=== PATIENT | female | born 1975 | race Caucasian/White ===

== ENCOUNTER 2018-05-15 07:00 | Day surgery (SDC) | payer OTHER ==
--- NOTE | 2018-05-14 13:56 | RAD REPORT ---
EXAM DESCRIPTION: RAD - Chest Pa And Lat (2 Views) - 05/14/2018 1:08 pm CLINICAL HISTORY: Preop chest, pending cardiac catheterization, history of smoking, history of pre c ervical carcinoma COMPARISON: AP chest December 2015, two view chest December 2010 TECHNIQUE: PA and lateral views of the chest were obtained. FINDINGS: The lungs are clear of a significant failure, infiltrate or mass. A few small granulomas a re present. Patient has a mild baseline prominence of the interstitial markings not clearly different back to 2000 09. Mediastinal and hilar regions show no suspicious findings or interval changes. Tra germán is midline. Heart size is normal and central vasculature is within normal limits. No pleural ef fusion or pneumothorax seen. No acute bony finding noted. No aortic abnormality. IMPRESSION: No acute cardiopulmonary process. No significant change from comparison.
[2018-05-14 15:13] LABS: Absolute Lymphocytes (CBC) 2.3 K/uL (0.7-4.9); Absolute Monocytes 0.5 K/uL (0.1-1.3); Basophils % 0.5 % (0-1.3); Eosinophils % 2.8 % (0-4.4); Hematocrit 44.8 % (36.0-45.0); Lymphocytes % 32.6 % (15.3-44.8); MCH 30.9 pg (27.0-35.0); MPV 8.7 fL (7.6-11.3); Monocytes % 7.3 % (3.3-12.3); RBC Red Blood Cell Count 4.98 M/uL (3.86-4.86)
[2018-05-14 15:27] LABS: Potassium 4.2 mmol/L (3.5-5.1)
[2018-05-14 15:45] LABS: Protime INR 0.92
[~2018-05-15 07:00] MED LIST: HEPA 1000U/500MLS 2,000 UNIT/1,000 ML BAG IV ONE; HEPARIN 5000 UNIT/ML 1 ML VIAL ONE; LIDOCAINE 1% 20 ML MDV ONE
[2018-05-15] MEDS ORDERED: FENTANYL CITR 100 MCG/2 ML ONE ×2 (07:01→08:25)
[2018-05-15] MEDS ORDERED: MIDAZOLAM HCL 2 MG/2 ML INJ ONE ×2 (07:01→07:57)
[2018-05-15] MEDS ORDERED: NITROGLYCERIN/D5W 25 MG/250 ML BTL IV ONE (07:02)
[2018-05-15] MEDS ORDERED: ATROPINE SULF 1 MG/10 ML SYR IV ONE (07:02)
[2018-05-15] MEDS ORDERED: NA CHLORIDE 0.9% 0 ML ONE (07:02)
[2018-05-15] MEDS ORDERED: NICARDIPINE HCL 25 MG/10 ML IV ONE (07:02)
[2018-05-15] MEDS ORDERED: NA CHLORIDE 0.9% 500 ML ONE (07:16)
[2018-05-15 08:05] VITALS: TEMP 98.2
[2018-05-15] MEDS ORDERED: NITROGLYCERIN 0.4 MG/TAB SL ONE (08:25)
--- NOTE | 2018-05-15 09:46 | OP ---
Surgeon: Bharathi Frazier MD Procedures: Left heart catheterization, coronary and left ventricular angiography. Indication: Chest pain with an abnormal stress test. Procedure Findings: The patient has normal coronary arteries and normal ejection fraction. She has a left ventricular outflow tract gradient across her aortic valve. The valve itself probably is not stenotic, but there seems to be a dynamic gradient at least during the heart cath and this is a possi ble cause of the pain that she has. Procedure In Detail: The patient was brought to the cardiac veterinarian laboratory animal care in a fasting state, sedated wit h Versed and fentanyl, prepared and draped in the usual sterile fashion. Right radial artery was use d. The tissues around the right radial artery were anesthetized using 1% lidocaine. The artery was entered using a 21-gauge needle, 0.021-inch guidewire, [employer] 6-Vincentian radial sheath were used. The sheath was flushed. Radial cocktail was given consisting of nicardipine, heparin, and nitroglycerin. We advanced a [employer] TIG catheter to the ascending aorta using a [employer] short radius J-tip Glidewir e, fluoroscopy. We used the same TIG catheter to angiogram the left ventricle, right coronary, and l eft coronary. There were no coronary stenoses. Catheter was withdrawn over a J-wire. Estimated blo od loss 5 mL. No apparent complications from the procedure. KEYLA/ESPERANZA Voice ID: [id number] Report ID: [id number]
[2018-05-15] MEDS: FENTANYL CITR 100 MCG/2 ML ONE ×2 (10:06→10:31)
[2018-05-15 10:10] VITALS: O2SAT 95
[2018-05-15 10:52] VITALS: BP 149/76
== END 2018-05-15 10:40 | disposition home or self-care (01) ==
LOC: CCL 07:00
PROVIDERS: ATTEND Internal Medicine
PROC: 4A023N7 Measurement of Cardiac Sampling and Pressure, Left Heart, Percutaneous Approach (ICD-10-PCS; principal; 2018-05-15)
PROC: B211YZZ Fluoroscopy of Multiple Coronary Arteries using Other Contrast (ICD-10-PCS; 2018-05-15)
PROC: B215YZZ Fluoroscopy of Left Heart using Other Contrast (ICD-10-PCS; 2018-05-15)
DX: I42.2 Other hypertrophic cardiomyopathy (principal); I51.7 Cardiomegaly; J45.909 Unspecified asthma, uncomplicated; E78.5 Hyperlipidemia, unspecified; I10 Essential (primary) hypertension; F17.210 Nicotine dependence, cigarettes, uncomplicated
CPT/HCPCS: 36415; 71046; 80048; 85025; 85610; 85730; 93458; C1893; J0583; J1644; J2250; J3010

== ENCOUNTER 2018-12-11 07:07 | Emergency (ER) | payer OTHER ==
[2018-12-11 07:46] LABS: Absolute Lymphocytes (CBC) 0.8 K/uL (0.7-4.9); Absolute Monocytes 0.7 K/uL (0.1-1.3); Absolute Neutrophil 7.7 K/uL (1.8-8.0); Basophils % 0.3 % (0-1.3); Eosinophils % 1.2 % (0-4.4); Hematocrit 42.7 % (36.0-45.0); Lymphocytes % 8.7 % (15.3-44.8); MPV 7.9 fL (7.6-11.3); Monocytes % 7.1 % (3.3-12.3); RBC Red Blood Cell Count 4.71 M/uL (3.86-4.86)
[2018-12-11] MEDS ORDERED: ASPIRIN 81 MG CHEWABLE TABLET ONE (07:51)
[2018-12-11 08:17] LABS: ALT/SGPT 39 U/L (12-78); AST/SGOT 35 U/L (15-37); Albumin 3.9 g/dL (3.4-5.0); Alkaline Phosphatase 101 U/L (45-117); BUN Blood Urea Nitrogen 11 mg/dL (7-18); Bicarbonate 24 mmol/L (21-32); Bilirubin Direct 0.2 mg/dL (0-0.2); Bilirubin Total 0.5 mg/dL (0.2-1.0); Glucose Level 139 mg/dL (74-106); NT PRO-BNP 31 pg/mL (<125); Potassium 3.9 mmol/L (3.5-5.1); Protein, Total 7.5 g/dL (6.4-8.2); Sodium Level 143 mmol/L (136-145); Troponin (Emerg Dept Use Only) < 0.02 ng/mL (0.0-0.045)
--- NOTE | 2018-12-11 08:51 | RAD REPORT ---
EXAM DESCRIPTION: Sasha Single View12/11/2018 7:30 am CLINICAL HISTORY: Chest pain COMPARISON: April 2016 FINDINGS: The lungs appear clear of acute infiltrate. The heart is normal size IMPRESSION: No acute abnormalities displayed
--- NOTE | 2018-12-11 10:39 | ER ---
Nurse's Notes [facility] Name: Flakita Barton Age: 43 yrs Sex: Female : 1975 Arrival Date: 12/11/2018 Time: 07:08 Bed 13 Private MD: Braxton Muse T Diagnosis: Chest pain, unspecified Presentation: 12/11 07:15 Presenting complaint: Patient states: "I have been having chest pain for 3 weeks now, ca1 but today is the worse". "I've had several cardiac test in the past week and it has all been negative". Transition of care: patient was not received from another setting of care. Onset of symptoms was December 11, 2018. Risk Assessment: Do you want to hurt yourself or someone else? Patient reports no desire to harm self or others. Initial Sepsis Screen: Does the patient meet any 2 criteria? No. Patient's initial sepsis screen is negative. Does the patient have a suspected source of infection? No. Patient's initial sepsis screen is negative. Care prior to arrival: None. 07:15 Method Of Arrival: Wheelchair ca1 07:15 Acuity: TAYO 3 ca1 Triage Assessment: 07:15 General: Appears in no apparent distress. Behavior is calm, cooperative, appropriate ca1 for age. Pain: Complains of pain in anterior aspect of left upper chest and mid-sternal area Pain radiates to back Pain currently is 7 out of 10 on a pain scale. Pain began 1 hour ago. 07:15 Cardiovascular: Heart tones S1 S2 Capillary refill < 3 seconds Rhythm is sinus rhythm. 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 LMP N/A - Hysterectomy ca1 Historical: - Allergies: 07:35 PENICILLINS; ca1 07:35 Codeine; ca1 - Home Meds: 07:35 topiramate 25 mg oral tab 2 tabs at bedtime [Active]; montelukast 10 mg oral tab 1 tab ca1 once daily [Active]; duloxetine 60 mg oral cpDR 1 cap once daily [Active]; Elmiron 100 mg oral cap 1 cap 3 times per day [Active]; rosuvastatin 20 mg oral tab 1 tab at night [Active]; Cartia XT 240 mg Oral cp24 1 cap once daily [Active]; quetiapine 100 mg oral tab [Active]; symbicort [Active]; Pro Air [Active]; - PMHx: 07:35 Hypertrophic Cardiomyopathy; Lung Nodule; Sleep Apnea; ca1 - PSHx: 07:35 Hysterectomy; Appendectomy; Cholecystectomy; Tonsillectomy; Knee surgery; Carpal Tunnel ca1 Repair; c section; leep; DnC; lithrotripsy; - Immunization history:: Flu vaccine is not up to date. - Social history:: Smoking status: Patient/guardian denies using tobacco. - Family history:: not pertinent. - Ebola Screening: : Patient negative for fever greater than or equal to 101.5 degrees Fahrenheit, and additional compatible Ebola Virus Disease symptoms Patient denies exposure to infectious person Patient denies travel to an Ebola-affected area in the 21 days before illness onset No symptoms or risks identified at this time. - Hospitalizations: : No recent hospitalization is reported. Screenin:20 Abuse screen: Denies threats or abuse. Denies injuries from another. Nutritional ca1 screening: No deficits noted. Tuberculosis screening: No symptoms or risk factors identified. Fall Risk None identified. Assessment: 07:20 General: Appears in no apparent distress. Behavior is calm, cooperative, appropriate ca1 for age. Pain: Complains of pain in mid-sternal area and anterior aspect of left upper chest Pain radiates to back Pain currently is 7 out of 10 on a pain scale. Pain began 1 hour ago. Neuro: Level of Consciousness is awake, alert, obeys commands, Oriented to person, place, time, situation. Cardiovascular: Heart tones S1 S2 present Capillary refill < 3 seconds Patient's skin is warm and dry. Rhythm is sinus rhythm. Respiratory: Reports Nasal Congestion Airway is patent Trachea midline Respiratory effort is even, unlabored, Respiratory pattern is regular, symmetrical, Breath sounds are clear bilaterally. GI: Abdomen is round non-distended, Bowel sounds present X 4 quads. Abd is soft and non tender X 4 quads. Reports diarrhea, the previous night. : No signs and/or symptoms were reported regarding the genitourinary system. EENT: No signs and/or symptoms were reported regarding the EENT system. Derm: Skin is intact, is healthy with good turgor, Skin is pink, warm \\T\\ dry. Musculoskeletal: Circulation, motion, and sensation intact. Capillary refill < 3 seconds, Range of motion: intact in all extremities. 08:03 Reassessment: Patient appears in no apparent distress at this time. Patient and/or ca1 family updated on plan of care and expected duration. Pain level reassessed. Patient is alert, oriented x 3, equal unlabored respirations, skin warm/dry/pink. 08:40 Reassessment: Dr. Bunch at bedside. Discussed tests results and instructed on need for ca1 repeat EKG and Trop. 09:26 Reassessment: Patient appears in no apparent distress at this time. Patient and/or ca1 family updated on plan of care and expected duration. Pain level reassessed. Patient is alert, oriented x 3, equal unlabored respirations, skin warm/dry/pink. 10:13 Reassessment: Patient appears in no apparent distress at this time. Patient and/or ca1 family updated on plan of care and expected duration. Pain level reassessed. Patient is alert, oriented x 3, equal unlabored respirations, skin warm/dry/pink. Vital Signs: 07:15 BP 129 / 80; Pulse 71; Resp 18; Temp 98.7; Pulse Ox 100% on R/A; Weight 95.25 kg; ca1 Height 5 ft. 9 in. (175.26 cm); Pain 7/10; 08:03 BP 115 / 77; Pulse 73; Resp 19; Pulse Ox 100% on R/A; ca1 08:45 BP 117 / 75; Pulse 70; Resp 17; Pulse Ox 98% on R/A; ca1 09:30 BP 113 / 71; Pulse 72; Resp 20; Pulse Ox 99% on R/A; ca1 10:13 BP 118 / 72; Pulse 64; Resp 19; Pulse Ox 99% on R/A; ca1 07:15 Body Mass Index 31.01 (95.25 kg, 175.26 cm) ca1 ED Course: 07:08 Patient arrived in ED. rg4 07:08 Braxton Muse MD is Private Physician. rg4 07:09 Carla Ventura RN is Primary Nurse. jl7 07:10 Kirill Bunch MD is Attending Physician. rn 07:15 Arm band placed on right wrist. ca1 07:20 Patient has correct armband on for positive identification. Placed in gown. Bed in low ca1 position. Call light in reach. Side rails up X 1. satellite project site monitor on. Pulse ox on. NIBP on. Warm blanket given. Head of bed elevated. 07:25 Kristen Mendoza, RN is Primary Nurse. ca1 07:25 Patient maintains SpO2 saturation greater than 95% on room air. ca1 07:27 Triage completed. ca1 07:29 X-ray completed. Portable x-ray completed in exam room. Patient tolerated procedure jb2 well. 07:33 EKG done, by supervisor microbiology technologists. reviewed by Kirill Bunch MD. at1 07:35 Inserted saline lock: 20 gauge in right antecubital area, using aseptic technique. ca1 Blood collected. 07:35 Initial lab(s) drawn, by me, sent to lab. ca1 07:38 XRAY Chest (1 view) In Process Unspecified. EDMS 09:41 EKG done, by supervisor microbiology technologists. reviewed by Kirill Bunch MD Repeat EKG. at1 09:43 Repeat lab(s) drawn. by me, sent to lab. ca1 10:37 Braxton Muse MD is Referral Physician. snw 10:48 No provider procedures requiring assistance completed. IV discontinued, intact, ca1 bleeding controlled, No redness/swelling at site. Pressure dressing applied. Administered Medications: 07:40 Drug: Aspirin Chewable Tablet 324 mg Route: PO; ca1 09:42 Follow up: Response: No adverse reaction; Pain is decreased ca1 Outcome: 10:38 Discharge ordered by MD. snw 10:48 Discharged to home ambulatory. ca1 10:48 Condition: stable 10:48 Discharge instructions given to patient, Instructed on discharge instructions, follow up and referral plans. Demonstrated understanding of instructions, follow-up care. 10:58 Patient left the ED. ca1 Signatures: Dispatcher [employer] EDMS Natalie Gunderson, BEAMER HAND-C BEAMER HAND-Csnw Russ Strauss jb2 Kirill Bunch MD MD rn Gonzales, Amanda, qa specialist EKG Tat1 Jacki Padgett rg4 Carla Ventura RN RN jl7 Kristen Mendoza RN RN ca1 Corrections: (The following items were deleted from the chart) 07:44 07:15 BP 129 / 80; Pulse 71bpm; Resp 18bpm; Pulse Ox 100% RA; Temp 98.7F; 95.25 kg; ca1 Height 5 ft. 9 in.; BMI: 31.0; Pain 9/10; ca1 07:52 07:15 Pain: Complains of pain in chest ca1 ca1 10:03 08:45 BP 113 / 71; Pulse 72bpm; Resp 20bpm; Pulse Ox 99% RA; ca1 ca1 :03 09: Reassessment: Patient appears in no apparent distress at this time. Patient ca1 and/or family updated on plan of care and expected duration. Pain level reassessed. Patient is alert, oriented x 3, equal unlabored respirations, skin warm/dry/pink. Awaiting result of repeat Trop. ca1 :03 09: Reassessment: Patient appears in no apparent distress at this time. Patient ca1 and/or family updated on plan of care and expected duration. Pain level reassessed. Patient is alert, oriented x 3, equal unlabored respirations, skin warm/dry/pink. Awaiting result of repeat Trop. ca1
--- NOTE | 2018-12-11 10:39 | EDPHYS ---
Physician Documentation [facility] Name: Flakita Barton Age: 43 yrs Sex: Female : 1975 Arrival Date: 12/11/2018 Time: 07:08 Bed 13 Private MD: Braxton Muse T ED Physician Kirill Bunch HPI: 12/11 07:24 This 43 yrs old Female presents to ER via Unassigned with complaints of Chest rn Pain, High Blood Pressure, Palpitations. 07:24 The patient or guardian reports chest pain that is located primarily in the chest rn diffusely. Onset: 3 week(s) ago. The pain does not radiate. Associated signs and symptoms: Pertinent positives: diaphoresis, palpitations, Pertinent negatives: headache, lightheadedness, near syncope. The chest pain is described as "explosion". Duration: The patient or guardian reports multiple episodes, that are intermittent. Modifying factors: The symptoms are alleviated by nothing. the symptoms are aggravated by nothing. Severity of pain: At its worst the pain was moderate in the emergency department the pain has improved. The patient has experienced similar episodes in the past. Reports diffuse chest pain, feels like "explosion in chest", reports began while doing her makeup. + previous w/u 7 months ago revealed abnormal stress test, ECHO showed hypertrophic cardiomyopathy, and cath was performed, which was negative for blockage, no stent placed. Reports 3 weeks of intermittent pain, today lasted longer, got worried, called her and came in to ER for evaluation.. 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 - Hysterectomy ca1 Historical: - Allergies: 07:35 PENICILLINS; ca1 07:35 Codeine; ca1 - Home Meds: 07:35 topiramate 25 mg oral tab 2 tabs at bedtime [Active]; montelukast 10 mg oral tab 1 tab ca1 once daily [Active]; duloxetine 60 mg oral cpDR 1 cap once daily [Active]; Elmiron 100 mg oral cap 1 cap 3 times per day [Active]; rosuvastatin 20 mg oral tab 1 tab at night [Active]; Cartia XT 240 mg Oral cp24 1 cap once daily [Active]; quetiapine 100 mg oral tab [Active]; symbicort [Active]; Pro Air [Active]; - PMHx: 07:35 Hypertrophic Cardiomyopathy; Lung Nodule; Sleep Apnea; ca1 - PSHx: 07:35 Hysterectomy; Appendectomy; Cholecystectomy; Tonsillectomy; Knee surgery; Carpal Tunnel ca1 Repair; c section; leep; DnC; lithrotripsy; - Immunization history:: Flu vaccine is not up to date. - Social history:: Smoking status: Patient/guardian denies using tobacco. - Family history:: not pertinent. - Ebola Screening: : Patient negative for fever greater than or equal to 101.5 degrees Fahrenheit, and additional compatible Ebola Virus Disease symptoms Patient denies exposure to infectious person Patient denies travel to an Ebola-affected area in the 21 days before illness onset No symptoms or risks identified at this time. - Hospitalizations: : No recent hospitalization is reported. ROS: 07:24 Constitutional: Negative for chills, and weight loss, Eyes: Negative for injury, pain, rn redness, and discharge, Neck: Negative for injury, pain, and swelling, Cardiovascular: Negative for edema Respiratory: Negative for shortness of breath, cough, wheezing, and pleuritic chest pain, Abdomen/GI: Negative for abdominal pain, vomiting, and constipation, + diarrhea MS/Extremity: Negative for injury and deformity, Skin: Negative for injury, rash, and discoloration, Neuro: Negative for headache, weakness, numbness, tingling, and seizure. Exam: 07:24 Constitutional: This is a well developed, well nourished patient who is awake, alert, rn appears anxious Head/Face: Normocephalic, atraumatic. Cardiovascular: Regular rate and rhythm with a normal S1 and S2. No gallops, murmurs, or rubs. No JVD. No pulse deficits. Respiratory: Lungs have equal breath sounds bilaterally, clear to auscultation. No increased work of breathing, no retractions or nasal flaring. Abdomen/GI: soft, non-tender Skin: Warm, dry with normal turgor. Normal color with no rashes, no lesions, and no evidence of cellulitis. MS/ Extremity: Pulses equal, no cyanosis. Neurovascular intact. Full, normal range of motion. Equal circumference. Neuro: Awake and alert, GCS 15, oriented to person, place, time, and situation. Cranial nerves II-XII grossly intact. Motor strength 5/5 in all extremities. Sensory grossly intact. 07:39 ECG was reviewed by the Attending Physician. rn Vital Signs: 07:15 BP 129 / 80; Pulse 71; Resp 18; Temp 98.7; Pulse Ox 100% on R/A; Weight 95.25 kg; ca1 Height 5 ft. 9 in. (175.26 cm); Pain 7/10; 08:03 BP 115 / 77; Pulse 73; Resp 19; Pulse Ox 100% on R/A; ca1 08:45 BP 117 / 75; Pulse 70; Resp 17; Pulse Ox 98% on R/A; ca1 09:30 BP 113 / 71; Pulse 72; Resp 20; Pulse Ox 99% on R/A; ca1 10:13 BP 118 / 72; Pulse 64; Resp 19; Pulse Ox 99% on R/A; ca1 07:15 Body Mass Index 31.01 (95.25 kg, 175.26 cm) ca1 MDM: 07:10 Patient medically screened. rn 10:39 Data reviewed: vital signs, nurses notes. Data interpreted: Pulse oximetry: on room air snw is 99 %. Interpretation: normal. Counseling: I had a detailed discussion with the patient and/or guardian regarding: the historical points, exam findings, and any diagnostic results supporting the discharge/admit diagnosis, lab results, radiology results, the need for outpatient follow up, to return to the emergency department if symptoms worsen or persist or if there are any questions or concerns that arise at home. Special discussion: Based on the patient's history, exam, and Dx evaluation, there is no indication for emergent intervention or inpatient Tx. It is understood by the patient/guardian that if the Sx's persist or worsen they need to return immediately for re-evaluation. Based on the history and exam findings, there is no indication for further emergent testing or inpatient evaluation. I discussed with the patient/guardian the need to see the customer advocacy manager for further evaluation of the symptoms. I discussed with the patient/guardian the need to see the primary care provider for further evaluation of the symptoms. 12/11 07:19 Order name: Basic Metabolic Panel; Complete Time: 08:20 rn 12/11 07:19 Order name: CBC with Diff; Complete Time: 08:08 rn 12/11 07:19 Order name: LFT's; Complete Time: 08:20 rn 12/11 07:19 Order name: NT PRO-BNP; Complete Time: 08:20 rn 12/11 07:19 Order name: Troponin (emerg Dept Use Only); Complete Time: 08:20 rn 12/11 09:31 Order name: Troponin (emerg Dept Use Only); Complete Time: 10:13 ca1 12/11 07:19 Order name: XRAY Chest (1 view); Complete Time: 08:56 rn 12/11 07:19 Order name: EKG; Complete Time: 07:20 rn 12/11 07:19 Order name: Cardiac monitoring; Complete Time: 07:43 rn 12/11 07:19 Order name: EKG - Nurse/Tech; Complete Time: 07:43 rn 12/11 07:19 Order name: IV Saline Lock; Complete Time: 07:43 rn 12/11 07:19 Order name: Labs collected and sent; Complete Time: 07:43 rn 12/11 09:53 Order name: EKG Electrocardiogram; Complete Time: 10:02 EDMS 12/11 07:19 Order name: O2 Per Protocol; Complete Time: 07:43 rn 12/11 07:19 Order name: O2 Sat Monitoring; Complete Time: 07:43 rn 12/11 09:31 Order name: EKG - Nurse/Tech; Complete Time: 09:43 ca1 EC:39 Rate is 72 beats/min. Rhythm is regular. QRS [place] is Normal. IN interval is normal. QRS rn interval is normal. QT interval is normal. No Q waves. T waves are Normal. No ST changes noted. Clinical impression: Normal ECG. Interpreted by me. Administered Medications: 07:40 Drug: Aspirin Chewable Tablet 324 mg Route: PO; ca1 09:42 Follow up: Response: No adverse reaction; Pain is decreased ca1 Disposition: 11:42 Co-signature as Attending Physician, Kirill Bunch MD. rn Disposition: 12/11/18 10:38 Discharged to Home. Impression: Chest pain, unspecified. - Condition is Stable. - Discharge Instructions: Nonspecific Chest Pain. - Work release form, Medication Reconciliation Form, Thank You Letter, Antibiotic Education, Prescription Opioid Use form. - Follow up: Braxton Muse MD; When: 1 - 2 days; Reason: Recheck today's complaints, Continuance of care, Re-evaluation by your physician. Follow up: Emergency Department; When: As needed; Reason: Worsening of condition. Signatures: Dispatcher [employer] EDMD Natalie Gunderson MATERIALS RESEARCH ENGINEER-C MATERIALS RESEARCH ENGINEER-Csnw Kirill Bunch MD MD rn AcobKristen RN RN ca1 Corrections: (The following items were deleted from the chart) 10:58 10:38 12/11/2018 10:38 Discharged to Home. Impression: Chest pain, unspecified. ca1 Condition is Stable. Forms are Medication Reconciliation Form, Thank You Letter, Antibiotic Education, Prescription Opioid Use. Follow up: Braxton Muse; When: 1 - 2 days; Reason: Recheck today's complaints, Continuance of care, Re-evaluation by your physician. Follow up: Emergency Department; When: As needed; Reason: Worsening of condition. snw
[2018-12-11 11:24] VITALS: TEMP 98.7
[2018-12-11 11:28] VITALS: O2SAT 99
[2018-12-11 11:29] VITALS: BP 118/72
--- NOTE | 2018-12-11 19:47 | EKG ---
Test Date: 2018-12-11 Test Time: 09:33:37 Car Seat Upholsterer: BERNARD MEASUREMENT RESULTS: Intervals: Rate: 66 NC: 168 QRSD: 76 QT: 416 QTc: 436 [place]: P: 41 NC: 168 QRS: 36 T: 56 INTERPRETIVE STATEMENTS: Normal sinus rhythm with sinus arrhythmia Normal ECG Compared to ECG 12/11/2018 07:22:51 No significant changes Electronically Signed On 12-11-18 19:45:38 PSYCH ASSISTANT by Long Jackson
--- NOTE | 2018-12-11 19:48 | EKG ---
Test Date: 2018-12-11 Test Time: 07:22:51 [place] Paver: BERNARD MEASUREMENT RESULTS: Intervals: Rate: 72 AK: 168 QRSD: 76 QT: 404 QTc: 442 [place]: P: 53 AK: 168 QRS: 29 T: 49 INTERPRETIVE STATEMENTS: Normal sinus rhythm Normal ECG Compared to ECG 01/14/2016 12:07:52 No significant changes Electronically Signed On 12-11-18 19:45:46 RADIO REPAIRMAN by Long Jackson
== END 2018-12-11 10:58 | disposition home or self-care (01) ==
LOC: ER 07:07
DX: R07.9 Chest pain, unspecified (principal); Z88.5 Allergy status to narcotic agent; Z88.0 Allergy status to penicillin
CPT/HCPCS: 36415; 71045; 80048; 80076; 83880; 84484; 85025; 93005; 99285

== ENCOUNTER 2020-03-22 13:21 | Emergency (ER) | payer OTHER ==
--- OUTSIDE RECORDS SUMMARY | 2020-03-22 13:27 | XMS REPORT | Summary of Care ---
:1975 Author Organization [facility] - [facility] Address [address] [place] [id number] Care Team Providers Name Role Phone Pcp, Does Not Have A Primary Care Provider Reason for Visit Reason Comments Cough Shortness of Breath Sore Throat Fever Other exhusband had direct contact to a positive covid19. Other chest thightness Encounter Details Date Type Department Care Team Description 02/12/2020 Urgent Care [facility] Family Maria T Galvan PA [address] [place] [id number] Fever, unspecified fever cause (Primary Dx); [facility] Acute [facility] Cough; [address] [place] [address] Exposure to SARS-associated coronavirus; [place], [place] Hypertrophic ca rdiomyopathy; [id number] HTN (hypertension), benign; [phone] MVP (mitral geovanny ve prolapse); Chest pain, uns pecified type Allergies Active Allergy Reactions Severity Noted Date Comments Codeine Unknown - See comments 12/21/2016 Penicillins Unknown - See comments 12/21/2016 documented as of this encounter (statuses as of 02/12/2020) Medications Medication Sig Dispensed Refills Start Date End Date Status triamcinolone acetonide APPLY TO RASH BID 1 11/06/20 16 Active 0.1 % cream PRN FOR UP TO TWO WEEKS azithromycin 250 mg 0 10/18/2016 Active tablet QUEtiapine 100 mg 0 12/20/2016 A ctive tablet predniSONE 10 mg tablet 0 10/18/2016 Active fluticasone propionate Use 1 [place] in 16 g 0 02/11/2020 Active 50 mcg/actuation nasal each nostril sprayIndications: Acute daily. URI brompheniramine-pseudoe Take 10 mL by 120 mL 0 02/11/2020 Active phedrine-DM (BROMFED mouth 4 (four) DM) 2-30-10 mg/5 mL times daily as syrupIndications: Acute needed for URI Congestion/Allerg ies. metformin ER 500 mg 24 Take 500 mg by 0 11/16/2019 Active hr tablet mouth 2 (two) times daily. topiramate 100 mg Take 100 mg by 0 01/29/2020 Active tablet mouth at bedtime. CARTIA XT 300 mg 24 hr Take 300 mg by 0 01/12/2020 Active capsule mouth daily. rosuvastatin 20 mg Take 20 mg by 0 01/28/2020 Active tablet mouth daily. AJOVY 225 mg/1.5 mL inject 1.5 mL 0 01/27/2020 Active Syrg under the skin once every month. gabapentin 300 mg 0 12/08/2019 A ctive capsule documented as of this encounter (statuses as of 02/12/2020) Active Problems Problem Noted Date Exposure to SARS-associated coronavirus 02/11/2020 Acute URI 02/11/2020 MVP (mitral valve prolapse) Hypertrophic cardiomyopathy HTN (hypertension), benign DM (diabetes mellitus) documented as of this encounter (statuses as of 02/12/2020) Social History Tobacco Use Types Packs/Day Years Used Date Former Smoker Smokeless Tobacco: Never Used Sex Assigned at Date Recorded Not on file Job Start Date Occupation Industry Not on file Not on file Not on file Travel History Travel Start Travel End No recent travel history available. documented as of this encounter Last Filed Vital Signs Vital Sign Reading Time Taken Comments Blood Pressure 129/75 02/12/2020 10:31 AM CDT Pulse 71 02/12/2020 10:31 AM CDT Temperature 36.6 C (97.8 F) 02/12/2020 10:31 AM CDT Respiratory Rate 20 02/12/2020 10:31 AM CDT Oxygen Saturation 97% 02/12/2020 10:31 AM CDT Inhaled Oxygen Concentration - - Weight 89.4 kg (197 lb) 02/12/2020 10:31 AM CDT Height - - Body Mass Index 29.09 12/21/2016 2:57 PM [employer] documented in this encounter Progress Notes Almaz Dyson MD - 02/12/2020 10:20 AM CDT Family Medicine Clinic Visit Date: 02/12/2020 CC: Cough; Shortness of Breath; Sore Throat; Fever; Other (exhusband had direct contact to a positive covid19.); and Other (chest thightness) HPI: Flakita Barton is a 44 year old female presents sick x 1 week with fever. Exposure to who was exposed to COVID. Has hx of hypertrophic cardiomyopathy, having SOB and Chest pains. CP: Home Medications: Current Outpatient Medications Medication Sig Dispense Refill AJOVY 225 mg/1.5 mL Syrg inject 1.5 mL under the skin once every month. CARTIA XT 300 mg 24 hr capsule Take 300 mg by mouth daily. gabapentin 300 mg capsule metformin ER 500 mg 24 hr tablet Take 500 mg by mouth 2 (two) times daily. rosuvastatin 20 mg tablet Take 20 mg by mouth daily. topiramate 100 mg tablet Take 100 mg by mouth at bedtime. hcrnhvzayxngjkd-gtuvflcamdmdzjk-TE (BROMFED DM) 2-30-10 mg/5 mL syrup Take 10 mL by mouth 4 (four) times daily as needed for Congestion/Allergies. 120 mL 0 fluticasone propionate 50 mcg/actuation nasal spray Use 1 [place] in each nostril daily. 16 g 0 azithromycin 250 mg tablet predniSONE 10 mg tablet QUEtiapine 100 mg tablet triamcinolone acetonide 0.1 % cream APPLY TO RASH BID PRN FOR UP TO TWO WEEKS 1 No current facility-administered medications for this visit. Allergies: Allergies Allergen Reactions Codeine Unknown - See comments Pcn [Penicillins] Unknown - See comments Histories: Past Medical History: Diagnosis Date DM (diabetes mellitus) HTN (hypertension), benign Hypertrophic cardiomyopathy Migraines MVP (mitral valve prolapse) No past surgical history on file. No family history on file. Social History Tobacco Use Smoking status: Former Smoker Smokeless tobacco: Never Used Substance Use Topics Alcohol use: Not on file Drug use: Not on file Review of Systems Constitutional: Positive for activity change, appetite change, fatigue and fever. Respiratory: Positive for cough and shortness of breath. Cardiovascular: Positive for chest pain. BP 129/75 | Pulse 71 | Temp 36.6 C (97.8 F) (Oral) | Resp 20 | Wt 197 lb (89.4 kg) | SpO2 97% | BMI 29.09 kg/m Physical Exam Constitutional: She appears well-developed and well-nourished. No distress. HENT: Head: Normocephalic. Eyes: Pupils are equal, round, and reactive to light. Neck: Normal range of motion. Neck supple. No thyromegaly present. Cardiovascular: Normal rate and regular rhythm. No murmur heard. Pulmonary/Chest: Effort normal and breath sounds normal. No respiratory distress. She has no wheezes. Musculoskeletal: Normal range of motion. She exhibits no edema. Lymphadenopathy: She has no cervical adenopathy. Skin: Skin is warm and dry. No rash noted. Psychiatric: She has a normal mood and affect. Her behavior is normal. Judgment and thought content normal. Nursing note and vitals reviewed. Assessment and Plan: Flakita Barton is a 44 year old female presents for: ICD-10-CM ICD-9-CM 1. Fever, unspecified fever cause R50.9 780.60 2. Cough R05 786.2 3. Exposure to SARS-associated coronavirus Z20.828 V01.82 4. Hypertrophic cardiomyopathy I42.2 425.18 5. HTN (hypertension), benign I10 401.1 6. MVP (mitral valve prolapse) I34.1 424.0 7. Chest pain, unspecified type R07.9 786.50 Chest pain and worsening SOB Possible COVID 19 Risk factors: cardiac, DM, htn Dispo: sent to ER for further eval Orders Placed This Encounter Procedures CORONAVIRUS COVID-19 TESTING Almaz Dyson MD Plan discussed with patient. The patient understands medications, there are not barriers for compliance, there are not side effects, and medications reconciled. Current medications are effective. Counseled patient about appropriate healthy behaviors and home self management. Patient able to explain back the plan and is provided a printed after visit summary (AVS) documenting the visit, pertinent patient instructions and follow-up recommendations. documented in this encounter Plan of Treatment Name Type Priority Associated Diagnoses Order S chedule CORONAVIRUS COVID-19 LAB Routine Fever, unspecified f ever Expected: 02/12/2020, TESTING cause Expires: 02/11/2021 Cough Health Maintenance Due Date Last Done Comments DTaP,Tdap,and Td Vaccines (1 - 1987 Tdap) PAP SMEAR 1997 Breast Cancer Screening 2016 (MAMMOGRAM) INFLUENZA VACCINE (#1) 2019 PNEUMOCOCCAL 0-64 YEARS COMBINED Aged Out No longer eligible based on SERIES patient's age to complete this topic documented as of this encounter Results Not on filedocumented in this encounter Visit Diagnoses Diagnosis Fever, unspecified fever cause - Primary Cough Exposure to SARS-associated coronavirus Hypertrophic cardiomyopathy Other hypertrophic cardiomyopathy HTN (hypertension), benign Essential hypertension, benign MVP (mitral valve prolapse) Mitral valve disorders Chest pain, unspecified type documented in this encounter documented as of this encounter"
--- OUTSIDE RECORDS SUMMARY | 2020-03-22 13:27 | XMS REPORT ---
:1975 Author Organization [facility] t Address [address] [place] [address] Dr. Mata [address] [place] [id number] Care Team Providers Name Role Phone Unavailable Unavailable Unavailable Problems This patient has no known problems. Allergies, Adverse Reactions, Alerts This patient has no known allergies or adverse reactions. Medications This patient has no known medications.
--- OUTSIDE RECORDS SUMMARY | 2020-03-22 13:28 | XMS REPORT | Summary of Care ---
:1975 Author Organization [facility] Address [address] [place] [id number] Care Team Providers Name Role Phone Pcp, Does Not Have A Primary Care Provider Reason for Visit Reason Comments Results Encounter Details Date Type Department Care Team Description 02/13/2020 Telephone [facility] Family Medicine Antwan Skinner MD Results - [address] [facility] [address] [place] [address] [place] [address] [phone] Allergies Active Allergy Reactions Severity Noted Date Comments Codeine Unknown - See comments 12/21/2016 Penicillins Unknown - See comments 12/21/2016 documented as of this encounter (statuses as of 02/14/2020) Medications Medication Sig Dispensed Refills Start Date End Date Status triamcinolone acetonide APPLY TO RASH BID 1 11/06/20 16 Active 0.1 % cream PRN FOR UP TO TWO WEEKS azithromycin 250 mg 0 10/18/2016 Active tablet QUEtiapine 100 mg 0 12/20/2016 A ctive tablet predniSONE 10 mg tablet 0 10/18/2016 Active fluticasone propionate Use 1 [place] in 16 g 0 02/11/2020 Active 50 [...] as of this encounter (statuses as of 02/14/2020) Active Problems Problem Noted Date Exposure to SARS-associated coronavirus 02/11/2020 Acute URI 02/11/2020 MVP (mitral valve prolapse) Hypertrophic cardiomyopathy HTN (hypertension), benign DM (diabetes mellitus) documented as of this encounter (statuses as of 02/14/2020) Social History Tobacco Use Types Packs/Day Years Used Date Former Smoker Smokeless Tobacco: Never Used Sex Assigned at Date Recorded Not on file Job Start Date Occupation Industry Not on file Not on file Not on file Travel History Travel Start Travel End No recent travel history available. documented as of this encounter Last Filed Vital Signs Not on filedocumented in this encounter Plan of Treatment Health Maintenance Due Date Last Done Comments HgA1C 1977 PNEUMOCOCCAL 0-64 YEARS COMBINED SERIES (1 of - 1982 PPSV23) EYE EXAM 1986 LDL-C 1986 URINE MICROALBUMIN 1986 DTaP,Tdap,and Td Vaccines (1 - Tdap) 1987 FOOT EXAM 1994 PAP SMEAR 1997 Breast Cancer Screening (MAMMOGRAM) 2016 INFLUENZA VACCINE (#1) 2019 CREATININE (SERUM) 02/11/2021 02/12/2020 documented as of this encounter Results Not on filedocumented in this encounter Insurance Payer Benefit Plan / Group Subscriber ID Effective Dates Phone Address Type [employer] [facility] [facility] C[facility] [id number] 2015-Present PPO documented as of this encounter
--- OUTSIDE RECORDS SUMMARY | 2020-03-22 13:28 | XMS REPORT | Summary of Care ---
:1975 Author Organization [facility] - [facility] Address [address] [place] [id number] Care Team Providers Name Role Phone Pcp, Does Not Have A Primary Care Provider Reason for Referral Radiology Services (STAT) Status Reason Specialty Diagnoses / Referred By Referred To Procedures Contact Contact New Request Diagnostic Diagnoses Cough Bernard Gomes, Radiology Procedures XR CHEST [address] [place] [address] [place] [address] Reason for Visit Reason Comments Chest wall pain (COVID) Auth/Cert Status Reason Specialty Diagnoses / Referred By Referred To Procedures Contact Contact Emergency Medicine [facility] Em ergency Dept [address] [place] [address] [place] [address] Fax: Encounter Details Date Type Department Care Team Description 02/12/2020 Emergency ADC-Emergency Bernard Gomes MD Cough (Primary Dx); Department [address] [place] [address] Influenza [address] [place] [address] [place] [phone] [place] [address] [phone] Allergies Active Allergy Reactions Severity Noted Date [...] 0 10/18/2016 Active fluticasone propionate Use 1 [place] in 16 g 0 02/11/2020 Active 50 [...] Sign Reading Time Taken Comments Blood Pressure 109/77 02/12/2020 2:05 PM CDT Pulse 67 02/12/2020 2:05 PM CDT Temperature 37.4 C (99.3 F) 02/12/2020 11:10 AM CDT Respiratory Rate 18 02/12/2020 2:05 PM CDT Oxygen Saturation 99% 02/12/2020 2:05 PM CDT Inhaled Oxygen Concentration - - Weight 89.4 kg (197 lb) 02/12/2020 11:10 AM CDT Height - - Body Mass Index 29.09 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 Cough R05 786.2 2. Influenza B J10.1 487.1 NO LIFE-THREATENING FINDINGS ON TODAY'S EXAM. YOUR PRESCRIPTIONS : Check out [employer] for medication discounts Medication List ASK your doctor about these medications AJOVY 225 mg/1.5 mL Syrg Generic drug: fremanezumab-vfrm azithromycin 250 mg tablet Commonly known as: ZITHROMAX zumfxyehysznzyi-fuipfkskswazmwq-ZO 2-30-10 mg/5 mL syrup Commonly known as: BROMFED DM Take 10 mL by mouth 4 (four) times daily as needed for Congestion/Allergies. CARTIA XT 300 mg 24 hr capsule Generic drug: diltiazem fluticasone propionate 50 mcg/actuation nasal spray Use 1 [place] in each nostril daily. gabapentin 300 mg capsule Commonly known as: NEURONTIN metformin ER 500 mg 24 hr tablet Commonly known as: GLUCOPHAGE-XR predniSONE 10 mg tablet Commonly known as: DELTASONE QUEtiapine 100 mg tablet Commonly known as: SEROQUEL rosuvastatin 20 mg tablet Commonly known as: CRESTOR topiramate 100 mg tablet Commonly known as: TOPAMAX triamcinolone acetonide 0.1 % cream Commonly known as: TRIDERM ER precautions and follow up : 1. Return to ER if your symptoms should worsen or fail to improve within 72 hours. 2. The care provided in the emergency room was for acute problems only. 3. You should follow up with your primary care provider within 72 hours. 4. Fill and take all your medications as prescribed. 5. Make sure you are staying adequately hydrated. Busque attencion immediatamente si usted tiene los sitomas sigue, vuelve peor o si hay sitomas nuevas o para cualquiera preoccupacion incluyendo dolor del pecho, falta aire, se siente debile, mas fievre, mas dolor, nausea, vomitando, sangrando que no es normal, confusion, baja or pierdas conciencia. MAY FOLLOW-UP WITH A PROVIDER OF YOUR CHOICE, SUCH : 1. A PHYSICIAN OF YOUR CHOICE 2. [facility], . LOCATIONS IN [facility] 3. [facility], [address], [place]; [phone] OR, IF YOU WISH TO FOLLOW-UP WITHIN THE [facility], MAY TRY THESE OPTIONS (CLINIC APPOINTMENTS AVAILABLE ON [id number] BASIS): 1. SCHEDULE AN APPOINTMENT ONLINE AT [email or web address] 2. OR CALL THE [facility] ACCESS CENTER AT OR 3. OR CALL YOUR [facility] PHYSICIAN'S OFFICE DIRECTLY IF YOU ARE ALREADY AN ESTABLISHED [facility] PATIENT. [facility] RETURN TO WORK / SCHOOL EXCUSE Flakita Barton WAS SEEN IN THE ER AND DISCHARGED 02/12/2020 TODAY, 1:53 PM & May return to Work / School / Incarceration on X with activity as tolerated indicated below. ___The following limitations apply until pt is seen by Physician and cleared to return to normal activity. _X_ Off for two days and return to activity as tolerated at work or school ___ No Sports ___ No work ___ Do not return until fever free for 24 hours. ___ No school BERNARD GOMES Jr., MD [facility] [address] [place] [address] [place] [address] ### The patient may have been given Narcotic pain medications during their stay in the ED that may show up on a Drug Screen. The hospital discharge paper work will identify these medications. AttachmentsThe following attachments cannot be sent through Care Everywhere. (Influenza), The Flu (Belarusian)documented in this encounter Plan of Treatment Name Type Priority Associated Diagnoses Date/Ti me THROAT CULTURE LAB STAT Cough 02/12/2020 11 :58 AM CDT Name Type Priority Associated Diagnoses Order S chedule THROAT CULTURE LAB Routine Cough ONCE for 1 Oc currences starting 02/12/2020 unti l 02/12/2020 Health Maintenance Due Date Last Done Comments HgA1C 1977 PNEUMOCOCCAL 0-64 YEARS COMBINED SERIES (1 of 1 - 1982 PPSV23) CREATININE (SERUM) 1986 EYE EXAM 1986 LDL-C 1986 URINE MICROALBUMIN 1986 DTaP,Tdap,and Td Vaccines (1 - Tdap) 1987 FOOT EXAM 1994 PAP SMEAR 1997 Breast Cancer Screening (MAMMOGRAM) 2016 INFLUENZA VACCINE (#1) 2019 documented as of this encounter Procedures Procedure Name Priority Date/Time Associated Comments Diagnosis XR CHEST 1 VW STAT 02/12/2020 1:29 Cough Results fo r this PM CDT procedure are i n the results section. ADC,CLC OR LCC ONLY - STAT 02/12/2020 11:58 Cough Re sults for this INFLUENZA A & B AM CDT procedure ar e in DIRECT ANTIGEN the results section. RAPID STREP SCREEN STAT 02/12/2020 11:58 Cough Resul ts for this FOR GROUP A AM CDT procedure are i n the results section. CBC WITH DIFFERENTIAL STAT 02/12/2020 11:57 Cough Re sults for this AM CDT procedure are i n the results section. N-TERMINAL PRO-BNP STAT 02/12/2020 11:57 Cough Resul ts for this AM CDT procedure are i n the results section. ACTIVATED PARTIAL STAT 02/12/2020 11:57 Cough Result s for this THRMPLAS JIMMIE AM CDT procedure are i n the results section. PROTHROMBIN TIME / STAT 02/12/2020 11:57 Cough Resul ts for this INR AM CDT procedure are i n the results section. CBC WITH DIFFERENTIAL Routine 02/12/2020 11:57 Cough Re sults for this AM CDT procedure are i n the results section. BASIC METABOLIC PANEL STAT 02/12/2020 11:57 Cough Re sults for this (NA, K, CL, CO2, AM CDT procedure a re in GLUCOSE, BUN, the results CREATININE, CA) section. HEPATIC FUNCTION STAT 02/12/2020 11:57 Cough Results for this PANEL (00877) AM CDT procedure are in (ALB,T.PRO,BILI the results T,BU/BC,ALT,AST,ALK section. PHOS) TROPONIN I STAT 02/12/2020 11:57 Cough Results for this AM CDT procedure are i n the results section. CREATINE KINASE STAT 02/12/2020 11:57 Cough Results for this AM CDT procedure are i n the results section. EKG-12 LEAD STAT 02/12/2020 11:38 AM CDT documented in this encounter Results XR CHEST 1 VW (02/12/2020 1:29 PM CDT) Specimen Narrative Performed At HISTORY: Cough. PACS/VR/DOSE TECHNIQUE: Portable AP view of the chest is obtained. FINDINGS: No acute pneumonia. Minimal congestion noted in the right lower lung. No pneumothorax or pleural effusion detected. Ca rdiac size is within normal limits. CONCLUSIONS: Probable bronchitis. No pneumonia. Procedure Note [facility], Radiant Results Inft User - 2019 1:41 PM CDT HISTORY: Cough. TECHNIQUE: Portable AP view of the chest is obtained. FINDINGS: No acute pneumonia. Minimal co ngestion noted in the right lower lung. No pneumothorax or pleural effusio n detected. Cardiac size is within normal limits. CONCLUSIONS: Probable bronchitis. No pne umonia. Performing Organization Address [facility] Phone Number PACS/VR/DOSE ADC,CLC OR LCC ONLY - INFLUENZA A & B DIRECT ANTIGEN (02/12/2020 11:58 AM CDT) Pathologist Sig nature Influenza A Negative Negative [facility] Influenza B Positive (A) Negative [facility] Specimen Swab - NARE, LEFT SIDE Performing Organization Address [facility] Phone Number [facility] CLIA: [id number], [address] [place], [place] [address] RAPID STREP SCREEN FOR GROUP A (02/12/2020 11:58 AM CDT) Pathologist Sig nature Streptococcus pyogenes Negative Negative [facility] (group A) antigen [facility] Specimen Swab - THROAT Performing Organization Address [facility] Phone Number [facility] CLIA: [id number], [address] [place], [place] [address] CBC WITH DIFFERENTIAL (02/12/2020 11:57 AM CDT) Pathologist Sig nature WBC 5.83 4.30 - 11.10 [facility] 10*3/L [facility]ITAL [facility] RBC 4.69 3.93 - 5.25 [facility] 10*6/L [facility] HGB 14.5 11.6 - 15.0 [facility] g/dL [facility] HCT 41.9 35.7 - 45.2 % [facility] MCV 89.3 80.6 - 95.5 fL [facility] MCH 30.9 25.9 - 32.8 pg [facility] MCHC 34.6 31.6 - 35.1 [facility] g/dL [facility] RDW-SD 38.5 (L) 39.0 - 49.9 fL [facility] RDW-CV 11.9 (L) 12.0 - 15.5 % [facility] PLT 266 166 - 358 [facility] 10*3/L [facility] MPV 10.2 9.5 - 12.9 fL [facility] NRBC/100 WBC 0.0 0.0 - 10.0 /100 [facility] WBCs [facility] NRBC x10^3 <0.01 10*3/L [facility] GRAN MAT (NEUT) % 67.3 % [facility] IMM GRAN % 0.30 % [facility] LYMPH % 21.8 % [facility] MONO % 8.4 % [facility] EOS % 1.7 % [facility] BASO % 0.5 % [facility] GRAN MAT x10^3(ANC) 3.92 1.88 - 7.09 [facility] 10*3/uL HOSPITAL [facility] IMM GRAN x10^3 <0.03 0.00 - 0.06 [facility] 10*3/uL [facility] LYMPH x10^3 1.27 (L) 1.32 - 3.29 [facility] 10*3/uL [facility]ITAL [facility] MONO x10^3 0.49 0.33 - 0.92 [facility] 10*3/uL [facility]ITAL [facility] EOS x10^3 0.10 0.03 - 0.39 [facility] 10*3/uL [facility]ITAL [facility] BASO x10^3 0.03 0.01 - 0.07 [facility] 10*3/uL [facility]ITAL [facility] Specimen Blood - VENOUS Performing Organization Address City/State/Zipcode Phone Number [facility] CLIA: [id number], [address] [place], [place] [address] CREATINE KINASE (02/12/2020 11:57 AM CDT) Pathologist Sig nature CK 35 33 - 194 U/L [facility] Specimen Blood - VENOUS Performing Organization Address [facility] Phone Number [facility] CLIA: [id number], [address] [place] [address] N-TERMINAL PRO-BNP (02/12/2020 11:57 AM CDT) Pathologist Sig nature NT-proBNP 41 <=125 pg/mL [facility] Specimen Blood - VENOUS Narrative Performed At [facility] has been reported to cause a negative [facility] bias, interpret results relative to patient's use of biotin. Performing Organization Address [facility] Phone Number [facility] CLIA: [id number], [address] [place] [address] Prothrombin Time (PT) / INR (02/12/2020 11:57 AM CDT) PROTIME PATIENT 12.5 12.0 - 14.7 [facility] LABORATORY INR 1.0Comment: Normal [facility] INR <1.1; Warfarin [facility] Therapeutic range LABORATORY 2.0 to 3.0 or 2.5 to 3.5, depending upon the indications. Specimen Blood - VENOUS Performing Organization Address [facility] Phone Number [facility] CLIA: [id number], [address] [place] [address] aPTT (02/12/2020 11:57 AM CDT) Pathologist Sig nature APTT Patient 24 23 - 38 Seconds [facility] Specimen Blood - VENOUS Narrative Performed At The [facility] patient population mean normal value [facility] for aPTT is 30 seconds. Performing Organization Address [facility] Phone Number [facility] CLIA: [id number], [address] [place], [place] [address] Troponin I (02/12/2020 11:57 AM CDT) Pathologist Sig [facility] TROPONIN I 0.005 <=0.034 ng/mL [facility] Specimen Blood - VENOUS Narrative Performed At Equal or Less than 0.034 ng/ml---Normal [facility] Note: Cardiac troponin begins to rise 3-4 hours after the onset of ischemia. Repeat in 4-6 hours if the sample was drawn within 3-4 hours of the onset of the symptom and found normal. Between 0.035 and 0.120 ng/mL--- Borderline. Questionable myocardial injury or necros is Note: Serial measurement may be necessary to confirm or exclude the diagnosis of myocardial injury or necrosis; Clinical correlation (symptoms, EKGs, imaging studies, and others) required; Repeat in 4-6 hours if clinically indicated. Equal or Higher than 0.121 ng/mL---Abnormal. Myocardial Injury or Necrosis Likely Biotin has been reported to cause a negative bias, interpret results relative to patient's use of biotin. Performing Organization Address [facility] Phone Number [facility] CLIA: [id number], [address] [place] [address] Hepatic Function Panel (ALB, T.PRO, BILI T, BU/BC, ALT, AST, ALK PHOS) (02/12/2020 11:57 AM CDT) Pathologist [facility] TOTAL BILI 0.3 0.1 - 1.1 mg/dL [facility] BILI UNCON 0.5 0.1 - 1.1 mg/dL [facility] BILI CONJ 0.0 0.0 - 0.3 mg/dL [facility] T PROTEIN 7.4 6.3 - 8.2 g/dL [facility] ALBUMIN 4.5 3.5 - 5.0 g/dL [facility] ALK PHOS 68 34 - 122 U/L [facility] ALTv 28 5 - 35 U/L [facility] AST(SGOT) 36 13 - 40 U/L [facility] Specimen Blood - VENOUS Performing Organization Address [facility] Phone Number [facility] CLIA: [id number], [address] [place] [address] Basic Metabolic Panel (NA, K, CL, CO2, GLUCOSE, BUN, CREATININE, CA) (02/12/2020 11:57 AM CDT) [facility] NA 139 135 - 145 mmol/L [facility] K 4.0 3.5 - 5.0 mmol/L [facility] CL 106 98 - 108 mmol/L [facility] CO2 TOTAL 27 23 - 31 mmol/L [facility] AGAP 6 2 - 16 [facility] BUN 13 7 - 23 mg/dL [facility] GLUCOSE 105 70 - 110 mg/dL [facility] CREATININE 0.79 0.50 - 1.04 [facility] mg/dL [facility] CALCIUM 9.5 8.6 - 10.6 mg/dL [facility] eGFR Calculation 79.4 mL/min/1.73m2 [facility] (Non-) [facility] LABORATOR Y eGFR Calculation 96.3 mL/min/1.73m2 [facility] () [facility] Specimen Blood - VENOUS Narrative Performed At Association of Glomerular Filtration Rate (GFR) [facility] and Staging of Kidney Disease* + + +- + | GFR (mL/min/1.73 m2) | With Kidney Damage | Without Kidney Damage + + +- + | >90 | Stage one | Normal + + +- + | 60-89 | Stage two | Decreased GFR + + +- + | 30-59 | Stage three | Stage three + + +- + | 15-29 | Stage four | Stage four + + +- + | <15 (or dialysis) | Stage five | Stage five + + +- + *Each stage assumes the associated GFR level has been in effect for at least three months. Stages 1 to 5, with or without kidney disease, indicate chronic kidney disease. Notes: Determination of stages one and two (with eGFR >59mL/min/1.73 m2) requires estimation of kidney damage for at least three months as defined by structural or functional abnormalities of the kidney, manifested by either: Pathological abnormalities or Markers of kidney damage (including abnormalities in the composition of the blood or urine or abnormalities in imaging tests). Performing Organization Address City/State/Zipcode Phone Number [facility] CLIA: [id number], [address] [place], [place] [address] documented in this encounter Visit Diagnoses Diagnosis Cough - Primary Influenza B Influenza with other respiratory manifes tations documented in this encounter documented as of this encounter"
[2020-03-22] MEDS ORDERED: PROMETHAZINE INJ 25 MG/ML AMP ONE (15:04)
[2020-03-22] MEDS ORDERED: FENTANYL CITR 100 MCG/2 ML ONE (15:05)
[2020-03-22] MEDS ORDERED: KETOROLAC 30 MG/ML INJ ONE (15:05)
[2020-03-22] MEDS ORDERED: NA CHLORIDE 0.9% 1,000 ML ONE (15:05)
[2020-03-22 15:07] LABS: Basophils % 0.4 % (0-1.3); Hematocrit 44.2 % (36.0-45.0); Lymphocytes % 10.5 % (15.3-44.8); MPV 8.2 fL (7.6-11.3)
[2020-03-22 15:18] LABS: Potassium 4.4 mmol/L (3.5-5.1)
--- NOTE | 2020-03-22 15:24 | RAD REPORT ---
EXAM DESCRIPTION: CT - Stone Protocol - 03/22/2020 3:10 pm CLINICAL HISTORY: ABD PAIN, prior hysterectomy, appendectomy and cholecystectomy COMPARISON: CT ABD PELVIS W CONTRAST dated 02/02/2016 TECHNIQUE: Axial 3 mm thick images were obtained without oral or IV contrast. The [id number] span s the entirety of the system including uppermost abdomen and lung bases. All CT scans are performed using dose optimization technique as appropriate and may include automated exposure control or mA/KV adjustment according to patient size. FINDINGS: Mild right-sided hydronephrosis is present secondary to a 1-2 mm calcification at the righ t UVJ. Stranding is seen adjacent to the right renal capsule and adjacent to the right renal pelvis. No other right-sided calcifications. A 3 millimeter calcification is present lower pole of the left k idney. No left-sided hydronephrosis. No suspicious renal masses. Isodense masses and pyelonephritis a re not excluded on a stone protocol CT scan. No significant adrenal finding. No urinary bladder suspi cious finding. Imaged portions of the liver, spleen and pancreas show no suspicious findings on non-contrast imaging . Cholecystectomy clips are present. No biliary tree dilatation. No suspicious bowel findings. No hernia, mass or bulky lymphadenopathy noted. No free air, free fluid or inflammatory stranding. No significant bony abnormality. IMPRESSION: Mild right-sided hydronephrosis secondary to a 1-2 mm right UVJ calculus. Isodense masses and pyelonephritis are not excluded on stone protocol technique. Additional nonacute findings as detailed above.
--- NOTE | 2020-03-22 15:41 | EDPHYS ---
Physician Documentation [facility] Name: Flakita Barton Age: 44 yrs Sex: Female : 1975 Arrival Date: 03/22/2020 Time: 13:24 Bed 23 Private MD: Braxton Muse T ED Physician Kirill Bunch HPI: 03/22 14:27 This 44 yrs old Female presents to ER via Ambulatory with complaints of snw Abdominal Pain, Back Pain, Nausea/Vomiting. 14:27 The patient presents with abdominal pain right lower quadrant. Onset: The snw symptoms/episode began/occurred suddenly, just prior to arrival. The symptoms radiate to right back. Associated signs and symptoms: Pertinent positives: nausea and vomiting. The symptoms are described as sharp, shooting. Severity of pain: At its worst the pain was severe in the emergency department the pain is unchanged. The patient has experienced similar episodes in the past, 7 yrs ago . The patient has not recently seen a physician. 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 - Social history:: Smoking status: Patient denies any tobacco usage or history of. Patient/guardian denies using alcohol, street drugs, tobacco products. ROS: 14:27 Constitutional: Negative for fever, chills, and weight loss, Eyes: Negative for injury, snw pain, redness, and discharge, ENT: Negative for injury, pain, and discharge, Neck: Negative for injury, pain, and swelling, Cardiovascular: Negative for chest pain, palpitations, and edema, Respiratory: Negative for shortness of breath, cough, wheezing, and pleuritic chest pain, Back: Negative for injury and pain, : Negative for injury, bleeding, discharge, and swelling, MS/Extremity: Negative for injury and deformity, Skin: Negative for injury, rash, and discoloration, Neuro: Negative for headache, weakness, numbness, tingling, and seizure, Psych: Negative for depression, anxiety, suicide ideation, homicidal ideation, and hallucinations. 14:27 Abdomen/GI: Positive for abdominal pain, nausea, vomiting, of the right lower quadrant. Exam: 14:26 Constitutional: This is a well developed, well nourished patient who is awake, alert, snw and in no acute distress. Head/Face: Normocephalic, atraumatic. Eyes: Pupils equal round and reactive to light, extra-ocular motions intact. Lids and lashes normal. Conjunctiva and sclera are non-icteric and not injected. Cornea within normal limits. Periorbital areas with no swelling, redness, or edema. ENT: Nares patent. No nasal discharge, no septal abnormalities noted. Tympanic membranes are normal and external auditory canals are clear. Oropharynx with no redness, swelling, or masses, exudates, or evidence of obstruction, uvula midline. Mucous membranes moist. Neck: Trachea midline, no thyromegaly or masses palpated, and no cervical lymphadenopathy. Supple, full range of motion without nuchal rigidity, or vertebral point tenderness. No Meningismus. Chest/axilla: Normal chest wall appearance and motion. Nontender with no deformity. No lesions are appreciated. Cardiovascular: Regular rate and rhythm with a normal S1 and S2. No gallops, murmurs, or rubs. Normal PMI, no JVD. No pulse deficits. Respiratory: Lungs have equal breath sounds bilaterally, clear to auscultation and percussion. No rales, rhonchi or wheezes noted. No increased work of breathing, no retractions or nasal flaring. Back: No spinal tenderness. No costovertebral tenderness. Full range of motion. Skin: Warm, dry with normal turgor. Normal color with no rashes, no lesions, and no evidence of cellulitis. MS/ Extremity: Pulses equal, no cyanosis. Neurovascular intact. Full, normal range of motion. Neuro: Awake and alert, GCS 15, oriented to person, place, time, and situation. Cranial nerves II-XII grossly intact. Motor strength 5/5 in all extremities. Sensory grossly intact. Cerebellar exam normal. Normal gait. Psych: Awake, alert, with orientation to person, place and time. Behavior, mood, and affect are within normal limits. 14:26 Abdomen/GI: Inspection: abdomen appears normal, Bowel sounds: normal, Palpation: moderate abdominal tenderness, in the right lower quadrant. Vital Signs: 13:32 BP 138 / 99; Pulse 80; Resp 18; Temp 97.2; Pulse Ox 100% ; Pain 10/10; ll1 15:15 BP 133 / 73; Pulse 81; Resp 18; Pulse Ox 100% on R/A; vc 15:57 BP 135 / 75; Pulse 74; Resp 19; Pulse Ox 100% ; vc MDM: 14:23 Patient medically screened. snw 15:42 Data reviewed: vital signs, nurses notes. Data interpreted: Pulse oximetry: on room air snw is 100 %. Interpretation: normal. Counseling: I had a detailed discussion with the patient and/or guardian regarding: the historical points, exam findings, and any diagnostic results supporting the discharge/admit diagnosis, the presence of at least one elevated blood pressure reading (>120/80) during this emergency department visit, lab results, radiology results, the need for outpatient follow up, for definitive care. Response to treatment: the patient's symptoms have markedly improved after treatment. Special discussion: Based on the patient's Hx, exam, and Dx evaluation, there is no indication for emergent surgery or inpatient Tx. It is understood by the patient/guardian that if the Sx's persist or worsen they need to return immediately for re-evaluation. I have referred the patient to see his PCP for further evaluation of high blood pressure. Based on the history and exam findings, there is no indication for further emergent testing or inpatient evaluation. I discussed with the patient/guardian the need to see the primary care provider for further evaluation of the symptoms. I discussed with the patient/guardian the need to see the urologist for further evaluation of the symptoms. 03/22 13:53 Order name: Urine Culture snw 03/22 13:53 Order name: Urine Microscopic Only; Complete Time: 15:50 snw 03/22 14:24 Order name: CT Stone Protocol; Complete Time: 15:31 snw 03/22 14:24 Order name: CBC with Diff; Complete Time: 15:31 snw 03/22 14:24 Order name: Chem 7; Complete Time: 15:31 snw 03/22 15:28 Order name: Urine Dipstick--Ancillary (enter results); Complete Time: 15:50 bd 03/22 13:53 Order name: Urine Dipstick-Ancillary (obtain specimen); Complete Time: 15:35 snw Administered Medications: 15:00 Drug: fentaNYL (PF) 50 mcg Route: IVP; Site: left antecubital; vc 15:56 Follow up: Response: No adverse reaction; Pain is decreased vc 15:00 Drug: TORadol 30 mg Route: IVP; Site: left antecubital; vc 15:56 Follow up: Response: No adverse reaction; Pain is decreased vc 15:00 Drug: Phenergan 12.5 mg Route: IVP; Site: left antecubital; vc 15:55 Follow up: Response: No adverse reaction vc 15:55 Follow up: Response: No adverse reaction; Nausea is decreased vc 15:16 Drug: NS 0.9% 1000 ml Route: IV; Rate: 1 bolus; Site: left antecubital; vc 16:16 Follow up: IV Status: Completed infusion; IV Intake: 700ml vc 15:55 Drug: Magnesium Oxide 400 mg Route: PO; vc 16:16 Follow up: Response: No adverse reaction vc 15:55 Drug: Cipro 500 mg Route: PO; vc 16:16 Follow up: Response: No adverse reaction vc 15:55 Drug: Flomax 0.4 mg Route: PO; vc 16:16 Follow up: Response: No adverse reaction vc Disposition: 16:32 Co-signature as Attending Physician, Kriill Bunch MD. rn Disposition: 03/22/20 15:41 Discharged to Home. Impression: Hydronephrosis with renal and ureteral calculous obstruction. - Condition is Stable. - Discharge Instructions: Kidney Stones, Hydronephrosis, Dietary Guidelines to Help Prevent Kidney Stones, Rehydration, Adult. - Prescriptions for Flomax 0.4 mg Oral Capsule, Sust. Release 24 hr - take 1 capsule by ORAL route once daily 1/2 hour following the same meal each day; 30 capsule. Cipro 500 mg Oral Tablet - take 1 tablet by ORAL route every 12 hours for 7 days; 14 tablet. Diclofenac Sodium 75 mg Oral Tablet Sustained Release - take 1 tablet by ORAL route 2 times per day; 30 tablet. promethazine 25 mg Oral Tablet - take 1 tablet by ORAL route every 6 hours As needed; 20 tablet. - Work release form, Medication Reconciliation Form, Thank You Letter, Antibiotic Education, Prescription Opioid Use form. - Follow up: Emergency Department; When: As needed; Reason: Worsening of condition. Follow up: Braxton Muse MD; When: 5 - 6 days; Reason: Recheck today's complaints, Continuance of care, Re-evaluation by your physician. Signatures: Dispatcher [employer] EDMS Natalie Gunderson, FERTILIZER PROCESSING SUPERVISOR-C FERTILIZER PROCESSING SUPERVISOR-Csnw Kirill Bunch MD MD rn Calcote, Vanessa, RN RN Trena Patel RN RN ll1 Corrections: (The following items were deleted from the chart) 16:23 15:41 03/22/2020 15:41 Discharged to Home. Impression: Hydronephrosis with renal and vc ureteral calculous obstruction. Condition is Stable. Forms are Medication Reconciliation Form, Thank You Letter, Antibiotic Education, Prescription Opioid Use. Follow up: Emergency Department; When: As needed; Reason: Worsening of condition. Follow up: Braxton Muse; When: 5 - 6 days; Reason: Recheck today's complaints, Continuance of care, Re-evaluation by your physician. snw
--- NOTE | 2020-03-22 15:41 | ER ---
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 No ll1 dysuria or fever. Coronavirus screen: Proceed with normal triage. Patient denies a cough. Patient denies shortness of breath or difficulty breathing. Patient denies measured and/or subjective temperature greater than 100.4F prior to today's visit. Patient denies travel on a cruise ship or to a country the [facility] currently lists as an affected area. Patient denies contact with known and/or suspected case of COVID-19. Ebola Screen: Patient denies travel to an Ebola-affected area in the 21 days before illness onset. Initial Sepsis Screen: Does the patient meet any 2 criteria? No. Patient's initial sepsis screen is negative. Does the patient have a suspected source of infection? No. Patient's initial sepsis screen is negative. Risk Assessment: Do you want to hurt yourself or someone else? Patient reports no desire to harm self or others. Onset of symptoms was March 22, 2020. 13:32 Method Of Arrival: Ambulatory ll1 13:32 Acuity: TAYO 3 ll1 Triage Assessment: 14:10 General: Appears in no apparent distress. uncomfortable, ill, Behavior is calm, vc cooperative, appropriate for age. Pain: Complains of pain in right lower quadrant Pain radiates to back. GI: Pt is actively vomiting undigested food, Reports nausea, vomiting. 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 - Social history:: Smoking status: Patient denies any tobacco usage or history of. Patient/guardian denies using alcohol, street drugs, tobacco products. Screenin:10 Abuse screen: Denies threats or abuse. Nutritional screening: No deficits noted. vc Tuberculosis screening: No symptoms or risk factors identified. Fall Risk None identified. Assessment: 14:10 GI: Bowel sounds present X 4 quads. Abd is soft Abdomen is tender to palpation. vc 14:10 General: Appears in no apparent distress. uncomfortable, ill, Behavior is calm, vc cooperative, appropriate for age. Pain: Complains of pain in right lower quadrant Pain radiates to lower back. Neuro: Level of Consciousness is awake, alert, obeys commands, Oriented to person, place, time, situation, none. Cardiovascular: Capillary refill < 3 seconds Patient's skin is warm and dry. Respiratory: Airway is patent Respiratory effort is even, unlabored, Respiratory pattern is regular, symmetrical. : Urine is cloudy, Reports pain in lower back. EENT: No deficits noted. Derm: No signs and/or symptoms reported regarding the dermatologic system. Musculoskeletal: Circulation, motion, and sensation intact. Range of motion: intact in all extremities. 15:10 Reassessment: Patient appears in no apparent distress at this time. Patient and/or vc family updated on plan of care and expected duration. Pain level reassessed. Patient is alert, oriented x 3, equal unlabored respirations, skin warm/dry/pink. Patient states symptoms have not improved. 16:10 Reassessment: Patient appears in no apparent distress at this time. Patient and/or vc family updated on plan of care and expected duration. Pain level reassessed. Patient is alert, oriented x 3, equal unlabored respirations, skin warm/dry/pink. Patient states feeling better. Patient states symptoms have improved. Vital Signs: 13:32 BP 138 / 99; Pulse 80; Resp 18; Temp 97.2; Pulse Ox 100% ; Pain 10/10; ll1 15:15 BP 133 / 73; Pulse 81; Resp 18; Pulse Ox 100% on R/A; vc 15:57 BP 135 / 75; Pulse 74; Resp 19; Pulse Ox 100% ; vc ED Course: 13:24 Patient arrived in ED. am2 13:24 Braxton Muse MD is Private Physician. am2 13:34 Triage completed. ll1 13:35 Arm band placed on Patient notified of wait time. ll1 13:52 Natalie Gunderson [facility]NP-C [facility]. snw 13:52 Kirill Bunch MD is Attending Physician. snw 14:10 Patient has correct armband on for positive identification. Bed in low position. Call vc light in reach. Pulse ox on. NIBP on. 14:22 Leidy Marshall RN is Primary Nurse. vc 14:55 Inserted saline lock: 20 gauge in left antecubital area, using aseptic technique. Blood vc collected. 15:11 CT Stone Protocol In Process Unspecified. EDMS 15:40 Braxton Muse MD is Referral Physician. snw 16:15 No provider procedures requiring assistance completed. IV discontinued, intact, vc bleeding controlled, No redness/swelling at site. Pressure dressing applied. Administered Medications: 15:00 Drug: fentaNYL (PF) 50 mcg Route: IVP; Site: left antecubital; vc 15:56 Follow up: Response: No adverse reaction; Pain is decreased vc 15:00 Drug: TORadol 30 mg Route: IVP; Site: left antecubital; vc 15:56 Follow up: Response: No adverse reaction; Pain is decreased vc 15:00 Drug: Phenergan 12.5 mg Route: IVP; Site: left antecubital; vc 15:55 Follow up: Response: No adverse reaction vc 15:55 Follow up: Response: No adverse reaction; Nausea is decreased vc 15:16 Drug: NS 0.9% 1000 ml Route: IV; Rate: 1 bolus; Site: left antecubital; vc 16:16 Follow up: IV Status: Completed infusion; IV Intake: 700ml vc 15:55 Drug: Magnesium Oxide 400 mg Route: PO; vc 16:16 Follow up: Response: No adverse reaction vc 15:55 Drug: Cipro 500 mg Route: PO; vc 16:16 Follow up: Response: No adverse reaction vc 15:55 Drug: Flomax 0.4 mg Route: PO; vc 16:16 Follow up: Response: No adverse reaction vc Intake: 16:16 IV: 700ml; Total: 700ml. vc Outcome: 15:41 Discharge ordered by . snw 16:15 Discharged to home ambulatory. vc 16:15 Condition: improved 16:15 Discharge instructions given to patient, Instructed on discharge instructions, follow up and referral plans. no drinking with medication, no driving heavy equipment, medication usage, Demonstrated understanding of instructions, follow-up care, medications, Prescriptions given X 4. 16:23 Patient left the ED. Signatures: Dispatcher [employer] EDMS Natalie Gunderson, KATH-C LOAN ASSOCIATE-[place] Tereza Roberts Vanessa, RN RN vc Lewis, Lynsay, RN RN ll1
[2020-03-22 15:43] LABS: Urine Amorphous Sediment 2+ /HPF (NONE SEEN); Urine Bacteria <20 /HPF (<20); Urine Culture Reflex Order NOT NEEDED; Urine Mucus 2+ /HPF (NONE SEEN)
[2020-03-22 15:44] LABS: Urine Blood TRACE (NEG); Urine Glucose NEGATIVE (NEG); Urine Protein NEGATIVE (NEG); Urine Specific Gravity 1.025 (1.005-1.030); Urine pH 8.5 (5.0-7.0)
[2020-03-22] MEDS ORDERED: TAMSULOSIN 0.4 MG SR CAP ONE (15:58)
[2020-03-22] MEDS ORDERED: CIPROFLOXACIN HCL 500 MG TAB ONE (15:58)
[2020-03-22] MEDS ORDERED: MAGNESIUM OXIDE 400 MG TAB ONE (15:59)
[2020-03-22 17:07] VITALS: TEMP 97.2; O2SAT 100
[2020-03-22 17:10] VITALS: BP 135/75
== END 2020-03-22 16:23 | disposition home or self-care (01) ==
LOC: ER 13:21
DX: N13.2 Hydronephrosis with renal and ureteral calculous obstruction (principal); Z88.0 Allergy status to penicillin; Z88.2 Allergy status to sulfonamides; Z88.5 Allergy status to narcotic agent; Z87.442 Personal history of urinary calculi
CPT/HCPCS: 87088; 85025; 87086; 80048; 36415; 76377; 74176; J2550; J3010; J7030; 81003; 81015; 96361; 96374; 96375; 99284

== ENCOUNTER → 2021-02-11 | Day surgery (SDC) | payer BC ==
--- NOTE | 2021-02-11 12:46 | RAD REPORT ---
EXAM DESCRIPTION: Ultrasound-guided vacuum assisted left breast core biopsy CLINICAL HISTORY: Breast mass R92.8 COMPARISON: No comparisons FINDINGS: Informed consent was obtained and time-out was performed. The patient's left breast was prepped and draped in the usual sterile fashion. 1% lidocaine was used for local anesthetic purposes. Utilizing aseptic technique and ultrasound guidance, a 12 gauge vacuum assisted core biopsy device wa s used to obtain two core specimens through the mass of interest left breast 3 o'clock position. A po st biopsy clip was then placed. All collected material was sent for cytology. Patient tolerated procedure well. IMPRESSION: Successful ultrasound guided vacuum assisted left breast mass biopsy.
--- NOTE | 2021-02-11 17:16 | RAD REPORT ---
EXAM DESCRIPTION: MRI - Brain Wo Cont - 02/11/2021 4:54 pm CLINICAL HISTORY: G43.709; I26.99; H81.10 COMPARISON: 2006 TECHNIQUE: Axial, sagittal, and coronal magnetic images of the brain were obtained. Contrast was not requested FINDINGS: No abnormal signal is present within the brain. Diffusion-weighted/ADC mapping does not reveal evidence of acute infarction. The ventricles are normal caliber. An extra-axial fluid collection is not present Fluid within the sinuses/mastoids is not noted. Mucous retention cyst left maxillary sinus IMPRESSION: No acute abnormality is displayed
== END ==
LOC: DS 09:47
PROVIDERS: ATTEND Internal Medicine
DX: R92.8 Other abnormal and inconclusive findings on diagnostic imaging of breast (principal); G43.709 Chronic migraine without aura, not intractable, without status migrainosus; I26.99 Other pulmonary embolism without acute cor pulmonale; H81.10 Benign paroxysmal vertigo, unspecified ear
CPT/HCPCS: 19083; 70551; 88305

== ENCOUNTER 2021-02-15 09:53 | Emergency (ER) | payer BC ==
--- OUTSIDE RECORDS SUMMARY | 2021-02-15 09:56 | XMS REPORT | Continuity of Care Document ---
:1975 Author Organization [facility] t Address [address] [place] [address] Care Team Providers Name Role Phone Lester Lentz Attending Clinician Moises Attending Clinician Miroslava Bridges DO Attending Clinician Seble SINGH Attending Clinician Radiology Attending Clinician Unavailable Ralph SINGH Attending Clinician Conor SINGH Attending Clinician Po, [facility] Attending Clinician Unavailable Seble SINGH Admitting Clinician Problems Condition Condition Condition Status Onset Resolution Last Treating Co mments Source Name Details Category Date Date Treatment Clinician Date Finding of Problem Active 2021-01-27 emoria body mass 01:29:49 l index Finding [place] (finding) of body mass index (finding) Active Problem 01/27/2021 [facility] Hypertensi Problem Active 2021-01-27 M emoria ve 01:29:49 l disorder, [place] systemic Hypertensi arterial ve (disorder) disorder, systemic arterial (disorder) Active Problem 01/27/2021 [facility] Hyperlipid Problem Active 2021-01-27 M emoria emia 01:29:49 l (disorder) [place] Hyperlipid emia (disorder) Active Problem 01/27/2021 [facility] Hypertroph Problem Active 2021-01-27 M emoria ic 01:29:49 l cardiomyop [place] athy Hypertroph (disorder) ic cardiomyop athy (disorder) Active Problem 01/27/2021 [facility] Hypothyroi Problem Active 2021-01-27 M emoria dism 01:29:49 l (disorder) [place] Hypothyroi dism (disorder) Active Problem 01/27/2021 [facility] Migraine Problem Active 2021-01-27 Mem oria (disorder) 01:29:49 l Migraine [place] (disorder) Active Problem 01/27/2021 [facility] Diabetes Problem Active 2021-01-27 Mem oria mellitus 01:29:49 l type 2 Diabetes [place] (disorder) mellitus type 2 (disorder) Active Problem 01/27/2021 Automatic ally added by Discern Expert with order of Add Problem Diabetes Type II on January 02, 2020 17:45:56 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 [facility] Steatosis Problem Active 2021-01-27 Me moria of liver 01:29:49 l (disorder) [place] Steatosis of liver (disorder) Active Problem 01/27/2021 [facility] Transforme Problem Active 2021-01-27 M emoria d migraine 01:29:49 l (disorder) [place] Transforme d migraine (disorder) Active Problem 01/27/2021 [facility] Benign Problem Active 2021-01-27 Memor ia paroxysmal 01:29:49 l positional Benign Herm silvia vertigo paroxysmal (disorder) positional vertigo (disorder) Active Problem 01/27/2021 [facility] Pulmonary Problem Active 2021-01-27 Me moria embolism 01:29:49 l (disorder) [place] n Pulmonary embolism (disorder) Active Problem 01/27/2021 [facility] Allergies, Adverse Reactions, Alerts Allergy Allergy Status Severity Reaction(s) Onset Inactive Treating Comm ents Source Name Type Date Date Clinician penicill penicill Active Memori a ins ins l [place] codeine codeine Active Memoria amor Sung naproxen naproxen Active Memori a amor Sung Dilaudid Dilaudid Active Memori a amor Sung Social History Smoking Status Start Date Stop Date Source Social History 2021-01-24 15:42:18 2021-01-24 15:42:18 [facility] Medications Ordered Filled Start Stop Current Ordering Indication Dosage Frequency Signature Comments Components Source Medication Medication Date Date Medication? Clinician (SIG) Name Name DULoxetine Yes 30 mg = 1 Me moria 30 mg oral 3-08 cap, PO, l delayed 17:50: Daily, # [place] n release 00 30 cap, 3 capsule Refill(s), Pharmacy: [facility] #[id number], 172.72, cm, 01/24/21 11:24:00 WOOL MERCHANT, Height, 101.364, kg, 01/24/21 11:24:00 WOOL MERCHANT, Weight apixaban 5 Yes 5 mg, PO, Me moria MG Oral 3-08 BID, tab, l Tablet 17:28: 0 [place] [Eliquis] 00 Refill(s) topiramate Yes See Memoria 100 mg oral 1-05 Instructio l tablet 14:53: ns, TAKE Pineda 00 ONE TABLET BY MOUTH AT BEDTIME, # 30 tab, 3 Refill(s), Pharmacy: [facility] [id number], 172.72, cm, 10/11/20 9:40:00 WOOL MERCHANT, Height, 100.455, kg, 10/11/20 9:40:00 WOOL MERCHANT, Weight meclizine 2019-11 Yes 25 mg = 1 Mem oria 25 mg oral 1-24 tab, PO, l tablet 19:20: BID, PRN Pineda 00 Dizziness, X 30 day, # 30 tab, 1 Refill(s), Pharmacy: [facility] #[id number], 172.72, cm, 10/11/20 9:40:00 WOOL MERCHANT, Height, 100.455, kg, 10/11/20 9:40:00 WOOL MERCHANT, Weight 1.5 ML 2019-11 Yes See Memoria fremanezuma 1-23 Instructio l b-vfrm 150 16:12: ns, INJECT H ermann MG/ML 00 1 Prefilled PREFILLED Syringe SYRINGE [Ajovy] UNDER THE SKIN MONTHLY, # 2 mL, 5 Refill(s), Pharmacy: [facility] 149, 172.72, cm, 10/11/20 9:40:00 WOOL MERCHANT, Height, 100.455, kg, 10/11/20 9:40:00 WOOL MERCHANT, Weight Meclizine 2019-11 No 25 mg = 1 Mem oria 1-23 tab, PO, l 16:08: BID, PRN Pineda 00 Dizziness, # 20 tab, 0 Refill(s) topiramate 2019-0 Yes See Memoria 100 mg oral 7-13 Instructio l tablet 20:35: ns, TAKE Pineda 00 ONE TABLET BY MOUTH AT BEDTIME, # 30 tab, 2 Refill(s), Pharmacy: [facility] [id number], 172.72, cm, 01/02/20 16:15:00 WOOL MERCHANT, Height, 93.636, kg, 01/02/20 16:15:00 WOOL MERCHANT, Weight topiramate 2019-0 Yes See Memoria 100 mg oral 3-12 Instructio l tablet 14:46: ns, # 30 Pineda 07 tab, Refill(s) 3, TAKE ONE TABLET BY MOUTH AT BEDTIME, Pharmacy: [place] [id number] 1.5 ML 2019-0 Yes 225 mg, Memoria fremanezuma 2-14 SUB-Q, l b-vfrm 150 22:49: qMonth, # He rmann MG/ML 00 1 kit, 3 Prefilled Refill(s), Syringe [facility] [id number] Metformin 2019-0 Yes 500 mg = 1 Me moria hydrochlori 2-14 tab, PO, l de 500 MG 22:20: BID, 0 [place] n Oral Tablet 00 Refill(s) gabapentin Yes See Memoria 300 MG Oral 1-20 Instructio l Capsule 19:19: ns, # 60 [place] n 49 unknown unit, Refill(s) 1, TAKE ONE CAPSULE BY MOUTH TWICE A DAY, Pharmacy: [place] [id number] gabapentin Yes See Memoria 300 MG Oral 7-31 Instructio l Capsule 21:08: ns, 1 cap Geetha nn 49 PO qam, 2 po qhs, # 90 cap, 3 Refill(s), Pharmacy: [place] [address] topiramate 2018-0 Yes 100 mg = 1 M emoria 100 mg oral 6-14 tab, PO, l tablet 18:41: Bedtime, # Geetha nn 00 30 tab, 3 Refill(s), Pharmacy: [place] [id number] pregabalin 2018- Yes 50 mg = 1 Me moria 50 MG Oral 6-14 cap, PO, l Capsule 18:41: Bedtime, # Emili silvia [Lyrica] 00 30 cap, 3 Refill(s) topiramate 2018-0 Yes 75 mg = 3 Me moria 25 mg oral 5-10 tab, PO, l tablet 21:33: Bedtime, # Geetha nn 02 90 tab, 3 Refill(s), Pharmacy: [place] [id number] topiramate No = 2 tab, Mem oria 25 mg oral 2-11 PO, l tablet 18:03: Bedtime, # Geetha nn 42 60 tab, Refill(s) 1, Pharmacy: [place] [id number] Vital Signs Vital Name Observation Time Observation Value Comments Source Systolic (mm Hg) 2021-01-24 15:41:00 Masood rial [place] Diastolic (mm Hg) 2021-01-24 15:41:00 Mem orial [place] Heart Rate 2021-01-24 15:41:00 [facility] [place] Respitory Rate 2021-01-24 15:41:00 Memori al [place] Height 2021-01-24 15:41:00 172.72 cm [facility] [place] Weight 2021-01-24 15:41:00 [facility] [place] BMI Calculated 2021-01-24 15:41:00 Memori al [place] Systolic (mm Hg) 2020-10-11 15:40:00 Masood rial [place] Diastolic (mm Hg) 2020-10-11 15:40:00 Mem orial [place] Heart Rate 2020-10-11 15:40:00 [facility] [place] Respitory Rate 2020-10-11 15:40:00 Memori al [place] Height 2020-10-11 15:40:00 172.72 cm [facility] [place] Weight 2020-10-11 15:40:00 [facility] [place] BMI Calculated 2020-10-11 15:40:00 Memori al [place] Systolic (mm Hg) 2020-01-02 22:15:00 Masood rial [place] Diastolic (mm Hg) 2020-01-02 22:15:00 Mem orial [place] Heart Rate 2020-01-02 22:15:00 [facility] [place] Respitory Rate 2020-01-02 22:15:00 Memori al [place] Height 2020-01-02 22:15:00 172.72 cm [facility] [place] Weight 2020-01-02 22:15:00 [facility] [place] BMI Calculated 2020-01-02 22:15:00 Memori al [place] Weight 2019-05-02 18:12:00 [facility] [place] BMI Calculated 2019-05-02 18:12:00 Memori al [place] Height 2019-05-02 18:12:00 170.18 cm [facility] [place] Systolic (mm Hg) 2019-05-02 18:12:00 Masood rial [place] Diastolic (mm Hg) 2019-05-02 18:12:00 Mem orial [place] Heart Rate 2019-05-02 18:12:00 [facility] [place] Respitory Rate 2019-05-02 18:12:00 Memori al [place] Weight 2019-03-28 21:13:00 [facility] [place] BMI Calculated 2019-03-28 21:13:00 Memori al [place] Height 2019-03-28 21:13:00 175.26 cm [facility] [place] Heart Rate 2019-03-28 21:13:00 [facility] [place] Respitory Rate 2019-03-28 21:13:00 Memori al [place] Systolic (mm Hg) 2019-03-28 21:13:00 Masood rial [place] Diastolic (mm Hg) 2019-03-28 21:13:00 Mem orial [address] Procedures This patient has no known procedures. Encounters Start End Encounter Admission Attending Care Care Encounter Source Date/Time Date/Time Type Type Clinicians Facility Department ID 2021-01-24 2021-01-24 Outpatient NIKITA Lentz [id number] 11:30:00 23:59:59 Josue Batista 2020-12-14 2020-12-14 Transition [place] [id number] 00:00:00 00:00:00 of Care Skye Alejo [id number] [place] [id number] 2020-12-10 2020-12-13 [facility] Marisela Bridges [facility] 1.2.84 0.114 [id number] 19:04:00 18:35:00 Encounter EligiogriceldaShirley Warren [id number] [place] [id number] [place] [id number] [facility] 2020-12-10 2020-12-10 [facility] Radiology [facility] [id number] 13:40:41 19:03:00 Encounter [place] [id number] [place] [id number] [place] [id number] 2020-12-10 2020-12-10 [facility] Radiology [facility] [id number] 13:40:26 19:03:00 Encounter [place] [id number] [place] [id number] [place] [id number] 2020-10-11 2020-10-11 Outpatient Krell, MHMISCHER MHMISCHER [id number] 09:00:00 23:59:59 Josue 16 [place] 2020-08-27 2020-08-27 Outpatient Krell, MHMISCHER MHMISCHER [id number] 16:00:00 16:00:00 Josue 15 Lester 2020-08-03 2020-08-03 Outpatient Krell, MHMISCHER MHMISCHER [id number] 16:00:00 16:00:00 Josue 14 Lester 2020-07-16 2020-07-16 Outpatient Krell, MHMISCHER MHMISCHER [id number] 15:45:00 15:45:00 Josue 12 Lester 2020-07-16 2020-07-16 Outpatient Krell, MHMISCHER MHMISCHER [id number] 15:45:00 15:45:00 Josue 13 Lester 2020-03-17 2020-03-17 Outpatient Krell, MHMISCHER MHMISCHER [id number] 13:00:00 23:59:59 Josue 11 Lester 2020-03-05 2020-03-05 Outpatient Krell, MHMISCHER MHMISCHER [id number] 15:45:00 15:45:00 Josue 10 [facility] 2020-02-13 2020-02-13 [facility] 1.2.840.114 [id number] 00:00:00 00:00:00 [facility] [id number] [place] [id number] Profess [id number] nal [address] 2020-02-12 2020-02-12 Emergency Perdomo, [facility] [id number] 11:08:26 14:13:00 Bernard Kelley [id number] [place] [id number] [place] [id number] 2020-02-12 2020-02-12 Urgent Pob1, Acute [facility] [id number] 10:20:06 10:40:06 [facility] [id number] [place] [id number] [facility] [id number] nal [address] 2020-01-02 2020-01-02 Outpatient Mary Carmen, MHMISCHER MHMISCHER [id number] 16:00:00 23:59:59 Josue 09 [place] 2019-06-27 2019-06-27 Outpatient Mary Carmen, MHMISCHER MHMISCHER [id number] 14:00:00 14:00:00 Josue 08 [place] 2019-05-02 2019-05-02 Outpatient Mary Carmen, MHMISCHER MHMISCHER [id number] 13:00:00 23:59:59 Josue 07 [place]ester 2019-03-28 2019-03-28 Outpatient Amieaden, MHMISCHER MHMISCHER [id number] 16:15:00 23:59:59 Josue 06 Lester 2018-09-06 2018-09-06 Outpatient Mary Carmen, MHMISCHER MHMISCHER [id number] 16:00:00 16:00:00 Josue 05 Lester Results Test Description Test Time Test Comments Results Result Comments Source HEMATOLOGY 2020-10-11 27.1 [facility] nn 16:52:00 HEMATOLOGY 2020-10-11 8.6 [facility] nn 16:52:00 HEMATOLOGY 2020-10-11 3.4 [facility] nn 16:52:00 HEMATOLOGY 2020-10-11 0.5 [facility] nn 16:52:00 HEMATOLOGY 2020-10-11 6 [facility] nn 16:52:00 CHEM PANEL 2020-10-11 136 [facility] nn 16:52:00 CHEM PANEL 2020-10-11 13 [facility] nn 16:52:00 CHEM PANEL 2020-10-11 0.82 [facility] nn 16:52:00 CHEM PANEL 2020-10-11 87 [facility] nn 16:52:00 CHEM PANEL 2020-10-11 101 [facility] nn 16:52:00 CHEM PANEL 2020-10-11 139 [facility] nn 16:52:00 CHEM PANEL 2020-10-11 4.7 [facility] nn 16:52:00 CHEM PANEL 2020-10-11 109 [facility] nn 16:52:00 CHEM PANEL 2020-10-11 25 [facility] nn 16:52:00 CHEM PANEL 2020-10-11 9.2 [facility] nn 16:52:00 CHEM PANEL 2020-10-11 6.9 [facility] nn 16:52:00 CHEM PANEL 2020-10-11 4.2 [facility] nn 16:52:00 CHEM PANEL 2020-10-11 2.7 [facility] nn 16:52:00 CHEM PANEL 2020-10-11 1.6 [facility] nn 16:52:00 CHEM PANEL 2020-10-11 0.3 [facility] nn 16:52:00 CHEM PANEL 2020-10-11 79 [facility] nn 16:52:00 CHEM PANEL 2020-10-11 12 [facility] nn 16:52:00 CHEM PANEL 2020-10-11 15 [facility] nn 16:52:00 HEMATOLOGY 2020-10-11 6.2 [facility] nn 16:52:00 HEMATOLOGY 2020-10-11 4.69 [facility] nn 16:52:00 HEMATOLOGY 2020-10-11 14.6 [facility] nn 16:52:00 HEMATOLOGY 2020-10-11 43.0 [facility] nn 16:52:00 HEMATOLOGY 2020-10-11 91.7 [facility] nn 16:52:00 HEMATOLOGY 2020-10-11 16:52:00 Test Item Value Reference Range Interpretation Comme nts MCH (test code = MCH) 31.1 pg 27.0-33.0 Memorial [id number] 16:52:0034.0[facility] HermannHEMATOLOGY 2020-10-11 16:52:0012.3[facility] [id number] 16:52:80303Abkmaamm [id number] 16:52:0010.6[facility] [id number] 16:52:223196Aqzaxjls [id number] 16:52:131871Nkqwldhn [place] [id number] 16:52:74979Bhxhqeor [id number] 16:52:79357 [facility] HkpmqhqQUTEECMZNA9505-97-22 16:52:0031Menhriwy HermannHEMATOLOGY 2020-10-11 16:52:0060.4[facility]
--- NOTE | 2021-02-15 10:27 | EDPHYS ---
Physician Documentation [facility] Name: Flakita Barton Age: 45 yrs Sex: Female : 1975 Arrival Date: 02/15/2021 Time: 09:54 Bed 7 Private MD: Andres Blas ED Physician Niru Mercer HPI: 02/15 10:23 This 45 yrs old Female presents to ER via Ambulatory with complaints of blood ma2 in urine, Pain With Urination. 10:23 Onset: The symptoms/episode began/occurred gradually, 2 day(s) ago. Severity of ma2 symptoms: At their worst the symptoms were very mild, in the emergency department the symptoms have resolved. patient is here with dysuria and frequescy and mild hematuria that resolved, she is on aliques for pe . MEDICATION AID: 10:10 LMP N/A - Hysterectomy bp Historical: - Allergies: 10:06 Codeine; bp 10:06 PENICILLINS; bp 10:06 sulfamethoxazole; bp - Home Meds: 10:06 topiramate 25 mg Oral tab 2 tabs at bedtime [Active]; Eliquis oral oral [Active]; bp rosuvastatin 20 mg Oral tab 1 tab AT NIGHT [Active]; duloxetine 60 mg Oral cpDR 1 cap once daily [Active]; OZEMPIC [Active]; - PMHx: 10:06 Hypertrophic cardiomyopathy; Kidney stones; Lung Nodule; Sleep Apnea; Migraines; bp Diabetes - NIDDM; - Immunization history:: Adult Immunizations up to date. - Social history:: Smoking status: Patient denies any tobacco usage or history of. Patient/guardian denies using alcohol, street drugs, The patient lives with family. - Family history:: not pertinent. ROS: 10:23 Negative for menstrual abnormality, missed period. ma2 10:23 Constitutional: Negative for fever, chills, and weight loss. 10:23 All other systems are negative. Exam: 10:23 Constitutional: This is a well developed, well nourished patient who is awake, alert, ma2 and in no acute distress. Cardiovascular: Regular rate and rhythm with a normal S1 and S2. No gallops, murmurs, or rubs. Normal PMI, no JVD. No pulse deficits. Respiratory: Lungs have equal breath sounds bilaterally, clear to auscultation and percussion. No rales, rhonchi or wheezes noted. No increased work of breathing, no retractions or nasal flaring. Abdomen/GI: Soft, non-tender, with normal bowel sounds. No distension or tympany. No guarding or rebound. No evidence of tenderness throughout. MS/ Extremity: Pulses equal, no cyanosis. Neurovascular intact. Full, normal range of motion. Neuro: Awake and alert, GCS 15, oriented to person, place, time, and situation. Cranial nerves II-XII grossly intact. Motor strength 5/5 in all extremities. Sensory grossly intact. Cerebellar exam normal. Normal gait. Vital Signs: 10:02 BP 144 / 99; Pulse 85; Resp 17; Temp 99.6; Pulse Ox 97% ; Weight 99.79 kg; Height 5 ft. bp 9 in. (175.26 cm); 10:52 BP 116 / 79; Pulse 73; Resp 16; Temp 99.1; Pulse Ox 99% ; bp 10:02 Body Mass Index 32.49 (99.79 kg, 175.26 cm) bp MDM: 09:55 Patient medically screened. ma2 10:23 Differential diagnosis: postcoital bleeding, urinary tract infection, vaginosis. Data ma2 reviewed: vital signs, nurses notes, lab test result(s). Counseling: I had a detailed discussion with the patient and/or guardian regarding: the historical points, exam findings, and any diagnostic results supporting the discharge/admit diagnosis, the presence of at least one elevated blood pressure reading (>120/80) during this emergency department visit, the need for outpatient follow up. Response to treatment: the patient's symptoms have markedly improved after treatment. 02/15 10:19 Order name: Urine Dipstick--Ancillary (enter results) bd 02/15 10:19 Order name: Urine --Ancillary (enter results) bd 02/15 09:56 Order name: Urine Dipstick-Ancillary (obtain specimen); Complete Time: 10:19 ma2 Administered Medications: 10:51 Drug: TORadol 60 mg Route: IM; Site: right deltoid; bp 10:54 Follow up: Response: No adverse reaction bp 10:51 Drug: Cipro (ciprofloxacin) 500 mg Route: PO; bp 10:54 Follow up: Response: No adverse reaction bp Disposition: 02/15/21 10:26 Discharged to Home. Impression: Cystitis, unspecified with hematuria. - Condition is Stable. - Discharge Instructions: Urinary Tract Infection, Adult, Fbwx-mg-Wsft. - Prescriptions for Cipro 500 mg Oral Tablet - take 1 tablet by ORAL route every 12 hours for 7 days; 14 tablet. Diclofenac Sodium 75 mg Oral Tablet Sustained Release - take 1 tablet by ORAL route 2 times per day; 30 tablet. - Work release form, Medication Reconciliation Form, Thank You Letter, Antibiotic Education, Prescription Opioid Use form. - Follow up: Private Physician; When: Tomorrow; Reason: If symptoms return, Continuance of care. Signatures: Dispatcher [employer] Esteban Hickman RN RN bp Alzahri, Mohammad, MD MD ma2 Corrections: (The following items were deleted from the chart) 11:02 10:26 02/15/2021 10:26 Discharged to Home. Impression: Cystitis, unspecified with bp hematuria. Condition is Stable. Forms are Work release form, Medication Reconciliation Form, Thank You Letter, Antibiotic Education, Prescription Opioid Use. Follow up: Private Physician; When: Tomorrow; Reason: If symptoms return, Continuance of care. ma2
--- NOTE | 2021-02-15 10:27 | ER ---
Nurse's Notes [facility] Name: Flakita Barton Age: 45 yrs Sex: Female : 1975 Arrival Date: 02/15/2021 Time: 09:54 Bed 7 Private MD: Andres Blas Diagnosis: Cystitis, unspecified with hematuria Presentation: 02/15 10:02 Chief complaint: Patient states: BLOOD IN URINE AND PELVIC PAIN SINCE Y/D. Coronavirus bp screen: At this time, the client does not indicate any symptoms associated with coronavirus-19. Ebola Screen: No symptoms or risks identified at this time. Initial Sepsis Screen: Does the patient meet any 2 criteria? No. Patient's initial sepsis screen is negative. Does the patient have a suspected source of infection? No. Patient's initial sepsis screen is negative. Risk Assessment: Do you want to hurt yourself or someone else? Patient reports no desire to harm self or others. Onset of symptoms is unknown. 10:02 Method Of Arrival: Ambulatory bp 10:02 Acuity: TAYO 3 bp Triage Assessment: 10:06 General: Appears distressed, uncomfortable, Behavior is cooperative, appropriate for bp age, anxious. Pain: Complains of pain in suprapubic area. EENT: No deficits noted. Neuro: No deficits noted. Cardiovascular: No deficits noted. Respiratory: No deficits noted. GI: No signs and/or symptoms were reported involving the gastrointestinal system. : Reports pain with urination. Derm: No deficits noted. Musculoskeletal: No deficits noted. FRONT EDGER: 10:10 LMP N/A - Hysterectomy bp Historical: - Allergies: 10:06 Codeine; bp 10:06 PENICILLINS; bp 10:06 sulfamethoxazole; bp - Home Meds: 10:06 topiramate 25 mg Oral tab 2 tabs at bedtime [Active]; Eliquis oral oral [Active]; bp rosuvastatin 20 mg Oral tab 1 tab AT NIGHT [Active]; duloxetine 60 mg Oral cpDR 1 cap once daily [Active]; OZEMPIC [Active]; - PMHx: 10:06 Hypertrophic cardiomyopathy; Kidney stones; Lung Nodule; Sleep Apnea; Migraines; bp Diabetes - NIDDM; - Immunization history:: Adult Immunizations up to date. - Social history:: Smoking status: Patient denies any tobacco usage or history of. Patient/guardian denies using alcohol, street drugs, The patient lives with family. - Family history:: not pertinent. Screenin:10 Abuse screen: Denies threats or abuse. Denies injuries from another. Nutritional bp screening: No deficits noted. Tuberculosis screening: No symptoms or risk factors identified. Fall Risk None identified. Assessment: 10:10 General: SEE TRIAGE NOTE. bp 10:52 Reassessment: PT D/C HOME AMBULATORY, DX WITH CYSTITIS. bp Vital Signs: 10:02 BP 144 / 99; Pulse 85; Resp 17; Temp 99.6; Pulse Ox 97% ; Weight 99.79 kg; Height 5 ft. bp 9 in. (175.26 cm); 10:52 BP 116 / 79; Pulse 73; Resp 16; Temp 99.1; Pulse Ox 99% ; bp 10:02 Body Mass Index 32.49 (99.79 kg, 175.26 cm) bp ED Course: 09:54 Patient arrived in ED. am2 09:55 Andres Blas MD is Private Physician. am2 09:55 Niru Mercer MD is Attending Physician. ma2 09:56 Esteban Aguirre, RN is Primary Nurse. bp 10:02 Triage completed. bp 10:06 Arm band placed on. bp 10:10 Patient has correct armband on for positive identification. Bed in low position. Call bp light in reach. Side rails up X2. 10:53 No provider procedures requiring assistance completed. Patient did not have IV access bp during this emergency room visit. Administered Medications: 10:51 Drug: TORadol 60 mg Route: IM; Site: right deltoid; bp 10:54 Follow up: Response: No adverse reaction bp 10:51 Drug: Cipro (ciprofloxacin) 500 mg Route: PO; bp 10:54 Follow up: Response: No adverse reaction bp Outcome: 10:26 Discharge ordered by . ma2 10:53 Discharged to home ambulatory. bp 10:53 Condition: stable 10:53 Discharge instructions given to patient, Instructed on discharge instructions, follow up and referral plans. medication usage, Demonstrated understanding of instructions, follow-up care, medications, Prescriptions given X 2. 11:02 Patient left the ED. bp Signatures: Tereza Roberts am2 Esteban Aguirre, RN RN bp Niru Mercer MD MD ma2 Corrections: (The following items were deleted from the chart) 10: 10:02 99.79 kg; Height 5 ft. 9 in.; BMI: 32.4; bp bp
[2021-02-15] MEDS ORDERED: KETOROLAC 30 MG/ML INJ ONE (10:41)
[2021-02-15] MEDS ORDERED: CIPROFLOXACIN HCL 500 MG TAB ONE (10:41)
[2021-02-15 10:52] LABS: Urine Blood 3+ (Negative); Urine Glucose 2+ (Negative); Urine Protein 1+ (Negative); Urine Specific Gravity >1.030 (1.005-1.030); Urine Specific Gravity/Preg >1.030 (1.005-1.030); Urine pH 5.5 (5.0-7.0)
== END 2021-02-15 11:02 | disposition home or self-care (01) ==
LOC: ER 09:53
DX: N30.91 Cystitis, unspecified with hematuria (principal); E11.9 Type 2 diabetes mellitus without complications; Z88.0 Allergy status to penicillin; Z88.2 Allergy status to sulfonamides; Z88.5 Allergy status to narcotic agent
CPT/HCPCS: 81003; 81025; 96372; 99283

== ENCOUNTER 2021-03-07 10:43 | Emergency (ER) | payer BC ==
--- OUTSIDE RECORDS SUMMARY | 2021-03-07 10:45 | XMS REPORT | Continuity of Care Document ---
:1975 Author Organization [facility] t Address [address] [place] [place] [address] Care Team Providers Name Role Phone Lester Lentz Attending Clinician Moises Attending Clinician Miroslava Bridges DO Attending Clinician Seble SINGH Attending Clinician Radiology Attending Clinician Unavailable Ralph SINGH Attending Clinician Conor SINGH Attending Clinician [address] [facility] Attending Clinician Unavailable Seble SINGH Admitting Clinician Problems This patient has no known problems. Allergies, Adverse Reactions, Alerts This patient has no known allergies or adverse reactions. Medications This patient has no known medications. Procedures This patient has no known procedures. Encounters Start End Encounter Admission Attending Care Care Encounter Source Date/Time Date/Time Type Type Clinicians Facility Department ID 2021-01-24 2021-01-24 Outpatient NIKITA Lentz [facility] [id number] 11:30:00 23:59:59 Josue Batista 2020-12-14 2020-12-14 Transition [place] [id number] 00:00:00 00:00:00 of Care Skye Alejo [id number] [place] [id number] 2020-12-10 2020-12-13 [facility] Marisela Bridges [facility] [id number] 19:04:00 18:35:00 Encounter Shirley Pruett [id number] [place] [id number] [place] [id number] 2020-12-10 2020-12-10 [facility] Radiology [facility] [id number] 13:40:41 19:03:00 Encounter [place] [id number] [place] [id number] [place] [id number] 2020-12-10 2020-12-10 [facility] Radiology [facility] [id number] 13:40:26 19:03:00 Encounter Warren [id number] [place] [id number] [place] [id number] [id number] 2020-10-11 2020-10-11 Outpatient Mary Carmen, [facility] [id number] 09:00:00 23:59:59 Josue 16 Lester 2020-08-27 2020-08-27 Outpatient Mary Carmen, [facility] [id number] 16:00:00 16:00:00 Josue 15 Lester 2020-08-03 2020-08-03 Outpatient Mary Carmen, [facility] [id number] 16:00:00 16:00:00 Josue 14 Lester 2020-07-16 2020-07-16 Outpatient Mary Carmen, [facility] [id number] 15:45:00 15:45:00 Josue 12 Lester 2020-07-16 2020-07-16 Outpatient Mary Carmen, [facility] M[facility] [id number] 15:45:00 15:45:00 Josue 13 Lester 2020-03-17 2020-03-17 Outpatient Mary Carmen, [facility] M[facility] [id number] 13:00:00 23:59:59 Josue 11 Lester 2020-03-05 2020-03-05 Outpatient Mary Carmen, [facility] M[facility] [id number] 15:45:00 15:45:00 Josue 10 Lester 2020-02-13 2020-02-13 Telephone Ralph, [facility] [id number] 00:00:00 00:00:00 [facility] [id number] [place] [id number] [facility] [phone] [place] [address] [address] 2020-02-12 2020-02-12 Emergency Perdomo, [facility] [id number] 11:08:26 14:13:00 Bernard [place] [id number] [place] [id number] [place] [id number] 2020-02-12 2020-02-12 Urgent Pob1, Acute [facility] [id number] 10:20:06 10:40:06 [facility] [id number] [place] [id number] [facility] [id number] [place] [address] [address] 2020-01-02 2020-01-02 Outpatient Mary Carmen, [facility] M[facility] [id number] 16:00:00 23:59:59 Josue 09 Lester 2019-06-27 2019-06-27 Outpatient Mary Carmen, [facility] M[facility] [id number] 14:00:00 14:00:00 Josue 08 Lester 2019-05-02 2019-05-02 Outpatient Mary Carmen, [facility] [id number] 13:00:00 23:59:59 Josue 07 Lester 2019-03-28 2019-03-28 Outpatient Mary Carmen, [facility] [id number] 16:15:00 23:59:59 Josue 06 Lester 2018-09-06 2018-09-06 Outpatient Mary Carmen, M[facility]ER M[facility]IS[facility]ER [id number] 16:00:00 16:00:00 Josue Batista Results This patient has no known results.
--- NOTE | 2021-03-07 12:43 | RAD REPORT ---
EXAM DESCRIPTION: CT - Stone Protocol - 03/07/2021 12:28 pm CLINICAL HISTORY: Hematuria COMPARISON: 2019 TECHNIQUE: Computed axial tomography of the abdomen pelvis was obtained without oral or IV contrast. Lack of IV and oral contrast limits evaluation of solid organs, bowel, and vessels. Coronal reformat warren images were obtained and reviewed. All CT scans are performed using dose optimization technique as appropriate and may include automated exposure control or mA/KV adjustment according to patient size. FINDINGS: Bilateral small renal calculi. 7 millimeter calculus left renal pelvis with mild hydronephrosis. Hounsfield unit of 1363. The liver, spleen, pancreas and adrenals appear grossly normal There is no evidence of diverticulitis. Hysterectomy. Cholecystectomy IMPRESSION: 7 millimeter calculus left renal pelvis with mild left hydronephrosis
[2021-03-07 13:02] LABS: Urine Blood 3+ (Negative); Urine Glucose 3+ (Negative); Urine Protein NEGATIVE (Negative); Urine Specific Gravity 1.025 (1.005-1.030); Urine pH 5.5 (5.0-7.0)
[2021-03-07 13:27] LABS: Potassium 4.1 mmol/L (3.5-5.1)
[2021-03-07 13:36] LABS: Absolute Lymphocytes (CBC) 1.4 K/uL (0.7-4.9); Basophils % 0.4 % (0-1.3); Hematocrit 42.7 % (36.0-45.0); Lymphocytes % 26.5 % (15.3-44.8); MPV 8.9 fL (7.6-11.3); RBC Red Blood Cell Count 4.75 M/uL (3.86-4.86)
--- NOTE | 2021-03-07 14:07 | ER ---
Nurse's Notes [facility] Name: Flakita Barton Age: 45 yrs Sex: Female : 1975 Arrival Date: 03/07/2021 Time: 10:52 Bed 29 Private MD: Diagnosis: Hematuria, unspecified Presentation: 03/07 10:53 Chief complaint: Patient states: Bloody urine off/on for 3 weeks. Seen here 3 weeks ll1 ago, diagnosed with bad UTI. Following up with Dr. Blas, he wants her checked for kidney stones. Taking iron supplements now. On eloquis for blood clots to the lungs. Coronavirus screen: Client denies travel out of the [place] in the last 14 days. At this time, the client does not indicate any symptoms associated with coronavirus-19. Ebola Screen: Patient denies travel to an Ebola-affected area in the 21 days before illness onset. Initial Sepsis Screen: Does the patient meet any 2 criteria? No. Patient's initial sepsis screen is negative. Does the patient have a suspected source of infection? Yes: Dysuria/Frequency/Urgency/UTI. Risk Assessment: Do you want to hurt yourself or someone else? Patient reports no desire to harm self or others. Onset of symptoms was February 13, 2021. 10:53 Method Of Arrival: Ambulatory ll1 10:53 Acuity: TAYO 3 ll1 Historical: - Allergies: 10:57 Codeine; ll1 10:57 PENICILLINS; ll1 - PMHx: 10:57 Diabetes - NIDDM; Hypertrophic cardiomyopathy; Kidney stones; Lung Nodule; Migraines; ll1 Sleep Apnea; - PSHx: 10:57 D \T\ C; Hysterectomy; R knee; Tonsillectomy; Adenoids; endometriosis lap; Appendectomy; ll1 Cholecystectomy; heart cath; liver biopsy; - Immunization history:: Client reports receiving the 2nd dose of the Covid vaccine, Flu vaccine is not up to date. - Social history:: Smoking status: Patient/guardian denies using tobacco, the patient reports quitting approximately 2 years ago. Screenin:56 Abuse screen: Denies threats or abuse. Denies injuries from another. Nutritional ss screening: No deficits noted. Tuberculosis screening: Never had TB. Fall Risk None identified. Assessment: 12:00 General: Appears in no apparent distress. comfortable, Behavior is calm, cooperative, ss Denies fever, feeling ill, fatigue, chills. Neuro: Level of Consciousness is awake, alert, obeys commands, Oriented to person, place, time, situation, Fashion Show Director are equal bilaterally Speech is normal, Facial symmetry appears normal. Respiratory: Airway is patent Respiratory effort is even, unlabored, Respiratory pattern is regular, symmetrical. GI: Patient currently denies diarrhea, nausea, vomiting. : Reports blood in urine x 3 weeks. EENT: Nares are clear Oral mucosa is moist. Throat is clear. Derm: Skin is intact, is healthy with good turgor, Skin is pink, warm \T\ dry. normal. Musculoskeletal: Circulation, motion, and sensation intact. Range of motion: intact in all extremities, Swelling absent. 13:56 Reassessment: Patient appears in no apparent distress at this time. Patient and/or ss family updated on plan of care and expected duration. Pain level reassessed. Patient is alert, oriented x 3, equal unlabored respirations, skin warm/dry/pink. Vital Signs: 10:53 BP 140 / 95; Pulse 78; Resp 16; Temp 98.3; Pulse Ox 99% ; Weight 99.79 kg; Height 5 ft. ll1 7 in. (170.18 cm); Pain 7/10; 10:53 Body Mass Index 34.46 (99.79 kg, 170.18 cm) ll1 ED Course: 10:52 Patient arrived in ED. ll1 10:55 Triage completed. ll1 10:57 Arm band placed on. ll1 11:57 Roberth Wu PA is PHCP. [facility] 11:57 Néstor Quigley MD is Attending Physician. [facility] 12:22 Cristy Santiago, KATHI is Primary Nurse. 12:28 CT Stone Protocol In Process Unspecified. EDMS 12:55 Initial lab(s) drawn, by co, sent to lab. Inserted saline lock: 20 gauge in right jp3 antecubital area, using aseptic technique. Blood collected. 13:56 Patient has correct armband on for positive identification. Bed in low position. Call ss light in reach. 13:57 No provider procedures requiring assistance completed. 14:01 Urine Dipstick--Ancillary (enter results) Sent. [facility] 14:05 Abner Lemus MD is Referral Physician. juliana 14:17 IV discontinued, intact, bleeding controlled, No redness/swelling at site. Pressure ss dressing applied. Administered Medications: No medications were administered Outcome: 14:06 Discharge ordered by . juliana 14:17 Discharged to home ambulatory. ss 14:17 Condition: good 14:17 Discharge instructions given to patient, Instructed on discharge instructions, follow up and referral plans. Demonstrated understanding of instructions, follow-up care. 14:17 Patient left the ED. Signatures: Dispatcher [employer] EDMS Roberth Wu PA PA jmm Smirch, Shelby, RN RN Juan M Freed jp3 Trena Cervantes, KATHI RN ll1
--- NOTE | 2021-03-07 14:07 | EDPHYS ---
Physician Documentation [facility] Name: Flakita Barton Age: 45 yrs Sex: Female : 1975 Arrival Date: 03/07/2021 Time: 10:52 Bed 29 Private MD: ED Physician Néstor Quigley HPI: 03/07 11:26 This 45 yrs old Female presents to ER via Ambulatory with complaints of jmm Urinary Problem. 11:26 The patient complains of pain in the left flank and right flank. Onset: The jmm symptoms/episode began/occurred gradually, 3 week(s) ago. Modifying factors: The symptoms are alleviated by nothing. the symptoms are aggravated by nothing. Associated signs and symptoms: Pertinent positives: hematuria. Patient sent from PCP due to concerns for hemorrhage, patient is currently on eliquis for PE. Denies fever, vomiting, diarrhea. . Historical: - Allergies: 10:57 Codeine; ll1 10:57 PENICILLINS; ll1 - PMHx: 10:57 Diabetes - NIDDM; Hypertrophic cardiomyopathy; Kidney stones; Lung Nodule; Migraines; ll1 Sleep Apnea; - PSHx: 10:57 D \T\ C; Hysterectomy; R knee; Tonsillectomy; Adenoids; endometriosis lap; Appendectomy; ll1 Cholecystectomy; heart cath; liver biopsy; - Immunization history:: Client reports receiving the 2nd dose of the Covid vaccine, Flu vaccine is not up to date. - Social history:: Smoking status: Patient/guardian denies using tobacco, the patient reports quitting approximately 2 years ago. ROS: 11:26 Constitutional: Negative for fever, chills, and weight loss, Cardiovascular: Negative jmm for chest pain, palpitations, and edema, Respiratory: Negative for shortness of breath, cough, wheezing, and pleuritic chest pain. 11:26 : Positive for urinary symptoms. 11:26 All other systems are negative. Exam: 11:26 Constitutional: This is a well developed, well nourished patient who is awake, alert, jmm and in no acute distress. Head/Face: atraumatic. Eyes: EOMI, no conjunctival erythema appreciated ENT: Moist Mucus Membranes Neck: Trachea midline, Supple Chest/axilla: Normal chest wall appearance and motion. Cardiovascular: Regular rate and rhythm. No edema appreciated Respiratory: Normal respirations, no respiratory distress appreciated Abdomen/GI: Non distended, soft Back: Normal ROM Skin: General appearance color normal MS/ Extremity: Moves all extremities, no obvious deformities appreciated, no edema noted to the lower extremities Neuro: Awake and alert, normal gait Psych: Behavior is normal, Mood is normal, Patient is cooperative and pleasant Vital Signs: 10:53 BP 140 / 95; Pulse 78; Resp 16; Temp 98.3; Pulse Ox 99% ; Weight 99.79 kg; Height 5 ft. ll1 7 in. (170.18 cm); Pain 7/10; 10:53 Body Mass Index 34.46 (99.79 kg, 170.18 cm) ll1 MDM: 12:00 Patient medically screened. [facility] 14:04 Data reviewed: vital signs, nurses notes. Counseling: I had a detailed discussion with juliana the patient and/or guardian regarding: the historical points, exam findings, and any diagnostic results supporting the discharge/admit diagnosis, lab results, radiology results, the need for outpatient follow up, to return to the emergency department if symptoms worsen or persist or if there are any questions or concerns that arise at home. ED course: Labs unremarkable, I discussed the patient with PCP. Advised to follow up with urology. patient is otherwise given strict return precautions. Patient understood and agrees with the plan of care. . 03/07 12:30 Order name: Urine Dipstick--Ancillary (enter results) bd 03/07 12:30 Order name: Urine Dipstick-Ancillary; Complete Time: 13:15 [facility] 03/07 11:26 Order name: Urine Dipstick-Ancillary (obtain specimen); Complete Time: 12:22 [facility] 03/07 12:07 Order name: CT Stone Protocol; Complete Time: 12:47 [facility] 03/07 12:34 Order name: CBC with Diff; Complete Time: 13:44 [facility] 03/07 12:34 Order name: BMP; Complete Time: 13:30 [facility] Administered Medications: No medications were administered Disposition: 17:47 Co-signature as Attending Physician, Néstor Quigley MD I agree with the assessment and [facility] plan of care. Disposition: 03/07/21 14:06 Discharged to Home. Impression: Hematuria, unspecified. - Condition is Stable. - Discharge Instructions: Hematuria, Adult, Kidney Stones, Dietary Guidelines to Help Prevent Kidney Stones. - Medication Reconciliation Form, Thank You Letter, Antibiotic Education, Prescription Opioid Use, Work release form form. - Follow up: Abner Lemus MD; When: 2 - 3 days; Reason: Recheck today's complaints, Continuance of care, Re-evaluation by your physician. Signatures: Dispatcher [employer] EDMS Roberth Wu PA PA jmm Cristy Santiago RN RN Néstor Quigley MD MD tw4 Trena Cervantes RN RN ll1 Corrections: (The following items were deleted from the chart) 12:06 11:26 Urine Test ordered. 4 14:17 14:06 03/07/2021 14:06 Discharged to Home. Impression: Hematuria, unspecified. ss Condition is Stable. Forms are Medication Reconciliation Form, Thank You Letter, Antibiotic Education, Prescription Opioid Use. Follow up: Abner Lemus; When: 2 - 3 days; Reason: Recheck today's complaints, Continuance of care, Re-evaluation by your physician. juliana
[2021-03-07 14:25] VITALS: BP 140/95; TEMP 98.3; O2SAT 99
== END 2021-03-07 14:17 | disposition home or self-care (01) ==
LOC: ER 10:43
DX: R31.9 Hematuria, unspecified (principal); Z88.0 Allergy status to penicillin; Z88.5 Allergy status to narcotic agent
CPT/HCPCS: 36415; 74176; 76377; 80048; 81003; 85025; 99283

== ENCOUNTER 2021-04-03 23:57 | Emergency (ER) | payer BC ==
--- OUTSIDE RECORDS SUMMARY | 2021-04-04 | XMS REPORT | Continuity of Care Document ---
:1975 Author Organization [facility] t Address [address] [place] [address] Care Team Providers Name Role Phone Lester Lentz Attending Clinician Moises Attending Clinician Miroslava Bridges DO Attending Clinician Seble SINGH Attending Clinician Radiology Attending Clinician Unavailable Ralph SINGH Attending Clinician Conor SINGH Attending Clinician Pob1, [facility] Attending Clinician Unavailable Seble SINGH Admitting Clinician Problems Condition Condition Condition Status Onset Resolution Last Treating Co mments Source Name Details Category Date Date Treatment Clinician Date Finding of Problem Active 2021-03-11 M emoria body mass 01:46:26 l index Finding Shirley (finding) of body mass index (finding) Active Problem 03/11/2021 [facility] Hypertensi Problem Active 2021-03-11 M emoria ve 01:46:26 l disorder, Pineda systemic Hypertensi arterial ve (disorder) disorder, systemic arterial (disorder) Active Problem 03/11/2021 [facility] Hyperlipid Problem Active 2021-03-11 M emoria emia 01:46:26 l (disorder) Colton n Hyperlipid emia (disorder) Active Problem 03/11/2021 [facility] Hypertroph Problem Active 2021-03-11 M emoria ic 01:46:26 l cardiomyop Colotn n athy Hypertroph (disorder) ic cardiomyop athy (disorder) Active Problem 03/11/2021 [facility] Hypothyroi Problem Active 2021-03-11 M emoria dism 01:46:26 l (disorder) Colton n Hypothyroi dism (disorder) Active Problem 03/11/2021 [facility] Migraine Problem Active 2021-03-11 Mem oria (disorder) 01:46:26 l Migraine Colton n (disorder) Active Problem 03/11/2021 [facility] Diabetes Problem Active 2021-03-11 Mem oria mellitus 01:46:26 l type 2 Diabetes Colton n (disorder) mellitus type 2 (disorder) Active Problem 03/11/2021 Automatic ally added by Discern Expert with order of Add Problem Diabetes Type II on January 02, 2020 17:45:56 SECOND VP HR ASSESSMENT with order ID: [id number] 5.0 entered by Josue Lentz. [facility] Steatosis Problem Active 2021-03-11 Me moria of liver 01:46:26 l (disorder) Colton n Steatosis of liver (disorder) Active Problem 03/11/2021 [facility] Transforme Problem Active 2021-03-11 M emoria d migraine 01:46:26 l (disorder) Colton n Transforme d migraine (disorder) Active Problem 03/11/2021 [facility] Benign Problem Active 2021-03-11 Memor ia paroxysmal 01:46:26 l positional Benign Herm silvia vertigo paroxysmal (disorder) positional vertigo (disorder) Active Problem 03/11/2021 [facility] Pulmonary Problem Active 2021-03-11 Me moria embolism 01:46:26 l (disorder) Colton n Pulmonary embolism (disorder) Active Problem 03/11/2021 [facility] Kidney Problem Active 2021-03-11 Memor ia stone 01:46:26 l (disorder) Kidney Herm silvia stone (disorder) Active Problem 03/11/2021 [facility] Knee pain Problem Active 2021-03-11 Me moria (finding) 01:46:26 l Knee Shirley pain (finding) Active Problem 03/11/2021 [facility] Allergies, Adverse Reactions, Alerts Allergy Allergy Status Severity Reaction(s) Onset Inactive Treating Comm ents Source Name Type Date Date Clinician penicill penicill Active Memori a ins ins l Pineda codeine codeine Active Memoria l Pineda naproxen naproxen Active Memori a amor Sung Dilaudid Dilaudid Active Memori a amor Sung Social History Smoking Status Start Date Stop Date Source Social History 2021-03-08 20:53:22 2021-03-08 20:53:22 [facility] Medications Ordered Filled Start Stop Current Ordering Indication Dosage Frequency Signature Comments Components Source Medication Medication Date Date Medication? Clinician (SIG) Name Name topiramate Yes See Memoria 25 mg oral 4-20 Instructio l capsule 21:40: ns, 1 cap Geetha nn 00 PO BID for 1 week then 1 po qd qd for 1 week then stop, # 60 tab, 0 Refill(s), Pharmacy: [facility] [id number], 170.18, cm, 03/08/21 16:10:00 CDT, Height, 101.364, kg, 03/08/21 16:10:00 CDT, Weight 0.25 MG, Yes 1 mg, Memoria 0.5 MG Dose 4-20 SUB-Q, l 1.5 ML 21:14: qWeek, 0 Shirley semaglutide 00 Refill(s) 1.34 MG/ML Pen Injector [Ozempic] MetFORMIN Yes 0 Memoria (Eqv-Glucop 4-20 Refill(s) l jose l XR) 21:12: Shirley 500 mg oral 00 tablet, extended release DULoxetine Yes 30 mg = 1 Me moria 30 mg oral 3-08 cap, PO, l delayed 17:50: Daily, # Colton n release 00 30 cap, 3 capsule Refill(s), Pharmacy: [facility] #[id number], 172.72, cm, 01/24/21 11:24:00 SECOND VP HR ASSESSMENT, Height, 101.364, kg, 01/24/21 11:24:00 SECOND VP HR ASSESSMENT, Weight apixaban 5 Yes 5 mg, PO, Me moria MG Oral 3-08 BID, tab, l Tablet 17:28: 0 Shirley [Eliquis] 00 Refill(s) topiramate Yes See Memoria 100 mg oral 1-05 Instructio l tablet 14:53: ns, TAKE Shirley 00 ONE TABLET BY MOUTH AT BEDTIME, # 30 tab, 3 Refill(s), Pharmacy: [facility] [id number], 172.72, cm, 10/11/20 9:40:00 SECOND VP HR ASSESSMENT, Height, 100.455, kg, 10/11/20 9:40:00 SECOND VP HR ASSESSMENT, Weight meclizine 2019-11 Yes 25 mg = 1 Mem oria 25 mg oral 1-24 tab, PO, l tablet 19:20: BID, PRN Shirley 00 Dizziness, X 30 day, # 30 tab, 1 Refill(s), Pharmacy: [facility] #[id number], 172.72, cm, 10/11/20 9:40:00 SECOND VP HR ASSESSMENT, Height, 100.455, kg, 10/11/20 9:40:00 SECOND VP HR ASSESSMENT, Weight 1.5 ML 2019-11 Yes See Memoria fremanezuma 1-23 Instructio l b-vfrm 150 16:12: ns, INJECT H ermann MG/ML 00 1 Prefilled PREFILLED Syringe SYRINGE [[employer]] UNDER THE SKIN MONTHLY, # 2 mL, 5 Refill(s), Pharmacy: [place] [address], 172.72, cm, 10/11/20 9:40:00 SECOND VP HR ASSESSMENT, Height, 100.455, kg, 10/11/20 9:40:00 SECOND VP HR ASSESSMENT, Weight Meclizine 2019-11 No 25 mg = 1 Mem oria 1-23 tab, PO, l 16:08: BID, PRN Pineda 00 Dizziness, # 20 tab, 0 Refill(s) topiramate Yes See Memoria 100 mg oral 7-13 Instructio l tablet 20:35: ns, TAKE Pineda 00 ONE TABLET BY MOUTH AT BEDTIME, # 30 tab, 2 Refill(s), Pharmacy: [facility] [id number], 172.72, cm, 01/02/20 16:15:00 SECOND VP HR ASSESSMENT, Height, 93.636, kg, 01/02/20 16:15:00 SECOND VP HR ASSESSMENT, Weight topiramate Yes See Memoria 100 mg oral 3-12 Instructio l tablet 14:46: ns, # 30 Shirley 07 tab, Refill(s) 3, TAKE ONE TABLET BY MOUTH AT BEDTIME, Pharmacy: [place] [address] 1.5 ML 2019-0 Yes 225 mg, Memoria fremanezuma 2-14 SUB-Q, l b-vfrm 150 22:49: qMonth, # He rmann MG/ML 00 1 kit, 3 Prefilled Refill(s), Syringe Pharmacy: [feliz] [facility] [id number] Metformin 2019-0 Yes 500 mg = 1 Me moria hydrochlori 2-14 tab, PO, l de 500 MG 22:20: BID, 0 Colton n Oral Tablet 00 Refill(s) gabapentin Yes See Memoria 300 MG Oral 1-20 Instructio l Capsule 19:19: ns, # 60 Colton n 49 unknown unit, Refill(s) 1, TAKE ONE CAPSULE BY MOUTH TWICE A DAY, Pharmacy: [place] [address] gabapentin Yes See Memoria 300 MG Oral 7-31 Instructio l Capsule 21:08: ns, 1 cap Geetha nn 49 PO qam, 2 po qhs, # 90 cap, 3 Refill(s), Pharmacy: [place] [address] topiramate Yes 100 mg = 1 M emoria 100 mg oral 6-14 tab, PO, l tablet 18:41: Bedtime, # Geetha nn 00 30 tab, 3 Refill(s), Pharmacy: [place] [address] pregabalin 2018- Yes 50 mg = 1 Me moria 50 MG Oral 6-14 cap, PO, l Capsule 18:41: Bedtime, # Herm silvia [Lyrica] 00 30 cap, 3 Refill(s) topiramate 2018-0 Yes 75 mg = 3 Me moria 25 mg oral 5-10 tab, PO, l tablet 21:33: Bedtime, # Geetha nn 02 90 tab, 3 Refill(s), Pharmacy: [place] [address] topiramate 2018-0 No = 2 tab, Mem oria 25 mg oral 2-11 PO, l tablet 18:03: Bedtime, # Geetha nn 42 60 tab, Refill(s) 1, Pharmacy: [place] [address] Vital Signs Vital Name Observation Time Observation Value Comments Source Systolic (mm Hg) 2021-03-08 20:53:00 Masood rial Pineda Diastolic (mm Hg) 2021-03-08 20:53:00 Mem orial Shirley Heart Rate 2021-03-08 20:53:00 [facility] [place] Respitory Rate 2021-03-08 20:53:00 Memori al [place] Height 2021-03-08 20:53:00 170.18 cm [facility] Shirley Weight 2021-03-08 20:53:00 [facility] Shirley BMI Calculated 2021-03-08 20:53:00 Memori al [place] Systolic (mm Hg) 2021-01-24 15:41:00 Masood rial Shirley Diastolic (mm Hg) 2021-01-24 15:41:00 Mem orial [place] Heart Rate 2021-01-24 15:41:00 [facility] Shirley Respitory Rate 2021-01-24 15:41:00 Memori al [place] Height 2021-01-24 15:41:00 172.72 cm [facility] Pined[place] Weight 2021-01-24 15:41:00 [facility] BMI Calculated 2021-01-24 15:41:00 Memori al [place] Systolic (mm Hg) 2020-10-11 15:40:00 Masood rial Shirley Diastolic (mm Hg) 2020-10-11 15:40:00 Mem orial [place]ined[place] Heart Rate 2020-10-11 15:40:00 [facility] Shirley Respitory Rate 2020-10-11 15:40:00 Memori al Shirley Height 2020-10-11 15:40:00 172.72 cm [facility] [address] Weight 2020-10-11 15:40:00 [facility] [place] BMI Calculated 2020-10-11 15:40:00 Memori al Shirley Systolic (mm Hg) 2020-01-02 22:15:00 Masood rial Shirley Diastolic (mm Hg) 2020-01-02 22:15:00 Mem orial Shirley Heart Rate 2020-01-02 22:15:00 [facility] [place] Respitory Rate 2020-01-02 22:15:00 Memori al Shirley Height 2020-01-02 22:15:00 172.72 cm [facility] Shirley Weight 2020-01-02 22:15:00 [facility] Shirley BMI Calculated 2020-01-02 22:15:00 Memori al Shirley Weight 2019-05-02 18:12:00 [facility] Shirley BMI Calculated 2019-05-02 18:12:00 Memori al [place] Height 2019-05-02 18:12:00 170.18 cm [facility] Pineda Systolic (mm Hg) 2019-05-02 18:12:00 Masood rial Pined[place] Diastolic (mm Hg) 2019-05-02 18:12:00 Mem orial [place]ined[place] Heart Rate 2019-05-02 18:12:00 [facility] [place] Respitory Rate 2019-05-02 18:12:00 Memori al Shirley Weight 2019-03-28 21:13:00 [facility] Shirley BMI Calculated 2019-03-28 21:13:00 Memori al [place] Height 2019-03-28 21:13:00 175.26 cm [facility] Shirley Heart Rate 2019-03-28 21:13:00 [facility] Shirley Respitory Rate 2019-03-28 21:13:00 Memori al Shirley Systolic (mm Hg) 2019-03-28 21:13:00 Masood rial Shirley Diastolic (mm Hg) 2019-03-28 21:13:00 Mem orial Shirley Procedures This patient has no known procedures. Encounters Start End Encounter Admission Attending Care Care Encounter Source Date/Time Date/Time Type Type Clinicians Facility Department ID 2021-03-18 2021-03-18 Outpatient [facility] [id number] [facility] 2021-03-18 2021-03-18 Outpatient [facility] [id number] [facility] 2021-03-15 2021-03-15 Outpatient [facility] [id number] [facility] 2021-03-08 2021-03-08 Outpatient NIKITA Lentz [id number] 16:00:00 23:59:59 Josue Batista 2021-03-08 2021-03-08 Outpatient [facility] [id number] [facility] 2021-01-24 2021-01-24 Outpatient EMIR LentzMISCHER MHMISCHER [id number] 11:30:00 23:59:59 Josue 17 Lester 2020-12-14 2020-12-14 Transition [facility] Flakitoopal [id number] 00:00:00 00:00:00 of Care Skye Ramirezy [id number] [place] [id number] [id number] 2020-12-10 2020-12-13 [facility] Cyrus Marisela Miroslava [facility] 1.2.84 0.114 [id number] 19:04:00 18:35:00 Encounter Seble Shirley [place] [id number] [place] [id number] [place] [id number] 2020-12-10 2020-12-10 [facility] Radiology [facility] [id number] 13:40:41 19:03:00 Encounter Rhodelia [id number] [place] [id number] [place] [id number] 2020-12-10 2020-12-10 [facility] [id number] 13:40:26 19:03:00 Encounter Rhodelia [id number] [place] [id number] [place] [id number] 2020-10-11 2020-10-11 Outpatient GAYATHRI LentzSCHER MHMISCHER [id number] 09:00:00 23:59:59 Josue 16 Lester 2020-08-27 2020-08-27 Outpatient EMIR LentzMISCHER MHMISCHER [id number] 16:00:00 16:00:00 Josue 15 Lester 2020-08-03 2020-08-03 Outpatient GAYATHRI LentzSCHER MHMISCHER [id number] 16:00:00 16:00:00 Josue 14 Lester 2020-07-16 2020-07-16 Outpatient EMIR LentzMISCHER MHMISCHER [id number] 15:45:00 15:45:00 Josue 12 Lester 2020-07-16 2020-07-16 Outpatient Krell, MHMISCHER MHMISCHER [id number] 15:45:00 15:45:00 Josue 13 Lester 2020-03-17 2020-03-17 Outpatient Mary Carmen, MHMISCHER MHMISCHER [id number] 13:00:00 23:59:59 Josue 11 Lester 2020-03-05 2020-03-05 Outpatient Mary Carmen, MHMISCHER MHMISCHER [id number] 15:45:00 15:45:00 Josue 10 Lester 2020-02-13 2020-02-13 Telephone Edemeko, [facility] [id number] 00:00:00 00:00:00 [facility] [id number] [place] 4.2.7.2.686 Professio [id number] nal [address] 2020-02-12 2020-02-12 Emergency Perdomo, [facility] [id number] 11:08:26 14:13:00 Bernard [place] [id number] [place] [id number] [place] [id number] 2020-02-12 2020-02-12 Urgent Pob1, Acute [facility] [id number] 10:20:06 10:40:06 [facility] [id number] [place] [id number] Professio [id number] nal [address] 2020-01-02 2020-01-02 Outpatient Mary Carmen, MHMISCHER MHMISCHER [id number] 16:00:00 23:59:59 Jsoue 09 Lester 2019-06-27 2019-06-27 Outpatient Mary Carmen, MHMISCHER MHMISCHER [id number] 14:00:00 14:00:00 Josue 08 Lester 2019-05-02 2019-05-02 Outpatient Mary Carmen, MHMISCHER MHMISCHER [id number] 13:00:00 23:59:59 Josue 07 Lester 2019-03-28 2019-03-28 Outpatient Mary Carmen, MHMISCHER MHMISCHER [id number] 16:15:00 23:59:59 Josue 06 Lester 2018-09-06 2018-09-06 [facility] [id number] 16:00:00 16:00:00 Josue Batista Results Test Description Test Time Test Comments Results Result Comments Source HEMATOLOGY 2020-10-11 [id number] [facility] Geetha nn 16:52:00 HEMATOLOGY 2020-10-11 [id number] [facility] Geetha nn 16:52:00 HEMATOLOGY 2020-10-11 533 [facility] Geetha nn 16:52:00 HEMATOLOGY 2020-10-11 211 [facility] Geetha nn 16:52:00 HEMATOLOGY 2020-10-11 31 [facility] Geetha nn 16:52:00 HEMATOLOGY 2020-10-11 60.4 [facility] Geetha nn 16:52:00 HEMATOLOGY 2020-10-11 27.1 [facility] Geetha nn 16:52:00 [...] (test code = MCH) 31.1 pg 27.0-33.0 [facility] [id number] 16:52:0034.0[facility]ann[facility]MATOLOGY 2020-10-11 16:52:0012.3[facility] [id number] 16:52:27485Zvzfoeml [id number] 16:52:0010.6[facility] Shirley
[2021-04-04] MEDS ORDERED: MORPHINE 4 MG/ML SYR ONE ×2 (03:19→05:00)
[2021-04-04] MEDS ORDERED: ONDANSETRON 4 MG/2 ML VIAL ONE (03:19)
[2021-04-04] MEDS ORDERED: NA CHLORIDE 0.9% 1,000 ML ONE (03:19)
[2021-04-04 03:25] LABS: Urine Blood 3+ (Negative); Urine Glucose 3+ (Negative); Urine Protein 1+ (Negative); Urine Specific Gravity 1.025 (1.005-1.030)
[2021-04-04 03:32] LABS: Absolute Lymphocytes (CBC) 0.7 K/uL (0.7-4.9); Basophils % 0.2 % (0-1.3); Lymphocytes % 6.4 % (15.3-44.8); MPV 8.9 fL (7.6-11.3); RBC Red Blood Cell Count 4.82 M/uL (3.86-4.86)
[2021-04-04 03:43] LABS: Potassium 4.2 mmol/L (3.5-5.1)
[2021-04-04 04:58] LABS: Blood Morphology Comment NOT SEEN (NOT SEEN); Platelet Estimate ADEQ
--- NOTE | 2021-04-04 07:17 | EDPHYS ---
Physician Documentation [facility] Name: Flakita Barton Age: 45 yrs Sex: Female : 1975 Arrival Date: 04/03/2021 Time: 23:59 Bed 17 Private MD: ED Physician Naga Douglas HPI: 04/04 04:41 This 45 yrs old Female presents to ER via EMS with complaints of Possible pkl Kidney Stone. 04:41 The patient complains of pain in the left flank. Onset: The symptoms/episode pkl began/occurred just prior to arrival, 1 hour(s) ago. Associated signs and symptoms: Pertinent positives: nausea, vomiting. Had CT Scan done on 03/07/21. Showed 7 mm calculus left renal pelvis with mild hydronephrosis. Historical: - Allergies: 00:38 Codeine; iw 00:38 PENICILLINS; iw - PMHx: 00:38 Diabetes - NIDDM; Hypertrophic cardiomyopathy; Kidney stones; Lung Nodule; Migraines; iw Sleep Apnea; 00:57 PE; iw - PSHx: 00:38 D \T\ C; Hysterectomy; R knee; Tonsillectomy; Adenoids; endometriosis lap; Appendectomy; iw Cholecystectomy; heart cath; liver biopsy; - Immunization history:: Client reports receiving the 2nd dose of the Covid vaccine. - Social history:: Smoking status: Patient/guardian denies using tobacco, the patient reports quitting approximately 2 years ago. ROS: 04:41 Eyes: Negative for injury, pain, redness, and discharge, ENT: Negative for injury, pkl pain, and discharge, Neck: Negative for injury, pain, and swelling, Cardiovascular: Negative for chest pain, palpitations, and edema, Respiratory: Negative for shortness of breath, cough, wheezing, and pleuritic chest pain, Abdomen/GI: Negative for abdominal pain, nausea, vomiting, diarrhea, and constipation. 04:41 Back: Positive for flank pain, on the left. 04:41 : Negative for urinary symptoms. 04:41 MS/extremity: Negative for acute changes. 04:41 Skin: Negative for rash. 04:41 Neuro: Negative for altered mental status, loss of consciousness. Exam: 04:41 Head/Face: Normocephalic, atraumatic. Eyes: Pupils equal round and reactive to light, pkl extra-ocular motions intact. Lids and lashes normal. Conjunctiva and sclera are non-icteric and not injected. Cornea within normal limits. Periorbital areas with no swelling, redness, or edema. ENT: Nares patent. No nasal discharge, no septal abnormalities noted. Tympanic membranes are normal and external auditory canals are clear. Oropharynx with no redness, swelling, or masses, exudates, or evidence of obstruction, uvula midline. Mucous membranes moist. Neck: Trachea midline, no thyromegaly or masses palpated, and no cervical lymphadenopathy. Supple, full range of motion without nuchal rigidity, or vertebral point tenderness. No Meningismus. Chest/axilla: Normal chest wall appearance and motion. Nontender with no deformity. No lesions are appreciated. Cardiovascular: Regular rate and rhythm with a normal S1 and S2. No gallops, murmurs, or rubs. Normal PMI, no JVD. No pulse deficits. Respiratory: Lungs have equal breath sounds bilaterally, clear to auscultation and percussion. No rales, rhonchi or wheezes noted. No increased work of breathing, no retractions or nasal flaring. Abdomen/GI: Soft, non-tender, with normal bowel sounds. No distension or tympany. No guarding or rebound. No evidence of tenderness throughout. 04:41 Back: pain, that is moderate, of the left flank. 04:41 : Exam negative for acute changes. 04:41 Musculoskeletal/extremity: Exam is negative for acute changes. 04:41 Skin: Exam negative for rash. 04:41 Neuro: Orientation: is normal, Mentation: is normal, Cranial nerves: grossly normal, Motor: is normal. Vital Signs: 00:56 BP 135 / 98; Pulse 70; Resp 16; Temp 97.0; Pulse Ox 100% ; Weight 99.79 kg; Height 5 iw ft. 9 in. (175.26 cm); Pain 10/10; 03:05 BP 140 / 83; Pulse 65; Resp 20; Temp 98.5; Pulse Ox 100% ; Pain 10/10; bb3 04:30 BP 129 / 82; Pulse 60; Resp 20; Pulse Ox 94% ; Pain 6/10; bb3 05:37 BP 118 / 73; Pulse 94; Resp 19; Pulse Ox 95% ; Pain 4/10; bb3 07:44 BP 134 / 91; Pulse 78; Resp 16; Pulse Ox 95% ; bp 08:58 BP 122 / 82; Pulse 66; Resp 16; Temp 98.3; Pulse Ox 97% ; bp 00:56 Body Mass Index 32.49 (99.79 kg, 175.26 cm) iw MDM: 02:36 Patient medically screened. pkl 07:11 Data reviewed: vital signs, nurses notes, lab test result(s). ED course: Patient pkl feeling better. Left flank pain and vomiting improved. Talked to Dr. Lemus, may go home and keep her appointment for procedure tomorrow. Patient understood instructions. Will call Dr. Lemus office this morning. 04/04 02:51 Order name: CBC with Diff; Complete Time: 06:07 pk 04/04 02:51 Order name: Chem 7; Complete Time: 04:34 pk 04/04 02:52 Order name: XRAY Abdomen 1 View (KUB); Complete Time: 19:08 pkl 04/04 03:24 Order name: Urine Dipstick-Ancillary; Complete Time: 04:34 EDMS 04/04 03:45 Order name: Manual Differential; Complete Time: 06:07 EDMS 04/04 02:46 Order name: Urine Dipstick-Ancillary (obtain specimen); Complete Time: 03:18 mw2 Administered Medications: 03:15 Drug: morphine 4 mg Route: IVP; Site: right antecubital; bb3 04:47 Follow up: Response: No adverse reaction; Pain is decreased; RASS: Alert and Calm (0) bb3 03:15 Drug: Zofran (Ondansetron) 4 mg Route: IVP; Site: right antecubital; bb3 04:47 Follow up: Response: No adverse reaction; Nausea is decreased bb3 03:30 Drug: NS 0.9% 1000 ml Route: IV; Rate: 1000 ml; Site: right antecubital; bb3 06:45 Follow up: IV Status: Completed infusion; IV converted to saline lock; IV Intake: [id number] 04:46 Drug: morphine 4 mg Route: IVP; Site: right antecubital; bb3 05:36 Follow up: Response: No adverse reaction; Pain is decreased bb3 07:38 Drug: Cipro (ciprofloxacin) 400 mg Volume: 200 ml; Route: IVPB; Infused Over: 60 mins; iw Site: right antecubital; 09:00 Follow up: IV Status: Completed infusion bp Disposition: 04/04/21 07:16 Discharged to Home. Impression: Left renal calculus. - Condition is Stable. - Prescriptions for Ultram 50 mg Oral Tablet - take 1 tablet by ORAL route every 6 hours As needed; 12 tablet. Zofran 4 mg Oral Tablet - take 1 tablet by ORAL route every 12 hours As needed; 10 tablet. - Medication Reconciliation Form, Thank You Letter, Antibiotic Education, Prescription Opioid Use form. - Follow up: Abner Lemus MD; When: Tomorrow; Reason: Re-evaluation by your physician. - Problem is new. - Symptoms have improved. Signatures: Dispatcher [employer] EDMS Naga Douglas MD MD pkl Suzanne Bridges RN RN iw Peltier, Brian, RN RN bp Shannan Ansari mw2 Nori Huertas bb3 Corrections: (The following items were deleted from the chart) 03:17 02:46 Urine Test ordered. mw2 mw2 09:01 07:16 04/04/2021 07:16 Discharged to Home. Impression: Left renal calculus. Condition bp is Stable. Forms are Medication Reconciliation Form, Thank You Letter, Antibiotic Education, Prescription Opioid Use. Follow up: Abner Lemus; When: Tomorrow; Reason: Re-evaluation by your physician. Problem is new. Symptoms have improved. pkl
--- NOTE | 2021-04-04 07:17 | ER ---
Nurse's Notes [facility] Name: Flakita Barton Age: 45 yrs Sex: Female : 1975 Arrival Date: 04/03/2021 Time: 23:59 Bed 17 Private MD: Diagnosis: Left renal calculus Presentation: 04/04 00:36 Chief complaint: Patient states: has 7mm kidney stone on left side that is supposed to iw have removed on Sunday with Dr. Lemus , started having n/v 45 min [employer] and having a lot of pain. Coronavirus screen: At this time, the client does not indicate any symptoms associated with coronavirus-19. Ebola Screen: Patient negative for fever greater than or equal to 101.5 degrees Fahrenheit, and additional compatible Ebola Virus Disease symptoms Patient denies exposure to infectious person. Patient denies travel to an Ebola-affected area in the 21 days before illness onset. No symptoms or risks identified at this time. Initial Sepsis Screen: Does the patient meet any 2 criteria? No. Patient's initial sepsis screen is negative. Does the patient have a suspected source of infection? No. Patient's initial sepsis screen is negative. Risk Assessment: Do you want to hurt yourself or someone else? Patient reports no desire to harm self or others. Onset of symptoms was April 04, 2021. 00:36 Method Of Arrival: EMS: [facility] iw 00:36 Acuity: TAYO 3 iw Historical: - Allergies: 00:38 Codeine; iw 00:38 PENICILLINS; iw - PMHx: 00:38 Diabetes - NIDDM; Hypertrophic cardiomyopathy; Kidney stones; Lung Nodule; Migraines; iw Sleep Apnea; 00:57 PE; iw - PSHx: 00:38 D \T\ C; Hysterectomy; R knee; Tonsillectomy; Adenoids; endometriosis lap; Appendectomy; iw Cholecystectomy; heart cath; liver biopsy; - Immunization history:: Client reports receiving the 2nd dose of the Covid vaccine. - Social history:: Smoking status: Patient/guardian denies using tobacco, the patient reports quitting approximately 2 years ago. Screenin:30 Abuse screen: Denies threats or abuse. Nutritional screening: No deficits noted. bb3 Tuberculosis screening: No symptoms or risk factors identified. Fall Risk None identified. Assessment: 03:00 General: Appears distressed, uncomfortable, Behavior is calm, cooperative, appropriate bb3 for age, Reports Denies. Pain: Complains of pain in right lower quadrant and left lower quadrant Pain currently is 10 out of 10 on a pain scale. Quality of pain is described as sharp. Neuro: Level of Consciousness is awake, alert, obeys commands, Oriented to person, place, time, situation, Appropriate for age. Cardiovascular: Denies chest pain. Respiratory: Airway is patent Respiratory effort is even, unlabored, Respiratory pattern is regular, symmetrical. GI: Abdomen is flat, non-distended, Reports lower abdominal pain, nausea, vomiting. : No signs and/or symptoms were reported regarding the genitourinary system. EENT: No deficits noted. Derm: No deficits noted. Derm: Skin is intact, is healthy with good turgor, Skin is dry, Skin is pink, warm \T\ dry. normal. Musculoskeletal: 04:15 Reassessment: Patient appears in no apparent distress at this time. Patient and/or bb3 family updated on plan of care and expected duration. Pain level reassessed. Patient is alert, oriented x 3, equal unlabored respirations, skin warm/dry/pink. Patient states symptoms have improved. Pain: Complains of pain in right lower quadrant and left lower quadrant Pain currently is 6 out of 10 on a pain scale. Quality of pain is described as sharp. 05:36 Reassessment: Patient appears in no apparent distress at this time. Patient and/or bb3 family updated on plan of care and expected duration. Pain level reassessed. Patient is alert, oriented x 3, equal unlabored respirations, skin warm/dry/pink. Patient states feeling better. General: Appears. Pain: Complains of pain in right lower quadrant and left lower quadrant Pain currently is 4 out of 10 on a pain scale. 07:00 Reassessment: RECD REPORT FROM SUZANNE ARMENTA. 45YO WF P/W FLANK PAIN. D/C ON HOLD FOR IV ABX.bp 08:58 Reassessment: PT D/C HOME AMBULATORY, DX WITH LEFT RENAL CALCULUS. bp Vital Signs: 00:56 BP 135 / 98; Pulse 70; Resp 16; Temp 97.0; Pulse Ox 100% ; Weight 99.79 kg; Height 5 iw ft. 9 in. (175.26 cm); Pain 10/10; 03:05 BP 140 / 83; Pulse 65; Resp 20; Temp 98.5; Pulse Ox 100% ; Pain 10/10; bb3 04:30 BP 129 / 82; Pulse 60; Resp 20; Pulse Ox 94% ; Pain 6/10; bb3 05:37 BP 118 / 73; Pulse 94; Resp 19; Pulse Ox 95% ; Pain 4/10; bb3 07:44 BP 134 / 91; Pulse 78; Resp 16; Pulse Ox 95% ; bp 08:58 BP 122 / 82; Pulse 66; Resp 16; Temp 98.3; Pulse Ox 97% ; bp 00:56 Body Mass Index 32.49 (99.79 kg, 175.26 cm) iw ED Course: 04/03 23:59 Patient arrived in ED. es 04/04 00:37 Triage completed. iw 00:57 Arm band placed on. iw 02:36 Naga Douglas MD is Attending Physician. pkl 03:00 Inserted saline lock: 20 gauge in right antecubital area, using aseptic technique. mw2 Blood collected. 03:15 Suzanne Bridges, KATHI is Primary Nurse. iw 03:23 XRAY Abdomen 1 View (KUB) In Process Unspecified. EDMS 04:30 Patient has correct armband on for positive identification. Bed in low position. Call bb3 light in reach. 04:30 No provider procedures requiring assistance completed. bb3 07:15 Abner Lemus MD is Referral Physician. pkl 08:59 IV discontinued, intact, bleeding controlled, No redness/swelling at site. Pressure bp dressing applied. Administered Medications: 03:15 Drug: morphine 4 mg Route: IVP; Site: right antecubital; bb3 04:47 Follow up: Response: No adverse reaction; Pain is decreased; RASS: Alert and Calm (0) bb3 03:15 Drug: Zofran (Ondansetron) 4 mg Route: IVP; Site: right antecubital; bb3 04:47 Follow up: Response: No adverse reaction; Nausea is decreased bb3 03:30 Drug: NS 0.9% 1000 ml Route: IV; Rate: 1000 ml; Site: right antecubital; bb3 06:45 Follow up: IV Status: Completed infusion; IV converted to saline lock; IV Intake: [id number] 04:46 Drug: morphine 4 mg Route: IVP; Site: right antecubital; bb3 05:36 Follow up: Response: No adverse reaction; Pain is decreased bb3 07:38 Drug: Cipro (ciprofloxacin) 400 mg Volume: 200 ml; Route: IVPB; Infused Over: 60 mins; iw Site: right antecubital; 09:00 Follow up: IV Status: Completed infusion bp Intake: 06:45 IV: 1000ml; Total: 1000ml. bb3 Outcome: 07:16 Discharge ordered by . soumya 08:59 Discharged to home ambulatory. bp 08:59 Condition: stable 08:59 Discharge instructions given to patient, Instructed on discharge instructions, follow up and referral plans. medication usage, Demonstrated understanding of instructions, follow-up care, medications, Prescriptions given X 2. 09:01 Patient left the ED. bp Signatures: Dispatcher [employer] Naga Ayoub MD MD pkl Salyer, Edna es Williams, Irene, RN RN Esteban Gilmore RN RN Shannan Araujo 2 Nori Huertas bb3 Corrections: (The following items were deleted from the chart) 00:57 00:36 Chief complaint: Patient states: has 7mm kidney stone that is supposed to have iw removed on Sunday here at this hospital , started having n/v 45 min [employer] and having a lot of pain iw
--- NOTE | 2021-04-04 07:44 | RAD REPORT ---
EXAM DESCRIPTION: RAD - Abdomen 1 View (KUB) - 04/04/2021 3:25 am CLINICAL HISTORY: Abdomen pain. FINDINGS: The bowel gas pattern is unremarkable. 7 millimeter calcification within the mid to lower left pelvis probably a ureteral calculus which has migrated distally from February 2021 Small small right renal calculus is present
[2021-04-04] MEDS ORDERED: CIPROFLOXACIN 400mg IV 400 MG/200 ML BAG IV ONE (07:53)
[2021-04-04 09:15] VITALS: BP 122/82; TEMP 98.3; O2SAT 97
== END 2021-04-04 09:01 | disposition home or self-care (01) ==
LOC: ER 23:57
DX: N20.0 Calculus of kidney (principal); E11.9 Type 2 diabetes mellitus without complications; G47.30 Sleep apnea, unspecified; I42.2 Other hypertrophic cardiomyopathy; Z87.891 Personal history of nicotine dependence
CPT/HCPCS: 85025; 80048; 36415; 81003; 74018; J7030; J2405; J0744; 96361; 96365; 96375; 99284

== ENCOUNTER 2021-04-05 06:15 | Day surgery (SDC) | payer BC ==
[2021-04-01 12:51] LABS: Protime INR 1.09
[2021-04-01 12:57] LABS: BUN Blood Urea Nitrogen 12 mg/dL (7-18); Bicarbonate 30 mmol/L (21-32); Glucose Level 136 mg/dL (74-106); Potassium 3.9 mmol/L (3.5-5.1); Sodium Level 139 mmol/L (136-145)
[2021-04-05] MEDS ORDERED: NA CHLORIDE 0.9% 1,000 ML ONE (06:53)
[2021-04-05] MEDS ORDERED: CEFAZOLIN/SWI 1gm 1 GM/10 ML SYR ONE (06:53)
[2021-04-05] MEDS ORDERED: Gentamicin Inj 240 MG in NA CHLORIDE 0.9% 100 ML IV ONE (07:00)
[2021-04-05] MEDS ORDERED: CLINDAMYCIN INJ 600 MG in NA CHLORIDE 0.9% 50 ML IV ONE (07:00)
[2021-04-05] MEDS ORDERED: FENTANYL CITR 100 MCG/2 ML ONE (07:37)
[2021-04-05] MEDS ORDERED: propofoL 200 MG/20 ML VIAL IV ONE (07:37)
[2021-04-05] MEDS ORDERED: MIDAZOLAM HCL 2 MG/2 ML INJ ONE (07:37)
[2021-04-05] MEDS ORDERED: LIDOCAINE 1% MPF 5 ML VIAL ONE (07:38)
[2021-04-05] MEDS ORDERED: dexAMETHasone 10 MG/ML VIAL ONE (08:17)
[2021-04-05] MEDS ORDERED: KETOROLAC 30 MG/ML INJ ONE (08:17)
[2021-04-05] MEDS ORDERED: ONDANSETRON 4 MG/2 ML VIAL ONE (08:19)
[2021-04-05] MEDS ORDERED: Mastisol Adhesive Liq ONE (08:27)
[2021-04-05] MEDS ORDERED: HYDROCODONE/APAP 5/325 MG TAB PO PRN (08:30)
[2021-04-05] MEDS ORDERED: PHENAZOPYRIDINE 100MG TAB PO ONE ×3 (08:30→09:45)
--- NOTE | 2021-04-05 08:52 | RAD REPORT ---
EXAM DESCRIPTION: RAD - Urethrocystogrphy Retrograde - 04/05/2021 8:26 am FINDINGS: There were 10 portable fluoroscopic KUB images obtained during fluoroscopic assisted place ment of a left ureteral stent. Assessment is limited when only selected images are obtained. Correlat ion is needed with findings during real-time fluoroscopic assessment. Fluoro time was 18 seconds.
[2021-04-05] MEDS ORDERED: HYDROCODONE/APAP 5/325 MG TAB PO ONE (09:34)
[2021-04-05] MEDS ORDERED: HYDROCODONE/APAP 5/325 MG TAB ONE (09:44)
[2021-04-05 10:37] VITALS: BP 115/59; TEMP 98.1; O2SAT 95
--- NOTE | 2021-04-05 12:20 | OP ---
Surgeon: MATTEO OTT Preoperative Diagnosis: Left ureterolithiasis, 7 mm. Postoperative Diagnosis: Left ureterolithiasis, 7 mm. Principle Procedures: 1. Cystoscopy. 2. Left retrograde pyelography. 3. Left ureteroscopy with laser lithotripsy and stent placement. 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 She had an additional Pedro plaque within the kidney, but no significant stone burden there on the left. On the right side, she had a 5 mm stone within the renal calices. She has medical history consistent with hyperlipidemia, hypertension, type 2 diabetes and is on Eliquis because of cardiomyopathy. She has been managing the pain for some time now and presents today for definitive management of the stone. Procedure In Detail: The patient was consented in the preoperative holding area before being transferred to the operative suite where general anesthesia was induced. She was given gentamicin 240 mg plus clindamycin IV antimicrobial prophylaxis given her penicillin allergy. The case was begun by placing her in the lithotomy position, padded and secured to the table appropriately. Her genitalia were prepped using Hibiclens and draped in standard fashion. The case was begun using a 22-Salvadorean rigid cystoscope to traverse the urethra and into the bladder with ease. The bladder was then surveyed in its entirety. The ureteral orifices were orthotopic in location, and the remainder of the bladder was free of mucosal lesion, foreign body, or stone. As a result, I cannulated the left ureteral orifice using the tip of a 5-Salvadorean ureteral access catheter and performed a retrograde pyelogram. Left retrograde pyelography: Using a 70:30 mixture of Omnipaque and saline, contrast was injected via the lumen of the 5-Salvadorean ureteral access catheter and there is evidence of filling defect in the distal ureter consistent with the likely calculus along with significant ureteronephrosis from the distal into the mid and proximal ureter before entering a dilated renal pelvis with caliectasis. As a result, I passed a Sensor wire via the 5-Salvadorean ureteral access catheter into the upper pole of the kidney as observed fluoroscopically. I then utilized a dual-lumen catheter to dilate the ureteral orifice. I confirmed the intraluminal location of the wire and the catheter by reinjecting contrast and seeing it propagate into the renal pelvis with ease. I then utilized a semi-rigid ureteroscope to direct vision traverse the urethra and into the bladder and navigate into the left ureteral orifice alongside the safety wire in place. Within the distal ureter, I observed the calculus. I then utilized a 270 nm laser fiber and power setting of 0.8 joules and 8 hertz to quickly fragment the stone to dust smaller than 1 mm. I then surveyed the mid and proximal ureter beyond the stone that was fragmented as far as the patient's ureter would allow since she had been previously unstented. As a result, when no additional stones were noted proximally, and I was confident that this was the only significant stone in her collecting system or ureter, I then removed the ureteroscope surveying it all the way out. When there was no evidence of injury, I then back-loaded the cystoscope over the indwelling safety wire and passed a 6-Salvadorean by 26 cm double-J stent, which was left on its tether. Her bladder was then decompressed after the stent was observed to coil fluoroscopically within the kidney and cystoscopically within the bladder. I then used Mastisol and Steri-Strips to secure the tether to her introitus and then the patient was taken out of the lithotomy position. She was awakened from general anesthesia, then transferred to a stretcher before being transferred to the recovery room in good condition. Complications: None. Discharge Disposition: She may follow up in the Urology Clinic within the next week to have the tethered ureteral stent removed with nurse practitioner, Neri. If possible, she probably would prefer it removed on or Sunday of this week. She should be given a dose of antimicrobial prophylaxis at the time of tethered stent removal and otherwise should follow up with metabolic stone profile assessment if she is a recurrent stone former. Certainly, given the bilateral nephrolithiasis observed, she may benefit from such an analysis as well as counseling of the need to increase the volume of her fluid intake to decrease future stone forming event. She will be discharged with instructions to strain her urine to collect any of the stone dust from the fragmentation done today and bring it into the clinic for chemical analysis. WARREN/ESPERANZA Voice ID: [id number] Report ID: [id number] [facility]
== END 2021-04-05 10:20 | disposition home or self-care (01) ==
LOC: OR 06:15
PROVIDERS: ATTEND Urology
PROC: 0T778DZ Dilation of Left Ureter with Intraluminal Device, Via Natural or Artificial Opening Endoscopic (ICD-10-PCS; 2021-04-05)
PROC: 0TF78ZZ Fragmentation in Left Ureter, Via Natural or Artificial Opening Endoscopic (ICD-10-PCS; principal; 2021-04-05 07:30)
DX: N20.1 Calculus of ureter (principal); E78.5 Hyperlipidemia, unspecified; I10 Essential (primary) hypertension; E11.9 Type 2 diabetes mellitus without complications; I42.9 Cardiomyopathy, unspecified; Z20.822 Contact with and (suspected) exposure to COVID-19
CPT/HCPCS: 93005; 87088; 87086; 80048; 36415; 85610; 82947 ×2; 88300; 82360; 74450; 51610; 52356; U0003; J2704; J1580; J2250; J3010; J1100; J0690; J7030; J2405

== ENCOUNTER 2021-04-11 09:46 | Emergency (ER) | payer BC ==
--- OUTSIDE RECORDS SUMMARY | 2021-04-11 09:49 | XMS REPORT | Continuity of Care Document ---
:1975 Author Organization [facility] t Address [address] [place] [address] Care Team Providers Name Role Phone Lester [...] emoria body mass 01:46:26 l index Finding Pineda (finding) of body mass index (finding) Active Problem 03/11/2021 [facility] Hypertensi Problem Active 2021-03-11 M emoria ve 01:46:26 l disorder, [place]kel[place] systemic Hypertensi arterial ve (disorder) disorder, systemic arterial (disorder) Active Problem 03/11/2021 [facility] Hyperlipid Problem Active 2021-03-11 M emoria emia 01:46:26 l (disorder) Colton n Hyperlipid emia (disorder) Active Problem 03/11/2021 [facility] Hypertroph Problem Active 2021-03-11 M emoria ic 01:46:26 l cardiomyop [place] n athy Hypertroph (disorder) [...] Type II on January 02, 2020 17:45:56 CREDIT RISK OFFICER with order ID: [id number] 5.0 entered by Josue Lentz. [facility] [...] 2021-03-11 Me moria (finding) 01:46:26 l Knee Pineda pain (finding) Active Problem 03/11/2021 [facility] [...] Source Social History 2021-03-08 20:53:22 2021-03-08 20:53:22 [facility] Medications Ordered Filled Start Stop Current Ordering Indication Dosage Frequency Signature Comments Components Source Medication Medication Date Date Medication? Clinician (SIG) Name Name topiramate Yes See Memoria 25 mg oral 4-20 Instructio l capsule 21:40: ns, 1 cap Geetha nn 00 PO BID for 1 week then 1 po qd qd for 1 week then stop, # 60 tab, 0 Refill(s), Pharmacy: [facility] 149, 170.18, cm, 03/08/21 16:10:00 CDT, Height, 101.364, kg, 03/08/21 16:10:00 CDT, Weight 0.25 MG, Yes 1 mg, Memoria 0.5 MG Dose 4-20 SUB-Q, l 1.5 ML 21:14: qWeek, 0 [place] semaglutide 00 Refill(s) 1.34 MG/ML Pen Injector [Ozempic] MetFORMIN Yes 0 Memoria (Eqv-Glucop 4-20 Refill(s) l jose l XR) 21:12: Benkelman 500 mg oral 00 tablet, extended release DULoxetine Yes 30 mg = 1 Me moria 30 mg oral 3-08 cap, PO, l delayed 17:50: Daily, # Colton n release 00 30 cap, 3 capsule Refill(s), Pharmacy: [facility] #[id number], 172.72, cm, 01/24/21 11:24:00 CREDIT RISK OFFICER, Height, 101.364, kg, 01/24/21 11:24:00 CREDIT RISK OFFICER, Weight apixaban 5 Yes 5 mg, PO, Me moria MG Oral 3-08 BID, tab, l Tablet 17:28: 0 Pineda [Eliquis] 00 Refill(s) topiramate Yes See Memoria 100 mg oral 1-05 Instructio l tablet 14:53: ns, TAKE Benkelman 00 ONE TABLET BY MOUTH AT BEDTIME, # 30 tab, 3 Refill(s), Pharmacy: [facility] [id number], 172.72, cm, 10/11/20 9:40:00 CREDIT RISK OFFICER, Height, 100.455, kg, 10/11/20 9:40:00 CREDIT RISK OFFICER, Weight meclizine 2019-11 Yes 25 mg = 1 Mem oria 25 mg oral 1-24 tab, PO, l tablet 19:20: BID, PRN Pineda 00 Dizziness, X 30 day, # 30 tab, 1 Refill(s), Pharmacy: [facility] #[id number], 172.72, cm, 10/11/20 9:40:00 CREDIT RISK OFFICER, Height, 100.455, kg, 10/11/20 9:40:00 CREDIT RISK OFFICER, Weight 1.5 ML 2019-11 Yes See Memoria fremanezuma 1-23 Instructio l b-vfrm 150 16:12: ns, INJECT H ermann MG/ML 00 1 Prefilled PREFILLED Syringe SYRINGE [Ajovy] UNDER THE SKIN MONTHLY, # 2 mL, 5 Refill(s), Pharmacy: [place] [address], 172.72, cm, 10/11/20 9:40:00 CREDIT RISK OFFICER, Height, 100.455, kg, 10/11/20 9:40:00 CREDIT RISK OFFICER, Weight Meclizine 2019-11 No 25 mg = 1 Mem oria 1-23 tab, PO, l 16:08: BID, PRN Pineda 00 Dizziness, # 20 tab, 0 Refill(s) topiramate Yes See Memoria 100 mg oral 7-13 Instructio l tablet 20:35: ns, TAKE Benkelman 00 ONE TABLET BY MOUTH AT BEDTIME, # 30 tab, 2 Refill(s), Pharmacy: [facility] [id number], 172.72, cm, 01/02/20 16:15:00 CREDIT RISK OFFICER, Height, 93.636, kg, 01/02/20 16:15:00 CREDIT RISK OFFICER, Weight topiramate Yes See Memoria 100 mg oral 3-12 Instructio l tablet 14:46: ns, # 30 Pineda 07 tab, Refill(s) 3, TAKE ONE TABLET BY MOUTH AT BEDTIME, Pharmacy: [place] [address] 1.5 ML 2019-0 Yes 225 mg, Memoria fremanezuma 2-14 SUB-Q, l b-vfrm 150 22:49: qMonth, # He rmann MG/ML 00 1 kit, 3 Prefilled Refill(s), Syringe Pharmacy: [feliz] [facility] [id number] Metformin 2019-0 Yes 500 mg = 1 Me moria hydrochlori 2-14 tab, PO, l de 500 MG 22:20: BID, 0 Colton n Oral Tablet 00 Refill(s) gabapentin Yes See Memoria 300 MG Oral 1-20 Instructio l Capsule 19:19: ns, # 60 Colton n 49 unknown unit, Refill(s) 1, TAKE ONE CAPSULE BY MOUTH TWICE A DAY, Pharmacy: [place] [address] gabapentin Yes See Memoria 300 MG Oral 7-31 Instructio l Capsule 21:08: ns, 1 cap Geetha nn 49 PO qam, 2 po qhs, # 90 cap, 3 Refill(s), Pharmacy: [place] [address] topiramate Yes 100 mg = 1 M emoria 100 mg oral 6-14 tab, PO, l tablet 18:41: Bedtime, # Geetha nn 00 30 tab, 3 Refill(s), Pharmacy: [place] [address] pregabalin 2018- Yes 50 mg = 1 Me moria 50 MG Oral 6-14 cap, PO, l Capsule 18:41: Bedtime, # Herm silvia [Lyrica] 00 30 cap, 3 Refill(s) topiramate 2018-0 Yes 75 mg = 3 Me moria 25 mg oral 5-10 tab, PO, l tablet 21:33: Bedtime, # Geetha nn 02 90 tab, 3 Refill(s), Pharmacy: [place] [address] topiramate 2018-0 No = 2 tab, Mem oria 25 mg oral 2-11 PO, l tablet 18:03: Bedtime, # Geetha nn 42 60 tab, Refill(s) 1, Pharmacy: [place] [address] Vital Signs Vital Name Observation Time Observation Value Comments Source Systolic (mm Hg) 2021-03-08 20:53:00 Masood rial [place] Diastolic (mm Hg) 2021-03-08 20:53:00 Mem orial [place] Heart Rate 2021-03-08 20:53:00 [facility] Respitory Rate 2021-03-08 20:53:00 Memori al Pineda Height 2021-03-08 20:53:00 170.18 cm [facility] P[facility]a Weight 2021-03-08 20:53:00 [facility] [place] BMI Calculated 2021-03-08 20:53:00 Memori al Pineda Systolic (mm Hg) 2021-01-24 15:41:00 Masood rial Pineda Diastolic (mm Hg) 2021-01-24 15:41:00 Mem orial Pineda Heart Rate 2021-01-24 15:41:00 [facility] [place] Respitory Rate 2021-01-24 15:41:00 Memori al [place] Height 2021-01-24 15:41:00 172.72 cm [facility] [place] Weight 2021-01-24 15:41:00 [facility] [place] BMI Calculated 2021-01-24 15:41:00 Memori al Pineda Systolic (mm Hg) 2020-10-11 15:40:00 Masood rial [place] Diastolic (mm Hg) 2020-10-11 15:40:00 Mem orial [place]ined[place] Heart Rate 2020-10-11 15:40:00 [facility] [place] Respitory Rate 2020-10-11 15:40:00 Memori al Pineda Height 2020-10-11 15:40:00 172.72 cm [facility] [place] Weight 2020-10-11 15:40:00 [facility] [place] BMI Calculated 2020-10-11 15:40:00 Memori al [place] Systolic (mm Hg) 2020-01-02 22:15:00 Masood rial [place] Diastolic (mm Hg) 2020-01-02 22:15:00 Mem orial Pineda Heart Rate 2020-01-02 22:15:00 [facility] [place] Respitory Rate 2020-01-02 22:15:00 Memori al [place] Height 2020-01-02 22:15:00 172.72 cm [facility] [place] Weight 2020-01-02 22:15:00 [facility] [place] BMI Calculated 2020-01-02 22:15:00 Memori al [place] Weight 2019-05-02 18:12:00 [facility] [place] BMI Calculated 2019-05-02 18:12:00 Memori al [place] Height 2019-05-02 18:12:00 170.18 cm [facility] [place] Systolic (mm Hg) 2019-05-02 18:12:00 Masood rial Pineda Diastolic (mm Hg) 2019-05-02 18:12:00 Mem orial [place]ineda Heart Rate 2019-05-02 18:12:00 [facility] [place] Respitory Rate 2019-05-02 18:12:00 Memori al [place] Weight 2019-03-28 21:13:00 [facility] [place] BMI Calculated 2019-03-28 21:13:00 Memori al [place] Height 2019-03-28 21:13:00 175.26 cm [facility] [place] Heart Rate 2019-03-28 21:13:00 [facility] [place] Respitory Rate 2019-03-28 21:13:00 Memori al Pineda Systolic (mm Hg) 2019-03-28 21:13:00 Masood rial [place] Diastolic (mm Hg) 2019-03-28 21:13:00 Mem orial Pineda Procedures This patient has no known procedures. Encounters Start End Encounter Admission Attending Care Care Encounter Source Date/Time Date/Time Type Type Clinicians Facility Department ID 2021-03-18 2021-03-18 [id number] 2021-03-18 2021-03-18 [facility] [id number] 2021-03-15 2021-03-15 [facility] [id number] [facility] 2021-03-08 2021-03-08 [id number] 16:00:00 23:59:59 Josue Osmar Lester 2021-03-08 2021-03-08 [facility] [id number] [facility] 2021-01-242021-01-24 Outpatient GAYATHRI LentzSCHER [facility]HMISCHER [id number] 11:30:00 23:59:59 Josue 17 Lester 2020-12-14 2020-12-14 Transition [place] [id number] 00:00:00 00:00:00 of Care kSye Ramirezy [id number] [place] [id number] 2020-12-10 2020-12-13 [facility] Cyrus Marisela Miroslava [facility] 1.2.84 0.114 [id number] 19:04:00 18:35:00 Encounter Jessica Pruettemery [place] [id number] [place] [id number] [place] [id number] 2020-12-10 2020-12-10 [facility] Radiology [facility] [id number] 13:40:41 19:03:00 Encounter [place] [id number] [place] [id number] [place] [id number] 2020-12-10 2020-12-10 [facility] Radiology [facility] [id number] 13:40:26 19:03:00 Encounter [place] [id number] [place] [id number] [place] [id number] 2020-10-11 2020-10-11 Outpatient GAYATHRI LentzSCHER MHMISCHER [id number] 09:00:00 23:59:59 Josue 16 Lester 2020-08-27 2020-08-27 Outpatient EMIR LentzMISCHER MHMISCHER [id number] 16:00:00 16:00:00 Josue 15 Lester 2020-08-03 2020-08-03 Outpatient GAYATHRI LentzSCHER [facility]ISCHER [id number] 16:00:00 16:00:00 Josue 14 Lester 2020-07-16 2020-07-16 Outpatient EMIR LentzMISCHER M[facility]ISCHER [id number] 15:45:00 15:45:00 Josue 12 Lester 2020-07-16 2020-07-16 Outpatient Krell, [facility] [id number] 15:45:00 15:45:00 Josue 13 Lester 2020-03-17 2020-03-17 Outpatient Mary Carmen, [facility] [id number] 13:00:00 23:59:59 Josue 11 Lester 2020-03-05 2020-03-05 Outpatient Mary Carmen, [facility] [id number] 15:45:00 15:45:00 Josue 10 Lester 2020-02-13 2020-02-13 [facility] [id number] 00:00:00 00:00:00 [facility] [id number] [place] [id number] Professio [id number] nal [id number] 2020-02-12 2020-02-12 Emergency Perdomo, [facility] [id number] 11:08:26 14:13:00 Bernard [place] [id number] [place] [id number] [place] [id number] 2020-02-12 2020-02-12 Urgent Pob1, Acute [facility] [id number] 10:20:06 10:40:06 [facility] [place] [id number] [place] [id number] Professio [id number] nal [address] 2020-01-02 2020-01-02 Outpatient Mary Carmen, [facility] [id number] 16:00:00 23:59:59 Josue 09 Lester 2019-06-27 2019-06-27 Outpatient Mary Carmen, [facility] [id number] 14:00:00 14:00:00 Josue 08 Lester 2019-05-02 2019-05-02 Outpatient Amieaden, [facility] [id number] 13:00:00 23:59:59 Josue 07 Lester 2019-03-28 2019-03-28 Outpatient Amieaden, [facility] [id number] 16:15:00 23:59:59 Josue 06 Lester 2018-09-06 2018-09-06 [facility] [id number] 16:00:00 16:00:00 Josue Batista Results Test Description [...] (test code = MCH) 31.1 pg 27.0-33.0 [facility] [id number] 16:52:0034.0[facility] 2020-10-11 16:52:0012.3[facility]orial [id number] 16:52:17899Yxpltnwj [id number] 16:52:0010.6[facility] [place]
[2021-04-11 10:21] LABS: Urine Blood 3+ (Negative); Urine Glucose 3+ (Negative); Urine Protein 3+ (Negative); Urine Specific Gravity 1.025 (1.005-1.030); Urine pH 6.5 (5.0-7.0)
[2021-04-11 10:38] LABS: Urine Specific Gravity/Preg 1.025 (1.005-1.030)
[2021-04-11 11:00] LABS: Absolute Lymphocytes (CBC) 1.3 K/uL (0.7-4.9); Basophils % 0.7 % (0-1.3); Hematocrit 36.5 % (36.0-45.0); Lymphocytes % 21.1 % (15.3-44.8); MPV 8.5 fL (7.6-11.3); RBC Red Blood Cell Count 4.09 M/uL (3.86-4.86)
[2021-04-11 11:10] LABS: Protime INR 1.15
[2021-04-11 11:18] LABS: Albumin 3.5 g/dL (3.4-5.0); Bilirubin Direct 0.2 mg/dL (0-0.2); Bilirubin Total 0.6 mg/dL (0.2-1.0); Protein, Total 6.8 g/dL (6.4-8.2)
--- NOTE | 2021-04-11 13:28 | ER ---
Nurse's Notes [facility] Name: Flakita Barton Age: 45 yrs Sex: Female : 1975 Arrival Date: 04/11/2021 Time: 09:49 Bed 17 Private MD: Diagnosis: Hematuria, unspecified Presentation: 04/11 10:00 Chief complaint: Patient states: Kidney stone removal and stent placement on 04/05/2021. ca1 Been bleeding weeks before that but has gotten worse since the surgery. I had to change pad every [address] Lemus office and was instructed to come here since my stent removal is scheduled tomorrow and should not be bleeding this much. Coronavirus screen: Client denies travel out of the [place] in the last 14 days. At this time, the client does not indicate any symptoms associated with coronavirus-19. Ebola Screen: Patient negative for fever greater than or equal to 101.5 degrees Fahrenheit, and additional compatible Ebola Virus Disease symptoms Patient denies exposure to infectious person. Patient denies travel to an Ebola-affected area in the 21 days before illness onset. No symptoms or risks identified at this time. Initial Sepsis Screen: Does the patient meet any 2 criteria? No. Patient's initial sepsis screen is negative. Does the patient have a suspected source of infection? No. Patient's initial sepsis screen is negative. Risk Assessment: Do you want to hurt yourself or someone else? Patient reports no desire to harm self or others. Onset of symptoms was April 11, 2021. 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 LMP N/A - Hysterectomy ca1 Historical: - Allergies: 10:06 Codeine; ca1 10:06 PENICILLINS; ca1 10:06 Morphine; ca1 - Home Meds: 10:06 duloxetine 60 mg Oral cpDR 1 cap once daily [Active]; Eliquis Oral [Active]; ca1 rosuvastatin 20 mg Oral tab 1 tab AT NIGHT [Active]; ozempic [Active]; Cartia XT 300 mg oral cp24 1 cap once daily [Active]; montelukast 10 mg Oral tab 1 tab once daily [Active]; quetiapine 100 mg Oral tab [Active]; - PMHx: 10:06 Hypertrophic cardiomyopathy; Diabetes - NIDDM; Lung Nodule; Kidney stones; Migraines; ca1 PE; Sleep Apnea; - PSHx: 10:06 D \T\ C; Hysterectomy; R knee; Tonsillectomy; endometriosis lap; Appendectomy; Adenoids; ca1 Cholecystectomy; heart cath; liver biopsy; Kidney stents; Lithotripsy; - Immunization history:: Client reports receiving the 2nd dose of the Covid vaccine, Client reports receiving the 1st dose of the Covid vaccine, Flu vaccine is not up to date. Patient has never been vaccinated. - Social history:: Smoking status: Patient/guardian denies using tobacco, the patient reports quitting approximately 2 years ago. Screenin:50 Abuse screen: Denies threats or abuse. Denies injuries from another. Nutritional tr6 screening: No deficits noted. Tuberculosis screening: No symptoms or risk factors identified. Fall Risk None identified. Assessment: 10:30 General: Appears in no apparent distress. uncomfortable, Behavior is calm, cooperative, jl7 appropriate for age. Pain: Complains of pain in vaginal burning. Neuro: Level of Consciousness is awake, alert, obeys commands, Oriented to person, place, time, situation. Cardiovascular: Patient's skin is warm and dry. Respiratory: Airway is patent Respiratory effort is even, unlabored, Respiratory pattern is regular, symmetrical. : Urine is blood tinged, Reports vaginal bleeding that is bright red. Derm: Skin is pink, warm \T\ dry. 11:30 Reassessment: Patient appears in no apparent distress at this time. No changes from jl7 previously documented assessment. Patient and/or family updated on plan of care and expected duration. Pain level reassessed. Patient is alert, oriented x 3, equal unlabored respirations, skin warm/dry/pink. 12:26 Reassessment: Patient appears in no apparent distress at this time. No changes from jl7 previously documented assessment. Patient and/or family updated on plan of care and expected duration. Pain level reassessed. Patient is alert, oriented x 3, equal unlabored respirations, skin warm/dry/pink. Vital Signs: 10:00 BP 146 / 85; Pulse 78; Resp 18 S; Temp 97.3(TE); Pulse Ox 98% on R/A; Weight 99.79 kg ca1 (R); Height 5 ft. 9 in. (175.26 cm) (R); Pain 5/10; 12:24 BP 132 / 90; Pulse 78; Resp 15; Pulse Ox 98% ; jl7 10:00 Body Mass Index 32.49 (99.79 kg, 175.26 cm) ca1 ED Course: 09:49 Patient arrived in ED. bp1 10:03 Triage completed. ca1 10:06 Arm band placed on right wrist. ca1 10:09 Carla Ventura RN is Primary Nurse. jl7 10:15 Andres Henderson NP is PHCP. pm1 10:15 Ej Malik MD is Attending Physician. pm1 10:50 Patient has correct armband on for positive identification. Bed in low position. Call tr6 light in reach. Side rails up X2. front desk monitor on. Pulse ox on. NIBP on. Door closed. Noise minimized. Visitors limited. Lights dimmed. Moved to private room. Warm blanket given. Diet: Patient is NPO. 10:50 Inserted saline lock: 18 gauge in right antecubital area, using aseptic technique. tr6 Blood collected. 10:56 Basic Metabolic Panel Sent. 5 10:56 Type And Screen Sent. 5 10:56 Ptt, Activated Sent. 5 10:57 PT-INR Sent. 5 10:57 Basic Metabolic Panel Sent. 5 10:57 CBC with Diff Sent. mh5 10:57 Hepatic Function Sent. 5 10:57 Urine Dipstick-Ancillary Sent. 5 12:42 Assist provider with pelvic exam: Set up pelvic tray. Performed by Andres Henderson NP jl7 Patient tolerated well. 13:40 IV discontinued, intact, bleeding controlled, No redness/swelling at site. Pressure jl7 dressing applied. Administered Medications: No medications were administered Outcome: 13:27 Discharge ordered by . pm1 13:40 Discharged to home ambulatory. jl7 13:40 Condition: stable 13:40 Discharge instructions given to patient, Instructed on discharge instructions, follow up and referral plans. Demonstrated understanding of instructions, follow-up care. 13:41 Patient left the ED. jl7 Signatures: Andres Henderson NP AUTOMOBILE PAINTER pm1 Nathalie Ramirez 5 Carla Ventura RN RN jl7 Kristen Mendoza RN RN ca1 Bessy Antonio bp1 Shania Crespo RN RN tr6 Corrections: (The following items were deleted from the chart) 12:42 10:50 No provider procedures requiring assistance completed. tr6 jl7
--- NOTE | 2021-04-11 13:28 | EDPHYS ---
Physician Documentation [facility] Name: Flakita Barton Age: 45 yrs Sex: Female : 1975 Arrival Date: 04/11/2021 Time: 09:49 Bed 17 Private MD: Ej Perez HPI: 04/11 10:39 This 45 yrs old Female presents to ER via Ambulatory with complaints of pm1 Vaginal Bleeding, Post Surgical Bleeding. 10:39 The patient presents with vaginal bleeding that is heavy, Vaginal bleeding present for pm1 multiple weeks prior to stent placement on 04/05. Reports vaginal bleeding has been present since then but worse the past two days. Modifying factors: The symptoms are alleviated by nothing, the symptoms are aggravated by stent placement. Associated signs and symptoms: Pertinent negatives: dysuria, fever, dizziness, SOB, chest pain. Severity of symptoms: in the emergency department the symptoms are actually worse. The patient has been recently seen by a physician: Dr. Lemus on 04/05 and had stent placed in left ureter. 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 LMP N/A - Hysterectomy ca1 Historical: - Allergies: 10:06 Codeine; ca1 10:06 PENICILLINS; ca1 10:06 Morphine; ca1 - Home Meds: 10:06 duloxetine 60 mg Oral cpDR 1 cap once daily [Active]; Eliquis Oral [Active]; ca1 rosuvastatin 20 mg Oral tab 1 tab AT NIGHT [Active]; ozempic [Active]; Cartia XT 300 mg oral cp24 1 cap once daily [Active]; montelukast 10 mg Oral tab 1 tab once daily [Active]; quetiapine 100 mg Oral tab [Active]; - PMHx: 10:06 Hypertrophic cardiomyopathy; Diabetes - NIDDM; Lung Nodule; Kidney stones; Migraines; ca1 PE; Sleep Apnea; - PSHx: 10:06 D \T\ C; Hysterectomy; R knee; Tonsillectomy; endometriosis lap; Appendectomy; Adenoids; ca1 Cholecystectomy; heart cath; liver biopsy; Kidney stents; Lithotripsy; - Immunization history:: Client reports receiving the 2nd dose of the Covid vaccine, Client reports receiving the 1st dose of the Covid vaccine, Flu vaccine is not up to date. Patient has never been vaccinated. - Social history:: Smoking status: Patient/guardian denies using tobacco, the patient reports quitting approximately 2 years ago. ROS: 10:39 Positive for hematuria, vaginal bleeding, Negative for pelvic pain, flank pain. pm1 10:39 Constitutional: Negative for fever, chills, and weight loss, Cardiovascular: Negative for chest pain, palpitations, and edema, Respiratory: Negative for shortness of breath, cough, wheezing, and pleuritic chest pain, Abdomen/GI: Negative for abdominal pain, nausea, vomiting, diarrhea, and constipation, Back: Negative for injury and pain, MS/Extremity: Negative for injury and deformity, Skin: Negative for injury, rash, and discoloration, Neuro: Negative for headache, weakness, numbness, tingling, and seizure. Exam: 10:39 Constitutional: This is a well developed, well nourished patient who is awake, alert, pm1 and in no acute distress. Head/Face: Normocephalic, atraumatic. 10:39 Back: No spinal tenderness. No costovertebral tenderness. Full range of motion. Skin: Warm, dry with normal turgor. Normal color with no rashes, no lesions, and no evidence of cellulitis. MS/ Extremity: Pulses equal, no cyanosis. Neurovascular intact. Full, normal range of motion. 10:39 Cardiovascular: Exam negative for acute changes, Rate: normal, Rhythm: regular, Pulses: Edema: is not appreciated. 10:39 Respiratory: Exam negative for acute changes, respiratory distress, shortness of breath, Breath sounds: are clear throughout. 10:39 Abdomen/GI: Inspection: abdomen appears normal, Palpation: abdomen is soft and non-tender, in all quadrants. 10:39 Neuro: Exam negative for acute changes, Orientation: is normal, Mentation: is normal, Motor: is normal, moves all fours, Sensation: is normal, no obvious gross deficits. 12:42 : Pelvic Exam: External exam: is normal, Speculum exam: no bleeding is noted, No pm1 vaginal bleeding present. Dried blood present at the opening of the urethra and small amount of blood present on her pad, Carla RN microsoft exchange administrator. Vital Signs: 10:00 BP 146 / 85; Pulse 78; Resp 18 S; Temp 97.3(TE); Pulse Ox 98% on R/A; Weight 99.79 kg ca1 (R); Height 5 ft. 9 in. (175.26 cm) (R); Pain 5/10; 12:24 BP 132 / 90; Pulse 78; Resp 15; Pulse Ox 98% ; jl7 10:00 Body Mass Index 32.49 (99.79 kg, 175.26 cm) ca1 MDM: 10:16 Patient medically screened. pm1 13:26 Data reviewed: vital signs. Data interpreted: Pulse oximetry: on room air is 98 %. pm1 Interpretation: normal. Counseling: I had a detailed discussion with the patient and/or guardian regarding: the historical points, exam findings, and any diagnostic results supporting the discharge/admit diagnosis, lab results, the need for outpatient follow up, for definitive care, a urologist, to return to the emergency department if symptoms worsen or persist or if there are any questions or concerns that arise at home. 04/11 10:21 Order name: Urine Dipstick-Ancillary EDRI 04/11 10:24 Order name: Basic Metabolic Panel pm1 04/11 10:24 Order name: CBC with Diff; Complete Time: 11:08 pm1 04/11 10:24 Order name: Hepatic Function; Complete Time: 11:20 pm1 04/11 10:24 Order name: PT-INR; Complete Time: 11:20 pm1 04/11 10:24 Order name: Ptt, Activated; Complete Time: 11:20 pm1 04/11 10:24 Order name: IV Saline Lock; Complete Time: 10:50 pm1 04/11 10:24 Order name: Labs collected and sent; Complete Time: 10:50 pm1 04/11 10:24 Order name: Type And Screen; Complete Time: 12:08 pm1 04/11 10:25 Order name: Basic Metabolic Panel; Complete Time: 11:20 EDRI 04/11 10:34 Order name: Urine --Ancillary (enter results); Complete Time: 10:39 bd 04/11 10:51 Order name: Pelvic Exam Setup; Complete Time: 11:03 pm1 Administered Medications: No medications were administered Disposition: 04/12 10:00 Co-signature as Attending Physician, Ej Malik MD I agree with the assessment and johanne plan of care. Disposition: 04/11/21 13:27 Discharged to Home. Impression: Hematuria, unspecified. - Condition is Stable. - Discharge Instructions: Hematuria, Adult. - Medication Reconciliation Form, Thank You Letter, Antibiotic Education, Prescription Opioid Use, Work release form form. - Follow up: Emergency Department; When: As needed; Reason: Worsening of condition. Follow up: Private Physician; When: 2 - 3 days; Reason: Recheck today's complaints, Continuance of care, Re-evaluation by your physician. - Problem is new. - Symptoms have improved. Signatures: Dispatcher [employer] EDMS Ej Malik, Andres Mitchell MD, cha, GOODWILL AMBASSADOR GOOD[employer]ILL AMBASSADOR pm1 Carla Ventura RN RN jl7 Kristen Mendoza RN RN ca1 Corrections: (The following items were deleted from the chart) 04/11 13:41 13:27 04/11/2021 13:27 Discharged to Home. Impression: Hematuria, unspecified. jl7 Condition is Stable. Forms are Medication Reconciliation Form, Thank You Letter, Antibiotic Education, Prescription Opioid Use. Follow up: Emergency Department; When: As needed; Reason: Worsening of condition. Follow up: Private Physician; When: 2 - 3 days; Reason: Recheck today's complaints, Continuance of care, Re-evaluation by your physician. Problem is new. Symptoms have improved. pm1
[2021-04-11 13:46] VITALS: TEMP 97.3; O2SAT 98
[2021-04-11 13:47] VITALS: BP 132/90
== END 2021-04-11 13:41 | disposition home or self-care (01) ==
LOC: ER 09:46
DX: R31.9 Hematuria, unspecified (principal); E11.9 Type 2 diabetes mellitus without complications; I42.2 Other hypertrophic cardiomyopathy; Z98.890 Other specified postprocedural states; Z86.711 Personal history of pulmonary embolism; Z79.01 Long term (current) use of anticoagulants; Z88.0 Allergy status to penicillin; Z88.5 Allergy status to narcotic agent
CPT/HCPCS: 36415; 80048; 80076; 81003; 81025; 85025; 85610; 85730; 86850; 86900; 86901; 99284

== ENCOUNTER 2022-03-20 07:30 | Day surgery (SDC) | payer BC ==
[2022-03-17 11:31] LABS: Absolute Lymphocytes (CBC) 1.5 K/uL (0.7-4.9); Hematocrit 44.9 % (36.0-45.0); Lymphocytes % 21.4 % (15.3-44.8); MPV 7.9 fL (7.6-11.3); RBC Red Blood Cell Count 4.97 M/uL (3.86-4.86)
[2022-03-17 11:45] LABS: Protime INR 0.94
[2022-03-17 11:54] LABS: Potassium 4.1 mmol/L (3.5-5.1)
--- NOTE | 2022-03-17 12:31 | RAD REPORT ---
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 COMPARISON: Abdomen 1 View (KUB) dated 04/04/2021; Chest Single View dated 12/11/2018; Chest Pa And La t (2 Views) dated 05/14/2018; CHEST SINGLE VIEW dated 01/14/2016 FINDINGS: The lungs are clear. Cardiac size is mildly prominent. No displaced fractures.
[~2022-03-20 07:30] MED LIST changes: -HEPA 1000U/500MLS 2,000 UNIT/1,000 ML BAG IV ONE; -HEPARIN 5000 UNIT/ML 1 ML VIAL ONE; -LIDOCAINE 1% 20 ML MDV ONE; +NA CHLORIDE 0.9% 500 ML ONE
[2022-03-20 08:06] VITALS: TEMP 97.8
[2022-03-20] MEDS ORDERED: FENTANYL CITR 100 MCG/2 ML ONE (08:20)
[2022-03-20] MEDS ORDERED: NITROGLYCERIN 100 MCG/ML SYR (for cath lab use only) IV ONE (08:20)
[2022-03-20] MEDS ORDERED: ATROPINE SULF 1 MG/10 ML SYR IV ONE (08:20)
[2022-03-20] MEDS ORDERED: MIDAZOLAM HCL 2 MG/2 ML INJ ONE ×2 (08:20→08:40)
[2022-03-20] MEDS ORDERED: NA CHLORIDE 0.9% 0 ML ONE (08:20)
[2022-03-20] MEDS ORDERED: HEPA 1000U/500MLS 1,000 UNIT/500 ML BAG IV ONE (08:22)
[2022-03-20] MEDS ORDERED: LIDOCAINE 1% 20 ML MDV ONE (08:48)
--- NOTE | 2022-03-20 09:19 | OP ---
Date of Procedure: 03/20/2022 Surgeon: Long Jackson MD Content Publisher: Ms. Paty Benjamin. Patient admitted to my service as an outpatient today, 03/20/2022 for a left heart catheterization an d selective coronary arteriogram. Indication: Hypertrophic cardiomyopathy and continued chest pain and shortness of breath and edema d espite a normal stress test. 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 Given Versed and fentanyl for sedation. A 6-[place] sheath introduced in the right com mon femoral artery successfully. Angiography there was normal. Angio-Seal was used to close the jai e. Murali catheter left and right were used to cannulate the left main and right main. She had per fectly normal coronaries without any focal stenosis. The patient tolerated the procedure well. Ther e were no complications. Blood Loss: 5 cc. Total Conscious Sedation: 30 minutes. Postoperative Diagnoses: Chest pain, normal coronaries, hypertrophic cardiomyopathy. The patient is on Xarelto at home that she has held. We will resume Xarelto starting tomorrow. Plan: For continuing medical therapy. I will see her in the office in 2 weeks after 2 hours of bedr est today. SHIVAM/ESPERANZA Voice ID: [id number] Report ID: [id number]
[2022-03-20] MEDS ORDERED: ACETAMINOPHEN 325 MG TABLET ONE (10:04)
[2022-03-20 10:54] VITALS: BP 114/69; O2SAT 97
== END 2022-03-20 11:30 | disposition home or self-care (01) ==
LOC: CCL 07:30
DX: I42.2 Other hypertrophic cardiomyopathy (principal); I10 Essential (primary) hypertension; E78.2 Mixed hyperlipidemia; E11.9 Type 2 diabetes mellitus without complications; J44.1 Chronic obstructive pulmonary disease with (acute) exacerbation; I26.99 Other pulmonary embolism without acute cor pulmonale; G43.909 Migraine, unspecified, not intractable, without status migrainosus; Z20.822 Contact with and (suspected) exposure to COVID-19; Z86.711 Personal history of pulmonary embolism; Z79.01 Long term (current) use of anticoagulants; Z79.899 Other long term (current) drug therapy; Z88.0 Allergy status to penicillin; Z88.5 Allergy status to narcotic agent; Z82.49 Family history of ischemic heart disease and other diseases of the circulatory system
CPT/HCPCS: 85025; 80048; 36415; 85610; 82947; 85730; 71046; 93454; U0003; C1893; C1760; Q9967; G0269; J2250 ×2; J3010; J7040; J1644; J0583

== ENCOUNTER 2022-05-11 22:02 | Emergency (ER) | payer BC ==
--- OUTSIDE RECORDS SUMMARY | 2022-05-11 22:09 | XMS REPORT | Continuity of Care Document ---
:1975 Author Organization [facility] t Address [address] [place] [address] [address] [place] [address] Care Team Providers Name Role Phone PCP, DOES NOT HAVE A Primary Care Physician Unavailable Wan Attending Clinician Unavailable RADIOLOGY Attending Clinician Unavailable Moises Attending Clinician Miroslava Bridges DO Attending Clinician Seble SINGH Attending Clinician Radiology Attending Clinician Unavailable Ralph SINGH Attending Clinician CONOR Attending Clinician Unavailable Conor SINGH Attending Clinician P[facility] Attending Clinician Unavailable Aaron Velásquez Attending Clinician Aaron FRANCE Attending Clinician Unavailable Seble SINGH Admitting Clinician CONOR Admitting Clinician Unavailable Payers Payer Name Policy Type Policy Number Effective Date Expiration Date Toña LAINEZ [facility] [[email or web address] CARE [id number] 2015 00:00:00 BLUE ESSENTIALS [id number] 2020 00:00:00 Problems Condition Condition Condition Status Onset Resolution Last Treating Co mments Source Name Details Category Date Date Treatment Clinician Date Dyslipidem Dyslipidem Disease Active U nivers ia ia 1- ity of 00:00: [place] [facility] Pulmonary Pulmonary Disease Active Uni vers embolism embolism - ity of 00:00: Medical Branch Obesity Obesity Disease Active Univers (BMI (BMI 1-22 ity of 30-39.9) 30-39.9) 00:00: Medical Branch Exposure Exposure Disease Active Unive rs to to 3-25 ity of SARS-assoc SARS-assoc [place] i[place] Medical coronaviru coronaviru Br anch s s Acute URI Acute URI Disease Active Uni vers 02-10 ity of 00:00: [place] [facility] MVP MVP Disease Active Univers (mitral (mitral ity of valve valve [place] prolapse) prolapse) [facility] emilia Branch Hypertroph Hypertroph Disease Active U nivers ic ic [place] of cardiomyop cardiomyop [place] at[place] ath [facility] [place] HTN HTN Disease Active Univers (hypertens (hypertens it y of ion), ion), [place] benign benign Medical Branch DM DM Disease Active Univers (diabetes (diabetes ity of mellitus) mellitus) [facility] [place] Allergies, Adverse Reactions, Alerts Allergy Allergy Status Severity Reaction(s) Onset Inactive Treating Comm ents Source Name Type Date Date Clinician Codeine Propensi Active Unknown - Univ ers ty to See comments 2 ity of adverse 00:00: [place] reaction 00 Medical s Branch Penicill Propensi Active Unknown - Uni vers ins ty to See comments 2 ity of adverse 00:00: [place] reaction 00 Medical s Branch CODEINE DRUG Active Unknown-Cmnt Uni vers INGREDI 2- ity of 00:00: [place] [facility] PENICILL Drug Active Unknown-Cmnt Un aletha INS Class 2- ity of 00:00: [place] 00 Medical Branch Social History Social Habit Start Date Stop Date Quantity Comments Source Exposure to Not sure [facility] SARS-CoV-2 (event) Medica l Branch Sex Assigned At [facility] Medical Branch Tobacco use and 2020-12-10 2020-12-10 Never used [facility] exposure 00:00:00 00:00:00 [facility] Smoking Status Start Date Stop Date Source Former smoker 2020-12-10 00:00:00 2020-12-10 00:00:00 [facility] Medications Ordered Filled Start Stop Current Ordering Indication Dosage Frequency Signature Comments Components Source Medication Medication Date Date Medication? Clinician (SIG) Name Name apixaban 5 2020- No 1291 5mg Take 1 Univ ers mg tablet 12-18 tablet by ity of 00:00: 05:59 mouth 2 [place] 00 :00 (two) Medical times [place] daily for 30 days. Indication s: a clot in the lung apixaban 5 2020- No 1291 5mg Take 1 Univ ers mg tablet 12-18 tablet by ity of 00:00: 05:59 mouth 2 [place] 00 :00 (two) [facility] daily for 30 days. Indication s: a clot in the lung diltiazem Yes 240mg Take 240 Uni vers (CARTIA XT) 1-26 mg by ity of 240 mg 24 00:35: [place] capsule 29 bedtime. [facility] diltiazem Yes 240mg Take 240 Uni vers (CARTIA XT) 1-26 mg by ity of 240 mg 24 00:35: [place] capsule 29 bedtime. [facility] KCL 2020- No 40meq 40 mEq, Univers (KLOR-CON 1-25 01-25 Oral, ity of M20) tablet 16:30: 18:07 ONCE, 1 [place] 40 mEq 00 :00 dose, Mon Medical 12/13/20 at Branch 1030, Routine rosuvastati Yes 20mg 20 mg, Univ ers n (CRESTOR) 1-25 Oral, QHS, it y of tablet 20 03:00: First dose [place] mg 00 (after Medical last Branch modificati on) on 12/12/20 at 2100, Until Discontinu ed, Routine diltiazem Yes 240mg 240 mg, Univ ers XR 1-25 Oral, QHS, ity of (DILT-XR) 03:00: First dose [place] capsule 240 00 (after Medica l mg last Branch modificati on) on 12/12/20 at 2100, Until Discontinu ed apixaban 5 2020- No 1291 5mg Take 1 Univ ers mg tablet 12-13 tablet by ity of 00:00: 05:59 mouth 2 [place] 00 :00 (two) Medical times [place] daily for 33 days. Take eliquis 10 mg twice daily for 3 days, then 5 mg twice daily for 6 months Indication s: a clot in the lung apixaban 5 2020- No 1291 5mg Take 1 Univ ers mg tablet 12-13 tablet by ity of 00:00: 05:59 mouth 2 [place] 00 :00 (two) Medical times [place] daily for 33 days. Take eliquis 10 mg twice daily for 3 days, then 5 mg twice daily for 6 months Indication s: a clot in the lung topiramate Yes 100mg 100 mg, Uni vers (TOPAMAX) 12-12 Oral, QHS, ity of tablet 100 03:00: [place] dose [place] mg 00 on [facility] Medical 12/11/20 at Branch 2100, Until Discontinu ed, Routine
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 Restricted medication : APRIL GUTIERREZ apixaban 2020- No 10mg [Order 1 Univ ers (ELIQUIS) 12-12 Start] ity of tablet 10 02:00: 01:59 Name: [place] mg 00 :00 apixaban Medical (ELIQUIS) Branch tablet 10 mg Signed Summary: 10 mg, Oral, BID, 14 doses, First dose on [facility] 12/11/20 at 2000, Last dose on 12/18/20 at 0800, Routine [Order 1 End] [Order 2 Start] Name: apixaban (ELIQUIS) tablet 5 mg Signed Summary: 5 mg, Oral, BID, First dose on 12/18/20 at 2000, Until Discontinu ed, Routine [Order 2 End] rosuvastati 2020- No 20mg 20 mg, Uni vers n (CRESTOR) 12-11 Oral, ity of tablet 20 15:00: 21:51 DAILY, [place] mg 00 :54 First dose Medical on Sat Branch 12/11/20 at 0900, Until Discontinu ed, Routine Sliding 2021-0 Yes Subcutaneo Univ ers Scale 23 us, AC+HS, ity of Insulin-Reg 13:30: First dose [place] ular + Fsbg 00 on Sat Medica l Testing 12/11/20 at Branch 0730, Until Discontinu ed, Routine diltiazem 2020- No 240mg 240 mg, Uni vers XR 12-11 01-24 Oral, ity of (DILT-XR) 07:00: 21:51 DAILY, [place] capsule 240 00 :54 First dose Me dical mg on Sat Branch 12/11/20 at 0100, Until Discontinu ed diltiazem 0 Yes 240mg Take 240 Uni vers (CARTIA XT) 1-23 mg by ity of 240 mg 24 06:59: [place] hr capsule 59 bedtime. Medic al Branch glucagon Yes 1mg 1 mg, Univers (GLUCAGEN 12-11 Intramuscu ity of DIAGNOSTIC 04:33: [place], PRN, [place] KIT) 13 Starting Medical injection 1 Sun Branch mg 12/10/20 at 2233, Until Discontinu ed, KERI, Blood Glucose < or = 70 mg/dL and patient is unable to swallow or has mental changes. dextrose 50 Yes 25mL 25 mL, Univ ers % in water 12-11 Slow IV ity of (D50W) 04:33: Push, PRN, [place] injection 13 Starting Medica l 25 mL Fri Branch 12/10/20 at 2233, Until Discontinu ed, KERI, Blood Glucose < or = 70 mg/dL and patient is unable to swallow or has mental status changes. ondansetron Yes 4mg 4 mg, Slow Univers (ZOFRAN 12-11 IV Push, ity of (PF)) 04:32: Q6HPRN, [place] injection 4 34 Starting Medi emilia mg Fri Branch 12/10/20 at 2232, Until Discontinu ed, Routine, Nausea and Vomiting (N/V) ketorolac No 15mg 15 mg, Unive rs (TORADOL) 12-11 Slow IV ity of injection 04:32: 10:12 Push, [place] 15 mg 27 :00 Q6HPRN, 4 Medical doses, Branch Starting 12/10/20 at 2232, Until Discontinu ed, Routine, Pain (scale 4-6), Pain (scale 7-10)
F aculty member approving Restricted medication : APRIL GUTIERREZ acetaminoph Yes 650mg 650 mg, Un aletha en 12-11 Oral, ity of (TYLENOL) 04:32: Q6HPRN, [place] tablet 650 04 Starting Medic al mg Fri Branch 12/10/20 at 2232, Until Discontinu ed, Routine, Pain (scale 1-3) heparin 2020- No 5000U 5,000 Univers 1000 12-1123 Units, IV ity of unit/mL 01:30: 01:40 Push, [place] injection 00 :00 ONCE, 1 Medical Soln 5,000 dose, Fri Bran ch Units 12/10/20 at 1930, Routine heparin 2020- No 1300U/h 1,300 Unive rs 25,000 12-11 01-24 Units/hr ity of Units/250 01:20: 00:05 (13 [place] mL 08 :11 mL/hr), IV Medical (Premixed Infusion, Branc h Bag) in TITRATE, 0.45 % NS Parameters in Admin. Instr., Starting 12/10/20 at 1920
CA UTION - If LMWH given in ER, AVOID bolus and start next dose/drip 12 hrs after ER dosage.&nb sp; M ust program rate using programmab le infusion pump.&nbsp ; Darya ck with the ordering provider first prior to any administra tion should the patient be on existing/a dditional anticoagul ant therapy. Rang e, Dosing and Testing: &nbs p;DO NOT ADJUST INITIAL BOLUS OR INITIAL INFUSION RATE.&nbsp ; _ &nb sp;FOR [facility], [facility], AND [facility] ONLY &nbs p; - aPTT < 35: & nbsp;Bolus 5000 units, increase rate 300 units/hr&n bsp; - aPTT 35-44:&nbs p; Negro arleen 3000 units, increase rate 200 units/hr&n bsp; - aPTT 45-54:&nbs p; In crease rate 100 units/hr&n bsp; - aPTT 55-85:&nbs p; NO CHANGE&nbs p; - aPTT 86-95:&nbs p; De crease rate 100 units/hr&n bsp; - aPTT 96-120:&nb sp;&nb sp;Hold 30 minutes, decrease rate 150 units/hr&n bsp; - aPTT > 120: Hold 60 minutes, decrease rate 200 units/hr&n bsp; Check aPTT 6 hours after initiation , then Q6H after every change, aPTT Q12H once therapeuti c levels are reached.&n bsp; &nbs p; __ &n bsp;FOR [facility] ONLY - aPTT < 40: & nbsp;Bolus 5000 units, increase rate 300 units/hr&n bsp; - aPTT 40-49:&nbs p; Negro arleen 3000 units, increase rate 200 units/hr&n bsp; - aPTT 50-59:&nbs p; In crease rate 100 units/hr&n bsp; - aPTT 60-85:&nbs p; NO CHANGE&nbs p; - aPTT 86-95:&nbs p; De crease rate 100 units/hr&n bsp; - aPTT 96-120:&nb sp; H old 30 minutes, decrease rate 150 units/hr&n bsp; - aPTT > 120: Hold 60 minutes, decrease rate 200 units/hr&n bsp; Check aPTT 6 hours after initiation , then Q6H after every change, aPTT Q12H once therapeuti c levels are reached.<b r> iohexol 2020- No 120mL 120 mL, Unive rs (OMNIPAQUE 12-10 Intravenou it y of 350 20:30: 20:20 s, ONCE, 1 [place] BULK-100 00 :00 dose, Fri Medica l mL) 12/10/20 at Branch injection 1430, 120 mL Routine fluticasone 2020-0 Yes [id number] 1{spray Use 1 Univers propionate 3-25 } [place] in ity o f 50 00:00: each [place] mcg/actuati 00 nostril Medic al on nasal daily. Branch spray bromphenira 2020-0 Yes [id number] 10mL Take 10 mL Univers mine-pseudo 3-25 by mouth 4 it y of ephedrine-D 00:00: (four) [place] M (BROMFED 00 times Medical DM) 2-30-10 daily as Bran ch mg/5 mL needed for syrup Congestion /Allergies . fluticasone 2020-0 Yes [id number] 1{spray Use 1 Univers propionate 3-25 } [place] in ity o f 50 00:00: each [place] mcg/actuati 00 nostril Medic al on nasal daily. Branch spray bromphenira 2020-0 Yes [id number] 10mL Take 10 mL Univers mine-pseudo 3-25 by mouth 4 it y of ephedrine-D 00:00: (four) [place] M (BROMFED 00 times Medical DM) 2-30-10 daily as Bran ch mg/5 mL needed for syrup Congestion /Allergies . fluticasone 2020-0 Yes [id number] 1{spray Use 1 Univers propionate 3-25 } [place] in ity o f 50 00:00: each [place] mcg/actuati 00 nostril Medic al on nasal daily. Branch spray bromphenira 2020-0 Yes [id number] 10mL Take 10 mL Univers mine-pseudo 3-25 by mouth 4 it y of ephedrine-D 00:00: (four) [place] M (BROMFED 00 times Medical DM) 2-30-10 daily as Bran ch mg/5 mL needed for syrup Congestion /Allergies . fluticasone 2020-0 2020- No [id number] 1{spray Use 1 Univers propionate 02-10 } [place] in ity of 50 00:00: 00:00 each [place] mcg/actuati 00 :00 nostril Medic al on nasal daily. Branch spray bromphenira 2020-0 2020- No [id number] 10mL Take 10 mL Univers mine-pseudo 02-10 by mouth 4 i ty of ephedrine-D 00:00: 00:00 (four) [place] M (BROMFED 00 :00 times Medical DM) 2-30-10 daily as Bran ch mg/5 mL needed for syrup Congestion /Allergies . fluticasone 2020-0 2020- No [id number] 1{spray Use 1 Univers propionate 02-10 } [place] in ity of 50 00:00: 00:00 each [place] mcg/actuati 00 :00 nostril Medic al on nasal daily. Branch spray bromphenira 2019-0 2020- No [id number] 10mL Take 10 mL Univers mine-pseudo 02-10 by mouth 4 i ty of ephedrine-D 00:00: 00:00 (four) [place] M (BROMFED 00 :00 times Medical DM) 2-30-10 daily as Bran ch mg/5 mL needed for syrup Congestion /Allergies . topiramate 2020-0 Yes 100mg Take 100 Un aletha 100 mg 3-12 mg by ity of tablet 00:00: mouth at [place] [address] bedtime. Medical Branch topiramate 2020-0 Yes 100mg Take 100 Un aletha 100 mg 3-12 mg by ity of tablet 00:00: mouth at [place] [address] bedtime. Medical Branch topiramate 2020-0 Yes 100mg Take 100 Un aletha 100 mg 3-12 mg by ity of tablet 00:00: mouth at [place] [address] bedtime. Medical Branch topiramate 2020-0 Yes 100mg Take 100 Un aletha 100 mg 3-12 mg by ity of tablet 00:00: mouth at [place] [address] bedtime. Medical Branch topiramate 2020-0 Yes 100mg Take 100 Un aletha 100 mg 3-12 mg by ity of tablet 00:00: mouth at [place] [address] bedtime. Medical Branch topiramate 2020-0 Yes 100mg Take 100 Un aletha 100 mg 3-12 mg by ity of tablet 00:00: mouth at [place] [address] bedtime. Medical Branch topiramate 2020-0 Yes 100mg Take 100 Un aletha 100 mg 3-12 mg by ity of tablet 00:00: mouth at [place] 00 bedtime. Medical Branch rosuvastati 2020-0 Yes 20mg Take 20 mg Univers n 20 mg 3-11 by mouth ity of tablet 00:00: daily. Medical Branch rosuvastati 2020-0 Yes 20mg Take 20 mg Univers n 20 mg 3-11 by mouth ity of tablet 00:00: daily. Medical Branch rosuvastati 2020-0 Yes 20mg Take 20 mg Univers n 20 mg 3-11 by mouth ity of tablet 00:00: daily. Medical Branch rosuvastati 2020-0 Yes 20mg Take 20 mg Univers n 20 mg 3-11 by mouth ity of tablet 00:00: daily. Medical Branch rosuvastati 2020-0 Yes 20mg Take 20 mg Univers n 20 mg 3-11 by mouth ity of tablet 00:00: daily. Medical Branch rosuvastati 2020-0 Yes 20mg Take 20 mg Univers n 20 mg 3-11 by mouth ity of tablet 00:00: daily. [place] [facility] rosuvastati 2020-0 Yes 20mg Take 20 mg Univers n 20 mg 3-11 by mouth ity of tablet 00:00: daily. [place] [facility] AJOVY 225 2020-0 Yes 1.5mL inject 1.5 U nivers mg/1.5 mL 3-10 mL under ity of Syrg 00:00: the skin [place] 00 once every Medical month. Branch AJOVY 225 2020-0 Yes 1.5mL inject 1.5 U nivers mg/1.5 mL 3-10 mL under ity of Syrg 00:00: the skin [place] 00 once every Medical month. Branch AJOVY 225 2020-0 Yes 1.5mL inject 1.5 U nivers mg/1.5 mL 3-10 mL under ity of Syrg 00:00: the skin [place] 00 once every Medical month. Branch AJOVY 225 2020-0 Yes 1.5mL inject 1.5 U nivers mg/1.5 mL 3-10 mL under ity of Syrg 00:00: the skin [place] 00 once every Medical month. Branch URSZULAOVY 225 2020-0 Yes 1.5mL inject 1.5 U nivers mg/1.5 mL 3-10 mL under ity of Syrg 00:00: the skin [place] 00 once every Medical month. Branch URSZULAOVY 225 2020-0 Yes 1.5mL inject 1.5 U nivers mg/1.5 mL 3-10 mL under ity of Syrg 00:00: the skin [place] 00 once every Medical month. Branch URSZULAOVY 225 2020-0 Yes 1.5mL inject 1.5 U nivers mg/1.5 mL 3-10 mL under ity of Syrg 00:00: the skin [place] 00 once every Medical month. Branch CARTIA XT 2020-0 Yes 300mg Take 300 Uni vers 300 mg 24 2-24 mg by ity of hr capsule 00:00: mouth [place] 00 daily. Medical Branch CARTIA XT 2020-0 Yes 300mg Take 300 Uni vers 300 mg 24 2-24 mg by ity of hr capsule 00:00: mouth [place] 00 daily. Medical Branch CARTIA XT 2020-0 Yes 300mg Take 300 Uni vers 300 mg 24 2-24 mg by ity of hr capsule 00:00: mouth [place] 00 daily. Medical Branch CARTIA XT 2020-0 2021- No 300mg Take 300 Un aletha 300 mg 24 2-24 01-22 mg by ity of hr capsule 00:00: 00:00 mouth [place] 00 :00 daily. Medical Branch CARTIA XT 2020-0 2021- No 300mg Take 300 Un aletha 300 mg 24 2-24 01-22 mg by ity of hr capsule 00:00: 00:00 mouth [place] 00 :00 daily. Medical Branch gabapentin 2020-0 Yes Univers 300 mg 1-20 ity of capsule 00:00: [place] 00 Medical Branch gabapentin 2020-0 Yes Univers 300 mg 1-20 ity of capsule 00:00: [place] 00 Medical Branch gabapentin 2020-0 Yes Univers 300 mg 1-20 ity of capsule 00:00: [place] 00 Medical Branch gabapentin 2020-0 2021- No Univer s 300 mg 1-20 -22 ity of capsule 00:00: 00:00 [place] 00 :00 Medical Branch gabapentin 2020-0 2021- No Univer s 300 mg 1-20 -22 ity of capsule 00:00: 00:00 [place] 00 :00 Medical Branch metformin 2018-11 Yes 500mg Take 500 Uni vers ER 500 mg 2-29 mg by ity of 24 hr 00:00: mouth 2 [place] tablet 00 (two) Medical times Branch daily. metformin 2018-11 Yes 500mg Take 500 Uni vers ER 500 mg 2-29 mg by ity of 24 hr 00:00: mouth 2 [place] tablet 00 (two) Medical times Branch daily. metformin 2018-11 Yes 500mg Take 500 Uni vers ER 500 mg 2-29 mg by ity of 24 hr 00:00: mouth 2 [place] tablet 00 (two) Medical times Branch daily. metformin 2018-11 Yes 500mg Take 500 Uni vers ER 500 mg 2-29 mg by ity of 24 hr 00:00: mouth 2 [place] tablet 00 (two) Medical times Branch daily. metformin 2018-11 Yes 500mg Take 500 Uni vers ER 500 mg 2-29 mg by ity of 24 hr 00:00: mouth 2 [place] tablet 00 (two) Medical times Branch daily. metformin 2018-11 Yes 500mg Take 500 Uni vers ER 500 mg 2-29 mg by ity of 24 hr 00:00: mouth 2 [place] tablet 00 (two) Medical times Branch daily. metformin 2018-11 Yes 500mg Take 500 Uni vers ER 500 mg 2-29 mg by ity of 24 hr 00:00: mouth 2 [place] tablet 00 (two) Medical times [place] daily. QUEtiapine Yes Univers 100 mg 2-01 ity of tablet 00:00: [place] 00 [facility] QUEtiapine Yes Univers 100 mg 2- ity of tablet 00:00: [place] 00 [facility] QUEtiapine Yes Univers 100 mg 2- ity of tablet 00:00: [place] [facility] QUEtiapine 2020- No Univer s 100 mg 212-10 ity of tablet 00:00: 00:00 [place] 00 :00 [facility] QUEtiapine 2016-2020- No Univer s 100 mg 12-20 ity of tablet 00:00: 00:00 [place] 00 :00 [facility] 2015-11 Yes APPLY TO Un aletha ne 2-19 RASH BID ity of acetonide 00:00: PRN FOR UP [place] 0.1 % cream 00 TO TWO Medica l [facility] 2015-11 Yes APPLY TO Un aletha ne 2-19 RASH BID ity of acetonide 00:00: PRN FOR [place] 0.1 % cream 00 TO TWO Medica l WEEKS [facility] 2015-11 Yes APPLY TO Un aletha ne 2-19 RASH BID ity of acetonide 00:00: PRN FOR UP [place] 0.1 % cream 00 TO TWO Medica l [facility] 2015-11- No APPLY TO U nivers ne -12-10 RASH BID ity of acetonide 00:00: 00:00 PRN FOR UP [place] 0.1 % cream 00 :00 TO TWO Medica l WEEKS [facility] 2015-11- No APPLY TO U nivers ne 01-07 RASH BID ity of acetonide 00:00: 00:00 PRN FOR UP [place] 0.1 % cream 00 :[facility] Univer s n 250 mg 1-30 ity of tablet 00:00: [place] 00 Medical Branch predniSONE 2015-11 Yes Univers 10 mg 1-30 ity of tablet 00:00: [place] 00 [facility] azithromyci 2015-11 Yes Univer s n 250 mg 1-30 ity of tablet 00:00: [place] 00 Medical Branch predniSONE 2016- Yes Univers 10 mg 1-30 ity of tablet 00:00: [place] 00 [facility] azithromyci 2015-11 Yes Univer s n 250 mg 1-30 ity of tablet 00:00: [place] 00 Medical Branch predniSONE 2016- Yes Univers 10 mg 1-30 ity of tablet 00:00: [place] 00 Medical Branch azithromyci 2015-11- No Unive rs n 250 mg 1-30 12-10 ity of tablet 00:00: 00:00 [place] 00 :00 Medical Branch predniSONE 2015-2020- No Univer s 10 mg 1-30 12-10 ity of tablet 00:00: 00:00 [place] 00 :00 Medical Branch azithromyci 2015-11- No Unive rs n 250 mg -30 12-10 ity of tablet 00:00: 00:00 [place] 00 :00 Medical Branch predniSONE 2015-11- No Univer s 10 mg -30 12-10 ity of tablet 00:00: 00:00 [place] 00 :00 Medical Branch Vital Signs Vital Name Observation Time Observation Value Comments Source Systolic blood 2020-12-13 119 mm[Hg] University of pressure 21:42:00 [facility] Diastolic blood 2020-12-13 82 mm[Hg] University o f pressure 21:42:00 [facility] Heart rate 2020-12-13 54 /min University of 21:42:00 [facility] Body temperature 2020-12-13 36.22 [place] of 21:42:00 [facility] Respiratory rate 2020-12-13 16 /min University of 21:42:00 [facility] Oxygen saturation 2020-12-13 97 /min University of in Arterial blood 21:42:00 [place] Medi emilia by Pulse oximetry Branch Body height 2020-12-11 175.3 cm University of 04:00:00 [facility] Body weight 2020-12-11 102.513 kg weight at her University of 04:00:[address] [facility] 2 weeks ago Branch BMI 2020-12-11 33.37 kg/m2 University of 04:00:00 [facility] Systolic blood 2020-12-13 119 mm[Hg] University of pressure 21:42:00 [facility] Diastolic blood 2020-12-13 82 mm[Hg] University o f pressure :42:00 [facility] Heart rate 2020-12-13 54 /min University of :42:00 [facility] Body temperature 2020-12-13 36.22 [place] University of :42:00 [facility] Respiratory rate 2020-12-13 16 /min University of :42:00 [facility] Oxygen saturation 2020-12-13 97 /min University of in Arterial blood :42:00 [place] Medi emilia by Pulse oximetry Branch Body height 2020-12-11 175.3 cm University of 04:00:00 [facility] Body weight 2020-12-11 102.513 kg weight at her University of 04:00:[address] [facility] 2 weeks ago Branch BMI 2020-12-11 33.37 kg/m2 University of 04:00:00 [facility] Systolic blood 2020-02-12 109 mm[Hg] University of pressure 19:05:00 [facility] Diastolic blood 2020-02-12 77 mm[Hg] University o f pressure 19:05:00 [place] [facility] Heart rate 2020-02-12 67 /min University of 19:05:00 [place] [facility] Respiratory rate 2020-02-12 18 /min University of 19:05:[address] [facility] Branch Oxygen saturation 2020-02-12 99 /min University of in Arterial blood 19:05:00 [facility] emilia by Pulse oximetry Branch Body temperature 2020-02-12 37.39 [place]ne University of 16:10:00 [place] [facility] Body weight 2020-02-12 89.359 kg University of 16:10:00 [place] [facility] BMI 2020-02-12 29.09 kg/m2 University of 16:10:[address] [facility] Branch Systolic blood 2020-02-12 109 mm[Hg] University of pressure 19:05:00 [facility] Branch Diastolic blood 2020-02-12 77 mm[Hg] University o f pressure 19:05:00 [place] [facility] Heart rate 2020-02-12 67 /min University of 19:05:[address] [facility] Branch Respiratory rate 2020-02-12 18 /min University of 19:05:00 [facility] Branch Oxygen saturation 2020-02-12 99 /min University of in Arterial blood 19:05:00 [facility] emilia by Pulse oximetry Branch Body temperature 2020-02-12 37.39 [place] University of 16:10:00 [facility] Branch Body weight 2020-02-12 89.359 kg University of 16:10:00 [facility] BMI 2020-02-12 29.09 kg/m2 University of 16:10:00 [facility] Systolic blood 2020-02-12 129 mm[Hg] University of pressure 15:31:00 [facility] Branch Diastolic blood 2020-02-12 75 mm[Hg] University o f pressure 15:31:00 [place] [facility] Heart rate 2020-02-12 71 /min University of 15:31:00 [facility] Branch Body temperature 2020-02-12 36.56 [place] University of 15:31:00 [facility] Branch Respiratory rate 2020-02-12 20 /min University of 15:31:00 [facility] Branch Body weight 2020-02-12 89.359 kg University of 15:31:00 [facility] BMI 2020-02-12 29.09 kg/m2 University of 15:31:00 [facility] Branch Oxygen saturation 2020-02-12 97 /min University of in Arterial blood 15:31:00 [place] Medi emilia by Pulse oximetry Branch Systolic blood 2020-02-12 129 mm[Hg] [facility] [facility] pressure 15:31:00 [facility] Diastolic blood 2020-02-12 75 mm[Hg] [facility] pressure 15:31:00 [facility] Heart rate 2020-02-12 71 /min [facility] 15::00 [facility] Body temperature 2020-02-12 36.56 Cheyanne [facility] 15:31:00 [facility] Respiratory rate 2020-02-12 20 /min [facility] 15::00 [facility] Body weight 2020-02-12 89.359 kg [facility] 15:31:00 [facility] BMI 2020-02-12 29.09 kg/m2 [facility] 15::00 [facility] Oxygen saturation 2020-02-12 97 /min [facility] Arterial blood 15:31:00 [facility] emilia by Pulse oximetry [facility] Procedures Procedure Date / Time Performing Clinician Source Performed ECHO ROUTINE W/DOPPLER 2020-12-13 16:23:40 [facility] POCT GLUCOSE (AUTOMATED) 2020-12-13 14:11[facility] 2020-12-13 10:17:00 [facility] BASIC METABOLIC PANEL 2020-12-13 10:17:00 [facility] (NA, K, CL, CO2, GLUCOSE, Medica l Branch BUN, CREATININE, CA) CBC WITH DIFF 2020-12-13 10:17:00 [facility] POCT GLUCOSE (AUTOMATED) 2020-12-13 02:03:00 [facility]SE (AUTOMATED) 2020-12-12 21:55:00 [facility] POCT GLUCOSE (AUTOMATED) 2020-12-12 17:26:00 [facility] POCT GLUCOSE (AUTOMATED) 2020-12-12 13:36:00 [facility] TROPONIN I 2020-12-12 09:45:00 Dae Patten [facility] BASIC METABOLIC PANEL 2020-12-12 09:45:00 [facility] (NA, K, CL, CO2, GLUCOSE, Medica l Branch BUN, CREATININE, CA) LIPID PANEL ([id number])(TOTAL 2020-12-12 09:45:00 Coty Rubio [facility], HDL) CBC WITH DIFF 2020-12-12 09:45:00 [facility] GLYCOS[facility]EMOGLOBIN 2020-12-12 09:45:00 Coty Rubio [facility] (A1C) [facility] TROPONIN I 2020-12-12 01:29:00 Dae Patten [facility] POCT GLUCOSE (AUTOMATED) 2020-12-11 22:02:00 [facility] ACTIVATED PARTIAL 2020-12-11 19:53:00 [facility] ([facility]OMATED) 2020-12-11 13:28:00 [facility] 2020-12-11 08:06:00 Coty Rubio [facility] BASIC METABOLIC PANEL 2020-12-11 08:06:00 [facility] (NA, K, CL, CO2, GLUCOSE, Medica l Branch BUN, CREATININE, CA) CBC WITH DIFF 2020-12-11 08:06:00 [facility] PARTIAL 2020-12-11 08:06:00 [facility] N-TERMINAL PRO-BNP 2020-12-11 08:06:[address] [facility] HB ECG ROUTINE & RHYTHM 2020-12-11 01:33:29 Marisela Bridges [facility] PROTHROMBIN TIME / INR 2020-12-11 01:22:00 [facility] 2020-12-11 01:22:00 Marisela Bridges [facility] URINALYSIS 2020-12-11 01:22:00 Marisela Bridges [facility] COVID-19 (ID NOW RAPID 2020-12-11 01:21:00 Marisela Bridges [facility] TESTING) Medical Branch LAB ONLY COVID 2020-12-11 01:21:00 Marisela Bridges [facility] INTERPRETATION [facility] TROPONIN I 2020-12-11 01:13:00 Marisela Bridges [facility] HEPATIC FUNCTION PANEL 2020-12-11 01:13:00 Marisela Bridges [facility] ([id number]) (ALB,T.PRO,BILI Medical Branch T,BU/BC,ALT,AST,ALK PHOS) BASIC METABOLIC PANEL 2020-12-11 01:13:00 Marisela Bridges [facility] (NA, K, CL, CO2, GLUCOSE, Medica l Branch BUN, CREATININE, CA) CBC WITH DIFF 2020-12-11 01:13:00 Marisela Bridges [facility] NOTICE OF PRIVACY 2020-12-11 00:45:28 Doctor Unassigned, [facility] PRACTICES [facility] CONSENT/REFUSAL FOR 2020-12-11 00:43:33 Doctor Unassigned, [facility] DIAGNOSIS AND TREATMENT [place] [facility] CT ABDOMEN PELVIS W 2020-12-10 20:20:52 Requisition, Paper [facility] CONTRAST [facility] CT CHEST PULMONARY 2020-12-10 20:19:32 Requisition, Paper [facility] ANGIOGRAM Medical Branch XR CHEST 1 VW 2020-02-12 18:29:00 Ned Perdomo [facility] RAPID STREP SCREEN FOR 2020-02-12 16:58:00 Ned Perdomo [facility] GROUP A Medical Branch ADC,CLC OR LCC ONLY - 2020-02-12 16:58:00 Ned Perdomo [facility] INFLUENZA A & B DIRECT Medical B ranch ANTIGEN CREATINE KINASE 2020-02-12 16:57:00 Ned Perdomo [facility] TROPONIN I 2020-02-12 16:57:00 Ned Perdomo [facility] HEPATIC FUNCTION PANEL 2020-02-12 16:57:00 Ned Perdomo [facility] ([id number]) (ALB,T.PRO,BILI Medical Branch T,BU/BC,ALT,AST,ALK PHOS) BASIC METABOLIC PANEL 2020-02-12 16:57:00 Ned Perdomo [facility] (NA, K, CL, CO2, GLUCOSE, Medica l Branch BUN, CREATININE, CA) CBC WITH DIFFERENTIAL 2020-02-12 16:57:00 Ned Perdomo [facility] PROTHROMBIN TIME / INR 2020-02-12 16:57:[address] [facility] ACTIVATED PARTIAL 2020-02-12 16:57:00 Ned Perdomo [facility] N-TERMINAL PRO-BNP 2020-02-12 16:57:00 Ned Perdomo [facility] EKG-12 LEAD 2020-02-12 16:38:54 Conor Ned Essex o f [facility] Encounters Start End Encounter Admission Attending Care Care Encounter Source Date/Time Date/Time Type Type Clinicians Facility Department ID 2021-12-14 Outpatient [place], STLMLC STLMLC [id number] Common 13:08:27 Andres [id number] [facility] 2021-12-14 Out[place], STLMLC STLMLC [id number] Common 13:07:32 Andres [id number] [facility] 2021-12-14 Outpatient [place], STLMLC STLMLC [id number] Common 13:03:45 Andres [id number] [facility] 2021-12-14 Outpatient [place], STLMLC STLMLC [id number] Common 12:54:03 Andres [id number] [facility] 2021-09-17 Emergency [facility] [id number] Univers 19:01:10 [facility] 2021-05-19 2021-05-19 Outpatient STLMLC STLMLC [id number] Common 00:00:00 00:00:00 [facility] 2021-05-02 2021-05-02 Outpatient STLMLC STLMLC [id number] Common 00:00:00 00:00:00 [facility] 2021-04-12 2021-04-12 Outpatient STLMLC STLMLC [id number] Common 00:00:00 00:00:00 [facility] 2021-03-18 2021-03-18 Outpatient STLMLC STLMLC [id number] Common 00:00:00 00:00:00 [facility] 2021-03-18 2021-03-18 Outpatient STLMLC STLMLC [id number] Common 00:00:00 00:00:00 [facility] 2021-03-15 2021-03-15 Outpatient STLMLC STLMLC [id number] Common 00:00:00 00:00:00 [facility] 2021-03-08 2021-03-08 Outpatient STLMLC STLMLC [id number] Common 00:00:00 00:00:00 [facility] 2021-02-26 2021-02-26 Outpatient [facility] [id number] Univers 12:40:00 12:40:00 ity [facility] 2021-02-05 2021-02-05 Outpatient [facility] [id number] Univers 12:30:00 12:30:00 ity [facility] 2021-02-03 2021-02-03 Outpatient R RADIOLOGY [facility] [id number] Univers 16:00:00 16:00:00 [id number] ity [facility] 2021-02-03 2021-02-03 Outpatient R RADIOLOGY [facility] [id number] Univers 00:00:00 00:00:00 ity [facility] 2020-12-14 2020-12-14 Transition [place] [id number] Univers 00:00:00 00:00:00 of Care Skye Alejo [id number] [id number] [address] 2020-12-14 2020-12-14 Transition [place] [id number] 00:00:00 00:00:00 of Care Skye Alejo [id number] [place] 4.2.7.2.686 [id number] 2020-12-10 2020-12-13 [facility] Marisela Bridges [facility] 1.2.84 0.114 [id number] Univers 19:04:00 18:35:00 Encounter April Gutierrez [place] [id number] ity of [place] 4.2.7.2.686 [facility] [id number] [facility] 081 Branch 2020-12-10 2020-12-13 [facility] Marisela Bridges [facility] 1.2.84 0.114 [id number] 19:04:00 18:35:00 Encounter EdionApril madison [place] [id number] [place] 4.2.7.2.686 [place] [id number] 2020-12-10 2020-12-10 [facility] Radiology [facility] 1.2.840.114 [id number] Univers 13:40:41 19:03:00 Encounter [place] [id number] [place] 4.2.7.2.686 [facility] [place] [id number] [facility] 801 Branch 2020-12-10 2020-12-10 Hospital [place] 1.2.840.114 [id number] 13:40:41 19:03:00 Encounter [place] [id number] [place] 4.2.7.2.686 [place] [id number] 2020-12-10 2020-12-10 [facility] Radiology [facility] 1.2.840.114 [id number] Univers 13:40:26 19:03:00 Encounter [place] [id number] [place] [id number] [facility] 801 Branch 2020-12-10 2020-12-10 [facility] Radiology [facility] 1.2.840.114 [id number] 13:40:26 19:03:00 Encounter [place] [id number] [place] 4.2.7.2.686 [place] [id number] 2020-12-10 2020-12-10 Outpatient R RADIOLOGY [facility] [id number] Univers 16:30:00 16:30:00 [id number] ity [facility] 2020-12-10 2020-12-10 Outpatient R RADIOLOGY [facility] [id number] Univers 00:00:00 00:00:00 ity [facility] 2020-02-13 2020-02-13 [facility] 1.2.840.114 [id number] Univers 00:00:00 00:00:00 [facility] [id number] it y of [place] 4.2.7.2.686 Gary as Professio [phone] Ak dical [address] Office Building [facility] 2020-02-13 2020-02-13 [facility] 1.2.840.114 [id number] 00:00:00 00:00:00 [facility] [id number] [place] 4.2.7.2.686 Professio [id number] nal [facility] Office Building [facility] 2020-02-12 2020-02-12 Emergency X [facility] ERT [id number] Univers 11:08:26 14:13:00 NED ity [facility] 2020-02-12 2020-02-12 Emergency [facility] [id number] Univers 11:08:26 14:13:00 Ned [place] 350.1.13.10 i ty [place] [id number] [address] 2020-02-12 2020-02-12 Emergency [facility] 1.2.890.709 [id number] 11:08:26 14:13:00 Ned Kelley 350.1.13.10 [place] 4.2.7.2.[address] [place] [id number] [facility] 2020-02-12 2020-02-12 Urgent Pob1, Acute Care Clinic [facility] 1. 2.840.114 [id number] Univers 10:20:06 10:40:06 Christie [facility] [id number] ity of [place] 4.2.7.2.686 Gary as Professio [phone] Ak dical nal [address] 2020-02-12 2020-02-12 Urgent Pob1, Acute [facility] 1.2.840.114 [id number] 10:20:06 10:40:06 [facility] [id number] [place] [id number] Lucie [id number] nal [address] 2020-02-12 2020-02-12 Outpatient R [facility] [id number] Univers 10:20:00 10:20:00 [id number] [facility] 2020-02-12 2020-02-12 Outpatient R ROMÁN, [facility] [id number] Univers 10:20:00 10:20:00 CHRISTIE [facility] 2020-02-11 2020-02-11 Outpatient R [facility] [id number] Univers 17:45:00 17:45:00 [id number] [facility] 2020-02-11 2020-02-11 Outpatient R [facility] [id number] Univers 17:45:00 17:45:00 [facility] Results Test Description Test Time Test Comments Results Result Comments Source POCT GLUCOSE (AUTOMATED) 2020-12-13 14:26:00 Test Item Value Reference Range Interpretation Comme [facility] POCT GLU (test code = 1864679917) 159 mg/dL 70-110 H Lab Interpretation (test code = 06520-5) Abnormal [facility] [id number] 11:44:00 Test Item Value Reference Range Interpretation Comments TROPONIN I (test <0.012 See_Comment [Automated code = 0764438190) message] The system which generated this result transmitted reference range : <=0.034 ng/mL. The reference range was not used to interpr et this result as normal/abnormal . ALICIA (test code = Equal or Less than ALICIA) 0.034 ng/ml---Normal ?Note: Cardiac troponin begins to rise 3-4 hours after the onset of ischemia. Repeat in 4-6 hours if the sample was drawn within 3-4 hours of the onset of the symptom and found normal. Between 0.035 and 0.120 ng/mL--- Borderline. Questionable myocardial injury or necrosis ? ?Note: Serial measurement may be necessary to confirm or exclude the diagnosis of myocardial injury or necrosis; Clinical correlation (symptoms, EKGs, imaging studies, and others) required; Repeat in 4-6 hours if clinically indicated. ? Equal or Higher than 0.121 ng/mL---Abnormal. Myocardial Injury or Necrosis Likely ? Biotin has been reported to cause a negative bias, interpret results relative to patient's use of biotin. ? Lab Interpretation Normal (test code = 09449-0) [facility] Metabolic Panel (NA, K, CL, CO2, GLUCOSE, BUN, CREATININE, CA)2020-12-13 11:34:00 Test Item Value Reference Range Interpretation Comments NA (test code = 138 mmol/L 135-145 5169012648) K (test code = 3.4 mmol/L 3.5-5 L 5247282479) CL (test code = 105 mmol/L 98-108 2300342448) CO2 TOTAL (test code = 24 mmol/L 23-31 5126465491) AGAP (test code = 2-16 3458524429) BUN (test code = 16 mg/dL 7-23 7359576004) GLUCOSE (test code = 145 mg/dL 70-110 H 7481161136) CREATININE (test code = 0.67 mg/dL 0.5-1.04 2687326224) CALCIUM (test code = 8.2 mg/dL 8.6-10.6 L 6087689536) eGFR Calculation mL/min/1.73m2 (Non-) (test code = 9094287950) eGFR Calculation mL/min/1.73m2 () (test code = 6345548986) ALICIA (test code = ALICIA) Association of Glomerular Filtration Rate (GFR) and Staging of Kidney Disease* + --+ --+ ------+| GFR (mL/min/1.73 m2) ?| With Kidney Damage ?| ?Without Kidney Damage+ --------+ --------+ +| ?>90 ?| ?Stage one ?| ? Normal ?+ ---+ ---+ -------+| ?60-89 ?| ?Stage two ?| ? Decreased GFR ? + --+ --+ ------+| ?30-59 ?| ?Stage three ?| ? Stage three ? + --+ --+ ------+| ?15-29 ?| ?Stage four ? | ? Stage four ?+ ---+ ---+ -------+| ?<15 (or dialysis) ? ?| ?Stage five ? | ? Stage five ?+ ---+ ---+ -------+ *Each stage assumes the associated GFR level has been in effect for at least three months. ?Stages 1 to 5, with or without kidney disease, indicate chronic kidney disease. Notes: Determination of stages one and two (with eGFR >59mL/min/1.73 m2) requires estimation of kidney damage for at least three months as defined by structural or functional abnormalities of the kidney, manifested by either:Pathological abnormalities or Markers of kidney damage (including abnormalities in the composition of the blood or urine or abnormalities in imaging tests). Lab Interpretation Abnormal (test code = 03947-0) [facility] with [id number] 11:10:00 Test Item Value Reference Range Interpretation Comments WBC (test code = See_Comment [Automated 7312-2) message] The sy stem which generated this result transmitted reference range : 4.30 - 11.10 10*3/?L. The reference range was not used to interpret this result as normal/abnormal . RBC (test code = See_Comment [Automated 556-8) message] The sy stem which generated this result transmitted reference range : 3.93 - 5.25 10*6/?L. The reference range was not used to interpret this result as normal/abnormal . HGB (test code = 13.4 g/dL 11.6-15 718-7) HCT (test code = 37.7 % 35.7-45.2 4544-3) MCV (test code = 87.7 fL 80.6-95.5 787-2) MCH (test code = 31.2 pg 25.9-32.8 785-6) MCHC (test code = 35.5 g/dL 31.6-35.1 H 786-4) RDW-SD (test code = 37.8 fL 39-49.9 L 69891-2) RDW-CV (test code = 11.9 % 12-15.5 L 788-0) PLT (test code = See_Comment [Automated 777-3) message] The sy stem which generated this result transmitted reference range : 166 - 358 10*3/ ?L. The reference r bhupendra was not used to interpret this result as normal/abnormal . MPV (test code = 9.9 fL 9.5-12.9 83369-4) NRBC/100 WBC (test See_Comment [Automat ed code = 2250945494) message] The system which generated this result transmitted reference range : 0.0 - 10.0 /100 WBCs. The refer ence range was not u sed to interpret th is result as normal/abnormal . NRBC x10^3 (test code <0.01 See_Comment [Auto mated = 8727889594) message] The s ystem which generated this result transmitted reference range : 10*3/?L. The reference range was not used to interpret this result as normal/abnormal . GRAN MAT (NEUT) % 55.6 % (test code = 770-8) IMM GRAN % (test code 0.20 % = 0283918455) LYMPH % (test code = 28.5 % 736-9) MONO % (test code = 12.0 % 5905-5) EOS % (test code = 3.1 % 713-8) BASO % (test code = 0.6 % 706-2) GRAN MAT x10^3(ANC) 3.00 10*3/uL 1.88-7.09 (test code = 3215125872) IMM GRAN x10^3 (test <0.03 0-0.06 code = 3215660648) LYMPH x10^3 (test code 1.54 10*3/uL 1.32-3.29 = 731-0) MONO x10^3 (test code 0.65 10*3/uL 0.33-0.92 = 742-7) EOS x10^3 (test code = 0.17 10*3/uL 0.03-0.39 711-2) BASO x10^3 (test code 0.03 10*3/uL 0.01-0.07 = 704-7) Lab Interpretation Abnormal (test code = 48562-9) [facility] ONLY COVID [id number] 03:23:00COVID DMT InterpretationInterpretation/Recommendations: Molecular NAAT Tests for Active Infection with the SARS-CoV-2 Virus: This patient has tested negative on two or more occasions for the KOFM-RqS-8ckpga that causes COVID-19 illness. This most likely indicates that the patient does not have an active infection with the SARS-CoV-2 virus, especially if these tests coincide with the patient's current presentation. However, infection is not completely ruled out as the false negative rate for molecular NAAT testing using a nasopharyngeal sample can be up to 30%, mostly dependent on the timing of sample collection in relation to illness onset and any deficiencies in sampling techniques. If the patient has symptoms concerning for COVID-19 illness, a repeat NAAT test (PCR, Rapid ID Now, etc.) should be performed, at which time the SARS-CoV-2 virus - if present - may have reached a detectable viral load (usually peaking by the end of the first week of symptoms). Tests for IgM and/or IgG Antibodiesto SARS-CoV-2 Virus: Testing for IgM and IgG antibodies 1-3 weeks after illness onset will indicate whether the patient has produced antibodies to the virus. At this time, it is not known if the production of antibodies - specifically IgG antibodies - indicates whether the patient is immune to future infections with the SARS-CoV-2 virus. Interpretation Result Comments:These interpretation comments are based upon all COVID-19 testing the patient has had at [facility], including molecular NAAT testing (more commonly known as PCR testing and Rapid ID Now testing) and antibody testing. It does not take into account any testing that a patient has had outside of the [facility] medical record. [facility] LABORATORY SERVICESCOVID NqnwolsZBSK-DgX-[id number] (no units) ? ? Date ? Value ? 02/12/2020 ? Not Detected ? SARS-CoV-2 Rapid ID NOW (no units) ? ? Date ? Value ? 12/10/2020 ? Not Detected ? [facility]2020-12-13 02:33:00 Test Item Value Reference Range Interpretation Comments POCT GLU (test code = 1441517515) 202 mg/dL 70-110 H Lab Interpretation (test code = Abnormal 83862-7) [facility] (A1C)2020-12-13 01:31:00 Test Item Value Reference Range Interpretation Comments HGB A1C (test code = 6.7 % 4-6 H 4548-4) ALICIA (test code = ALICIA) %A1C (NGSP) Interpretation (ADA)4.8-5.6 ? ? Normal or (Non-Diabetic Range)5.7-6.4 ? ? Increased Risk (Pre-Diabetic)>6.5 ?Diabetes Indicated Lab Interpretation Abnormal (test code = 67324-1) [facility] CampusLIPID PANEL (53806)(TOTAL CHOLESTEROL, TRIGLYCERIDES, HDL)2020-12-13 01:16:00 Test Item Value Reference Range Interpretation Comments CHOL (test code = 130 mg/dL 120-200 0966972766) HDL (test code = 37 mg/dL >50 L 1291646875) HDLC RATIO (test code = See_Comment [Au tomated message] 5401592992) The system Haolianluo generated this result transmit warren reference range : <=4.5. The refe rence range was not u sed to interpret th is result as normal/abnormal . TRIG (test code = 161 mg/dL 30-170 3942588508) LDL CHOL (test code = 61 mg/dL See_Comment [Auto mated message] 15775-2) The system Haolianluo generated this result transmit warren reference range : <=160. The refe rence range was not u sed to interpret th is result as normal/abnormal . VLDL (test code = 32 mg/dL 5-60 6935667913) Lab Interpretation (test Abnormal code = 82442-7) [facility] GLUCOSE (AUTOMATED)2020-12-13 00:43:00 Test Item Value Reference Range Interpretation Comments POCT GLU (test code = 8072596939) 150 mg/dL 70-110 H Lab Interpretation (test code = Abnormal 72842-5) [facility] GLUCOSE (AUTOMATED)2020-12-12 17:47:00 Test Item Value Reference Range Interpretation Comments POCT GLU (test code = 2930781129) 173 mg/dL 70-110 H Lab Interpretation (test code = Abnormal 69874-6) [facility] GLUCOSE (AUTOMATED)2020-12-12 13:53:00 Test Item Value Reference Range Interpretation Comments POCT GLU (test code = 1198668796) 142 mg/dL 70-110 H Lab Interpretation (test code = Abnormal 77747-9) [facility] Metabolic Panel (NA, K, CL, CO2, GLUCOSE, BUN, CREATININE, CA)2020-12-12 12:02:00 Test Item Value Reference Range Interpretation Comments NA (test code = 137 mmol/L 135-145 0575104158) K (test code = 3.5 mmol/L 3.5-5 1964751865) CL (test code = 105 mmol/L 98-108 5222241454) CO2 TOTAL (test code = 26 mmol/L 23-31 1866610389) AGAP (test code = 2-16 4269515114) BUN (test code = 13 mg/dL 7-23 9186540798) GLUCOSE (test code = 156 mg/dL 70-110 H 1292168368) CREATININE (test code = 0.73 mg/dL 0.5-1.04 8296398501) CALCIUM (test code = 8.5 mg/dL 8.6-10.6 L 7971518159) eGFR Calculation mL/min/1.73m2 (Non-) (test code = 7055981349) eGFR Calculation mL/min/1.73m2 () (test code = 6510405622) ALICIA (test code = ALICIA) Association of Glomerular Filtration Rate (GFR) and Staging of Kidney Disease* + --+ --+ ------+| GFR (mL/min/1.73 m2) ?| With Kidney Damage ?| ?Without Kidney Damage+ --------+ --------+ +| ?>90 ?| ?Stage one ?| ? Normal ?+ ---+ ---+ -------+| ?60-89 ?| ?Stage two ?| ? Decreased GFR ? + --+ --+ ------+| ?30-59 ?| ?Stage three ?| ? Stage three ? + --+ --+ ------+| ?15-29 ?| ?Stage four ? | ? Stage four ?+ ---+ ---+ -------+| ?<15 (or dialysis) ? ?| ?Stage five ? | ? Stage five ?+ ---+ ---+ -------+ *Each stage assumes the associated GFR level has been in effect for at least three months. ?Stages 1 to 5, with or without kidney disease, indicate chronic kidney disease. Notes: Determination of stages one and two (with eGFR >59mL/min/1.73 m2) requires estimation of kidney damage for at least three months as defined by structural or functional abnormalities of the kidney, manifested by either:Pathological abnormalities or Markers of kidney damage (including abnormalities in the composition of the blood or urine or abnormalities in imaging tests). Lab Interpretation Abnormal (test code = 79101-3) [facility] [id number] 11:36:00 Test Item Value Reference Range Interpretation Comments TROPONIN I (test <0.012 See_Comment [Automated code = 3497878186) message] The system which generated this result transmitted reference range : <=0.034 ng/mL. The reference range was not used to interpr et this result as normal/abnormal . ALICIA (test code = Equal or Less than ALICIA) 0.034 ng/ml---Normal ?Note: Cardiac troponin begins to rise 3-4 hours after the onset of ischemia. Repeat in 4-6 hours if the sample was drawn within 3-4 hours of the onset of the symptom and found normal. Between 0.035 and 0.120 ng/mL--- Borderline. Questionable myocardial injury or necrosis ? ?Note: Serial measurement may be necessary to confirm or exclude the diagnosis of myocardial injury or necrosis; Clinical correlation (symptoms, EKGs, imaging studies, and others) required; Repeat in 4-6 hours if clinically indicated. ? Equal or Higher than 0.121 ng/mL---Abnormal. Myocardial Injury or Necrosis Likely ? Biotin has been reported to cause a negative bias, interpret results relative to patient's use of biotin. ? Lab Interpretation Normal (test code = 78851-9) [facility] with [id number] 10:51:00 Test Item Value Reference Range Interpretation Comments WBC (test code = See_Comment [Automated 5490-2) message] The sy stem which generated this result transmitted reference range : 4.30 - 11.10 10*3/?L. The reference range was not used to interpret this result as normal/abnormal . RBC (test code = See_Comment [Automated 789-8) message] The sy stem which generated this result transmitted reference range : 3.93 - 5.25 10*6/?L. The reference range was not used to interpret this result as normal/abnormal . HGB (test code = 13.2 g/dL 11.6-15 718-7) HCT (test code = 37.3 % 35.7-45.2 4544-3) MCV (test code = 88.8 fL 80.6-95.5 787-2) MCH (test code = 31.4 pg 25.9-32.8 785-6) MCHC (test code = 35.4 g/dL 31.6-35.1 H 786-4) RDW-SD (test code = 38.2 fL 39-49.9 L 87070-5) RDW-CV (test code = 11.9 % 12-15.5 L 788-0) PLT (test code = See_Comment [Automated 777-3) message] The sy stem which generated this result transmitted reference range : 166 - 358 10*3/ ?L. The reference r bhupendra was not used to interpret this result as normal/abnormal . MPV (test code = 10.0 fL 9.5-12.9 27723-1) NRBC/100 WBC (test See_Comment [Automat ed code = 9008553945) message] The system which generated this result transmitted reference range : 0.0 - 10.0 /100 WBCs. The refer ence range was not u sed to interpret th is result as normal/abnormal . NRBC x10^3 (test code <0.01 See_Comment [Auto mated = 1500034158) message] The s ystem which generated this result transmitted reference range : 10*3/?L. The reference range was not used to interpret this result as normal/abnormal . GRAN MAT (NEUT) % 61.5 % (test code = 770-8) IMM GRAN % (test code 0.40 % = 4727926714) LYMPH % (test code = 23.1 % 736-9) MONO % (test code = 11.3 % 5905-5) EOS % (test code = 3.0 % 713-8) BASO % (test code = 0.7 % 706-2) GRAN MAT x10^3(ANC) 3.50 10*3/uL 1.88-7.09 (test code = 2577971822) IMM GRAN x10^3 (test <0.03 0-0.06 code = 2136006815) LYMPH x10^3 (test code 1.31 10*3/uL 1.32-3.29 L = 731-0) MONO x10^3 (test code 0.64 10*3/uL 0.33-0.92 = 742-7) EOS x10^3 (test code = 0.17 10*3/uL 0.03-0.39 711-2) BASO x10^3 (test code 0.04 10*3/uL 0.01-0.07 = 704-7) Lab Interpretation Abnormal (test code = 17137-0) [facility] 07:25:00 Test Item Value Reference Range Interpretation Comments POCT GLU (test code = 6183060732) 176 mg/dL 70-110 H Lab Interpretation (test code = Abnormal 86906-1) [facility] [id number] 02:06:00 Test Item Value Reference Range Interpretation Comments TROPONIN I (test <0.012 See_Comment [Automated code = 3072441540) message] The system which generated this result transmitted reference range : <=0.034 ng/mL. The reference range was not used to interpr et this result as normal/abnormal . ALICIA (test code = Equal or Less than ALICIA) 0.034 ng/ml---Normal ?Note: Cardiac troponin begins to rise 3-4 hours after the onset of ischemia. Repeat in 4-6 hours if the sample was drawn within 3-4 hours of the onset of the symptom and found normal. Between 0.035 and 0.120 ng/mL--- Borderline. Questionable myocardial injury or necrosis ? ?Note: Serial measurement may be necessary to confirm or exclude the diagnosis of myocardial injury or necrosis; Clinical correlation (symptoms, EKGs, imaging studies, and others) required; Repeat in 4-6 hours if clinically indicated. ? Equal or Higher than 0.121 ng/mL---Abnormal. Myocardial Injury or Necrosis Likely ? Biotin has been reported to cause a negative bias, interpret results relative to patient's use of biotin. ? Lab Interpretation Normal (test code = 65123-1) [facility] [id number] 20:24:00 Test Item Value Reference Range Interpretation Comments APTT Patient (test See_Comment H [Automat ed code = 3173-2) message] The system which generated this result transmitted reference range : 23 - 38 Seconds . The reference range was not used to interpr et this result as normal/abnormal . ALICIA (test code = ALICIA) The [facility] patient population mean normal value for aPTT is 30 seconds. Lab Interpretation Abnormal (test code = 95386-6) [facility] [id number] 15:55:00 Test Item Value Reference Range Interpretation Comments TROPONIN I (test <0.012 See_Comment [Automated code = 6237316143) message] The system which generated this result transmitted reference range : <=0.034 ng/mL. The reference range was not used to interpr et this result as normal/abnormal . ALICIA (test code = Equal or Less than ALICIA) 0.034 ng/ml---Normal ?Note: Cardiac troponin begins to rise 3-4 hours after the onset of ischemia. Repeat in 4-6 hours if the sample was drawn within 3-4 hours of the onset of the symptom and found normal. Between 0.035 and 0.120 ng/mL--- Borderline. Questionable myocardial injury or necrosis ? ?Note: Serial measurement may be necessary to confirm or exclude the diagnosis of myocardial injury or necrosis; Clinical correlation (symptoms, EKGs, imaging studies, and others) required; Repeat in 4-6 hours if clinically indicated. ? Equal or Higher than 0.121 ng/mL---Abnormal. Myocardial Injury or Necrosis Likely ? Biotin has been reported to cause a negative bias, interpret results relative to patient's use of biotin. ? Lab Interpretation Normal (test code = 20459-4) [facility] [id number] 15:52:00 Test Item Value Reference Range Interpretation Comments NT-proBNP (test code 40 pg/mL See_Comment [Autom ated = 2796396005) message] The system which generated this result transmitted reference range : <=125. The reference range was not used to interpret this result as normal/abnormal . ALICIA (test code = ALICIA) Biotin has been reported to cause a negative bias, interpret results relative to patient's use of biotin. Lab Interpretation Normal (test code = 73036-9) [facility]2020-12-11 13:54:00 Test Item Value Reference Range Interpretation Comments POCT GLU (test code = 3125252146) 194 mg/dL 70-110 H Lab Interpretation (test code = Abnormal 21479-0) [facility] [id number] 09:29:00 Test Item Value Reference Range Interpretation Comments APTT Patient (test See_Comment H [Automat ed code = 3173-2) message] The system which generated this result transmitted reference range : 23 - 38 Seconds . The reference range was not used to interpr et this result as normal/abnormal . ALICIA (test code = ALICIA) The [facility] patient population mean normal value for aPTT is 30 seconds. Lab Interpretation Abnormal (test code = 22694-3) [facility] (NA, K, CL, CO2, GLUCOSE, BUN, CREATININE, CA)2020-12-11 08:36:00 Test Item Value Reference Range Interpretation Comments NA (test code = 138 mmol/L 135-145 4357221730) K (test code = 3.5 mmol/L 3.5-5 2533971880) CL (test code = 106 mmol/L 98-108 1204276044) CO2 TOTAL (test code = 27 mmol/L 23-31 0605899647) AGAP (test code = 2-16 5994389551) BUN (test code = 14 mg/dL 7-23 3129640546) GLUCOSE (test code = 190 mg/dL 70-110 H 2749928907) CREATININE (test code = 0.69 mg/dL 0.5-1.04 1509369276) CALCIUM (test code = 8.5 mg/dL 8.6-10.6 L 1564689428) eGFR Calculation mL/min/1.73m2 (Non-) (test code = 0152934998) eGFR Calculation mL/min/1.73m2 () (test code = 6935706044) ALICIA (test code = ALICIA) Association of Glomerular Filtration Rate (GFR) and Staging of Kidney Disease* + --+ --+ ------+| GFR (mL/min/1.73 m2) ?| With Kidney Damage ?| ?Without Kidney Damage+ --------+ --------+ +| ?>90 ?| ?Stage one ?| ? Normal ?+ ---+ ---+ -------+| ?60-89 ?| ?Stage two ?| ? Decreased GFR ? + --+ --+ ------+| ?30-59 ?| ?Stage three ?| ? Stage three ? + --+ --+ ------+| ?15-29 ?| ?Stage four ? | ? Stage four ?+ ---+ ---+ -------+| ?<15 (or dialysis) ? ?| ?Stage five ? | ? Stage five ?+ ---+ ---+ -------+ *Each stage assumes the associated GFR level has been in effect for at least three months. ?Stages 1 to 5, with or without kidney disease, indicate chronic kidney disease. Notes: Determination of stages one and two (with eGFR >59mL/min/1.73 m2) requires estimation of kidney damage for at least three months as defined by structural or functional abnormalities of the kidney, manifested by either:Pathological abnormalities or Markers of kidney damage (including abnormalities in the composition of the blood or urine or abnormalities in imaging tests). Lab Interpretation Abnormal (test code = 80145-5) [facility] with [id number] 08:15:00 Test Item Value Reference Range Interpretation Comments WBC (test code = See_Comment [Automated 2890-2) message] The sy stem which generated this result transmitted reference range : 4.30 - 11.10 10*3/?L. The reference range was not used to interpret this result as normal/abnormal . RBC (test code = See_Comment [Automated 789-8) message] The sy stem which generated this result transmitted reference range : 3.93 - 5.25 10*6/?L. The reference range was not used to interpret this result as normal/abnormal . HGB (test code = 13.2 g/dL 11.6-15 718-7) HCT (test code = 38.4 % 35.7-45.2 4544-3) MCV (test code = 89.1 fL 80.6-95.5 787-2) MCH (test code = 30.6 pg 25.9-32.8 785-6) MCHC (test code = 34.4 g/dL 31.6-35.1 786-4) RDW-SD (test code = 37.9 fL 39-49.9 L 71392-0) RDW-CV (test code = 11.8 % 12-15.5 L 788-0) PLT (test code = See_Comment [Automated 777-3) message] The sy stem which generated this result transmitted reference range : 166 - 358 10*3/ ?L. The reference r bhupendra was not used to interpret this result as normal/abnormal . MPV (test code = 9.4 fL 9.5-12.9 L 06134-8) NRBC/100 WBC (test See_Comment [Automat ed code = 4142266107) message] The system which generated this result transmitted reference range : 0.0 - 10.0 /100 WBCs. The refer ence range was not u sed to interpret th is result as normal/abnormal . NRBC x10^3 (test code <0.01 See_Comment [Auto mated = 9176799604) message] The s ystem which generated this result transmitted reference range : 10*3/?L. The reference range was not used to interpret this result as normal/abnormal . GRAN MAT (NEUT) % 49.0 % (test code = 770-8) IMM GRAN % (test code 0.30 % = 4719318051) LYMPH % (test code = 37.1 % 736-9) MONO % (test code = 10.4 % 5905-5) EOS % (test code = 2.6 % 713-8) BASO % (test code = 0.6 % 706-2) GRAN MAT x10^3(ANC) 3.07 10*3/uL 1.88-7.09 (test code = 3411828808) IMM GRAN x10^3 (test <0.03 0-0.06 code = 1032271587) LYMPH x10^3 (test code 2.32 10*3/uL 1.32-3.29 = 731-0) MONO x10^3 (test code 0.65 10*3/uL 0.33-0.92 = 742-7) EOS x10^3 (test code = 0.16 10*3/uL 0.03-0.39 711-2) BASO x10^3 (test code 0.04 10*3/uL 0.01-0.07 = 704-7) Lab Interpretation Abnormal (test code = 16681-0) [facility] CampusUrinalysis2021-01-[facility] 02:16:00 Test Item Value Reference Range Interpretation Comments APPEARANCE (test code = Cloudy Clear A 5215159611) COLOR (test code = Yellow Yellow 9772932020) PH (test code = 4.8-8.0 0348302269) SP GRAVITY (test code = 1.003-1.030 H 6499366928) GLU U QUAL (test code = Normal Normal 8773231177) BLOOD (test code = Negative Negative 5847849792) KETONES (test code = Negative Negative 5111032532) PROTEIN (test code = Negative Negative 2887-8) UROBILIN (test code = Normal Normal 7916398947) BILIRUBIN (test code = Negative Negative 1223282371) NITRITE (test code = Negative Negative 7739738112) LEUK EZEQUIEL (test code = Negative Negative 7429206719) RBC/HPF (test code = See_Comment H [Autom ated message] 2249634611) The system Haolianluo generated this result transmitted ref erence range: 0 - 3 HP F. The reference range was not used to int erpret this result as normal/abnormal . WBC/HPF (test code = See_Comment H [Autom ated message] 2300543027) The system Haolianluo generated this result transmitted ref erence range: 0 - 5 HP F. The reference range was not used to int erpret this result as normal/abnormal . BACTERIA (test code = Few Negative A 7339467342) MUCOUS (test code = Slight Negative LPF A 4635620381) SQ EPITH (test code = HPF 7749804462) Lab Interpretation (test Abnormal code = 73814-3) [facility] CampusAlyson [id number] 02:07:00 Test Item Value Reference Range Interpretation Comments TROPONIN I (test <0.012 See_Comment [Automated code = 4295278674) message] The system which generated this result transmitted reference range : <=0.034 ng/mL. The reference range was not used to interpr et this result as normal/abnormal . ALICIA (test code = Equal or Less than ALICIA) 0.034 ng/ml---Normal ?Note: Cardiac troponin begins to rise 3-4 hours after the onset of ischemia. Repeat in 4-6 hours if the sample was drawn within 3-4 hours of the onset of the symptom and found normal. Between 0.035 and 0.120 ng/mL--- Borderline. Questionable myocardial injury or necrosis ? ?Note: Serial measurement may be necessary to confirm or exclude the diagnosis of myocardial injury or necrosis; Clinical correlation (symptoms, EKGs, imaging studies, and others) required; Repeat in 4-6 hours if clinically indicated. ? Equal or Higher than 0.121 ng/mL---Abnormal. Myocardial Injury or Necrosis Likely ? Biotin has been reported to cause a negative bias, interpret results relative to patient's use of biotin. ? Lab Interpretation Normal (test code = 11462-5) [facility]OVID[facility] (ID NOW RAPID TESTING)2020-12-11 02:01:00 Test Item Value Reference Range Interpretation Comments SARS-CoV-2 Rapid ID NOW Not Detected Not Detected (test code = 96913-8) ALICIA (test code = ALICIA) ID NOW COVID-19 Assay is an isothermal nucleic acid amplification test intended for the qualitative detection of nucleic acid from SARS-CoV-2 viral RNA in nasopharyngeal (GRAN[employer] SETTER) specimens. It is used under Emergency Use Authorization (EUA) by FDA. The limit of detection (LOD) of the assay is 125 Genome Equivalents/mL. A positive result is indicative of the presence of SARS-CoV-2 RNA. ?Clinical correlation with patient history and other diagnostic information is necessary to determine patient infection status. A negative (Not Detected) result does not preclude SARS-CoV-2 infection. In patients with clinical symptoms and other tests that are consistent with SARS-CoV-2 infection, negative results should be treated as presumptive negative and a new specimen should be tested with alternative PCR molecular test. Invalid: Please collect a new specimen for repeat patient testing if clinically indicated. Lab Interpretation Normal (test code = 53074-5) [facility] (NA, K, CL, CO2, GLUCOSE, BUN, CREATININE, CA)2020-12-11 01:56:00 Test Item Value Reference Range Interpretation Comments NA (test code = 140 mmol/L 135-145 0240646418) K (test code = 3.6 mmol/L 3.5-5 8546882627) CL (test code = 103 mmol/L 98-108 9530244411) CO2 TOTAL (test code = 27 mmol/L 23-31 0174232742) AGAP (test code = 2-16 8543596530) BUN (test code = 11 mg/dL 7-23 1853716721) GLUCOSE (test code = 228 mg/dL 70-110 H 7425774367) CREATININE (test code = 0.96 mg/dL 0.5-1.04 6209200133) CALCIUM (test code = 8.8 mg/dL 8.6-10.6 5384327761) eGFR Calculation mL/min/1.73m2 (Non-) (test code = 4191091918) eGFR Calculation mL/min/1.73m2 () (test code = 5578724788) ALICIA (test code = ALICIA) Association of Glomerular Filtration Rate (GFR) and Staging of Kidney Disease* + --+ --+ ------+| GFR (mL/min/1.73 m2) ?| With Kidney Damage ?| ?Without Kidney Damage+ --------+ --------+ +| ?>90 ?| ?Stage one ?| ? Normal ?+ ---+ ---+ -------+| ?60-89 ?| ?Stage two ?| ? Decreased GFR ? + --+ --+ ------+| ?30-59 ?| ?Stage three ?| ? Stage three ? + --+ --+ ------+| ?15-29 ?| ?Stage four ? | ? Stage four ?+ ---+ ---+ -------+| ?<15 (or dialysis) ? ?| ?Stage five ? | ? Stage five ?+ ---+ ---+ -------+ *Each stage assumes the associated GFR level has been in effect for at least three months. ?Stages 1 to 5, with or without kidney disease, indicate chronic kidney disease. Notes: Determination of stages one and two (with eGFR >59mL/min/1.73 m2) requires estimation of kidney damage for at least three months as defined by structural or functional abnormalities of the kidney, manifested by either:Pathological abnormalities or Markers of kidney damage (including abnormalities in the composition of the blood or urine or abnormalities in imaging tests). Lab Interpretation Abnormal (test code = 63670-3) [facility] Function Panel (ALB, T.PRO, BILI T, BU/BC, ALT, AST, ALK PHOS)2020-12-11 01:55:00 Test Item Value Reference Range Interpretation Comments TOTAL BILI (test code = 5583926259) 0.5 mg/dL 0.1-1.1 BILI UNCON (test code = 9732087799) 0.4 mg/dL 0.1-1.1 BILI CONJ (test code = 4540581130) 0.0 mg/dL 0-0.3 T PROTEIN (test code = 9257952445) 7.0 g/dL 6.3-8.2 ALBUMIN (test code = 1325220002) 4.2 g/dL 3.5-5 ALK PHOS (test code = 1042245065) 81 U/L 34-122 ALTv (test code = 1742-6) 29 U/L 5-35 AST(SGOT) (test code = 2385133556) 24 U/L 13-40 Lab Interpretation (test code = Normal 36955-8) [facility] CampusaPTT2021-01-23 01:45:00 Test Item Value Reference Range Interpretation Comments APTT Patient (test See_Comment [Automat ed code = 3173-2) message] The system which generated this result transmitted reference range : 23 - 38 Seconds . The reference range was not used to interpr et this result as normal/abnormal . ALICIA (test code = ALICIA) [facility] patient population mean normal value for aPTT is 30 seconds. Lab Interpretation Normal (test code = 93743-3) [facility] CampusProthrombin Time (PT) / [id number] 01:43:00 Test Item Value Reference Range Interpretation Comments PROTIME PATIENT (test See_Comment [Auto mated message] code = 5964-2) The system wh ich generated this result transmitted ref erence range: 12.0 - 1 4.7 Seconds. The re ference range was not u sed to interpret this result as normal/abnor mal. INR (test code = 6301-6) Nor mal INR <1.1; Warfarin Therap eutic range 2.0 to 3. 0 or 2.5 to 3.5, dep ending upon the indica tions. Lab Interpretation (test Normal code = 87116-8) [facility] CampusCBC with Ljujoearmhfq0525-32-62 01:34:00 Test Item Value Reference Range Interpretation Comments WBC (test code = See_Comment [Automated 6890-2) message] The sy stem which generated this result transmitted reference range : 4.30 - 11.10 10*3/?L. The reference range was not used to interpret this result as normal/abnormal . RBC (test code = See_Comment [Automated 529-8) message] The sy stem which generated this result transmitted reference range : 3.93 - 5.25 10*6/?L. The reference range was not used to interpret this result as normal/abnormal . HGB (test code = 14.4 g/dL 11.6-15 718-7) HCT (test code = 41.0 % 35.7-45.2 4544-3) MCV (test code = 88.2 fL 80.6-95.5 787-2) MCH (test code = 31.0 pg 25.9-32.8 785-6) MCHC (test code = 35.1 g/dL 31.6-35.1 786-4) RDW-SD (test code = 37.6 fL 39-49.9 L 21891-9) RDW-CV (test code = 11.8 % 12-15.5 L 788-0) PLT (test code = See_Comment [Automated 777-3) message] The sy stem which generated this result transmitted reference range : 166 - 358 10*3/ ?L. The reference r bhupendra was not used to interpret this result as normal/abnormal . MPV (test code = 9.5 fL 9.5-12.9 40771-0) NRBC/100 WBC (test See_Comment [Automat ed code = 5670457420) message] The system which generated this result transmitted reference range : 0.0 - 10.0 /100 WBCs. The refer ence range was not u sed to interpret th is result as normal/abnormal . NRBC x10^3 (test code <0.01 See_Comment [Auto mated = 3751854509) message] The s ystem which generated this result transmitted reference range : 10*3/?L. The reference range was not used to interpret this result as normal/abnormal . GRAN MAT (NEUT) % 62.0 % (test code = 770-8) IMM GRAN % (test code 0.40 % = 1682402741) LYMPH % (test code = 26.2 % 736-9) MONO % (test code = 9.5 % 5905-5) EOS % (test code = 1.5 % 713-8) BASO % (test code = 0.4 % 706-2) GRAN MAT x10^3(ANC) 4.52 10*3/uL 1.88-7.09 (test code = 5482713067) IMM GRAN x10^3 (test 0.03 10*3/uL 0-0.06 code = 0392681479) LYMPH x10^3 (test code 1.91 10*3/uL 1.32-3.29 = 731-0) MONO x10^3 (test code 0.69 10*3/uL 0.33-0.92 = 742-7) EOS x10^3 (test code = 0.11 10*3/uL 0.03-0.39 711-2) BASO x10^3 (test code 0.03 10*3/uL 0.01-0.07 = 704-7) Lab Interpretation Abnormal (test code = 85408-3) [facility] CampusCT CHEST PULMONARY KXZIAJEOW1606-52-68 23:49:56 Bilateral acute pulmonary emboli in lobar, segmental and subsegmentalbranches supplying both upper and lower lobes. Mild straightening of the interventricular septum may represent degree ofheart strain. However, there is no reflux into the infracardiac IVC. Normalcaliber of main pulmonary artery. Multiple failed attempts were made to relay critical findings of pulmonaryemboli to ordering provider at4:00 PM on 12/10/2020. Patient was notified of the above findings (via the telephone) at the timeof final dictation of this exam. Preliminary Report Dictated by Resident: Candelario Oro MD., have reviewed this study and agree with theabove report.CT ANGIO CHEST WITH CONTRAST - PE PROTOCOL CLINICAL INDICATION: 45-year-old female with chest pain COMPARISON: CT abdomen pelvis 12/10/2020 TECHNIQUE: Contrast enhanced spiral CT of the chest performed multiplanarreformatted images provided for review per pulmonary angiogram protocol. FINDINGS: PULMONARY ARTERIES:Contrast bolus timing is adequate for evaluation of pulmonary arterialvasculature. Multiple filling defects within bilateral lobar, segmental andsubsegmental branches supplying both upper and lower lobes (4:58, 60, 62).Minimal straightening of the interventricular septum. No reflux ofcontrastinto the infracardiac IVC. Normal caliber main pulmonary artery. CHEST:Lower neck/thyroid: Unremarkable. Lungs: Scattered dependent and subsegmental atelectasis. Central airway: Unremarkable. Pleura: No pleural effusion, thickening or pneumothorax. Thoracic aorta and great vessels: Normal in diameter. Standard three-vesselaortic arch. Heart and pericardium: No detectable coronary artery calcifications. Nopericardial effusion. Mediastinum and lymph nodes: No enlarged thoracic lymph nodes. Thoracic spine and chest wall: No acute or aggressive osseous abnormality. Visualized upper abdomen: Desire or cholecystomy. [facility], Radiant Results Inft User - 12/10/2020 5:50 PM CSTCT ANGIO CHEST WITH CONTRAST - PE PROTOCOLCLINICAL INDICATION: 45-year-old female with chest painCOMPARISON: CT abdomen pelvis 12/10/2020TECHNIQUE: Contrast enhanced spiral CT of the chest performed multiplanarreformatted images provided for review per pulmonary angiogram protocol.FINDINGS:PULMONARY ARTERIES:Contrast bolus timing is adequate for evaluation of pulmonary arterialvasculature. Multiple filling defects within bilateral lobar, segmental andsubsegmental branches supplying both upper and lower lobes (4:58, 60, 62).Minimal straightening of the interventricular septum. No reflux of contrastinto the infracardiac IVC.Normal caliber main pulmonary artery.CHEST:Lower neck/thyroid: Unremarkable.Lungs: Scattered dependent and subsegmental atelectasis.Central airway: Unremarkable.Pleura: No pleural effusion, thickening or pneumothorax.Thoracic aorta and great vessels: Normal in diameter. Standard three-vesselaortic arch.Heart and pericardium: No detectable coronary artery calcifications. Nopericardial effusion.Mediastinum and lymph nodes: No enlarged thoracic lymph nodes.Thoracic spine and chest wall: No acute or aggressive osseous abnormality.Visualized upper abdomen: Prior cholecystomy. IMPRESSIONBilateral acute pulmonary emboli in lobar, segmental and subsegmentalbranches supplying both upper and lower lobes.Mild straightening of the interventricular septum may represent degree ofheart strain. However, there is no reflux into the infracardiac IVC. Normalcaliber of main pulmonary artery.Multiple failed attempts were made to relay critical findings of pulmonaryemboli to ordering provider at 4:00 PM on 12/10/2020.Patient was notified of the above findings (via the telephone) at the timeof final dictation of this exam. Preliminary Report Dictated by Resident: Candelario Russell MD., have reviewed this study and agree with theabove report.[facility] PEL[facility] W [id number] 21:15:55Impression: 1. ?Filling defects seen in bilateral lower lobe pulmonary artery branches(2:3 and 5) are consistent with acute pulmonary embolism. 2. ?No acute findings are seen in the abdomen and pelvis. Priorcholecystectomy and hysterectomy. Nonobstructing calculi are seen in bothkidneys. Asymmetric subcentimeter subareolar left breast nodule.Exam: CT ABDOMEN PELVIS W CONTRAST Clinical History: 45-year-old female. Comparison: None Findings: The lung bases are clear and there is no evidence of pleural or pericardialeffusion. The visualized breast tissue shows a left-sided asymmetricsubareolar nodule measuring about 8 mm (2:5). Filling defects seen inbilateral lower lobe pulmonary artery branches (2:3 and 5) are consistentwith acute pulmonary embolism. The liver shows no focal lesions or ductal dilatation. Priorcholecystectomy. Spleen, adrenals, and the pancreas are unremarkable. Noevidence of hydronephrosis or focal enhancing renal lesions. Anonobstructing calculus is seen in the inferior pole of the left kidneymeasuring approximately 0.4 cm (3:70). A punctate calculus is also seen atthe inferior pole of the right kidney (3:53). There is no evidence of free fluid, air, or lymphadenopathy seen in theabdomen and pelvis. No evidence of dilated bowel loops, diverticulitis, orappendicitis. Prior appendectomy is suspected (3:46). Urinary bladder isunremarkable. Uterus is absent. No adnexal massesare seen. Abdominal wall is within normal limits. The vasculature is unremarkable andthe bones show mild degenerative changes with no suspicious focal lesions. [facility], [facility] Results Inft User - 12/10/2020 3:16 PM CSTExam: CT ABDOMEN PELVIS W CONTRASTClinical History: 45-year-old female.Comparison: NoneFindings: The lung bases are clear and there is no evidence of pleural or pericardialeffusion. The visualized breast tissue shows a left-sided asymmetricsubareolar nodule measuring about 8 mm (2:5).Filling defects seen inbilateral lower lobe pulmonary artery branches (2:3 and 5) are consistentwithacute pulmonary embolism.The liver shows no focal lesions or ductal dilatation. Priorcholecystectomy. Spleen, adrenals, and the pancreas are unremarkable. Noevidence of hydronephrosis or focal enhancing renal lesions. Anonobstructing calculus is seen in the inferior pole of the left kidneymeasuring approximately 0.4 cm (3:70). A punctate calculus is also seen atthe inferior pole of the right kidney (3:53).There is no evidence of free fluid, air, or lymphadenopathy seen in theabdomen and pelvis. No evidence of dilated bowel loops, diverticulitis, orappendicitis. Prior appendectomy is suspected (3:46). Urinary bladder isunremarkable. Uterus is absent. No adnexal masses are seen.Abdominal wall is within normal limits. The vasculature is unremarkable andthe bones show mild degenerative changes with no suspicious focal lesions.IMPRESSIONImpression: 1. Filling defects seen in bilateral lower lobe pulmonary artery branches(2:3 and 5) are consistent with acute pulmonary embolism.2. No acute findings are seen in the abdomen and pelvis. Priorcholecystectomy and hysterectomy. Nonobstructing calculi areseen in bothkidneys. Asymmetric subcentimeter subareolar left breast nodule.[facility] CampusXR CHEST 1 [id number] 18:40:02HISTORY: Cough. TECHNIQUE: Portable AP view of the chest is obtained. FINDINGS: No acute pneumonia. Minimal congestion noted in the right lowerlung. No pneumothorax or pleural effusion detected. Cardiac size is withinnormal limits. CONCLUSIONS: Probable bronchitis. No pneumonia.[facility], [facility] Inft User - 02/12/2020 1:41 PM CDTHISTORY: Cough.TECHNIQUE: Portable AP view of the chest is obtained .FINDINGS: No acute pneumonia. Minimal congestion noted in the right lowerlung. No pneumothorax or pleural effusion detected. Cardiac size is withinnormal limits. CONCLUSIONS: Probable bronchitis. No pneumonia.[facility] CampusTroponin [id number] 17:52:00 Test Item Value Reference Range Interpretation Comments TROPONIN I (test 0.005 ng/mL See_Comment [Automated code = [id number]) message] The system which generated this result transmitted reference range : <=0.034. The reference range was not used to interpret this result as normal/abnormal . ALICIA (test code = Equal or Less than ALICIA) 0.034 ng/ml---Normal ?Note: Cardiac troponin begins to rise 3-4 hours after the onset of ischemia. Repeat in 4-6 hours if the sample was drawn within 3-4 hours of the onset of the symptom and found normal. Between 0.035 and 0.120 ng/mL--- Borderline. Questionable myocardial injury or necrosis ? ?Note: Serial measurement may be necessary to confirm or exclude the diagnosis of myocardial injury or necrosis; Clinical correlation (symptoms, EKGs, imaging studies, and others) required; Repeat in 4-6 hours if clinically indicated. ? Equal or Higher than 0.121 ng/mL---Abnormal. Myocardial Injury or Necrosis Likely ? Biotin has been reported to cause a negative bias, interpret results relative to patient's use of biotin. ? Lab Interpretation Normal (test code = 71147-9) [facility] CampusN-TERMINAL [id number] 17:48:00 Test Item Value Reference Range Interpretation Comments NT-proBNP (test code 41 pg/mL See_Comment [Autom ated = 9089351431) message] The system which generated this result transmitted reference range : <=125. The reference range was not used to interpret this result as normal/abnormal . ALICIA (test code = ALICIA) Biotin has been reported to cause a negative bias, interpret results relative to patient's use of biotin. Lab Interpretation Normal (test code = 21660-7) [facility] CampusADC,CLC OR [facility] ONLY - INFLUENZA A & B DIRECT [id number] 17:44:00 Test Item Value Reference Range Interpretation Comments Influenza A (test code = 72806-3) Negative Negative Influenza B (test code = 46097-8) Positive Negative A Lab Interpretation (test code = Abnormal 21667-0) [facility] STREP SCREEN FOR GROUP [id number] 17:43:00 Test Item Value Reference Range Interpretation Comments Streptococcus pyogenes (group A) Negative Negative antigen (test code = 36503-9) Lab Interpretation (test code = Normal 61729-7) [facility] Metabolic Panel (NA, K, CL, CO2, GLUCOSE, BUN, CREATININE, CA)2020-02-12 17:41:00 Test Item Value Reference Range Interpretation Comments NA (test code = 139 mmol/L 135-145 3460319314) K (test code = 4.0 mmol/L 3.5-5 0560660145) CL (test code = 106 mmol/L 98-108 4531445251) CO2 TOTAL (test code = 27 mmol/L 23-31 2873915998) AGAP (test code = 2-16 1322383498) BUN (test code = 13 mg/dL 7-23 2123977788) GLUCOSE (test code = 105 mg/dL 70-110 1413083622) CREATININE (test code 0.79 mg/dL 0.5-1.04 = 2898682725) CALCIUM (test code = 9.5 mg/dL 8.6-10.6 4492039856) eGFR Calculation mL/min/1.73m2 (Non-) (test code = 7132314394) eGFR Calculation mL/min/1.73m2 () (test code = 6810478993) ALICIA (test code = ALICIA) Association of Glomerular Filtration Rate (GFR) and Staging of Kidney Disease* + -+ + ---+| GFR (mL/min/1.73 m2) ?| With Kidney Damage ?| ?Without Kidney Damage+ -------+ ------+ ---------+| ?>90 ?| ?Stage one ?| ? Normal ?+ --+ -+ ----+| ?60-89 ?| ?Stage two ?| ? Decreased GFR ? + -+ + ---+| ?30-59 ?| ?Stage three ?| ? Stage three ? + -+ + ---+| ?15-29 ?| ?Stage four ? | ? Stage four ?+ --+ -+ ----+| ?<15 (or dialysis) ? ?| ?Stage five ? | ? Stage five ?+ --+ -+ ----+ *Each stage assumes the associated GFR level has been in effect for at least three months. ?Stages 1 to 5, with or without kidney disease, indicate chronic kidney disease. Notes: Determination of stages one and two (with eGFR >59mL/min/1.73 m2) requires estimation of kidney damage for at least three months as defined by structural or functional abnormalities of the kidney, manifested by either:Pathological abnormalities or Markers of kidney damage (including abnormalities in the composition of the blood or urine or abnormalities in imaging tests). [facility] CampusHepatic Function Panel (ALB, T.PRO, BILI T, BU/BC, ALT, AST, ALK PHOS)2020-02-12 17:41:00 Test Item Value Reference Range Interpretation Comments TOTAL BILI (test code = 6427923035) 0.3 mg/dL 0.1-1.1 BILI UNCON (test code = 9253931262) 0.5 mg/dL 0.1-1.1 BILI CONJ (test code = 5713117031) 0.0 mg/dL 0-0.3 T PROTEIN (test code = 5871813329) 7.4 g/dL 6.3-8.2 ALBUMIN (test code = 5314110069) 4.5 g/dL 3.5-5 ALK PHOS (test code = 5413489051) 68 U/L 34-122 ALTv (test code = 1742-6) 28 U/L 5-35 AST(SGOT) (test code = 6091073586) 36 U/L 13-40 Lab Interpretation (test code = Normal 40672-4) [facility] CampusCREATINE [id number] 17:40:00 Test Item Value Reference Range Interpretation Comments CK (test code = 6156905471) 35 U/L 33-194 Lab Interpretation (test code = Normal 32105-8) [facility] CampusProthrombin Time (PT) / [id number] 17:30:00 Test Item Value Reference Range Interpretation Comments PROTIME PATIENT (test See_Comment [Auto mated message] code = 5964-2) The system wh ich generated this result transmitted ref erence range: 12.0 - 1 4.7 Seconds. The re ference range was not u sed to interpret this result as normal/abnor mal. INR (test code = 6301-6) Nor mal INR <1.1; Warfarin Therap eutic range 2.0 to 3. 0 or 2.5 to 3.5, dep ending upon the indica tions. Lab Interpretation (test Normal code = 61811-2) [facility] CampusaPTT2020-03-26 17:29:00 Test Item Value Reference Range Interpretation Comments APTT Patient (test See_Comment [Automat ed code = 3173-2) message] The system which generated this result transmitted reference range : 23 - 38 Seconds . The reference range was not used to interpr et this result as normal/abnormal . ALICIA (test code = ALICIA) The [facility] patient population mean normal value for aPTT is 30 seconds. Lab Interpretation Normal (test code = 41320-6) [facility] CampusCB WITH [id number] 17:21:00 Test Item Value Reference Range Interpretation Comments WBC (test code = See_Comment [Automated 7690-2) message] The sy stem which generated this result transmitted reference range : 4.30 - 11.10 10*3/?L. The reference range was not used to interpret this result as normal/abnormal . RBC (test code = See_Comment [Automated 969-8) message] The sy stem which generated this result transmitted reference range : 3.93 - 5.25 10*6/?L. The reference range was not used to interpret this result as normal/abnormal . HGB (test code = 14.5 g/dL 11.6-15 718-7) HCT (test code = 41.9 % 35.7-45.2 4544-3) MCV (test code = 89.3 fL 80.6-95.5 787-2) MCH (test code = 30.9 pg 25.9-32.8 785-6) MCHC (test code = 34.6 g/dL 31.6-35.1 786-4) RDW-SD (test code = 38.5 fL 39-49.9 L 99577-0) RDW-CV (test code = 11.9 % 12-15.5 L 788-0) PLT (test code = See_Comment [Automated 777-3) message] The sy stem which generated this result transmitted reference range : 166 - 358 10*3/ ?L. The reference r bhupendra was not used to interpret this result as normal/abnormal . MPV (test code = 10.2 fL 9.5-12.9 85332-8) NRBC/100 WBC (test See_Comment [Automat ed code = 8181875542) message] The system which generated this result transmitted reference range : 0.0 - 10.0 /100 WBCs. The refer ence range was not u sed to interpret th is result as normal/abnormal . NRBC x10^3 (test code <0.01 See_Comment [Auto mated = 8518945427) message] The s ystem which generated this result transmitted reference range : 10*3/?L. The reference range was not used to interpret this result as normal/abnormal . GRAN MAT (NEUT) % 67.3 % (test code = 770-8) IMM GRAN % (test code 0.30 % = 0108511751) LYMPH % (test code = 21.8 % 736-9) MONO % (test code = 8.4 % 5905-5) EOS % (test code = 1.7 % 713-8) BASO % (test code = 0.5 % 706-2) GRAN MAT x10^3(ANC) 3.92 10*3/uL 1.88-7.09 (test code = 2749232675) IMM GRAN x10^3 (test <0.03 0-0.06 code = 5767613953) LYMPH x10^3 (test code 1.27 10*3/uL 1.32-3.29 L = 731-0) MONO x10^3 (test code 0.49 10*3/uL 0.33-0.92 = 742-7) EOS x10^3 (test code = 0.10 10*3/uL 0.03-0.39 711-2) BASO x10^3 (test code 0.03 10*3/uL 0.01-0.07 = 704-7) Lab Interpretation Abnormal (test code = 41849-6) [facility]"
[2022-05-11] MEDS ORDERED: FENTANYL CITR 100 MCG/2 ML ONE (22:30)
[2022-05-11] MEDS ORDERED: NA CHLORIDE 0.9% 1,000 ML ONE ×2 (22:30→23:59)
[2022-05-11] MEDS ORDERED: KETOROLAC 30 MG/ML INJ ONE (22:30)
[2022-05-11] MEDS ORDERED: ONDANSETRON 4 MG/2 ML VIAL ONE (22:30)
[2022-05-11 22:51] LABS: Urine Blood Trace-intact (Negative); Urine Glucose 1+ (Negative); Urine Protein Negative (Negative)
[2022-05-11 23:00] LABS: Absolute Lymphocytes (CBC) 1.6 K/uL (0.7-4.9); Hematocrit 44.7 % (36.0-45.0); Lymphocytes % 23.3 % (15.3-44.8); MPV 7.8 fL (7.6-11.3); RBC Red Blood Cell Count 4.95 M/uL (3.86-4.86)
[2022-05-11 23:18] LABS: Urine Amorphous Sediment 2+ /HPF (NONE SEEN); Urine Bacteria >50 /HPF (<20); Urine Mucus 2+ /HPF (NONE SEEN); Urine RBC <5 /HPF (NONE SEEN)
[2022-05-11 23:24] LABS: Bilirubin Total 0.3 mg/dL (0.2-1.0); Potassium 3.7 mmol/L (3.5-5.1); Protein, Total 7.9 g/dL (6.4-8.2)
[2022-05-11] MEDS ORDERED: TAMSULOSIN 0.4 MG SR CAP ONE (23:59)
[2022-05-11] MEDS ORDERED: HYDROMORPHONE HCL 1 MG/ML INJ ONE (23:59)
[2022-05-12] MEDS ORDERED: Levofloxacin500mg IV 500 MG/100 ML BAG IV ONE
--- NOTE | 2022-05-12 01:14 | EDPHYS ---
Physician Documentation [facility] Name: Flakita Barton Age: 46 yrs Sex: Female : 1975 Arrival Date: 05/11/2022 Time: 22:03 Bed 17 Private MD: PHONG Physician Ej Malik HPI: 05/11 23:32 This 46 yrs old Female presents to ER via Ambulatory with complaints of johanne Possible Kidney Stone, Vomiting. 23:32 The patient presents to the emergency department with nausea, that is mild, that is johanne moderate, vomiting, that is continuous. Onset: The symptoms/episode began/occurred 2 day(s) ago. Possible causes: unknown. The symptoms are aggravated by nothing. The symptoms are alleviated by nothing. Associated signs and symptoms: Pertinent positives: nausea, vomiting. Severity of symptoms: At their worst the symptoms were mild in the emergency department the symptoms are unchanged. The patient has experienced similar episodes in the past, several times. 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 - Social history:: Smoking status: Patient denies any tobacco usage or history of. ROS: 23:33 Constitutional: Negative for fever, chills, and weight loss, Eyes: Negative for injury, johanne pain, redness, and discharge, ENT: Negative for injury, pain, and discharge, Neck: Negative for injury, pain, and swelling, Cardiovascular: Negative for chest pain, palpitations, and edema, Respiratory: Negative for shortness of breath, cough, wheezing, and pleuritic chest pain, : Negative for injury, bleeding, discharge, and swelling, MS/Extremity: Negative for injury and deformity, Skin: Negative for injury, rash, and discoloration, Neuro: Negative for headache, weakness, numbness, tingling, and seizure, Psych: Negative for depression, anxiety, suicide ideation, homicidal ideation, and hallucinations, Allergy/Immunology: Negative for hives, rash, and allergies, Endocrine: Negative for neck swelling, polydipsia, polyuria, polyphagia, and marked weight changes, Hematologic/Lymphatic: Negative for swollen nodes, abnormal bleeding, and unusual bruising. 23:33 Abdomen/GI: Positive for abdominal pain, nausea and vomiting, of the posterior aspect of right lateral abdomen, anterior aspect of right lateral abdomen and right lower quadrant. 23:33 Back: Positive for flank pain, on the right, radiated pain, of the right mid back and right low back. Exam: 23:33 Constitutional: This is a well developed, well nourished patient who is awake, alert, johanne and in no acute distress. Head/Face: Normocephalic, atraumatic. Eyes: Pupils equal round and reactive to light, extra-ocular motions intact. Lids and lashes normal. Conjunctiva and sclera are non-icteric and not injected. Cornea within normal limits. Periorbital areas with no swelling, redness, or edema. ENT: Nares patent. No nasal discharge, no septal abnormalities noted. Tympanic membranes are normal and external auditory canals are clear. Oropharynx with no redness, swelling, or masses, exudates, or evidence of obstruction, uvula midline. Mucous membranes moist. Neck: Trachea midline, no thyromegaly or masses palpated, and no cervical lymphadenopathy. Supple, full range of motion without nuchal rigidity, or vertebral point tenderness. No Meningismus. Chest/axilla: Normal chest wall appearance and motion. Nontender with no deformity. No lesions are appreciated. Cardiovascular: Regular rate and rhythm with a normal S1 and S2. No gallops, murmurs, or rubs. Normal PMI, no JVD. No pulse deficits. Respiratory: Lungs have equal breath sounds bilaterally, clear to auscultation and percussion. No rales, rhonchi or wheezes noted. No increased work of breathing, no retractions or nasal flaring. Back: No spinal tenderness. No costovertebral tenderness. Full range of motion. Skin: Warm, dry with normal turgor. Normal color with no rashes, no lesions, and no evidence of cellulitis. MS/ Extremity: Pulses equal, no cyanosis. Neurovascular intact. Full, normal range of motion. Neuro: Awake and alert, GCS 15, oriented to person, place, time, and situation. Cranial nerves II-XII grossly intact. Motor strength 5/5 in all extremities. Sensory grossly intact. Cerebellar exam normal. Normal gait. Psych: Awake, alert, with orientation to person, place and time. Behavior, mood, and affect are within normal limits. 23:33 Abdomen/GI: Inspection: distension, Bowel sounds: active, Palpation: mild abdominal tenderness, moderate abdominal tenderness, in the posterior aspect of right lateral abdomen, anterior aspect of right lateral abdomen and right lower quadrant, Liver: no appreciated palpable abnormalities, Hernia: not appreciated. Vital Signs: 22:08 BP 150 / 104; Pulse 84; Resp 20; Temp 97.8; Pulse Ox 100% ; Weight 102.97 kg; Height 5 vc1 ft. 9 in. (175.26 cm); Pain 10; 05/12 00:15 BP 148 / 92; Pulse 78; Resp 18; Pulse Ox 98% on R/A; ll3 02:00 BP 149 / 96; Pulse 82; Resp 17; Pulse Ox 95% on R/A; ll3 03:25 BP 148 / 99; Pulse 76; Resp 18; Pulse Ox 96% on R/A; ll3 04:50 BP 163 / 107; Pulse 81; Resp 19; Pulse Ox 100% on R/A; ll3 06:00 BP 141 / 92; Pulse 87; Resp 17; Pulse Ox 95% on R/A; ll3 05/11 22:08 Body Mass Index 33.52 (102.97 kg, 175.26 cm) vc1 MDM: 05/11 22:15 Patient medically screened. [facility] 23:34 Differential diagnosis: nephrolithiasis, pyelonephritis, UTI, diverticulitis, johanne pancreatitis. Data reviewed: vital signs, nurses notes, lab test result(s), radiologic studies, CT scan. 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 Counseling: I had a detailed discussion with the patient and/or guardian regarding: the historical points, exam findings, and any diagnostic results supporting the discharge/admit diagnosis, lab results, radiology results, the need for outpatient follow up, for definitive care, a family practitioner, a urologist. 05/11 22:17 Order name: CBC with Diff; Complete Time: 00:35 johanne 05/11 22:17 Order name: CMP; Complete Time: 00:35 johanne 05/11 22:17 Order name: Lipase; Complete Time: 00:[address] [facility] 05/11 22:17 Order name: Urine Microscopic Only; Complete Time: 00:[address] [facility] 05/11 22:51 Order name: Urine Dipstick-Ancillary; Complete Time: 00:35 [facility] 05/11 23:20 Order name: Urine Culture [facility] 05/11 22:17 Order name: CT Abd/Pelvis - Without Contrast [facility] 05/12 02:59 Order name: SARS-COV-2 RT PCR (Document "Date of Onset" if Symptomatic); Complete Time: wm 04:43 05/11 22:17 Order name: IV Saline Lock; Complete Time: 22:[address] [facility] 05/11 22:17 Order name: Labs collected and sent; Complete Time: 22:[address] [facility] 05/11 22:17 Order name: Urine Dipstick-Ancillary (obtain specimen); Complete Time: 22:[address] [facility] 05/12 04:47 Order name: NPO; Complete Time: 04:[address] [facility] Administered Medications: 22:35 Drug: Zofran (Ondansetron) 4 mg Route: IVP; Site: right antecubital; [facility] 05/12 00:06 Follow up: Response: No adverse reaction; Marked relief of symptoms [facility] 05/11 22:35 Drug: Ketorolac 30 mg Route: IVP; Site: right antecubital; [facility] 05/12 00:05 Follow up: Response: No adverse reaction [facility] 05/11 22:40 Drug: NS 0.9% 1000 ml Route: IV; Rate: 1 bolus; Site: right antecubital; [facility] 05/12 00:05 Follow up: Response: No adverse reaction; IV Status: Completed infusion; IV Intake: ll3 1000ml 05/11 22:45 Drug: fentaNYL (PF) 50 mcg Route: IVP; Site: right antecubital; [facility] 05/12 00:05 Follow up: Response: No adverse reaction [facility] 00:00 Drug: NS 0.9% 1000 ml Route: IV; Rate: 1 bolus; Site: right antecubital; 3 01:25 Follow up: Response: No adverse reaction; IV Status: Completed infusion; IV Intake: ll3 1000ml 00:00 Drug: levofloxacin 500 mg Volume: 100 ml; Route: IVPB; Infused Over: 60 mins; Site: ll3 right antecubital; 01:25 Follow up: Response: No adverse reaction; IV Status: Completed infusion; IV Intake: ll3 100ml 00:02 Drug: Dilaudid (HYDROmorphone) 1 mg Route: IVP; Site: right antecubital; ll3 01:25 Follow up: Response: No adverse reaction; Marked relief of symptoms ll3 00:05 Drug: Flomax (tamsulosin) 0.4 mg Route: PO; ll3 01:25 Follow up: Response: No adverse reaction ll3 01:25 Drug: Rocephin (cefTRIAXone) 1 grams Route: IV; Rate: per protocol; Site: right ll3 antecubital; 01:54 Follow up: Response: No adverse reaction; IV Status: Completed infusion; IV Intake: [id number] 01:50 Drug: Zofran (Ondansetron) 4 mg Route: IVP; Site: right antecubital; ll3 03:22 Follow up: Response: No adverse reaction ll3 01:53 Drug: Dilaudid (HYDROmorphone) 1 mg Route: IVP; Site: right antecubital; ll3 03:22 Follow up: Response: No adverse reaction; No change in condition ll3 03:18 Drug: Phenergan (promethazine) 12.5 mg Route: IVP; Site: right antecubital; ll3 05:01 Follow up: Response: No adverse reaction ll3 03:21 Drug: NS 0.9% 1000 ml Route: IV; Rate: 125 ml/hr; Site: right antecubital; ll3 06:34 Follow up: Response: No adverse reaction; IV Status: Infusion continued upon transfer; 3 IV Intake: 375ml 03:21 Drug: Dilaudid (HYDROmorphone) 1 mg Route: IVP; Site: right antecubital; ll3 05:01 Follow up: Response: No adverse reaction ll3 06:30 Drug: Phenergan (promethazine) 12.5 mg Route: IVP; Site: right antecubital; ll3 06:34 Follow up: Response: No adverse reaction ll3 06:31 Drug: Dilaudid (HYDROmorphone) 1 mg Route: IVP; Site: right antecubital; ll3 06:34 Follow up: Response: No adverse reaction ll3 Disposition Summary: 05/12/22 02:59 Transfer Ordered Transfer Location: [facility] johanne Reason: Higher level of care johanne Condition: Fair(05/12/22 02:59) johanne Problem: new(05/12/22 02:59) johanne Symptoms: have improved(05/12/22 02:59) johanne Accepting Physician: [facility](05/12/22 06:37) ll3 Diagnosis - Hydronephrosis with renal and ureteral calculous obstruction - SEVERE johanne HYDRO(05/12/22 02:59) - UTI/ Urinary tract infection, site not specified(05/12/22 03:00) johanne - Type 2 diabetes mellitus with hyperglycemia johanne Forms: - Medication Reconciliation Form johanne - SBAR form johanne Signatures: Dispatcher [employer] EDEj Willis MD MD cha Loubet, Lynsea, RN RN ll3 Leidy Marshall RN RN vc1 Corrections: (The following items were deleted from the chart) 02:57 01:13 Home johanne johanne 02:57 01:13 new johanne johanne 02:57 01:13 have improved johanne johanne 02:57 01:13 Stable johanne johanne 02:57 01:13 Hydronephrosis with renal and ureteral calculous obstruction johanne johanne 02:57 01:13 UTI/ Urinary tract infection, site not specified johanne johanne 03:00 02:59 [facility] johanne johanne 06:37 03:00 [facility] johanne ll3
--- NOTE | 2022-05-12 01:14 | ER ---
Nurse's Notes [facility] Name: Flakita Barton Age: 46 yrs Sex: Female : 1975 Arrival Date: 05/11/2022 Time: 22:03 Bed 17 Private MD: Diagnosis: Hydronephrosis with renal and ureteral calculous obstruction-SEVERE HYDRO;UTI/ Urinary tract infection, site not specified;Type 2 diabetes mellitus with hyperglycemia Presentation: 05/11 22:08 Chief complaint: Patient states: "I am having pain in my lower back that radiates to vc1 the front. It hurts worse when I pee. Started about an hour and a half ago.". Coronavirus screen: Vaccine status: Patient reports receiving the 2nd dose of the covid vaccine. Phigital At this time, the client does not indicate any symptoms associated with coronavirus-19. Ebola Screen: No symptoms or risks identified at this time. Initial Sepsis Screen: Does the patient meet any 2 criteria? No. Patient's initial sepsis screen is negative. Does the patient have a suspected source of infection? No. Patient's initial sepsis screen is negative. Risk Assessment: Do you want to hurt yourself or someone else? Patient reports no desire to harm self or others. Onset of symptoms was May 11, 2022 at 20:30. 22:08 Method Of Arrival: Ambulatory vc1 22:08 Acuity: TAYO 3 vc1 Triage Assessment: 22:12 General: Appears uncomfortable, Behavior is restless. Pain: Complains of pain in right vc1 low back Pain radiates to right inguinal area and right iliac crest. Neuro: No deficits noted. Cardiovascular: No deficits noted. Respiratory: Airway is patent Respiratory effort is even, unlabored, Respiratory pattern is regular, symmetrical. GI: Reports nausea, vomiting. : Reports pain flank(s), with urination, urgency, urinary frequency. Derm: No deficits noted. Musculoskeletal: No deficits noted. 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 - Social history:: Smoking status: Patient denies any tobacco usage or history of. Screenin:12 Abuse screen: Denies threats or abuse. Nutritional screening: No deficits noted. vc1 Tuberculosis screening: No symptoms or risk factors identified. Fall Risk None identified. Assessment: 22:30 General: Appears uncomfortable, Behavior is cooperative, crying. Pain: Complains of ll3 pain in right low back Pain currently is 10 out of 10 on a pain scale. Is continuous. Neuro: Level of Consciousness is awake, alert, obeys commands, Oriented to person, place, time, situation. Cardiovascular: Patient's skin is warm and dry. Respiratory: Respiratory effort is even, unlabored, Respiratory pattern is regular, symmetrical. GI: Bowel sounds present X 4 quads. Reports nausea. Derm: Skin is pink, warm \\T\\ dry. 05/12 00:00 Reassessment: No changes from previously documented assessment. Patient and/or family ll3 updated on plan of care and expected duration. Pain level reassessed. Patient is alert, oriented x 3, equal unlabored respirations, skin warm/dry/pink. 01:00 Reassessment: No changes from previously documented assessment. Patient and/or family ll3 updated on plan of care and expected duration. Pain level reassessed. Patient is alert, oriented x 3, equal unlabored respirations, skin warm/dry/pink. 02:40 Reassessment: Pt c/o back pain 10/10, notified ERP. ll3 03:23 Reassessment: No changes from previously documented assessment. Patient and/or family ll3 updated on plan of care and expected duration. Pain level reassessed. Patient is alert, oriented x 3, equal unlabored respirations, skin warm/dry/pink. 04:50 Reassessment: No changes from previously documented assessment. Patient and/or family ll3 updated on plan of care and expected duration. Pain level reassessed. Patient is alert, oriented x 3, equal unlabored respirations, skin warm/dry/pink. 05:35 Reassessment: Gave report to KATHI Campos at [facility]. vc1 06:28 Reassessment: No changes from previously documented assessment. Patient and/or family ll3 updated on plan of care and expected duration. Pain level reassessed. Patient is alert, oriented x 3, equal unlabored respirations, skin warm/dry/pink. Gave report to transferring EMS team. Vital Signs: 05/11 22:08 BP 150 / 104; Pulse 84; Resp 20; Temp 97.8; Pulse Ox 100% ; Weight 102.97 kg; Height 5 vc1 ft. 9 in. (175.26 cm); Pain 10/10; 05/12 00:15 BP 148 / 92; Pulse 78; Resp 18; Pulse Ox 98% on R/A; ll3 02:00 BP 149 / 96; Pulse 82; Resp 17; Pulse Ox 95% on R/A; ll3 03:25 BP 148 / 99; Pulse 76; Resp 18; Pulse Ox 96% on R/A; ll3 04:50 BP 163 / 107; Pulse 81; Resp 19; Pulse Ox 100% on R/A; ll3 06:00 BP 141 / 92; Pulse 87; Resp 17; Pulse Ox 95% on R/A; ll3 05/11 22:08 Body Mass Index 33.52 (102.97 kg, 175.26 cm) vc1 ED Course: 05/11 22:03 Patient arrived in ED. as 22:11 Triage completed. vc1 22:11 Arm band placed on left wrist. vc1 22:15 Ej Malik MD is Attending Physician. [facility] 23:30 CT Abd/Pelvis - Without Contrast In Process Unspecified. EDMS 23:50 No provider procedures requiring assistance completed. Initial lab(s) drawn, by mt, [facility] sent to lab. Inserted saline lock: 22 gauge in right antecubital area, using aseptic technique. Blood collected. 05/12 00:29 Patient has correct armband on for positive identification. Bed in low position. Call ll3 light in reach. Side rails up X 1. 03:11 Initiated transfer to [facility], spoke to Lilia. wm 05:12 Pt accepted for transfer by Carline Rothman at 04:46 per Lilia Terry. wm 06:35 Patient transferred, IV remains in place. 3 Administered Medications: 05/11 22:35 Drug: Zofran (Ondansetron) 4 mg Route: IVP; Site: right antecubital; 3 05/12 00:06 Follow up: Response: No adverse reaction; Marked relief of symptoms 3 05/11 22:35 Drug: Ketorolac 30 mg Route: IVP; Site: right antecubital; 3 05/12 00:05 Follow up: Response: No adverse reaction 3 05/11 22:40 Drug: NS 0.9% 1000 ml Route: IV; Rate: 1 bolus; Site: right antecubital; 3 05/12 00:05 Follow up: Response: No adverse reaction; IV Status: Completed infusion; IV Intake: ll3 1000ml 05/11 22:45 Drug: fentaNYL (PF) 50 mcg Route: IVP; Site: right antecubital; 3 05/12 00:05 Follow up: Response: No adverse reaction 3 00:00 Drug: NS 0.9% 1000 ml Route: IV; Rate: 1 bolus; Site: right antecubital; 3 01:25 Follow up: Response: No adverse reaction; IV Status: Completed infusion; IV Intake: ll3 1000ml 00:00 Drug: levofloxacin 500 mg Volume: 100 ml; Route: IVPB; Infused Over: 60 mins; Site: ll3 right antecubital; 01:25 Follow up: Response: No adverse reaction; IV Status: Completed infusion; IV Intake: ll3 100ml 00:02 Drug: Dilaudid (HYDROmorphone) 1 mg Route: IVP; Site: right antecubital; 3 01:25 Follow up: Response: No adverse reaction; Marked relief of symptoms 3 00:05 Drug: Flomax (tamsulosin) 0.4 mg Route: PO; 3 01:25 Follow up: Response: No adverse reaction 3 01:25 Drug: Rocephin (cefTRIAXone) 1 grams Route: IV; Rate: per protocol; Site: right 3 antecubital; 01:54 Follow up: Response: No adverse reaction; IV Status: Completed infusion; IV Intake: [id number] 01:50 Drug: Zofran (Ondansetron) 4 mg Route: IVP; Site: right antecubital; 3 03:22 Follow up: Response: No adverse reaction 3 01:53 Drug: Dilaudid (HYDROmorphone) 1 mg Route: IVP; Site: right antecubital; 3 03:22 Follow up: Response: No adverse reaction; No change in condition 3 03:18 Drug: Phenergan (promethazine) 12.5 mg Route: IVP; Site: right antecubital; ll3 05:01 Follow up: Response: No adverse reaction ll3 03:21 Drug: NS 0.9% 1000 ml Route: IV; Rate: 125 ml/hr; Site: right antecubital; ll3 06:34 Follow up: Response: No adverse reaction; IV Status: Infusion continued upon transfer; ll3 IV Intake: 375ml 03:21 Drug: Dilaudid (HYDROmorphone) 1 mg Route: IVP; Site: right antecubital; ll3 05:01 Follow up: Response: No adverse reaction ll3 06:30 Drug: Phenergan (promethazine) 12.5 mg Route: IVP; Site: right antecubital; ll3 06:34 Follow up: Response: No adverse reaction ll3 06:31 Drug: Dilaudid (HYDROmorphone) 1 mg Route: IVP; Site: right antecubital; ll3 06:34 Follow up: Response: No adverse reaction ll3 Medication: 00:29 VIS not applicable for this client. ll3 Intake: 00:05 IV: 1000ml; Total: 1000ml. ll3 01:25 IV: 100ml; Total: 1100ml. ll3 01:25 IV: 1000ml; Total: 2100ml. ll3 01:54 IV: 50ml; Total: 2150ml. ll3 06:34 IV: 375ml; Total: 2525ml. ll3 Outcome: 01:13 Discharge ordered by . johanne 02:59 ER care complete, transfer ordered by . [facility] 06:35 Transferred by ground EMS to [facility], Transfer form completed. ll3 X-rays sent w/ patient. 06:35 Condition: stable 06:35 Discharge instructions given to EMS, Instructed on the need for transfer, Demonstrated understanding of instructions. 06:37 Patient left the ED. ll3 Signatures: Dispatcher [employer] EDEj Willis MD MD cha Martinez, Amelia as Marsh, Wendy wm Loubet, Lynsea, RN RN ll3 Leidy Marshall RN RN vc1
[2022-05-12] MEDS ORDERED: CEFTRIAXONE 1000 MG/VIAL ONE (01:27)
[2022-05-12] MEDS ORDERED: NA CHLORIDE 0.9% 50 ML ONE (01:28)
[2022-05-12] MEDS ORDERED: ONDANSETRON 4 MG/2 ML VIAL ONE (01:55)
[2022-05-12] MEDS ORDERED: HYDROMORPHONE HCL 1 MG/ML INJ ONE ×3 (01:55→06:33)
[2022-05-12] MEDS ORDERED: PROMETHAZINE INJ 25 MG/ML AMP ONE ×2 (03:16→06:32)
[2022-05-12] MEDS ORDERED: NA CHLORIDE 0.9% 1,000 ML ONE (03:16)
[2022-05-12 06:43] VITALS: TEMP 97.8
[2022-05-12 06:52] VITALS: BP 141/92; O2SAT 95
--- NOTE | 2022-05-12 12:43 | RAD REPORT ---
EXAM DESCRIPTION: CT abdomen and pelvis CLINICAL HISTORY: The patient is 46 years old and is Female; Flank pain, kidney stone suspected TECHNIQUE: Axial computed tomography images of the abdomen and pelvis without intravenous contrast. Sagittal and coronal reformatted images were created and reviewed. This CT exam was performed usi ng one or more of the following dose reduction techniques: automated exposure control, adjustment o f the mA and/or kV according to patient size, and/or use of iterative reconstruction technique. DLP: 1603 mGy*cm COMPARISON: CT abdomen and pelvis dated 03/07/2021. FINDINGS: LUNG BASES: Lung bases are clear. HEART: Visualized heart is normal. ABDOMEN: LIVER: Unremarkable. GALLBLADDER AND BILE DUCTS: Prior cholecystectomy. No ductal dilation. PANCREAS: Unremarkable. No ductal dilation. SPLEEN: Unremarkable. No splenomegaly. ADRENALS: Unremarkable. No mass. KIDNEYS AND URETERS: 3 mm right UVJ stone with severe hydronephrosis, diffuse hydroureter, enlarge ment of the right kidney and perinephric/periureteral stranding. Additional nonobstructive right renal stone measuring approximately 7 mm. Multiple punctate nonobstructive left renal stones. STOMACH AND BOWEL: Unremarkable. No obstruction. No mucosal thickening. PELVIS: APPENDIX: Prior appendectomy. BLADDER: Unremarkable. No stones. REPRODUCTIVE: Unremarkable as visualized. ABDOMEN and PELVIS: INTRAPERITONEAL SPACE: Unremarkable. No free air. No significant fluid collection. BONES/JOINTS: Lower lumbar degenerative changes. No acute fracture. No dislocation. SOFT TISSUES: Unremarkable. VASCULATURE: Unremarkable. No abdominal aortic aneurysm. LYMPH NODES: Unremarkable. No enlarged lymph nodes. IMPRESSION: 1. 2-3 mm right UVJ stone with severe hydronephrosis, diffuse hydroureter, enlargement of the right kidney and perinephric/periureteral stranding. Correlate with urinalysis for superimp osed infectious process. 2. Additional nonobstructive right renal stone measuring approximately 7 mm. Multiple punctate nono bstructive left renal stones. Electronically signed by: Kt Cao DO 05/11/2022 11:44 PM CDT Due to temporary technical issues with the PACS/Fluency reporting system, reports are being signed by the in house radiologist without review as a courtesy to ensure prompt reporting. The interpreting r adiologist is fully responsible for the content of the report.
== END 2022-05-12 06:37 | disposition short-term general hospital (02) ==
LOC: ER 22:02
DX: N13.2 Hydronephrosis with renal and ureteral calculous obstruction (principal); N39.0 Urinary tract infection, site not specified; E11.65 Type 2 diabetes mellitus with hyperglycemia; Z88.0 Allergy status to penicillin; Z88.5 Allergy status to narcotic agent; Z20.822 Contact with and (suspected) exposure to COVID-19
CPT/HCPCS: 96365; 96367; 96361; 87088; 85025; 87086; 36415; 83690; 80053; 74176; 96375; 99285; U0003; J2550 ×2; J3010; J1170 ×4; J7030 ×3; J2405 ×2; 81003; 81015

== ENCOUNTER 2025-02-05 22:00 | Inpatient (IN) | payer OTHER ==
[2025-02-05] MEDS ORDERED: METOPROLOL TAR 25 MG TAB ONE (22:28)
[2025-02-05] MEDS ORDERED: MORPHINE 2 MG/ML SYR ONE (22:29)
[2025-02-05 23:19] LABS: Absolute Eosinophils 0.1 K/uL (0-0.5); Absolute Lymphocytes (CBC) 0.8 K/uL (0.7-4.9); Absolute Monocytes 0.5 K/uL (0.1-1.3); Absolute Neutrophil 2.9 K/uL (1.8-8.0); Eosinophils % 3.1 % (0-4.4); Hematocrit 45.8 % (36.0-45.0); Hemoglobin 16.4 g/dL (12.0-15.0); Lymphocytes % 18.9 % (15.3-44.8); MCH 32.1 pg (27.0-35.0); MCHC 35.9 g/dL (32.0-36.0); MCV 89.5 fL (80-100); MPV 7.5 fL (7.6-11.3); Monocytes % 11.7 % (3.3-12.3); Neutrophils % 65.3 % (41.7-73.7); Nucleated Red Blood Cells % 0.1 % (0-0); Platelets 237 thou/uL (152-406); RBC Red Blood Cell Count 5.12 M/uL (3.86-4.86); Red Cell Distribution Width 13.2 % (12.1-15.2)
[2025-02-05 23:26] LABS: PT Prothrombin Time 10.9 SECONDS (10-13.0); Protime INR 0.95
[2025-02-05 23:37] LABS: Influenza A Ag Negative; Influenza B Ag Negative; SARS-CoV-2 Antigen Rapid Res Negative (Negative)
[2025-02-05 23:39] LABS: ALT/SGPT 27 U/L (13-56); AST/SGOT 13 U/L (15-37); Albumin 3.4 g/dL (3.4-5.0); Albumin/Globulin Ratio 0.8 (1.1-1.8); Alkaline Phosphatase 117 U/L (45-117); Anion Gap 8.6 mEq/L (5.0-15.0); BUN Blood Urea Nitrogen 14 mg/dL (7-18); Bicarbonate 27 mEq/L (21-32); Bilirubin Total 0.4 mg/dL (0.2-1.0); Globulin 4.2 g/dL (2.3-3.5); Glomerular Filtration Rate 68 ml/min (=/>90); Glucose Level 276 mg/dL (74-106); Magnesium 2.1 mg/dL (1.6-2.4); NT PRO-BNP 29 pg/mL (<125); Potassium 3.6 mEq/L (3.5-5.1); Protein, Total 7.6 g/dL (6.4-8.2); Sodium Level 138 mEq/L (136-145)
[2025-02-05 23:44] LABS: Bilirubin Direct < 0.2 mg/dL (0-0.2); Bilirubin Indirect, Calculated 0.2 mg/dL (0.2-0.8); Troponin High Sensitivity < 3.0 pg/mL (<58.9)
--- NOTE | 2025-02-06 00:36 | ER ---
Nurse's Notes [facility] Name: Flakita Barton Age: 49 yrs Sex: Female : 1975 Arrival Date: 02/05/2025 Time: 22:00 Bed 13 Private MD: Diagnosis: Chest pain, unspecified;Unspecified atrial fibrillation Presentation: 02/05 22:05 Chief complaint: EMS states: patient complaints of chest palpitations, chest pain \T\ rg5 numbness to her jaw. 22:05 Coronavirus screen: Client denies travel out of the [place] in the last 14 days. Ebola rg5 Screen: Patient negative for fever greater than or equal to 101.5 degrees Fahrenheit, and additional compatible Ebola Virus Disease symptoms Patient denies exposure to infectious person. Patient denies travel to an Ebola-affected area in the 21 days before illness onset. Initial Sepsis Screen: Does the patient meet any 2 criteria? No. Patient's initial sepsis screen is negative. Does the patient have a suspected source of infection? No. Patient's initial sepsis screen is negative. Risk Assessment: Do you want to hurt yourself or someone else? Patient reports no desire to harm self or others. Onset of symptoms was February 05, 2025. Care prior to arrival: Medication(s) given: ASA, 81 mg, x 4, Glucose check: 188. 22:05 Method Of Arrival: EMS: [facility] rg5 22:05 Acuity: TAYO 3 rg5 Triage Assessment: 22:05 General: Appears in no apparent distress. Behavior is calm, cooperative. Pain: rg5 Complains of pain in chest. Neuro: Reports numbness in jsw. Cardiovascular: Reports chest pain, palpitations. 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 - Infectious Disease History:: Denies. - Social history:: Smoking status: Patient reports the use of cigarette tobacco products, denies chronic smoking, but will smoke occasionally. Screenin:52 [facility] ED Fall Risk Assessment (Adult) History of falling in the last 3 months, rg5 including since admission No falls in past 3 months (0 pts) Confusion or Disorientation No (0 pts) Intoxicated or Sedated No (0 pts) Impaired Gait No (0 pts) Mobility Assist Device Used No (0 pt) Altered Elimination No (0 pt) Score/Fall Risk Level 0 - 2 = Low Risk Oriented to surroundings, Maintained a safe environment, Hourly rounding (assess needs \T\ fall precautionary measures) done. Abuse screen: Denies threats or abuse. Nutritional screening: No deficits noted. Tuberculosis screening: No symptoms or risk factors identified. Assessment: 22:52 General: Appears in no apparent distress. comfortable, Behavior is calm, cooperative, rg5 appropriate for age. Cardiovascular: Reports chest pain, palpitations. Respiratory: Airway is patent Trachea midline Respiratory effort is even, unlabored, Respiratory pattern is regular, symmetrical. 02/06 00:30 Reassessment: ASSUMED CARE OF PT. PT SLEEPING EASILY AROUSED TO VERBAL STIMULI. VS jj7 STABLE. NO DISTRESS NOTED. General: Appears in no apparent distress. comfortable. Pain: Complains of pain in HEAD. Neuro: Reports headache. Cardiovascular: Reports None Denies chest pain, palpitations. Respiratory: Airway is patent Trachea midline Respiratory effort is even, unlabored, Respiratory pattern is regular, symmetrical. Vital Signs: 02/05 22:05 BP 138 / 86; Pulse 110; Resp 19; Temp 98(O); Pulse Ox 99% on R/A; Weight 85.28 kg; rg5 Height 5 ft. 8 in. ; Pain /10; 02/06 00:30 BP 98 / 65; Pulse 72; Resp 18; Pulse Ox 99% ; jj7 01:30 BP 99 / 65; Pulse 79; Resp 18; Pulse Ox 99% ; jj7 02:30 BP 95 / 70; Pulse 66; Resp 15; Pulse Ox 97% ; jj7 12:00 BP 115 / 68; Pulse 66; Resp 17; Pulse Ox 99% ; me1 02/05 22:05 Body Mass Index 28.59 (85.28 kg, 172.72 cm) rg5 02/05 22:05 Pain Scale: Adult rg5 ED Course: 02/05 22:03 Patient arrived in ED. rv1 22:05 Yovani Perez, KATHI is Primary Nurse. rg5 22:05 Ej Ponce PA is PHCP. cp 22:05 Varinder Fox MD is Attending Physician. cp 22:05 Arm band placed on. EKG completed in triage. Results shown to MD. rg5 22:46 XRAY Chest (1 view) In Process Unspecified. EDMS 22:47 Triage completed. rg5 22:52 Patient has correct armband on for positive identification. Placed in gown. Bed in low rg5 position. Call light in reach. 22:52 No provider procedures requiring assistance completed. rg5 23:13 Inserted saline lock: 20 gauge in right forearm, using aseptic technique. Blood af3 collected. Flushed with 10 mL NS. 02/06 00:35 Andres Le MD is Hospitalizing Provider. cp 13:33 Patient admitted, IV remains in place. me1 13:35 Provided Education on: POC. Verbalized understanding.. me1 Administered Medications: 02/05 22:42 Drug: Metoprolol PO 25 mg PO once Route: PO; rg5 02/06 01:26 Follow up: Response: Marked relief of symptoms jj7 02/05 23:36 Drug: morphine IVP or IV 2 mg IVP once over 4 mins Route: IVP; Infused Over: 4 mins; jb4 Site: right forearm; 02/06 01:27 Follow up: Response: Marked relief of symptoms jj7 01:02 Drug: Xarelto PO 20 mg PO once Route: PO; jj7 01:27 Follow up: Response: Marked relief of symptoms jj7 01:09 Drug: Acetaminophen PO 1000 mg PO once Route: PO; jj7 13:37 Follow up: Response: No adverse reaction me1 Medication: 02/05 22:52 VIS not applicable for this client. rg5 Outcome: 02/06 00:36 Decision to Hospitalize by Provider. cp 14:08 Admitted to Med/surg accompanied by tech, via wheelchair, room 229, with chart, Report me1 called to faxed. 14:08 Condition: stable 14:08 Instructed on the need for admit, 14:25 Patient left the ED. tx1 Signatures: Dispatcher [employer] EDMS Ej Ponce PA PA cp Bryson, James RN RN jb4 Kirill Adams RN RN jj7 Kristy Lagunas, RN RN db Robyn Prado rv1 Jyoti Aguirre RN RN me1 Yovani Perez, RN RN mary5 Keke Whiting 3 Corrections: (The following items were deleted from the chart) 03:56 00:30 BP 99 / 68; Pulse 79bpm; Resp 18bpm; Pulse Ox 99%; jj7 jj7 13:35 13:33 Admitted to OR accompanied by nurse, via stretcher, with chart, [place] [facility] [place] KATHI Whitt tx1 14: 13:33 Condition: stable [place] [id number] 14:14 13:33 Instructed on the need for admit, [place] [id number] 14: 13:33 Admitted to Director Of Surgery accompanied by nurse, via stretcher, with chart, Report me1 called to KATHI Whitt tx1
--- NOTE | 2025-02-06 00:36 | EDPHYS ---
Physician Documentation [facility] Name: Flakita Barton Age: 49 yrs Sex: Female : 1975 Arrival Date: 02/05/2025 Time: 22:00 Bed 13 Private MD: ED Physician Varinder Fox HPI: 02/05 22:15 This 49 yrs old Female presents to ER via EMS with complaints of Chest Pain. cp 22:15 The patient or guardian reports chest pain that is located primarily in the substernal cp area. 22:15 Onset: about an hour ago. The pain does not radiate. Associated signs and symptoms: cp Pertinent positives: palpitations, Pertinent negatives: abdominal pain, cough, lower extremity pain, vomiting. The chest pain is described as a pressure. Duration: The patient or guardian reports a single episode, that is still ongoing. Severity of pain: in the emergency department the pain is unchanged despite EMS interventions. 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 - Infectious Disease History:: Denies. - Social history:: Smoking status: Patient reports the use of cigarette tobacco products, denies chronic smoking, but will smoke occasionally. ROS: 22:20 Constitutional: Negative for body aches, chills, fever, poor PO intake, cp 22:20 Cardiovascular: Positive for chest pain, palpitations, cp 22:20 Respiratory: Negative for cough, wheezing, 22:20 Abdomen/GI: Negative for abdominal pain, vomiting, diarrhea, constipation, 22:20 Eyes: Negative for injury, pain, redness, and discharge, cp 22:20 ENT: Negative for drainage from ear(s), ear pain, sore throat, difficulty swallowing, cp difficulty handling secretions, 22:20 Back: Negative for pain at rest, pain with movement, 22:20 Neuro: Negative for altered mental status, headache, numbness, syncope, weakness, 22:20 All other systems are negative, Exam: 22:25 ECG was reviewed by the Attending Physician. cp 22:27 Constitutional: The patient appears in no acute distress, alert, awake, cp non-diaphoretic, non-toxic, well developed, well nourished, 22:27 Head/Face: Normocephalic, atraumatic. cp 22:27 Eyes: Periorbital structures: appear normal, Conjunctiva: normal, no exudate, no injection, Sclera: no appreciated abnormality, Lids and lashes: appear normal, bilaterally, 22:27 ENT: External ear(s): are unremarkable, Nose: is normal, Mouth: Lips: moist, Oral mucosa: moist, Posterior pharynx: Airway: no evidence of obstruction, patent, erythema, is not appreciated, 22:27 Neck: ROM/movement: is normal, is supple, without pain, no range of motions limitations, 22:27 Chest/axilla: Inspection: normal, Palpation: is normal, no crepitus, no tenderness, 22:27 Cardiovascular: Rate: tachycardic, Rhythm: irregular, Edema: ankle edema, that is mild, cp JVD: is not appreciated, 22:27 Respiratory: the patient does not display signs of respiratory distress, Respirations: normal, no use of accessory muscles, no retractions, labored breathing, is not present, Breath sounds: decreased breath sounds, are not appreciated, stridor, is not appreciated, wheezing: is not appreciated, 22:27 Abdomen/GI: Inspection: obese Bowel sounds: active, all quadrants, Palpation: soft, in all quadrants, nontender, in all quadrants, 22:27 Neuro: Orientation: to person, place \T\ time. Mentation: is normal, Motor: moves all fours, strength is normal, Sensation: no obvious gross deficits, Vital Signs: 22:05 BP 138 / 86; Pulse 110; Resp 19; Temp 98(O); Pulse Ox 99% on R/A; Weight 85.28 kg; rg5 Height 5 ft. 8 in. ; Pain /10; 02/06 00:30 BP 98 / 65; Pulse 72; Resp 18; Pulse Ox 99% ; jj7 01:30 BP 99 / 65; Pulse 79; Resp 18; Pulse Ox 99% ; 7 02:30 BP 95 / 70; Pulse 66; Resp 15; Pulse Ox 97% ; 7 12:00 BP 115 / 68; Pulse 66; Resp 17; Pulse Ox 99% ; me1 02/05 22:05 Body Mass Index 28.59 (85.28 kg, 172.72 cm) rg5 02/05 22:05 Pain Scale: Adult rg5 MDM: 02/05 22:05 Medical Screening Exam initiated cp 23:00 Differential diagnosis: abnormal EKG, acute myocardial infarction, acute pericarditis, cp anxiety, pleurisy, pneumonia, pneumothorax, pulmonary embolus, stable angina, thoracic aortic disection, unstable angina. 02/06 00:35 Data reviewed: vital signs, nurses notes, lab test result(s), EKG, radiologic studies, cp plain films, and as a result, I will admit patient. 00:35 Consideration of Admission/Observation Patient was admitted/placed on observation. I cp considered the following discharge prescriptions or medication management in the emergency department Medications were administered in the Emergency Department. See MAR. Independent interpretation of the following test(s) in the Emergency Department EKG: See my EKG interpretation above. Care significantly affected by the following chronic conditions: Diabetes. Counseling: I had a detailed discussion with the patient and/or guardian regarding the historical points, exam findings, and any diagnostic results supporting the discharge/admit diagnosis, lab results, radiology results. Response to treatment: the patient's symptoms have mildly improved after treatment. 02/05 22:13 Order name: Basic Metabolic Panel; Complete Time: 00:06 cp 02/06 00:06 Interpretation: Normal except: GLUC 276; GFR 68. cp 02/05 22:13 Order name: CBC with Diff; Complete Time: 23:44 cp 02/05 23:44 Interpretation: Normal except: RBC 5.12; HGB 16.4; HCT 45.8; MPV 7.5. cp 02/05 22:13 Order name: LFT's; Complete Time: 00:06 cp 02/06 00:06 Interpretation: Normal except: AST 13; GLOB 4.2; A/G 0.8. cp 02/05 22:13 Order name: Magnesium; Complete Time: 00:06 cp 02/05 22:13 Order name: NT PRO-BNP; Complete Time: 00:06 cp 02/05 22:13 Order name: PT-INR; Complete Time: 23:44 cp 02/05 22:13 Order name: Troponin HS; Complete Time: 00:06 cp 02/05 22:13 Order name: COVID-19 Ag + Flu A+B Ag; Complete Time: 23:44 cp 02/05 23:44 Interpretation: Reviewed. cp 02/06 02:09 Order name: Urinalysis w/ reflexes EDMS 02/06 02:09 Order name: CBC with Automated Diff EDMS 02/06 02:09 Order name: CBC with Automated Diff EDMS 02/06 02:09 Order name: Comprehensive Metabolic Panel EDMS 02/06 02:09 Order name: Comprehensive Metabolic Panel EDMS 02/06 02:09 Order name: Troponin High Sensitivity EDMS 02/06 02:09 Order name: Troponin High Sensitivity EDMS 02/06 02:09 Order name: Troponin High Sensitivity EDMS 02/06 02:09 Order name: Troponin High Sensitivity EDMS 02/06 08:14 Order name: Glucose, Ancillary Testing EDMS 02/05 22:13 Order name: XRAY Chest (1 view) cp 02/05 22:13 Order name: EKG; Complete Time: 22:14 cp 02/05 22:13 Order name: Cardiac monitoring; Complete Time: 23:39 cp 02/05 22:13 Order name: EKG - Nurse/Tech; Complete Time: 22:30 cp 02/05 22:13 Order name: IV Saline Lock; Complete Time: 23:13 cp 02/05 22:13 Order name: Labs collected and sent; Complete Time: 23:13 cp 02/05 22:13 Order name: O2 Per Protocol; Complete Time: 22:30 cp 02/05 22:13 Order name: O2 Sat Monitoring; Complete Time: 22:30 cp EC/20 22:25 Rate is 112 beats/min. Rhythm is irregular. QRS interval is normal. QT interval is cp normal. T waves are Inverted in lead aVR. Interpreted by me. Reviewed by me. Administered Medications: 22:42 Drug: Metoprolol PO 25 mg PO once Route: PO; rg5 02/06 01:26 Follow up: Response: Marked relief of symptoms jj7 03/20 23:36 Drug: morphine IVP or IV 2 mg IVP once over 4 mins Route: IVP; Infused Over: 4 mins; jb4 Site: right forearm; 02/06 01:27 Follow up: Response: Marked relief of symptoms jj7 01:02 Drug: Xarelto PO 20 mg PO once Route: PO; jj7 01:27 Follow up: Response: Marked relief of symptoms jj7 01:09 Drug: Acetaminophen PO 1000 mg PO once Route: PO; jj7 13:37 Follow up: Response: No adverse reaction me1 Disposition: 16:41 Co-signature as Attending Physician, Varinder Fox MD I agree with the assessment sp4 and plan of care. I reviewed the patient's care provided by the Advanced Practice Provider and agree with the diagnosis and treatment plan. Disposition Summary: 02/06/25 00:36 Hospitalization Ordered Notes: Hospitalization Status: Observation cp Provider: Andres Le cp Condition: Stable cp Problem: new cp Symptoms: have improved cp Bed/Room Type: Standard cp Location: Telemetry/MedSurg (observation)(02/06/25 11:59) ty Room Assignment: 229(02/06/25 11:59) ty Diagnosis - Chest pain, unspecified cp - Unspecified atrial fibrillation cp Forms: - Medication Reconciliation Form cp - SBAR form cp - Leadership Thank You Letter cp Signatures: Dispatcher [employer] EDEj Gonzalez PA PA cp Boogie Urias RN RN jb4 Kirill Adams RN RN jj7 Kristy Lagunas RN RN Robyn Leavitt rv1 Varinder Fox MD MD sp4 Meet Rodriguez Rommel, RN RN rg5 Jyoti Aguirre RN me1 Corrections: (The following items were deleted from the chart) : 00:36 Telemetry/MedSurg (observation) cp rv1 00:36 cp rv1 11:59 01: [facility] ER HOLD rv1 ty 59 01:09 ERHOLD- rv1 ty
[2025-02-06] MEDS ORDERED: RIVAROXABAN 20 MG TABLET PO ONE (00:57)
[2025-02-06] MEDS ORDERED: ACETAMINOPHEN 500 MG TAB ONE (01:06)
--- NOTE | 2025-02-06 01:50 | P.HP ---
Certification for Inpatient Patient admitted to: Inpatient With expected LOS: >2 Midnights Practitioner: I am a practitioner with admitting privileges, knowledge of patient current condition, hospital course, and medical plan of care. Services: Services provided to patient in accordance with Admission requirements found in Title 42 Section 412.3 of the Code of Federal Regulations Patient History Date of Service: 02/06/25 Reason for admission: SOB History of Present Illness: 49 yrs old Female with past medical history of diabetes, hypertension, hyperlipidemia, hypertrophic cardiomyopathy, history of kidney stones and lung nodules and history of migraine and sleep apnea and history of PE who came to ER with chest discomfort. Pain is located in retrosternally radiating to the left side and shoulder pressure-like feeling, 4 out of 10 in severity at the time of interview, not associated with any diaphoresis. No nausea vomiting or diarrhea. No sick contacts. No fever or chills. Patient was assessed in the ER and is admitted for further management of chest pain to rule out ACS Allergies codeine Allergy (Verified 08/21/24 15:26) Rash hydrocodone Allergy (Verified 08/21/24 15:26) Rash morphine Allergy (Verified 08/21/24 15:26) Rash Penicillins Allergy (Verified 08/21/24 15:26) Anaphylaxis Home medications list reviewed: Yes Home Medications: Apixaban [Eliquis] 5 mg PO BID 04/01/21 Fremanezumab-Vfrm [Ajovy Syringe] 225 mg SQ SEECOM 04/01/21 Quetiapine Fumarate [Seroquel] 100 mg PO BEDTIME 04/01/21 Rosuvastatin Calcium 20 mg PO BEDTIME 04/01/21 Semaglutide [Ozempic] 0.5 mg SQ EVERY 7TH DAY 04/01/21 dilTIAZem HCL [Cartia Xt] 300 mg PO BEDTIME 04/01/21 - Past Medical/Surgical History Diabetic: No Past Medical History: Reviewed- Non-Contributory -: asthma -: smoker -: dvt -: fibromyalgia -: mitral valve prolapse Past Surgical History: Reviewed- Non-Contributory -: hyst, -: appy -: tori -: tonsil/adenoid -: r knee surgery, scopy -: carpal tunnel -: x2 -: leep, lithotripsy - Family History Family History: Reviewed- Non-Contributory - Family History mom -: Heart disease, Hypertension, Diabetes dad -: Heart disease, Hypertension - Social History Smoking Status: Never smoker Alcohol use: No CD- Drugs: No Caffeine use: Yes Review of Systems 10-point ROS is otherwise unremarkable Physical Examination - Vital Signs Temperature: 97.5 F Blood Pressure: 112/74 Pulse: 58 Respirations: 18 Pulse Ox (%): 94 - Physical Exam General: Alert, Oriented x3, Mild distress HEENT: Atraumatic, Normocephalic Neck: Supple, 2+ carotid pulse no bruit Respiratory: Clear to auscultation bilaterally, Normal air movement Cardiovascular: Regular rate/rhythm, Normal S1 S2 Capillary refill: <2 Seconds Gastrointestinal: Soft and benign, W/out hepatosplenomegaly Musculoskeletal: No clubbing, No swelling Integumentary: No rashes Neurological: Normal speech, Normal strength at 5/5 x4 extr, Cranial nerves 3-12 intact Lymphatics: No axilla or inguinal lymphadenopathy - Studies Laboratory Data (last 24 hrs) 02/05/25 02/05/25 02/05/25 23:09 23:09 23:09 WBC 4.40 Hgb 16.4 H Hct 45.8 H Plt Count 237 PT 10.9 INR 0.95 Sodium 138 Potassium 3.6 BUN 14 Creatinine 1.02 Glucose 276 H Magnesium 2.1 Total Bilirubin 0.4 AST 13 L ALT 27 Alkaline Phosphatase 117 Assessment and Plan - Plan Chest pain to rule out ACS Will trend cardiac enzymes Will monitor telemetry Started on aspirin and statin EKG did not show any acute changes suggestive of ischemia Patient denies any chest pain Will get an echocardiogram Cardiology consult History of PE Continue anticoagulation Hypertension Antihypertensives titrated Continue home medications and titrate as needed Hyperlipidemia Continue statin GI/DVT prophylaxis Advanced directive full code Discharge Plan: Home Plan to discharge in: 24 Hours - Advance Directives Does patient have a Living Will: No Does patient have a Durable POA for Healthcare: No - Code Status/Comfort Care Code Status: Full Code Time Spent Managing Pts Care (In Minutes): 54
[2025-02-06] MEDS ORDERED: ONDANSETRON 4 MG/2 ML VIAL IV PRN (02:05)
[2025-02-06] MEDS ORDERED: ACETAMINOPHEN 325 MG TABLET PO PRN (02:05)
[2025-02-06 04:47] VITALS: BMI 28.5
--- NOTE | 2025-02-06 07:36 | RAD REPORT ---
EXAM: Chest Single View HISTORY: 49 years Female CHEST PAIN COMPARISON: 08/21/2024 FINDINGS: LUNGS/PLEURA: The lungs are clear. No pleural effusions or pneumothorax. No pulmonary edema. CARDIAC/MEDIASTINUM: The cardiac silhouette is within normal limits. UPPER ABDOMEN: No significant abnormality. BONES: No acute abnormality. LINES/TUBES/OTHER: N/A IMPRESSION: No evidence of acute cardiopulmonary disease. No significant change from prior.
[2025-02-06] MEDS: ENOXAPARIN 40 MG/0.4 ML SQ SCH (09:00)
[2025-02-06] MEDS: APIXABAN 5 MG TABLET PO SCH (09:00)
[2025-02-06] MEDS ORDERED: ACETAMINOPHEN 325 MG TABLET ONE (09:05)
[2025-02-06] MEDS ORDERED: APIXABAN 5 MG TABLET ONE (09:49)
[2025-02-06] MEDS ORDERED: MORPHINE 2 MG/ML SYR ONE (09:49)
[2025-02-06] MEDS: MORPHINE 2 MG/ML SYR IV ONE (10:20)
[2025-02-06] MEDS: HOME MED 1 EA UNK (Budesonide/Formoterol Fumarate [Symbicort 80-4.5 Mcg Inhaler] 10.2 GM H IH SCH (11:40)
[2025-02-06] MEDS: HOME MED 1 EA UNK (Empagliflozin [Jardiance] 25 MG Tablet) PO SCH (11:40)
[2025-02-06] MEDS: PNEUMOCOCCAL VACCINE 0.5 ML IMVAC ONE (14:44)
--- NOTE | 2025-02-06 15:09 | P.PN ---
Date of Service: 02/06/25 Patient seen and examined. She is complaining of intermittent chest pain. Patient has multi-system symptoms. Troponin trended negative. Patient evaluated by cardiology Dr. Roa. Echocardiogram is pending. Analgesics-morphine as needed for pain Resume home medication for other chronic medical issues.
[2025-02-06] MEDS: MORPHINE 2 MG/ML SYR IV PRN (15:11)
--- NOTE | 2025-02-06 19:22 | CON ---
Date of Consultation: 02/06/2025 Reason For Consultation: Chest pain. History Of Present Illness: A 49-year-old female, well known to me, has been having chest pain, exer tional that radiates to the shoulder and neck. She apparently presented to the emergency room with s ome shortness of breath and then started having chest pain, pressure-like, intense, radiates to the s houlder and left upper extremity along with dyspnea on exertion. No nausea, vomiting, or diarrhea. Past Medical History: Diabetes, hypertension, dyslipidemia, hypertrophic cardiomyopathy. Medications: Refer reconciliation sheet for detailed list. Allergies: CODEINE, HYDROCODONE, AND PENICILLIN. Family History: No premature coronary artery disease or cancer. Social History: She does not smoke or drink. Does not use any drugs. Review of Systems: All systems reviewed are negative except as mentioned in HPI. Physical Examination: Vital Signs: Reviewed. Head and Neck: Pupils are equal, reactive to light. Intact eye movements. No JVD, no cervical lymp hadenopathy. Neck is supple. Thyroid is not enlarged. Lungs: Clear to auscultation bilaterally. No rhonchi, wheezing, or crackles. No accessory muscle u se. Heart: Regular rate and rhythm. No extra sounds. Abdomen: Soft, nontender. Bowel sounds positive. No organomegaly. No masses or hernia. No rigidi ty or rebound. Extremities: No edema, clubbing, or cyanosis. Intact pulses. Skin: No rashes. Neurologic: Alert, awake, and oriented x3. No acute focal deficits appreciated. Investigations: Troponins are negative. BUN 14, creatinine 1.02. Hemoglobin 16.4. Assessment And Plan: 1. Chest pain, very concerning, and this could represent unstable angina. I recommended a coronary a ngiogram as an outpatient, but this has not been done. I was planning to do the heart catheterizatio n today; however, she took Eliquis today, so please hold the Eliquis and put her on Lovenox 1 mg/kg s ubcu q.12 hours and to keep n.p.o. past midnight on Sunday, plan for coronary angiogram meat pumper on Sunday. 2. Dyslipidemia and on statin, to continue. 3. History of pulmonary embolism. It is unprovoked. Hold the Xarelto today, put her on Lovenox 1 mg /kg subcu q.12 hours and we will plan for coronary angiogram on Sunday morning. 4. Dyslipidemia, on Crestor. Continue current management. Thank you for the consult. ZEFERINO Voice ID: [id number] Report ID: [id number]
[2025-02-06] MEDS ORDERED: CYCLOBENZAPRINE 10 MG TAB PO PRN (20:13)
[2025-02-06] MEDS ORDERED: MECLIZINE HCL 12.5 MG TAB PO PRN (20:13)
[2025-02-06] MEDS ORDERED: Atogepant [Qulipta] 60 MG Tablet PO PRN (20:13)
[2025-02-06] MEDS: DILTIAZEM HCL 180 MG SR CAP PO SCH (20:41)
[2025-02-06] MEDS: ROSUVASTATIN 10 MG TAB PO SCH (20:42)
[2025-02-06] MEDS: DILTIAZEM HCL 120 MG SR CAP PO SCH (20:42)
[2025-02-06] MEDS: TRAZODONE 50 MG TABLET PO SCH (20:42)
[2025-02-06] MEDS: QUETIAPINE 100MG TAB PO SCH (20:42)
[2025-02-06] MEDS ORDERED: DILTIAZEM HCL 300 MG SR CAP PO SCH (21:00)
[2025-02-06] MEDS: INSULIN REGULAR (HUMAN) 100 UNIT/ML ONE (22:05)
[2025-02-06] MEDS: INSULIN REGULAR (HUMAN) 100 UNIT/ML SQ SCH (22:37)
[2025-02-07 06:32] LABS: Absolute Eosinophils 0.1 K/uL (0-0.5); Absolute Lymphocytes (CBC) 0.8 K/uL (0.7-4.9); Absolute Monocytes 0.5 K/uL (0.1-1.3); Absolute Neutrophil 2.1 K/uL (1.8-8.0); Basophils % 0.8 % (0-1.3); Eosinophils % 3.9 % (0-4.4); Hematocrit 45.9 % (36.0-45.0); Hemoglobin 15.9 g/dL (12.0-15.0); Lymphocytes % 23.5 % (15.3-44.8); MCH 31.5 pg (27.0-35.0); MCHC 34.7 g/dL (32.0-36.0); MCV 90.9 fL (80-100); MPV 7.5 fL (7.6-11.3); Monocytes % 13.1 % (3.3-12.3); Neutrophils % 58.7 % (41.7-73.7); Nucleated Red Blood Cells % 0.4 % (0-0); Platelets 216 thou/uL (152-406); RBC Red Blood Cell Count 5.05 M/uL (3.86-4.86); Red Cell Distribution Width 12.9 % (12.1-15.2)
[2025-02-07 06:45] LABS: Albumin 3.2 g/dL (3.4-5.0); Albumin/Globulin Ratio 0.8 (1.1-1.8); Bilirubin Total 0.5 mg/dL (0.2-1.0); Globulin 3.8 g/dL (2.3-3.5)
[2025-02-07] MEDS: lisinopriL 5 MG TAB PO SCH (09:00)
[2025-02-07] MEDS ORDERED: HOME MED 1 EA UNK (Lisinopril [Zestril] 2.5 MG Tablet) PO SCH (09:00)
[2025-02-07] MEDS: BUPROPRION HCL S.R. 150MG TAB PO SCH (09:00)
[2025-02-07] MEDS: RIVAROXABAN 20 MG TABLET PO SCH (09:00)
[2025-02-07] MEDS: ENOXAPARIN 80 MG/0.8 ML SQ SCH (10:11)
[2025-02-07] MEDS ORDERED: HYDROCODONE/APAP 5/325 MG TAB PO PRN (11:03)
[2025-02-07] MEDS ORDERED: OXYCODONE HCL 5 MG TAB PO PRN (11:22)
[2025-02-07] MEDS: Oxycodone HCl/Acetaminophen 5/325 MG TAB PO PRN (12:31)
--- NOTE | 2025-02-07 17:12 | P.PN ---
Subjective Date of Service: 02/07/25 Chief Complaint: SOB Patient reports intermittent chest pain. She denies shortness of breath. No issues overnight. Physical Examination - Vital Signs Temperature: 98.0 F Blood Pressure: 116/68 Pulse: 64 Respirations: 16 Pulse Ox (%): 94 Assessment And Plan - Plan Physical examination General: Alert and oriented x3, NAD, HEENT: Conjunctiva not pale, anicteric sclera Neck: Supple, no elevated JVD Heart: Heart sounds 1 and 2 normal, regular rhythm, normal rate, no pedal edema Lungs: Clear to auscultation bilaterally, adequate breath sounds bilaterally, no rhonchi or crackles. Abdomen: Soft, nondistended, nontender, normal bowel sounds. Extremities: No tenderness, no deformity Skin: Normal skin turgor, no rash, no nodules or ulcers. Neuro: No focal motor deficit. Normal speech. Psychiatry: Normal mood, no agitation. Assessment and plan Chest pain Hyperlipidemia Troponin trended negative. Continue aspirin and statin. Patient seen by cardiology Dr. Roa, chest pain concerning for unstable angina. Xarelto changed to full dose Lovenox in anticipation for cardiac cath as planned by cardiology for Friday 02/09. Echocardiogram is pending Cardiology to follow. History of PE Xarelto changed to full dose Lovenox in anticipation for cardiac catheterization. Hypertension Continue home medications. Chronic pain syndrome History of HIV History of migraine Fibromyalgia Stable. Continue home medications. Analgesics as needed. DVT prophylaxis: Lovenox Advanced directive full code
[2025-02-07] MEDS ORDERED: ENOXAPARIN 80 MG/0.8 ML SQ SCH (21:00)
[2025-02-08 06:32] LABS: Absolute Eosinophils 0.1 K/uL (0-0.5); Absolute Lymphocytes (CBC) 0.9 K/uL (0.7-4.9); Absolute Monocytes 0.5 K/uL (0.1-1.3); Absolute Neutrophil 2.2 K/uL (1.8-8.0); Basophils % 0.7 % (0-1.3); Eosinophils % 2.8 % (0-4.4); Hematocrit 44.9 % (36.0-45.0); Lymphocytes % 23.5 % (15.3-44.8); MCH 32.1 pg (27.0-35.0); MCHC 35.6 g/dL (32.0-36.0); MCV 90.2 fL (80-100); MPV 7.9 fL (7.6-11.3); Monocytes % 13.4 % (3.3-12.3); Neutrophils % 59.6 % (41.7-73.7); Platelets 212 thou/uL (152-406); RBC Red Blood Cell Count 4.98 M/uL (3.86-4.86); Red Cell Distribution Width 12.8 % (12.1-15.2)
[2025-02-08 06:50] LABS: Albumin 3.1 g/dL (3.4-5.0); Albumin/Globulin Ratio 0.8 (1.1-1.8); Anion Gap 6.9 mEq/L (5.0-15.0); Bilirubin Total 0.4 mg/dL (0.2-1.0); Potassium 3.9 mEq/L (3.5-5.1); Protein, Total 7.1 g/dL (6.4-8.2)
--- NOTE | 2025-02-08 16:02 | P.PN ---
Subjective Date of Service: 02/08/25 Chief Complaint: SOB Patient states her pain is better controlled today. She denies shortness of breath. No recorded fever. Physical Examination - Vital Signs Temperature: 98.0 F Blood Pressure: 114/69 Pulse: 67 Respirations: 16 Pulse Ox (%): 96 Assessment And Plan - Plan Physical examination General: Alert and oriented x3, NAD, Neck: No elevated JVD Heart: Heart sounds 1 and 2 normal, regular rhythm, normal rate, no pedal edema Lungs: Clear to auscultation bilaterally, adequate breath sounds bilaterally, no rhonchi or crackles. Abdomen: Soft, nondistended, nontender, normal bowel sounds. Extremities: No tenderness, no deformity Skin: Normal skin turgor, no rash, no nodules or ulcers. Neuro: No focal motor deficit. Normal speech. Psychiatry: Normal mood, no agitation. Assessment and plan Chest pain Hyperlipidemia Troponin trended negative. Continue aspirin and statin. Patient seen by cardiology Dr. Roa, chest pain concerning for unstable angina. Xarelto changed to full dose Lovenox in anticipation for cardiac cath as planned by cardiology for Friday 02/09. Echocardiogram is pending Cardiology to follow. History of PE Xarelto changed to full dose Lovenox in anticipation for cardiac catheterization. Hypertension Continue home medications. Chronic pain syndrome History of HIV History of migraine Fibromyalgia Stable. Continue home medications. Analgesics as needed. 02/08 Continue full dose Lovenox Of note patient presented with tachycardia. Continue Cardizem Analgesics as needed Echocardiogram is pending. Cardiology planning cardiac catheterization tomorrow. Patient has polycythemia-unknown etiology. Liver enzymes have also trended up. Previous US liver has shown fatty liver, status postcholecystectomy. Obtain liver ultrasound. Continue other home medications. DVT prophylaxis: Lovenox Advanced directive full code
--- NOTE | 2025-02-08 17:51 | RAD REPORT ---
EXAMINATION: US Liver Only CLINICAL HISTORY: Elevated LFT COMPARISON: None. TECHNIQUE: Limited upper abdominal grayscale and color flow sonographic images. FINDINGS: Gallbladder: Surgically removed Bile ducts: No intrahepatic or extrahepatic biliary dilatation. Common bile duct measures 2 mm. Liver: Visualized portions of the liver demonstrate normal echogenicity with no suspicious findings. Fluid: No ascites. IMPRESSION: No liver abnormalities on right upper quadrant ultrasound.
--- NOTE | 2025-02-08 19:29 | PN ---
Date of Progress Note: 02/08/2025 Subjective: Seen by bedside. She continues to have on and off chest pain. No active chest pain, at the present time, but activities producing pain. Review of Systems: No nausea, vomiting, or diarrhea. She has been having on and off chest pain with shortness of breath . No dysuria, polyuria, or urinary urgency. No fever. All other systems were reviewed, they were n egative. Physical Examination: Vital Signs: Reviewed. Head and Neck: Pupils are equal, reactive to light. Intact eye movements. No JVD. No cervical lym phadenopathy. Neck is supple. Thyroid is not enlarged. Lungs: Clear to auscultation bilaterally. No rhonchi, wheezing, or crackles. No accessory muscle u se. Heart: Regular rate and rhythm. No extra sounds. Abdomen: Soft, nontender. Bowel sounds positive. No organomegaly. No masses or hernia. No rigidi ty or rebound. Extremities: No edema, clubbing, or cyanosis. Intact pulses. Skin: No rash. No nodule. Neurologic: Alert, awake, and oriented x3. No acute focal deficits appreciated. Investigations: BUN is 15, creatinine 0.66. Cardiac enzymes are negative and hemoglobin is 16. Assessment And Recommendations: 1. Unstable angina. Continues to have chest pain on and off throughout the weekend. The pain is sally y aggressive and severe requiring emergency room visits. Keep NPO past midnight and plan for coronar y angiogram tomorrow morning. 2. Atrial fibrillation, she is in sinus, on Lovenox. To please hold Lovenox after tonight's dose in preparation for heart catheterization tomorrow and then resume her Eliquis afterwards. 3. Dyslipidemia, on Crestor. Continue current therapy. SR/MODL Voice ID: [id number] Report ID: [id number]
[2025-02-09 06:29] LABS: Albumin 2.9 g/dL (3.4-5.0); Albumin/Globulin Ratio 0.7 (1.1-1.8); Anion Gap 6.9 mEq/L (5.0-15.0); Bilirubin Total 0.6 mg/dL (0.2-1.0); Globulin 4.1 g/dL (2.3-3.5); Potassium 3.9 mEq/L (3.5-5.1)
[2025-02-09] MEDS ORDERED: NA CHLORIDE 0.9% 500 ML ONE (07:07)
[2025-02-09] MEDS ORDERED: HEPA 1000U/500MLS 2,000 UNIT/1,000 ML BAG IV ONE (07:22)
[2025-02-09] MEDS ORDERED: ATROPINE SULF 1 MG/10 ML SYR IV ONE (07:22)
[2025-02-09] MEDS ORDERED: HEPARIN 10,000 UNIT/10 ML VIAL IV ONE (07:22)
[2025-02-09] MEDS ORDERED: NITROGLYCERIN/D5W 50 MG/250 ML BTL IV ONE (07:22)
[2025-02-09] MEDS ORDERED: CLOPIDOGREL 75 MG TABLET ONE (07:22)
[2025-02-09] MEDS ORDERED: LIDOCAINE 1% 20 ML MDV ONE (07:22)
[2025-02-09] MEDS ORDERED: ASPIRIN 325 MG TAB ONE (07:23)
[2025-02-09] MEDS ORDERED: TICAGRELOR 90 MG TABLET PO ONE (07:23)
[2025-02-09] MEDS ORDERED: HEPARIN 5000 UNIT/ML 1 ML VIAL ONE (07:23)
[2025-02-09] MEDS ORDERED: MIDAZOLAM HCL 2 MG/2 ML INJ ONE (07:47)
[2025-02-09] MEDS ORDERED: FENTANYL CITR 100 MCG/2 ML ONE (07:48)
--- NOTE | 2025-02-09 08:34 | P.PN ---
Subjective Date of Service: 02/09/25 Chief Complaint: SOB Subjective: No new changes, No C/O voiced, Tolerating diet, Ambulating, Improving Review of Systems 10-point ROS is otherwise unremarkable Physical Examination - Vital Signs Temperature: 97.9 F Blood Pressure: 117/68 Pulse: 69 Respirations: 16 Pulse Ox (%): 98 - Physical Exam General: Alert, In no apparent distress HEENT: Atraumatic, PERRLA, EOMI Neck: Supple, JVD not distended Respiratory: Clear to auscultation bilaterally, Normal air movement Cardiovascular: Regular rate/rhythm, Normal S1 S2 Gastrointestinal: Normal bowel sounds, No tenderness Musculoskeletal: No tenderness Integumentary: No rashes Neurological: Normal speech, Normal tone, Normal affect Lymphatics: No axilla or inguinal lymphadenopathy - Studies Medications List Reviewed: Yes Assessment And Plan - Current Problems (Diagnosis) (1) Unstable angina Current Visit: Yes Status: Acute Plan: Patient had coronary angiogram done this morning that shown normal coronaries. continue medical management. (2) Atrial fibrillation Current Visit: Yes Status: Acute Plan: currently in sinus rhythm. continue Diltazem CD 120 mg daily resume Xarelto 20 mg daily
[2025-02-09] MEDS ORDERED: ONDANSETRON 4 MG/2 ML VIAL ONE (09:36)
[2025-02-09 10:03] VITALS: O2SAT 98
--- NOTE | 2025-02-09 12:11 | EKG ---
Test Date: 2025-02-05 Test Time: 22:18:03 [place]indraw Operator: BERTIN MEASUREMENT RESULTS: Intervals: Rate: 112 [place]: QRSD: 86 QT: 306 QTc: 417 [place]: P: DE: QRS: 83 T: 37 INTERPRETIVE STATEMENTS: Atrial fibrillation Abnormal ECG Compared to ECG 08/21/2024 15:48:39 Sinus rhythm no longer present Myocardial infarct finding no longer present Electronically Signed On 02-09-25 12:03:33 CDT by Leland Rogers
[2025-02-09 12:26] VITALS: BP 115/81; TEMP 98.2
--- NOTE | 2025-02-09 13:12 | OP ---
Date of Procedure: 02/09/2025 Surgeon: Leland Rogers Procedure Performed: Selective coronary angiogram. Indication For Procedure: Unstable angina. Complications: None. Estimated Blood Loss: Less than 50 cc. Access: Right radial, closed by TR band. Sedation Time: 20 minutes with 1 of Versed and 25 of fentanyl. Description Of Procedure: After risks, benefits, and alternatives were explained to the patient, the patient agreed to proceed with procedure and signed informed consent. The patient was brought back to the incinerator plant laborer, prepped and draped in sterile fashion. Time-out was performed. Sedation was admini stered. Next, right radial access was obtained using ultrasound-guided micropuncture technique. Tig er 4 catheter was advanced over J-wire to the aortic root. Selective angiogram was done using same c atheter. At the end of the procedure, catheter was removed over a J-wire. Sheath was removed. TR b and was applied. Hemostasis was achieved. The patient was moved back to recovery in stable conditio n. Findings: 1. Left main, normal. 2. LAD, normal. 3. Left circ, normal. 4. RCA, normal. Assessment: Normal coronaries. Plan: Continue medical management. DARIANA/ESPERANZA Voice ID: [id number] Report ID: [id number]
--- NOTE | 2025-02-09 19:35 | P.DS ---
Admission Date: 02/07/25 Discharge Date: 02/09/25 Disposition: ROUTINE DISCHARGE Discharge Condition: FAIR Reason for Admission: SOB Brief History of Present Illness: 49 yrs old Female with past medical history of diabetes, hypertension, hyperlipidemia, hypertrophic cardiomyopathy, history of kidney stones and lung nodules and history of migraine and sleep apnea and history of PE came to ER with chest discomfort, located retrosternally, radiating to the left side and shoulder, described as pressure-like feeling, 4 out of 10 in severity at the time of interview, not associated with any diaphoresis. Patient was assessed in the ER, chest x-ray unremarkable, initial troponin negative. Patient's symptoms was concerning for unstable angina. She was admitted for further management. Hospital Course: Patient admitted to the medical floor and the following medical problems addressed: Chest pain Hyperlipidemia Troponin trended negative. Continued at home dose aspirin and statin. Patient seen by cardiology Dr. Roa, chest pain concerning for unstable angina. Xarelto changed to full dose Lovenox in anticipation for cardiac cath as planned by cardiology for 02/09/2025 Cardiac catheterization performed and patient noted to have normal coronary arteries. Patient deemed stable for discharge per cardiology. History of PE Chronic atrial fibrillation Xarelto changed to full dose Lovenox in anticipation for cardiac catheterization. Home dose Xarelto resumed on discharge Hypertension Continued home medications. Chronic pain syndrome History of HIV History of migraine Fibromyalgia Stable. Continued home medications. Patient needed IV morphine and oral oxycodone for breakthrough pain. Elevated LFT Patient informed about progressive elevation of her LFTs. Liver ultrasound done during this admission was unremarkable. Patient reports prior liver biopsy which was normal. I communicated to the patient that she takes multiple medications which can cause the elevated liver enzymes, 1 culprit be Crestor. Patient opted to follow-up with her PCP Dr. Blas for any medication adjustments needed for elevated LFT. Vital Signs/Physical Exam: Temp Pulse Resp BP Pulse Ox 98.2 F 84 16 115/81 93 02/09/25 12:00 02/09/25 12:02/09/25 12:00 02/09/25 12:02/09/25 12:00 General: Alert, In no apparent distress HEENT: Sclerae nonicteric Neck: JVD not distended Cardiovascular: No edema Gastrointestinal: Non-distended Laboratory Data at Discharge: WBC 3.70 thou/uL (4.3-10.9) L 02/08/25 05:58 Hgb 16.0 g/dL (12.0-15.0) H 02/08/25 05:58 Hct 44.9 % (36.0-45.0) 02/08/25 05:58 Plt Count 212 thou/uL (152-406) 02/08/25 05:58 PT 10.9 SECONDS (10-13.0) 02/05/25 23:09 INR 0.95 02/05/25 23:09 Sodium 138 mEq/L (136-145) 02/09/25 05:19 Potassium 3.9 mEq/L (3.5-5.1) 02/09/25 05:19 BUN 14 mg/dL (7-18) 02/09/25 05:19 Creatinine 0.66 mg/dL (0.55-1.02) 02/09/25 05:19 Glucose 145 mg/dL (74-106) H 02/09/25 05:19 Phosphorus 4.0 mg/dL (2.5-4.9) 02/07/25 06:14 Magnesium 2.1 mg/dL (1.6-2.4) 02/05/25 23:09 Total Bilirubin 0.6 mg/dL (0.2-1.0) 02/09/25 05:19 AST 248 U/L (15-37) H 02/09/25 05:19 ALT 357 U/L (13-56) H 02/09/25 05:19 Alkaline Phosphatase 283 U/L (45-117) H 02/09/25 05:19 Triglycerides Cancelled 02/09/25 10:39 Cholesterol Cancelled 02/09/25 10:39 HDL Cholesterol Cancelled 02/09/25 10:39 Cholesterol/HDL Ratio Cancelled 02/09/25 10:39 Home Medications: Rosuvastatin Calcium 40 mg PO DAILY 04/01/21 Semaglutide [Ozempic] 0.5 mg SQ EVERY 7TH DAY 04/01/21 dilTIAZem HCL [Cartia Xt] 300 mg PO BEDTIME 04/01/21 Atogepant [Qulipta] 60 mg PO PRN PRN 02/06/25 Bictegrav/Emtricit/Tenofov Ala [Biktarvy 30-120-15 mg Tablet] See Rx Instructions .ROUTE .COMPLEX 02/06/25 Bictegrav/Emtricit/Tenofov Ala [Biktarvy 50-200-25 mg Tablet] 1 each PO DAILY 02/06/25 Cyclobenzaprine [Flexeril*] 10 mg PO TID PRN 02/06/25 Empagliflozin [Jardiance] 25 mg PO DAILY 02/06/25 Lisinopril [Zestril] 2.5 mg PO DAILY 02/06/25 Meclizine HCl 25 mg PO PRN PRN 02/06/25 Rivaroxaban [Xarelto] 20 mg PO DAILY 02/06/25 Trazodone [Desyrel*] 100 mg PO BEDTIME 02/06/25 buPROPion HCl [Wellbutrin Sr] 150 mg PO DAILY 02/06/25 glipiZIDE [Glipizide] 10 mg PO DAILY 02/06/25 Fremanezumab-Vfrm [Ajovy Syringe] 225 mg SQ SEECOM 02/09/25 Quetiapine [Seroquel*] 100 mg PO BEDTIME tab 02/09/25 Diet: AHA Activity: Ad lynette Followup: Leland Rogers MD [ACTIVE - CAN ADMIT] - NONE,NONE [Primary Care Provider] - 1 Week Time spent managing pt's care (in minutes): 33
== END 2025-02-09 12:58 | disposition home or self-care (01) | DRG 287 ==
LOC: ER 22:00 → ERHOLD 02-06 02:05 → 2ND 02-06 12:00 → OBSVTOIN 02-07 10:02 → INTOOBSV 02-07 10:02 → OBSVTOIN 02-07 19:23
PROVIDERS: ADMIT Family Medicine; ATTEND Internal Medicine
PROC: B2111ZZ Fluoroscopy of Multiple Coronary Arteries using Low Osmolar Contrast (ICD-10-PCS; principal; 2025-02-09)
DX: I20.0 Unstable angina (principal); I42.9 Cardiomyopathy, unspecified; E11.9 Type 2 diabetes mellitus without complications; Z21 Asymptomatic human immunodeficiency virus [HIV] infection status; I10 Essential (primary) hypertension; I48.91 Unspecified atrial fibrillation; E78.5 Hyperlipidemia, unspecified; M79.7 Fibromyalgia; R74.8 Abnormal levels of other serum enzymes; G89.4 Chronic pain syndrome; Z86.711 Personal history of pulmonary embolism; Z79.01 Long term (current) use of anticoagulants; Z11.52 Encounter for screening for COVID-19
CPT/HCPCS: 36415; 71045; 76705; 76937; 80048; 80053; 80076; 82947; 83735; 83880; 84100; 84484; 85025; 85610; 87428; 93005; 93454; 94760; 96374; 99152; 99153; 99285; C1893; G0378; J0461; J1644; J1815; J2003; J2250; J2270; J2405; J3010; J7040; Q9966

== ENCOUNTER 2025-03-07 10:51 | Emergency (ER) | payer OTHER ==
[2025-03-07] MEDS ORDERED: FAMOTIDINE 20 MG TAB ONE (12:45)
[2025-03-07] MEDS ORDERED: hydrOXYzine HCL 25 MG TAB ONE (12:45)
[2025-03-07 14:28] LABS: Influenza A Ag Negative; Influenza B Ag Negative; SARS-CoV-2 Antigen Rapid Res Negative (Negative)
--- NOTE | 2025-03-07 14:34 | EDPHYS ---
Physician Documentation [facility] – [place], [place] Name: Flakita Barton Age: 49 yrs Sex: Female : 1975 Arrival Date: 03/07/2025 Time: 10:51 Bed 28 Private MD: Ej Perez HPI: 03/07 12:40 This 49 yrs old Female presents to ER via Ambulatory with complaints of johanne measles exposure. 12:40 The patient's rash thought to be caused by Dermatitis. The rash is located on the body johanne diffusely. The rash can be described as erythematous. Onset: The symptoms/episode began/occurred 7 day(s) ago. Associated signs and symptoms: Pertinent positives: nausea. Severity of symptoms: At their worst the symptoms were mild in the emergency department the symptoms are unchanged. The patient or guardian reports cough. Severity of symptoms: At their worst the symptoms were mild, in the emergency department the symptoms are unchanged. Historical: - Allergies: 11:32 Codeine; hb 11:32 Hydrocodone-Acetaminophen; hb 11:32 PENICILLINS; hb - PMHx: 11:32 HIV positive; Hypertrophic cardiomyopathy; Kidney stones; Lung Nodule; Migraines; PE; hb Sleep Apnea; Diabetes - NIDDM; - PSHx: 11:32 section; Total abdominal hysterectomy; Appendectomy; hb - Immunization history:: Adult Immunizations up to date. - Infectious Disease History:: Denies. - Social history:: Smoking status: Patient reports the use of cigarette tobacco products, denies chronic smoking, but will smoke occasionally, Reported history of juuling and/or vaping. - Family history:: not pertinent. ROS: 12:40 Constitutional: Negative for fever, chills, and weight loss, Eyes: Negative for injury, johanne pain, redness, and discharge, ENT: Negative for injury, pain, and discharge, Neck: Negative for injury, pain, and swelling, Cardiovascular: Negative for chest pain, palpitations, and edema, Respiratory: Negative for shortness of breath, cough, wheezing, and pleuritic chest pain, Abdomen/GI: Negative for abdominal pain, nausea, vomiting, diarrhea, and constipation, Back: Negative for injury and pain, : Negative for injury, bleeding, discharge, and swelling, MS/Extremity: Negative for injury and deformity, Skin: Negative for injury, rash, and discoloration, Neuro: Negative for headache, weakness, numbness, tingling, and seizure, Psych: Negative for depression, anxiety, suicide ideation, homicidal ideation, and hallucinations, Endocrine: Negative for neck swelling, polydipsia, polyuria, polyphagia, and marked weight changes, Hematologic/Lymphatic: Negative for swollen nodes, abnormal bleeding, and unusual bruising, Exam: 12:40 Constitutional: This is a well developed, well nourished patient who is awake, alert, johanne and in no acute distress. Head/Face: Normocephalic, atraumatic. Eyes: Pupils equal round and reactive to light, extra-ocular motions intact. Lids and lashes normal. Conjunctiva and sclera are non-icteric and not injected. Cornea within normal limits. Periorbital areas with no swelling, redness, or edema. ENT: Nares patent. No nasal discharge, no septal abnormalities noted. Tympanic membranes are normal and external auditory canals are clear. Oropharynx with no redness, swelling, or masses, exudates, or evidence of obstruction, uvula midline. Mucous membranes moist. Neck: Trachea midline, no thyromegaly or masses palpated, and no cervical lymphadenopathy. Supple, full range of motion without nuchal rigidity, or vertebral point tenderness. No Meningismus. Chest/axilla: Normal chest wall appearance and motion. Nontender with no deformity. No lesions are appreciated. Cardiovascular: Regular rate and rhythm with a normal S1 and S2. No gallops, murmurs, or rubs. Normal PMI, no JVD. No pulse deficits. Respiratory: Lungs have equal breath sounds bilaterally, clear to auscultation and percussion. No rales, rhonchi or wheezes noted. No increased work of breathing, no retractions or nasal flaring. Abdomen/GI: Soft, non-tender, with normal bowel sounds. No distension or tympany. No guarding or rebound. No evidence of tenderness throughout. Back: No spinal tenderness. No costovertebral tenderness. Full range of motion. MS/ Extremity: Pulses equal, no cyanosis. Neurovascular intact. Full, normal range of motion., bilateral aka Neuro: Awake and alert, GCS 15, oriented to person, place, time, and situation. Cranial nerves II-XII grossly intact. Motor strength 5/5 in all extremities. Sensory grossly intact. Cerebellar exam normal. Normal gait. 12:40 Skin: abscess, not appreciated, cellulitis, is not appreciated, induration, is not appreciated, injury, is not appreciated, Vital Signs: 10:59 BP 131 / 78; Pulse 88; Resp 16; Temp 99(O); Pulse Ox 98% on R/A; Weight 94.8 kg; Height hb 5 ft. 7 in. ; Pain 0/10; 10:59 Body Mass Index 32.73 (94.80 kg, 170.18 cm) hb 10:59 Pain Scale: Adult hb MDM: 10:58 Medical Screening Exam initiated [facility] 12:43 Differential diagnosis: impetigo, varicella, allergic reaction, parasite infection. [facility] Data reviewed: vital signs, nurses notes, lab test result(s). Consideration of Admission/Observation Patient was admitted/placed on observation. I considered the following discharge prescriptions or medication management in the emergency department Medications were administered in the Emergency Department. See MAR. Care significantly affected by the following chronic conditions: hiv, cardiomyopathy, kidney stones, migraines. 03/07 12:16 Order name: Misc. Lab Test [facility] 03/07 12:23 Order name: COVID-19 Ag + Flu A+B Ag; Complete Time: 14:33 [facility] 03/07 12:23 Order name: Group A Streptococcus Rapid; Complete Time: 14:33 [facility] 03/07 14:20 Order name: Throat Culture EDMS Administered Medications: 13:30 Drug: hydrOXYzine PO 50 mg PO once Route: PO; hb 14:30 Follow up: Response: No adverse reaction hb 13:30 Drug: Famotidine PO 40 mg PO once Route: PO; hb 14:30 Follow up: Response: No adverse reaction hb Disposition Summary: 03/07/25 14:33 Discharge Ordered Notes: Location: Home [facility] Problem: new johanne Symptoms: have improved johanne Condition: Stable johanne Diagnosis - Other specified viral diseases johanne Followup: johanne - With: Private Physician - When: 2 - 3 days - Reason: Recheck today's complaints, Continuance of care, Re-evaluation by your physician Discharge Instructions: - Discharge Summary Sheet johanne - Viral Respiratory Infection johanne Forms: - Medication Reconciliation Form johanne - Antibiotic Education johanne - Prescription Opioid Use johanne - Patient Portal Instructions johanne - Leadership Thank You Letter johanne - Work release form hb Prescriptions: - Hydroxyzine HCl 25 mg Oral Tablet - take 1 tablet ORAL route every 6 hours As needed; 30 tablet; Refills: 0, johanne Product Selection Permitted - Pepcid 20 mg Oral tablet - take 1 tablet ORAL route every 12 hours for 21 days; 42 tablet; Refills: 0, johanne Product Selection Permitted Signatures: Dispatcher [employer] Ej Olivarez MD MD cha Baxter, Heather, RN RN hb
--- NOTE | 2025-03-07 14:34 | ER ---
Nurse's Notes [facility] Name: Flakita Barton Age: 49 yrs Sex: Female : 1975 Arrival Date: 03/07/2025 Time: 10:51 Bed 28 Private MD: Diagnosis: Other specified viral diseases Presentation: 03/07 10:59 Chief complaint: Notified by [facility] that she was exposed to measles on 02/26. hb Reports congestion, sneezing, runny nose, itchy eyes, drainage from eyes, itchy rash on face, neck, torso, arms, thighs, and buttocks, and fever that started on 02/28. TMAX 100. Coronavirus screen: At this time, the client does not indicate any symptoms associated with coronavirus-19. Ebola Screen: No symptoms or risks identified at this time. Initial Sepsis Screen: Does the patient meet any 2 criteria? No. Patient's initial sepsis screen is negative. Does the patient have a suspected source of infection? No. Patient's initial sepsis screen is negative. Risk Assessment: Do you want to hurt yourself or someone else? Patient reports no desire to harm self or others. Onset of symptoms was March 07, 2025. 10:59 Method Of Arrival: Ambulatory hb 10:59 Acuity: TAYO 2 hb Triage Assessment: 11:42 General: Appears in no apparent distress. Behavior is calm, cooperative. Pain: Denies hb pain. EENT: Reports RUNNY NOSE, ITCHY AND DRAINAGE FROM EYES, SINUS CONGESTION. Neuro: Level of Consciousness is awake, alert, obeys commands, Oriented to person, place, time, situation. Cardiovascular: Patient's skin is warm and dry. Respiratory: Respiratory effort is even, unlabored, Respiratory pattern is regular, symmetrical. GI: No signs and/or symptoms were reported involving the gastrointestinal system. : No signs and/or symptoms were reported regarding the genitourinary system. Derm: Rash noted that is ITCHY RASH ON FACE, NECK, TRUNK, ARMS, AND THIGHS. Musculoskeletal: No signs and/or symptoms reported regarding the musculoskeletal system. Historical: - Allergies: 11:32 Codeine; hb 11:32 Hydrocodone-Acetaminophen; hb 11:32 PENICILLINS; hb - PMHx: 11:32 HIV positive; Hypertrophic cardiomyopathy; Kidney stones; Lung Nodule; Migraines; PE; hb Sleep Apnea; Diabetes - NIDDM; - PSHx: 11:32 section; Total abdominal hysterectomy; Appendectomy; hb - Immunization history:: Adult Immunizations up to date. - Infectious Disease History:: Denies. - Social history:: Smoking status: Patient reports the use of cigarette tobacco products, denies chronic smoking, but will smoke occasionally, Reported history of juuling and/or vaping. - Family history:: not pertinent. Screenin:44 [facility] ED Fall Risk Assessment (Adult) History of falling in the last 3 months, hb including since admission No falls in past 3 months (0 pts) Confusion or Disorientation No (0 pts) Intoxicated or Sedated No (0 pts) Impaired Gait No (0 pts) Mobility Assist Device Used No (0 pt) Altered Elimination No (0 pt) Score/Fall Risk Level 0 - 2 = Low Risk Oriented to surroundings, Maintained a safe environment, Educated pt \T\ family on fall prevention, incl call for assistance when getting out of bed. Abuse screen: Denies threats or abuse. Denies injuries from another. Nutritional screening: No deficits noted. Tuberculosis screening: No symptoms or risk factors identified. Assessment: 10:59 Reassessment: PT MOVED FROM [facility] AND PLACED IN REVERSE ISOLATION ROOM 28, WITH MASK. hb AT BEDSIDE ALSO MASKED. 12:15 Reassessment: Patient appears in no apparent distress at this time. Patient and/or hb family updated on plan of care and expected duration. Pain level reassessed. Patient is alert, oriented x 3, equal unlabored respirations, skin warm/dry/pink. 13:30 Reassessment: Patient appears in no apparent distress at this time. Patient and/or hb family updated on plan of care and expected duration. Pain level reassessed. Patient is alert, oriented x 3, equal unlabored respirations, skin warm/dry/pink. 14:55 Reassessment: Patient appears in no apparent distress at this time. Patient and/or hb family updated on plan of care and expected duration. Pain level reassessed. Patient is alert, oriented x 3, equal unlabored respirations, skin warm/dry/pink. Vital Signs: 10:59 BP 131 / 78; Pulse 88; Resp 16; Temp 99(O); Pulse Ox 98% on R/A; Weight 94.8 kg; Height hb 5 ft. 7 in. ; Pain 0/10; 10:59 Body Mass Index 32.73 (94.80 kg, 170.18 cm) hb 10:59 Pain Scale: Adult hb ED Course: 10:57 Patient arrived in ED. al6 10:58 Ej Malik MD is Attending Physician. johanne 11:32 Triage completed. hb 11:44 Arm band placed on. hb 11:44 Patient has correct armband on for positive identification. Bed in low position. Call hb light in reach. Provided Education on: NEXT STEPS, SAFETY PRECAUTIONS . 12:15 No provider procedures requiring assistance completed. Patient did not have IV access hb during this emergency room visit. 13:40 Randi Ha, RN is Primary Nurse. hb 13:40 Misc. Lab Test Sent. hb 13:40 COVID-19 Ag + Flu A+B Ag Sent. hb 13:40 Group A Streptococcus Rapid Sent. hb Administered Medications: 13:30 Drug: hydrOXYzine PO 50 mg PO once Route: PO; hb 14:30 Follow up: Response: No adverse reaction hb 13:30 Drug: Famotidine PO 40 mg PO once Route: PO; hb 14:30 Follow up: Response: No adverse reaction hb Medication: 11:44 VIS not applicable for this client. hb Outcome: 14:33 Discharge ordered by . johanne 14:56 Discharged to home ambulatory, with significant other, hb 14:56 Condition: stable 14:56 Discharge instructions given to patient, Instructed on discharge instructions, follow up and referral plans. medication usage, QUARANTINE UNTIL NEGATIVE RESULT FROM HEALTH DEPT Demonstrated understanding of instructions, follow-up care, medications, Prescriptions given X 2, 14:56 Patient left the ED. hb Signatures: Ej Malik MD MD cha Baxter, Heather, RN RN Nickie Cardoza al6 Corrections: (The following items were deleted from the chart) 11:42 11:40 Reassessment: PT MOVED FROM LOB AND PLACED IN REVERSE ISOLATION ROOM 28, WITH hb MASK. AT BEDSIDE ALSO MASKED. hb 13:44 10:59 Reassessment: PT MOVED FROM LOBBY AND PLACED IN REVERSE ISOLATION ROOM 28, WITH hb MASK. AT BEDSIDE ALSO MASKED. hb
[2025-03-07 15:28] VITALS: BP 131/78; TEMP 99; O2SAT 98
== END 2025-03-07 14:56 | disposition home or self-care (01) ==
LOC: ER 10:51
DX: B33.8 Other specified viral diseases (principal); Z21 Asymptomatic human immunodeficiency virus [HIV] infection status; Z11.52 Encounter for screening for COVID-19; Z72.0 Tobacco use
CPT/HCPCS: 36415; 87070; 87428; 99283

== ENCOUNTER 2025-04-09 14:15 | Emergency (ER) | payer OTHER ==
[2025-04-09 15:32] LABS: Absolute Eosinophils 0.1 K/uL (0-0.5); Absolute Lymphocytes (CBC) 0.9 K/uL (0.7-4.9); Absolute Monocytes 0.8 K/uL (0.1-1.3); Absolute Neutrophil 5.1 K/uL (1.8-8.0); Basophils % 0.5 % (0-1.3); Eosinophils % 1.6 % (0-4.4); Hematocrit 51.9 % (36.0-45.0); Hemoglobin 18.1 g/dL (12.0-15.0); Lymphocytes % 13.3 % (15.3-44.8); MCH 31.6 pg (27.0-35.0); MCHC 34.8 g/dL (32.0-36.0); MCV 90.9 fL (80-100); MPV 7.5 fL (7.6-11.3); Monocytes % 10.8 % (3.3-12.3); Neutrophils % 73.8 % (41.7-73.7); Platelets 286 thou/uL (152-406); RBC Red Blood Cell Count 5.71 M/uL (3.86-4.86); Red Cell Distribution Width 12.7 % (12.1-15.2)
[2025-04-09 16:05] LABS: Albumin 4.3 g/dL (3.4-5.0); Anion Gap 5.3 mEq/L (5.0-15.0); Bilirubin Total 0.8 mg/dL (0.2-1.0); Globulin 4.1 g/dL (2.3-3.5); Protein, Total 8.4 g/dL (6.4-8.2)
[2025-04-09 16:15] LABS: Potassium 4.3 mEq/L (3.5-5.1)
--- NOTE | 2025-04-09 16:15 | RAD REPORT ---
EXAM: CT brain without contrast HISTORY: HEADACHE COMPARISON: None TECHNIQUE: Multiple contiguous axial images were obtained and a CT of the brain without contrast. Sag ittal and coronal reformats were performed. One or more of the following dose reduction techniques were used: Automated exposure control, adjust ment of the mA and/or kV according to patient size, and/or iterative reconstruction. FINDINGS: No evidence of hydrocephalus, intracranial hemorrhage, or extra-axial fluid collection. The brain is normal in morphology. No evidence of midline shift or areas of brain edema. The calvarium is intact. The visualized paranasal sinuses and mastoid air cells are essentially clear . IMPRESSION: No evidence of acute intracranial abnormality.
[2025-04-09] MEDS ORDERED: DIPHENHYDRAMINE 50 MG/ML VIAL ONE (16:20)
[2025-04-09] MEDS ORDERED: KETOROLAC 30 MG/ML INJ ONE (16:20)
[2025-04-09] MEDS ORDERED: NA CHLORIDE 0.9% 2,000 ML ONE (16:21)
[2025-04-09] MEDS ORDERED: METOCLOPRAMIDE 10 MG/2mL INJ ONE (16:21)
[2025-04-09 16:36] LABS: Specific Gravity > 1.030 (1.005-1.030)
[2025-04-09 16:38] LABS: Specific Gravity > 1.030 (1.005-1.030); Sqamous Epithelial <5 /HPF (None Seen); Urine Bacteria <20 /HPF (<20); Urine Bilirubin NEGATIVE (Negative); Urine Blood Trace (Negative); Urine Clarity Clear (Clear); Urine Color Light-Yellow (Yellow); Urine Culture Reflex Order NOT NEEDED; Urine Glucose 4+ (Over) (Negative); Urine Ketones 2+ (Negative); Urine Microscopic Reflex YN ORDER UMIC; Urine Nitrite NEGATIVE (Negative); Urine Protein NEGATIVE (Negative); Urine Urobilinogen Normal (Normal); Urine WBC <5 /HPF (<5); Urine pH 5.5 (5.0-7.0)
--- NOTE | 2025-04-09 18:21 | ER ---
Nurse's Notes [facility] Name: Flakita Barton Age: 49 yrs Sex: Female : 1975 Arrival Date: 04/09/2025 Time: 14:15 Bed 20 Private MD: Diagnosis: Headache;Vomiting Presentation: 04/09 14:25 Chief complaint: Patient states: N/V, abdominal pain, [place], migraine since Sunday. Took ll1 Ozempic injection Sunday night. Coronavirus screen: Client denies travel out of the [place] in the last 14 days. At this time, the client does not indicate any symptoms associated with coronavirus-19. Ebola Screen: Patient denies travel to an Ebola-affected area in the 21 days before illness onset. Initial Sepsis Screen: Does the patient meet any 2 criteria? No. Patient's initial sepsis screen is negative. Does the patient have a suspected source of infection? No. Patient's initial sepsis screen is negative. Risk Assessment: Do you want to hurt yourself or someone else? Patient reports no desire to harm self or others. Onset of symptoms was April 06, 2025. 14:25 Method Of Arrival: Ambulatory 1 14:25 Acuity: TAYO 3 ll1 Triage Assessment: 19:50 Headache History: The patient has had previous headaches and this one is more severe hm5 than previous episodes. General: Appears uncomfortable, well groomed, well developed. Pain: Also complains of. Pain: Pain currently is 2 out of 10 on a pain scale. Pain began 2-3 days ago. 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 - Infectious Disease History:: Denies. - Social history:: Smoking status: Patient reports the use of cigarette tobacco products, smokes one-half pack cigarettes per day. - Family history:: not pertinent. Screenin:47 [facility] ED Fall Risk Assessment (Adult) History of falling in the last 3 months, kc6 including since admission No falls in past 3 months (0 pts) Confusion or Disorientation No (0 pts) Intoxicated or Sedated No (0 pts) Impaired Gait No (0 pts) Mobility Assist Device Used No (0 pt) Altered Elimination No (0 pt) Score/Fall Risk Level 0 - 2 = Low Risk Oriented to surroundings. Abuse screen: Denies threats or abuse. Denies injuries from another. Nutritional screening: No deficits noted. Tuberculosis screening: No symptoms or risk factors identified. Assessment: 16:47 General: Appears in no apparent distress. comfortable, well groomed, well developed, kc6 Behavior is calm, cooperative, appropriate for age, quiet. Neuro: Level of Consciousness is awake, alert, obeys commands, Oriented to person, place, time, situation, Appropriate for age Reports headache. Cardiovascular: Capillary refill < 3 seconds. Respiratory: Airway is patent Trachea midline Respiratory effort is even, unlabored, Respiratory pattern is regular, symmetrical. GI: Abdomen is flat, non-distended, Bowel sounds present X 4 quads. Abd is soft and non tender X 4 quads. Reports intolerance of fluids, intolerance of food, nausea, vomiting, Patient currently denies abdominal pain, diarrhea. : No signs and/or symptoms were reported regarding the genitourinary system. Urine is cloudy. EENT: No signs and/or symptoms were reported regarding the EENT system. Derm: No signs and/or symptoms reported regarding the dermatologic system. Skin is intact, is healthy with good turgor, Skin is pink, warm \T\ dry. Musculoskeletal: No signs and/or symptoms reported regarding the musculoskeletal system. Circulation, motion, and sensation intact. Range of motion: intact in all extremities. 17:47 Reassessment: Patient appears in no apparent distress at this time. No changes from kc6 previously documented assessment. Patient and/or family updated on plan of care and expected duration. Pain level reassessed. Patient is alert, oriented x 3, equal unlabored respirations, skin warm/dry/pink. 18:23 Reassessment: d/c pending completion of IV fluids. kc6 18:47 Reassessment: Patient appears in no apparent distress at this time. No changes from kc6 previously documented assessment. Patient and/or family updated on plan of care and expected duration. Pain level reassessed. Patient is alert, oriented x 3, equal unlabored respirations, skin warm/dry/pink. Vital Signs: 14:25 BP 147 / 93; Pulse 92; Resp 16; Temp 97.9; Pulse Ox 99% ; Weight 88.45 kg; Height 5 ft. ll1 7 in. ; Pain 10/10; 17:48 BP 133 / 85; Pulse 85; Resp 18 S; Pulse Ox 99% on R/A; kc6 19:55 BP 132 / 76; Pulse 74; Resp 17; Pulse Ox 97% ; hm5 14:25 Body Mass Index 30.54 (88.45 kg, 170.18 cm) ll1 14:25 Pain Scale: Adult ll1 Xuan Coma Score: 17:05 Eye Response: spontaneous(4). Motor Response: obeys commands(6). Verbal Response: johanne oriented(5). Total: 15. ED Course: 14:19 Patient arrived in ED. al6 14:20 Ej Malik MD is Attending Physician. johanne 14:25 Arm band placed on. ll1 14:27 Triage completed. ll1 15:19 Comprehensive Metabolic Panel Sent. nh2 15:19 CBC with Diff Sent. nh2 15:19 Missed attempt(s): 22 gauge in right antecubital area. infiltrated upon flushing, was nh2 able to collect blood.. 15:30 Inserted saline lock: 22 gauge in right antecubital area, using aseptic technique. nh2 Blood collected. Flushed with 10 mL NS. 15:58 Niurka Holcomb, RN is Primary Nurse. kc6 16:04 CT Head Brain wo Cont In Process Unspecified. EDMS 16:47 Patient has correct armband on for positive identification. Placed in gown. Bed in low kc6 position. Call light in reach. Side rails up X2. Adult w/ patient. Pulse ox on. NIBP on. Door closed. Noise minimized. Lights dimmed. Warm blanket given. Pillow given. Verbal reassurance given. 16:47 Oxygen administration via nasal cannula \T\ 2L/min. kc6 17:47 IV discontinued, intact, bleeding controlled, No redness/swelling at site. Pressure kc6 dressing applied. Inserted saline lock: 24 gauge in right wrist, using aseptic technique. Flushed with 10 mL NS. 18:21 Josue Lentz MD is Referral Physician. [facility] 19:05 Report given to KATHI Bryan. kc6 19:50 No provider procedures requiring assistance completed. 5 19:51 Provided Education on: plan of care. 5 19:55 IV discontinued, intact, bleeding controlled, No redness/swelling at site. Pressure hm5 dressing applied. Administered Medications: 16:36 Drug: NS 0.9% IV 1000 ml IV at 1 bolus Per protocol; to be given as a bolus over 60 kc6 minutes Route: IV; Rate: 1 bolus; Site: right antecubital; 16:36 Drug: NS 0.9% IV 1000 ml IV at 1000 ml once; to be given as a bolus over 60 minutes kc6 Route: IV; Rate: 1000 ml; Site: right antecubital; 19:30 Follow up: IV Status: Completed infusion; IV Intake: 1000ml 5 19:56 Follow up: IV Status: Completed infusion; IV Intake: 1000ml [facility] 16:36 Drug: Ketorolac IVP 30 mg IVP once Route: IVP; Site: right antecubital; kc6 18:18 Follow up: Response: No adverse reaction; Pain is decreased 6 19:56 Follow up: Response: No adverse reaction [facility] 16:36 Drug: diphenhydrAMINE IVP 50 mg IVP once Route: IVP; Site: right antecubital; kc6 18:18 Follow up: Response: No adverse reaction 6 16:37 Drug: metoCLOPramide IVP 10 mg IVP once; over 1 to 2 minutes Route: IVP; Site: right kc6 antecubital; 18:18 Follow up: Response: No adverse reaction 6 18:58 Drug: Promethazine IM 25 mg IM once; IV IN 500 NS REMAINING {Note: right wrist.} Route: kc6 IM; Site: Other; 19:57 Follow up: Response: No adverse reaction; Nausea is decreased [facility] 19:49 Drug: fentaNYL (PF) IVP 50 mcg IVP once Route: IVP; Site: right wrist; 5 19:49 Follow up: Response: No adverse reaction; Pain is decreased 5 Medication: 19:52 VIS not applicable for this client. 5 Intake: 19:30 IV: 1000ml; Total: 1000ml. 5 19:56 IV: 1000ml; Total: 2000ml. [facility] Outcome: 18:21 Discharge ordered by . johanne 19:50 Discharged to home ambulatory, [facility] 19:50 Condition: stable 19:50 Discharge instructions given to patient, family, Instructed on discharge instructions, follow up and referral plans. medication usage, Demonstrated understanding of Prescriptions given X 3, 19:57 Patient left the ED. [facility] Signatures: Dispatcher [employer] EDMS Ej Malik MD MD cha Lewis, Lynsay RN RN ll1 Niurka Holcomb RN RN 6 Narciso Nickerson Jr, Alissa vaRandi Alvarez RN RN [facility] Corrections: (The following items were deleted from the chart) 19:52 14:25 Allergies: Codeine; [place] [id number] 19:52 14:25 Allergies: Hydrocodone-Acetaminophen; [place] [id number]
--- NOTE | 2025-04-09 18:22 | EDPHYS ---
Physician Documentation [facility] Name: Flakita Barton Age: 49 yrs Sex: Female : 1975 Arrival Date: 04/09/2025 Time: 14:15 Bed 20 Private MD: POHNG Physician Ej Malik HPI: 04/09 17:03 This 49 yrs old Female presents to ER via Ambulatory with complaints of Headache, johanne Vomiting. 17:03 The patient complains of pain to the forehead and left eye. The patient describes the johanne headache as aching, constant. Onset: The symptoms/episode began/occurred gradually, 4 day(s) ago. Associated signs and symptoms: Pertinent positives: vomiting. Severity of symptoms: At its worst the pain was mild, in the emergency department the pain is unchanged. Headache History: The patient has had previous headaches and this one is different than previous episodes. The patient has experienced similar episodes in the past, several times, but today's symptoms are worse. 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 - Infectious Disease History:: Denies. - Social history:: Smoking status: Patient reports the use of cigarette tobacco products, smokes one-half pack cigarettes per day. - Family history:: not pertinent. ROS: 17:03 Constitutional: Negative for fever, chills, and weight loss, Eyes: Negative for injury, johanne pain, redness, and discharge, ENT: Negative for injury, pain, and discharge, Neck: Negative for injury, pain, and swelling, Cardiovascular: Negative for chest pain, palpitations, and edema, Respiratory: Negative for shortness of breath, cough, wheezing, and pleuritic chest pain, Back: Negative for injury and pain, : Negative for injury, bleeding, discharge, and swelling, MS/Extremity: Negative for injury and deformity, Skin: Negative for injury, rash, and discoloration, Psych: Negative for depression, anxiety, suicide ideation, homicidal ideation, and hallucinations, Allergy/Immunology: Negative for hives, rash, and allergies, Endocrine: Negative for neck swelling, polydipsia, polyuria, polyphagia, and marked weight changes, Hematologic/Lymphatic: Negative for swollen nodes, abnormal bleeding, and unusual bruising, 17:03 Abdomen/GI: Positive for nausea and vomiting, 17:03 Neuro: Positive for headache, Exam: 17:03 Constitutional: This is a well developed, well nourished patient who is awake, alert, johanne and in no acute distress. Head/Face: Normocephalic, atraumatic. Eyes: Pupils equal round and reactive to light, extra-ocular motions intact. Lids and lashes normal. Conjunctiva and sclera are non-icteric and not injected. Cornea within normal limits. Periorbital areas with no swelling, redness, or edema. ENT: Nares patent. No nasal discharge, no septal abnormalities noted. Tympanic membranes are normal and external auditory canals are clear. Oropharynx with no redness, swelling, or masses, exudates, or evidence of obstruction, uvula midline. Mucous membranes moist. Neck: Trachea midline, no thyromegaly or masses palpated, and no cervical lymphadenopathy. Supple, full range of motion without nuchal rigidity, or vertebral point tenderness. No Meningismus. Chest/axilla: Normal chest wall appearance and motion. Nontender with no deformity. No lesions are appreciated. Cardiovascular: Regular rate and rhythm with a normal S1 and S2. No gallops, murmurs, or rubs. Normal PMI, no JVD. No pulse deficits. Respiratory: Lungs have equal breath sounds bilaterally, clear to auscultation and percussion. No rales, rhonchi or wheezes noted. No increased work of breathing, no retractions or nasal flaring. Abdomen/GI: Soft, non-tender, with normal bowel sounds. No distension or tympany. No guarding or rebound. No evidence of tenderness throughout. Back: No spinal tenderness. No costovertebral tenderness. Full range of motion. Skin: Warm, dry with normal turgor. Normal color with no rashes, no lesions, and no evidence of cellulitis. MS/ Extremity: Pulses equal, no cyanosis. Neurovascular intact. Full, normal range of motion., bilateral aka Neuro: Awake and alert, GCS 15, oriented to person, place, time, and situation. Cranial nerves II-XII grossly intact. Motor strength 5/5 in all extremities. Sensory grossly intact. Cerebellar exam normal. Normal gait. Psych: Awake, alert, with orientation to person, place and time. Behavior, mood, and affect are within normal limits. 17:03 Neck: External neck: is normal, no acute changes, C-spine: appears grossly normal, no acute changes, ROM/movement: is normal, is supple, without pain, no range of motions limitations, no meningismus, no nuchal rigidity, negative Brudzinski's sign, negative Kernig's sign, limited range of motion, is not appreciated, Meningeal signs: are not present, Kernig's sign is negative, Brudzinski's sign is negative, Vital Signs: 14:25 BP 147 / 93; Pulse 92; Resp 16; Temp 97.9; Pulse Ox 99% ; Weight 88.45 kg; Height 5 ft. ll1 7 in. ; Pain 10/10; 17:48 BP 133 / 85; Pulse 85; Resp 18 S; Pulse Ox 99% on R/A; kc6 19:55 BP 132 / 76; Pulse 74; Resp 17; Pulse Ox 97% ; hm5 14:25 Body Mass Index 30.54 (88.45 kg, 170.18 cm) ll1 14:25 Pain Scale: Adult ll1 Xuan Coma Score: 17:05 Eye Response: spontaneous(4). Motor Response: obeys commands(6). Verbal Response: johanne oriented(5). Total: 15. MDM: 14:20 Medical Screening Exam initiated johanne 17:05 Differential diagnosis: cluster headache, glaucoma, herpes zoster, hypertensive johanne headache, hypoglycemia, hyponatremia, migraine, neoplasm, subdural hematoma, temporal arteritis, tension headache, traumatic injuries, trigeminal neuralgia, vasomotor headache. Data reviewed: vital signs, nurses notes, lab test result(s), radiologic studies, plain films. Consideration of Admission/Observation Escalation of care including admission/observation considered. I considered the following discharge prescriptions or medication management in the emergency department Medications were administered in the Emergency Department. See MAR. Independent interpretation of the following test(s) in the Emergency Department CT Scan: My interpretation is ct head. Care significantly affected by the following chronic conditions: Diabetes, Hypertension, Obesity, cardiomyopathy, lidney stones, hiv. 04/09 14:23 Order name: CBC with Diff; Complete Time: 16:39 [facility] 04/09 14:23 Order name: Comprehensive Metabolic Panel; Complete Time: 16:39 [facility] 04/09 14:23 Order name: UA Rfx Won Cult if indicated; Complete Time: 16:39 [facility] 04/09 14:23 Order name: PREGU; Complete Time: 16:39 [facility] 04/09 15:21 Order name: CT Head Brain wo Cont; Complete Time: 16:39 [facility] 04/09 14:24 Order name: Oxygen: 2 liters; Complete Time: 16:18 [facility] Administered Medications: 16:36 Drug: NS 0.9% IV 1000 ml IV at 1 bolus Per protocol; to be given as a bolus over 60 kc6 minutes Route: IV; Rate: 1 bolus; Site: right antecubital; 16:36 Drug: NS 0.9% IV 1000 ml IV at 1000 ml once; to be given as a bolus over 60 minutes kc6 Route: IV; Rate: 1000 ml; Site: right antecubital; 19:30 Follow up: IV Status: Completed infusion; IV Intake: 1000ml 5 19:56 Follow up: IV Status: Completed infusion; IV Intake: 1000ml 5 16:36 Drug: Ketorolac IVP 30 mg IVP once Route: IVP; Site: right antecubital; 6 18:18 Follow up: Response: No adverse reaction; Pain is decreased 6 19:56 Follow up: Response: No adverse reaction 5 16:36 Drug: diphenhydrAMINE IVP 50 mg IVP once Route: IVP; Site: right antecubital; 6 18:18 Follow up: Response: No adverse reaction 6 16:37 Drug: metoCLOPramide IVP 10 mg IVP once; over 1 to 2 minutes Route: IVP; Site: right kc6 antecubital; 18:18 Follow up: Response: No adverse reaction 6 18:58 Drug: Promethazine IM 25 mg IM once; IV IN 500 NS REMAINING {Note: right wrist.} Route: kc6 IM; Site: Other; 19:57 Follow up: Response: No adverse reaction; Nausea is decreased 5 19:49 Drug: fentaNYL (PF) IVP 50 mcg IVP once Route: IVP; Site: right wrist; 5 19:49 Follow up: Response: No adverse reaction; Pain is decreased 5 Disposition Summary: 04/09/25 18:21 Discharge Ordered Notes: Location: Home johanne Problem: new johanne Symptoms: have improved johanne Condition: Stable johanne Diagnosis - Headache johanne - Vomiting johanne Followup: johanne - With: Private Physician - When: 2 - 3 days - Reason: Recheck today's complaints, Continuance of care, Re-evaluation by your physician Followup: johanne - With: Josue Lentz MD - When: 2 - 3 days - Reason: Recheck today's complaints, Re-evaluation by your physician Discharge Instructions: - Discharge Summary Sheet johanne - General Headache Without Cause johanne - Migraine Headache johanne - Migraine Headache, [id number] johanne - General Headache Without Cause, [id number] johanne Forms: - Medication Reconciliation Form johanne - Antibiotic Education johanne - Prescription Opioid Use johanne - Patient Portal Instructions [facility] - Leadership Thank You Letter [facility] Prescriptions: - diclofenac sodium 50 mg Oral tablet, delayed release (enteric coated) - take 1 tablet ORAL route 3 times per day; 21 tablet; Refills: 0, Product [facility] Selection Permitted - ondansetron 8 mg Oral Tablet,disintegrating - take 1 tablet ORAL route every 8 hours as needed for nausea and vomiting; 20 johanne tablet; Refills: 0, Product Selection Permitted - promethazine 25 mg Oral Tablet - take 1 tablet ORAL route every 6 hours As needed; 20 tablet; Refills: 0, [facility] Product Selection Permitted Signatures: Dispatcher [employer] EDMS Ej Malik MD MD cha Lewis, Lynsay RN RN ll1 Niurka Holcomb RN RN kc6 Randi Martinez, KATIH RN 5 Corrections: (The following items were deleted from the chart) 15:21 15:21 LIPASE+C.LAB.BRZ ordered. EDMS EDMS 15:21 15:21 Head Brain Wo Cont+CT.RAD.BRZ ordered. EDMS EDMS 19:52 14:25 Allergies: Codeine; ll1 5 19:52 14:25 Allergies: Hydrocodone-Acetaminophen; ll1 5
[2025-04-09] MEDS ORDERED: PROMETHAZINE INJ 25 MG/ML AMP ONE (18:49)
[2025-04-09] MEDS ORDERED: FENTANYL CITR 100 MCG/2 ML ONE (19:22)
[2025-04-09 20:25] VITALS: TEMP 97.9
[2025-04-09 20:27] VITALS: BP 132/76; O2SAT 97
== END 2025-04-09 19:57 | disposition home or self-care (01) ==
LOC: ER 14:15
DX: R51.9 Headache, unspecified (principal); R11.10 Vomiting, unspecified; E11.9 Type 2 diabetes mellitus without complications; F17.210 Nicotine dependence, cigarettes, uncomplicated; Z88.0 Allergy status to penicillin; Z88.5 Allergy status to narcotic agent
CPT/HCPCS: 85025; 81001; 36415; 81025; 80053; 70450; 96372; 99285; J2550; J2765; J1200; J3010; J7030